=== PATIENT | female | born 1935 | race Caucasian/White ===

== ENCOUNTER 2016-03-24 18:37 | Emergency (ER) | payer MEDICARE, OTHER ==
[2016-03-24] MEDS ORDERED: DIPH,PERTUS(ACELL)TETVAC-LF 0.5 ML VIAL IM ONE (18:59)
--- NOTE | 2016-03-24 19:01 | ED ---
General Adult HPI - General Chief complaint: Wound/Laceration Stated complaint: fall Time Seen by Provider: 03/24/16 18:51 Source: patient, RN notes reviewed Mode of arrival: wheelchair Limitations: no limitations - History of Present Illness Initial comments: This is an 80-year-old female who presents with a laceration to the nose. Patient states she tripped on a rug at [employer] and fell on her face. Patient states her glasses cut her nose. Patient is not up-to-date on tetanus shot. Patient denies any loss of consciousness. Patient denies any headache, nausea/ vomiting/visual changes, dizziness or difficulty ambulating. Patient's roommate is present with her and states she has been acting normally since the fall. Patient does admit that she had some epistaxis after the fall, but the bleeding is now under control. Patient is not on any anticoagulants. Patient denies any recent fever, chills, shortness breath, chest pain, abdominal pain, nausea/vomiting/diarrhea, back pain, numbness, tingling, hematuria, or any other complaints. - Related Data Home Medications Medication Instructions Recorded Confirmed Allopurinol [Zyloprim] 300 mg PO Q3D 08/05/14 03/24/16 Lisinopril [Zestril] 5 mg PO DAILY 08/05/14 03/24/16 Pravastatin Sodium [Pravachol] 20 mg PO DAILY 08/05/14 03/24/16 Alendronate Sodium [Fosamax] 70 mg PO ROBLES 02/17/15 03/24/16 Aspirin 81 mg PO DAILY 02/17/15 03/24/16 Biotin 5 mg PO DAILY 02/17/15 03/24/16 Cholecalciferol [Vitamin D3] 2,000 unit PO BID 02/17/15 03/24/16 Iron 18 mg PO DAILY 02/17/15 03/24/16 Previous Rx's Medication Instructions Recorded Metoprolol Tartrate [Lopressor] 25 mg PO BID #60 tab 02/21/15 Sodium Bicarbonate Tab 650 mg PO TID #60 tab 02/21/15 amLODIPine [Norvasc] 5 mg PO BID #60 tab 02/21/15 glipiZIDE [Glucotrol] 5 mg PO AC-BID #60 tab 02/21/15 hydrALAZINE HCL [Apresoline] 25 mg PO TID #90 tab 02/21/15 Azithromycin [Zithromax Z-pack] 250 mg PO DIRECTED #6 tab 03/24/16 Allergies Allergy/AdvReac Type Severity Reaction Status Date / Time Penicillins Allergy Unknown Verified 03/24/16 18:50 Sulfa (Sulfonamide Allergy Unknown Verified 03/24/16 18:50 Antibiotics) Review of Systems ROS Statement: Those systems with pertinent positive or pertinent negative responses have been documented in the HPI. ROS Other: All systems not noted in ROS Statement are negative. Past Medical History Past Medical History: Cancer, Diabetes Mellitus, Hypertension, Renal Disease Additional Past Medical History / Comment(s): 02/17/15 Pt presented to [facility] ER with chest pain starting about 0330 this AM. Pain radiated to L neck and down L arm. She is admitted with clinical impression of chest pain. 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 History of Any Multi-Drug Resistant Organisms: None Reported Past Surgical History: Adenoidectomy, Bowel Resection, Breast Surgery, Tonsillectomy Additional Past Surgical History / Comment(s): L Breast lumpectomy sugery, partial colectomy for perforation with colostomy for 3 months then reversed, colonoscopy with benign polypectomy, double J catheter insertion L kidney then percutaneous nephrolithotomy attempted and then lithrotropsey ([facility]) and removal of double J catheters. Past Anesthesia/Blood Transfusion Reactions: Motion Sickness Additional Past Anesthesia/Blood Transfusion Reaction / Comment(s): Pt states she has never received blood. Past Psychological History: No Psychological Hx Reported Additional Psychological History / Comment(s): Pt resides with her sister. She has a cane she uses if it is icey outside. She is independent. She drives. Smoking Status: Never smoker Past Alcohol Use History: None Reported Past Drug Use History: None Reported - Past Family History Father Family Medical History: Musculoskeletal Disorder, Neurologic Disorder Additional Family Medical History / Comment(s): Father had parkinsons and at age 60yrs. Mother Family Medical History: Cancer Additional Family Medical History / Comment(s): Mother had stomach cancer and in her 70's. General Exam - General Exam Comments Initial Comments: General: The patient is awake and alert, in no distress, and does not appear acutely ill. Eye: Pupils are equal, round and reactive to light, extra-ocular movements are intact. No pain on palpation of the facial bones. No pain with extraocular movements. No nystagmus. There is normal conjunctiva bilaterally. No signs of icterus. Ears: TMs pink and pearly with intact cone of light bilaterally. Normal external ear canals Nose: There is swelling to the bridge of the nose with an approximately 1.5 cm laceration to the bridge of the nose. There is blood present to bilateral nasal turbinates but no active bleeding. No septal hematoma. Mouth and throat: There are moist mucous membranes and no oral lesions. Neck: No cervical midline tenderness. The neck is supple, there is no tenderness or JVD. Cardiovascular: There is a regular rate and rhythm. No murmur, rub or gallop is appreciated. Respiratory: Lungs are clear to auscultation, respirations are non-labored, breath sounds are equal. No wheezes, stridor, rales, or rhonchi. Musculoskeletal: Normal ROM, no tenderness. Strength 5/5. Sensation intact. Radial pulses equal bilaterally 2+. Neurological: A&O x 3. CN II-XII intact, There are no obvious motor or sensory deficits. Coordination appears grossly intact. Speech is normal. Skin: Skin is warm and dry and no rashes or lesions are noted. Psychiatric: Cooperative, appropriate mood & affect, normal judgment. Limitations: no limitations Course Vital Signs 03/24/16 03/24/16 03/24/16 18:47 20:37 21:29 Temperature 98.2 F Pulse Rate 84 71 73 Respiratory 20 18 18 Rate Blood Pressure 169/80 216/113 237/103 O2 Sat by Pulse 95 96 96 Oximetry Procedures - Procedures Initial comment: The skin was anesthetized with 1% lidocaine. The laceration was then cleansed and irrigated with normal saline. The wound was inspected, and there was no evidence of injury to deep structures. No foreign body was noted in the wound. A total of 4 skin sutures were placed utilizing 5-0 Ethilon. Laceration is approx 1.5 cm. Medical Decision Making - Medical Decision Making This is an 80-year-old female presents laceration of the nose after hitting her head when she fell at [employer]. On physical exam patient is neurologically intact. There is swelling to the bridge of the nose with an approximately 1.5 cm laceration to the bridge of the nose. There is blood present to bilateral nasal turbinates but no active bleeding. No septal hematoma. I discussed with patient that we'll be getting an x-ray of her nasal bones and a CT of brain and C-spine. Patient received a tetanus shot in the [facility] today. X-ray and CT was done showing: #1 no acute intracranial process. #2 chronic white matter ischemic changes. CT of C-spine: #1 no acute osseous abnormality. #2 a large central disc herniation at C3-C4 with moderate anterior thecal sac compression. Consider follow-up MRI to evaluate for cord changes. Reports by Dr. Agee. Xray nasal bone: #1 fractures of the nasal bone and maxillary spine. Correlate with the location of the patient's pain. #2 overlying soft tissue swelling frontal region. Reported by . I re-examined the patient and she has no pain with palpation of the neck or with range of motion of the neck. I discussed follow up with a neurosurgeon for MRI. The skin was anesthetized with 1% lidocaine. The laceration was then cleansed and irrigated with normal saline. The wound was inspected, and there was no evidence of injury to deep structures. No foreign body was noted in the wound. A total of 4 skin sutures were placed utilizing 5-0 Ethilon. Laceration is approx 1.5 cm. I discussed that sutures need to be removed in 5 days. I discussed that rinsing and showering are okay but to avoid submerging the wound in water. Discussed [id number] Tylenol and Motrin as needed for any pain. I discussed use of topical Neosporin. I discussed return parameters and signs of infection. I discussed that patient was given a course of antibiotics due to open fracture of the nose. Discussed that patient needs to follow-up with ENT in 2 days. I discussed ice to the nose. I discussed return parameters. Discussed worsening signs and symptoms of head injury. Discussed that patient should follow up with PCP in one to 2 days or return to the [facility] for any worsening symptoms or for any further concerns. Patient was receptive to this plan and patient will be discharged home. I discussed this case with attending physician Dr. Oh who agrees with plan as stated above. Patient's blood pressure was elevated upon recheck. Patient states she is due for 2 home medications. At this time patient was given her normal home doses of Norvasc and hydralazine. Patient is asymptomatic. Blood pressure was rechecked and is decreasing , 205/95. Patient is not having any symptoms of high blood pressure and patient will be discharged home at this time. I discussed this case with attending physician Dr. Oh who agrees with plan as stated above. Disposition Clinical Impression: Laceration, Open nasal fracture, Cervical disc herniation Disposition: HOME SELF-CARE Condition: Good Instructions: Nasal Fracture (ED), Care For Your Stitches (ED) Additional Instructions: Please finish entire course of antibiotics. Please have sutures removed in 5 days. Please use Neosporin to the wound. Please do not submerge the wound in water but rinsing and showering are okay. Please follow-up with ENT in her primary care physician in one to 2 days. Please return to the [facility] for any worsening symptoms or for any further concerns. Prescriptions: Azithromycin [Zithromax Z-pack] 250 mg PO DIRECTED #6 tab Referrals: Surendra Ford MD [STAFF PHYSICIAN] - 1-2 days Edilma Wood MD [Primary Care Provider] - 1-2 days Scott Gant MD [REFERRING] - 1-2 days Time of Disposition: 22:10
--- NOTE | 2016-03-24 20:03 | CT ---
EXAMINATION TYPE: CT brain cspine wo con DATE OF EXAM: 03/24/2016 7:24 PM COMPARISON: 02/18/2015 HISTORY: Fall today with frontal injury CT DLP: 1378.1 mGycm, Automated exposure control for dose reduction was used. CONTRAST: None CT of the brain is performed utilizing 3 mm thick sections through the posterior fossa and 3 mm thick sections through the remaining calvarium. Study is performed within 24 hours of arrival to the hospital. No abnormal hyperdensity is present to suggest an acute intracranial hemorrhage. No mass lesion is evident. No acute infarcts are evident. There is periventricular white matter hypodensity, likely on the basi s of chronic white matter ischemic changes. Ventricles and sulci are minimally prominent for the patient age. Paranasal sinuses and mastoid air cells within the [id number] are clear. Nasal bone fractures evident. Other soft tissue injury over the nasal bone region. No additional frac tures are evident. Paranasal sinuses and mastoid air cells are clear. IMPRESSIONS: 1. No acute intracranial process. 2. Chronic white matter ischemic changes. 3. Fracture of the nasal bone with overlying soft tissue injury CT cervical spine. COMPARISON: None CT of the cervical spine is performed in the axial plane at 2 mm thick sections. Reconstructed image s in the coronal, and sagittal plane are reviewed on the computer. No acute fractures are evident. Vertebral body alignment is normal. There appears to be central disc herniation at C3-4 with moderate anterior thecal sac compression. So me cord contact may be present. MRI could further evaluate this finding. Vertebral body heights are preserved. Some canal narrowing posterior to the disc herniation is present. Mild foraminal narrowing is present. IMPRESSIONS: 1. No acute osseous abnormality. 2. A large central disc herniation C3-C4 with moderate anterior thecal sac compression. Consider foll ow-up MRI to evaluate for cord changes.
--- NOTE | 2016-03-24 20:06 | XR ---
EXAMINATION TYPE: XR nasal bone DATE OF EXAM: 03/24/2016 7:26 PM COMPARISON: NONE HISTORY: Fall, injury pain TECHNIQUE: 3 views nasal bone FINDINGS: Septal deviation to the left is noted. There is a nasal bone fracture of the distal portion of the nasal bone. Maxillary spine likewise appears fractured. IMPRESSION: 1. Fractures of the nasal bone and maxillary spine. Correlate with location of the patient's pain. 2. Overlying soft tissue swelling frontal region
[2016-03-24] MEDS ORDERED: hydrALAZINE HCL 25 MG TAB PO STA (20:36)
[2016-03-24] MEDS ORDERED: amLODIPine 5 MG TAB PO STA (20:36)
[2016-03-24 20:39] VITALS: RESP 18
[2016-03-24 21:30] VITALS: PULSE 73
[2016-03-24 22:16] VITALS: BP 205/95; TEMP 97.1
== END 2016-03-24 22:11 | disposition home or self-care (01) ==
LOC: EC 18:37
DX: S02.2XXB Fracture of nasal bones, initial encounter for open fracture (principal); S01.21XA Laceration without foreign body of nose, initial encounter; M50.21 Other cervical disc displacement, high cervical region; E11.9 Type 2 diabetes mellitus without complications; I10 Essential (primary) hypertension; M10.9 Gout, unspecified; Z23 Encounter for immunization; Z86.2 Personal history of diseases of the blood and blood-forming organs and certain disorders involving the immune mechanism; Z79.82 Long term (current) use of aspirin; Z79.899 Other long term (current) drug therapy; Z88.0 Allergy status to penicillin; Z88.2 Allergy status to sulfonamides; Z87.442 Personal history of urinary calculi; W01.110A Fall on same level from slipping, tripping and stumbling with subsequent striking against sharp glass, initial encounter; Y92.22 Religious institution as the place of occurrence of the external cause
CPT/HCPCS: 12011; 70160; 70450; 72125; 90471; 90715; 99283

== ENCOUNTER → 2016-06-25 | Outpatient (CLI) | payer MEDICARE ==
--- NOTE | 2016-06-26 14:19 | MM ---
Reason for exam: screening (asymptomatic). Last mammogram was performed 1 year and 1 month ago. History: Patient is postmenopausal, has history of breast cancer at age 69, and is nulliparous. Radiation therapy of the left breast, November 2004. Malignant left mammotome panel of the left breast, September 03, 2004. Lumpectomy. Physical Findings: A clinical breast exam by your physician is recommended on an annual basis and results should be correlated with mammographic findings. MG 3D Screening Mammo W/Cad Bilateral CC and MLO view(s) were taken. Prior study comparison: June 06, 2015, bilateral MG 3d screening mammo w/cad. There are scattered fibroglandular densities. Post biopsy changes in the left breast. ASSESSMENT: Benign, BI-RAD 2 RECOMMENDATION: Follow-up diagnostic mammogram of both breasts in 1 year.
== END ==
LOC: RADMAMWWP 12:49
PROVIDERS: ATTEND Internal Medicine
DX: Z12.31 Encounter for screening mammogram for malignant neoplasm of breast (principal)
CPT/HCPCS: 77063; G0202

== ENCOUNTER → 2016-10-01 | Outpatient (CLI) | payer MEDICARE ==
--- NOTE | 2016-10-01 14:34 | US ---
EXAMINATION TYPE: US kidneys/renal and bladder DATE OF EXAM: 10/01/2016 COMPARISON: NONE CLINICAL HISTORY: R94.4 Abnormal Renal Function. Abnormal renal function/ pt states history of renal stones EXAM MEASUREMENTS: Right Kidney: 7.2 x 3.2 x 3.6 cm Left Kidney: 10.5 x 4.9 x 4.9 cm Right Kidney: Atrophic Left Kidney: Dilated renal pelvis lower pole with possible renal calculi= 0.6 cm/ A possible second r enal calculi at mid pole = 0.4 cm Bladder: wnl Bilateral Jets seen: Only left jet visualized Incidental finding gallstones IMPRESSION: 1. Left-sided hydronephrosis mild in degree with nephrolithiasis. 2. Atrophic changes of the right kidney.
== END | disposition home or self-care (01) ==
LOC: RADUSWWP 13:42
PROVIDERS: ATTEND Internal Medicine
DX: N13.30 Unspecified hydronephrosis (principal); N20.0 Calculus of kidney; N26.1 Atrophy of kidney (terminal)
CPT/HCPCS: 76770

== ENCOUNTER → 2016-10-23 | Outpatient (CLI) | payer MEDICARE ==
[2016-10-23 11:56] LABS: CH 32.8; CHCM 33.6; HDW 2.76; HGB 9.9 gm/dL (11.4-16.0); MCH 33.5 pg (25.0-35.0); MCHC 34.1 g/dL (31.0-37.0); MCV 98.2 fL (80.0-100.0); Macrocytosis Slight; Mean Platelet Volume 7.3; RBC 2.95 m/uL (3.80-5.40); RDW 15.3 % (11.5-15.5); WBC 7.3 k/uL (3.8-10.6)
[2016-10-23 12:12] LABS: Appearance,Urine Clear (Clear); Bilirubin,Urine Negative (Negative); Glucose,Urine (UA) Trace (Negative); Ketones,Urine Negative (Negative); Leukocyte Esterase,Urine Negative (Negative); Mucus,Urine Rare /hpf; Nitrite,Urine Negative (Negative); PH, Urine 6.5 (5.0-8.0); Particle Count 791; Protein,Urine 3+ (Negative); RBC,Urine <1 /hpf (0-5); Squamous Epithelial Cell,Urine 1 /hpf (0-4); UA Billing (MACRO vs. MICRO) MICRO; Urobilinogen,Urine <2.0 mg/dL (<2.0); WBC,Urine 4 /hpf (0-5)
[2016-10-23 12:31] LABS: Calcium 8.8 mg/dL (8.4-10.2); Phosphorous 3.5 mg/dL (2.5-4.5); Potassium 4.1 mmol/L (3.5-5.1); Total Protein 6.2 g/dL (6.3-8.2)
== END | disposition home or self-care (01) ==
LOC: LABWHC1 11:02
PROVIDERS: ATTEND Internal Medicine Nephrology
DX: D64.9 Anemia, unspecified (principal); E83.39 Other disorders of phosphorus metabolism; N39.0 Urinary tract infection, site not specified
CPT/HCPCS: 36415; 80053; 81001; 84100; 85027

== ENCOUNTER → 2016-11-22 | Outpatient (CLI) | payer MEDICARE ==
[2016-11-22 10:24] LABS: Basophils % (A) 1 %; CH 32.2; CHCM 32.6; Eosinophils # (A) 0.2 k/uL (0-0.7); Eosinophils % (A) 3 %; HCT 30.7 % (34.0-46.0); HDW 2.81; HGB 10.6 gm/dL (11.4-16.0); Luc # (Auto) 0.16; Luc % (Auto) 2; Lymphocytes # (A) 1.2 k/uL (1.0-4.8); Lymphocytes % (A) 14 %; MCH 34.4 pg (25.0-35.0); MCHC 34.5 g/dL (31.0-37.0); MCV 99.6 fL (80.0-100.0); Macrocytosis Slight; Mean Platelet Volume 7.3; Monocytes # (A) 0.5 k/uL (0-1.0); Monocytes % (A) 5 %; Neutrophils # (A) 6.7 k/uL (1.3-7.7); Neutrophils % (A) 76 %; RBC 3.09 m/uL (3.80-5.40); RDW 15.3 % (11.5-15.5); WBC 8.8 k/uL (3.8-10.6); WBC (Perox) 9.05
[2016-11-22 10:49] LABS: Calcium 8.8 mg/dL (8.4-10.2); Magnesium 1.8 mg/dL (1.6-2.3); Phosphorus 3.6 mg/dL (2.5-4.5); Potassium 4.7 mmol/L (3.5-5.1); Uric Acid 3.7 mg/dL (3.7-7.4)
[2016-11-22 11:03] LABS: Appearance,Urine Clear (Clear); Bacteria,Urine Rare /hpf; Bilirubin,Urine Negative (Negative); Glucose,Urine (UA) 1+ (Negative); Ketones,Urine Negative (Negative); Leukocyte Esterase,Urine Negative (Negative); Nitrite,Urine Negative (Negative); PH, Urine 6.5 (5.0-8.0); Particle Count 939; Protein,Urine 3+ (Negative); Specific Gravity,Urine 1.012 (1.001-1.035); Squamous Epithelial Cell,Urine 1 /hpf (0-4); UA Billing (MACRO vs. MICRO) MICRO; Urobilinogen,Urine <2.0 mg/dL (<2.0); WBC,Urine 6 /hpf (0-5)
[2016-11-22 16:32] LABS: ANA w/Reflex to Titer NEGATIVE (NEGATIVE)
[2016-11-22 16:38] LABS: Iron(FE) 50 ug/dL (50-170); Total Iron Binding Capacity 303 ug/dL (228-460)
[2016-11-25 05:47] LABS: Complement Total (CH50) 79 U/mL (42 - 95)
[2016-11-25 14:55] LABS: C-ANCA <1:20 Titer (<1:20); P-ANCA <1:20 Titer (<1:20)
== END | disposition home or self-care (01) ==
LOC: LABWHC1 09:09
PROVIDERS: ATTEND Internal Medicine Nephrology
DX: D64.9 Anemia, unspecified (principal); N18.4 Chronic kidney disease, stage 4 (severe); E55.9 Vitamin D deficiency, unspecified; R80.9 Proteinuria, unspecified; R53.83 Other fatigue; E21.3 Hyperparathyroidism, unspecified; M10.9 Gout, unspecified; N39.0 Urinary tract infection, site not specified
CPT/HCPCS: 36415; 80048; 81001; 81050; 82040; 82306; 82728; 83516; 83540; 83550; 83735; 83970; 84100; 84156; 84165; 84550; 85025; 86038; 86160; 86162; 86225; 86255; 86335; 86803; 87340

== ENCOUNTER → 2017-02-17 | Outpatient (CLI) | payer MEDICARE ==
[2017-02-17 09:50] LABS: Calcium 9.4 mg/dL (8.4-10.2); Potassium 4.4 mmol/L (3.5-5.1)
[2017-02-17 09:53] LABS: Basophils % (A) 0 %; Eosinophils # (A) 0.2 k/uL (0-0.7); Eosinophils % (A) 2 %; HCT 29.2 % (34.0-46.0); HGB 9.3 gm/dL (11.4-16.0); Lymphocytes # (A) 1.3 k/uL (1.0-4.8); Lymphocytes % (A) 16 %; MCH 31.6 pg (25.0-35.0); MCHC 31.9 g/dL (31.0-37.0); MCV 99.2 fL (80.0-100.0); Macrocytosis Slight; Mean Platelet Volume 7.4; Monocytes # (A) 0.5 k/uL (0-1.0); Monocytes % (A) 6 %; Neutrophils # (A) 6.1 k/uL (1.3-7.7); Neutrophils % (A) 75 %; Platelet Count 320 k/uL (150-450); RBC 2.94 m/uL (3.80-5.40); RDW 15.5 % (11.5-15.5); WBC 8.2 k/uL (3.8-10.6)
[2017-02-17 12:11] LABS: Appearance,Urine Clear (Clear); Bacteria,Urine Rare /hpf; Bilirubin,Urine Negative (Negative); Blood,Urine Negative (Negative); Color,Urine Yellow; Glucose,Urine (UA) Trace (Negative); Ketones,Urine Negative (Negative); Leukocyte Esterase,Urine Negative (Negative); Mucus,Urine Rare /hpf; Nitrite,Urine Negative (Negative); Protein,Urine 3+ (Negative); Specific Gravity,Urine 1.011 (1.001-1.035); Squamous Epithelial Cell,Urine 1 /hpf (0-4); Urobilinogen,Urine <2.0 mg/dL (<2.0); WBC,Urine 1 /hpf (0-5)
[2017-02-17 15:49] LABS: Iron Saturation 13.99 (12.00-45.00)
[2017-02-17 15:56] LABS: Vitamin D 25 Hydroxy 38.2 ng/mL (30.0-100.0)
[2017-02-17 16:42] LABS: Parathyroid Hormone Intact 131.5 pg/mL (14.0-72.0)
== END | disposition home or self-care (01) ==
LOC: LABWHC1 08:48
PROVIDERS: ATTEND Nurse Practitioner Family
DX: N18.4 Chronic kidney disease, stage 4 (severe) (principal); D64.9 Anemia, unspecified; E55.9 Vitamin D deficiency, unspecified; E21.3 Hyperparathyroidism, unspecified; N39.0 Urinary tract infection, site not specified
CPT/HCPCS: 36415; 80048; 81001; 82306; 82728; 83540; 83550; 83970; 85025

== ENCOUNTER → 2017-05-21 | Outpatient (CLI) | payer MEDICARE ==
[2017-05-21 09:19] LABS: Basophils % (A) 0 %; Eosinophils # (A) 0.2 k/uL (0-0.7); Eosinophils % (A) 2 %; HCT 29.8 % (34.0-46.0); HGB 10.3 gm/dL (11.4-16.0); Lymphocytes # (A) 1.2 k/uL (1.0-4.8); Lymphocytes % (A) 15 %; MCH 33.3 pg (25.0-35.0); MCHC 34.6 g/dL (31.0-37.0); MCV 96.4 fL (80.0-100.0); Mean Platelet Volume 6.8; Monocytes # (A) 0.4 k/uL (0-1.0); Monocytes % (A) 5 %; Neutrophils # (A) 6.4 k/uL (1.3-7.7); Neutrophils % (A) 77 %; Platelet Count 285 k/uL (150-450); RDW 15.3 % (11.5-15.5); WBC 8.4 k/uL (3.8-10.6)
[2017-05-21 09:36] LABS: Appearance,Urine Clear (Clear); Bilirubin,Urine Negative (Negative); Blood,Urine Negative (Negative); Color,Urine Yellow; Glucose,Urine (UA) Negative (Negative); Ketones,Urine Negative (Negative); Leukocyte Esterase,Urine Trace (Negative); Nitrite,Urine Negative (Negative); Protein,Urine 3+ (Negative); Specific Gravity,Urine 1.011 (1.001-1.035); Squamous Epithelial Cell,Urine 2 /hpf (0-4); Urobilinogen,Urine <2.0 mg/dL (<2.0); WBC,Urine 5 /hpf (0-5)
[2017-05-21 09:42] LABS: Calcium 9.8 mg/dL (8.4-10.2); Potassium 4.4 mmol/L (3.5-5.1)
[2017-05-21 16:22] LABS: Iron Saturation 22.37 (12.00-45.00)
[2017-05-21 16:31] LABS: Vitamin D 25 Hydroxy 45.6 ng/mL (30.0-100.0)
[2017-05-21 17:05] LABS: Parathyroid Hormone Intact 69.4 pg/mL (14.0-72.0)
== END | disposition home or self-care (01) ==
LOC: LABWHC1 08:29
PROVIDERS: ATTEND Nurse Practitioner Family
DX: E55.9 Vitamin D deficiency, unspecified (principal); D50.9 Iron deficiency anemia, unspecified; N39.0 Urinary tract infection, site not specified; N18.4 Chronic kidney disease, stage 4 (severe); N25.81 Secondary hyperparathyroidism of renal origin
CPT/HCPCS: 36415; 80048; 81001; 82306; 82728; 83540; 83550; 83970; 85025

== ENCOUNTER → 2017-06-27 | Outpatient (CLI) | payer MEDICARE ==
[2017-06-27 08:25] LABS: Basophils % (A) 0 %; Eosinophils # (A) 0.2 k/uL (0-0.7); Eosinophils % (A) 2 %; HCT 29.9 % (34.0-46.0); HGB 9.7 gm/dL (11.4-16.0); Lymphocytes # (A) 1.6 k/uL (1.0-4.8); Lymphocytes % (A) 16 %; MCH 32.4 pg (25.0-35.0); MCHC 32.4 g/dL (31.0-37.0); MCV 100.1 fL (80.0-100.0); Macrocytosis Slight; Monocytes # (A) 0.4 k/uL (0-1.0); Monocytes % (A) 5 %; Neutrophils # (A) 7.3 k/uL (1.3-7.7); Neutrophils % (A) 76 %; Platelet Count 282 k/uL (150-450); RBC 2.98 m/uL (3.80-5.40); RDW 15.2 % (11.5-15.5); WBC 9.6 k/uL (3.8-10.6)
== END | disposition home or self-care (01) ==
LOC: LABWHC1 08:00
PROVIDERS: ATTEND Internal Medicine Nephrology
DX: N18.4 Chronic kidney disease, stage 4 (severe) (principal); D63.1 Anemia in chronic kidney disease
CPT/HCPCS: 36415; 85025

== ENCOUNTER → 2017-07-24 | Outpatient (CLI) | payer MEDICARE ==
--- NOTE | 2017-07-25 11:20 | BD ---
EXAMINATION TYPE: Axial Bone Density DATE OF EXAM: 07/24/2017 COMPARISON: 01.31.2014 CLINICAL HISTORY: 82 YR OLD FEMALE....ICD-10 CODE: M81.0 KNOWN OSTEOPOROSIS Height: 61.3 Weight: 117 FRAX RISK QUESTIONS: NONE TO NOTE PER PATIENT RISK FACTORS HISTORY OF: Diet low in dairy products/other sources of calcium: NO Postmenopausal woman: YES IN HER 50'S Lost more than 2 inches in height since high school: YES Frequent falls: UNSTEADY, ELDERLY...USES CANE AND W/C Poor Health: FRAIL, ELDERLY MEDICATIONS: Additional Medications: BP MEDS, NO DIABETIC MEDS FOR YR NOW, VIT D, Additional History: HYPERTENSION, DIABETIC (BUT NOT TAKING MEDS FOR LAST YR NOW) EXAM MEASUREMENTS: Bone mineral densitometry was performed using the [employer]node System. Bone mineral density as measured about the Lumbar spine is: ----- L1-L4(G/cm2): 1.178 T Score Values are as follows: ----- L1: -0.2 ----- L2: -0.6 ----- L3: 1.0 ----- L4: -0.4 ----- L1-L4: 0.0 Bone mineral density has: Decreased -3.9% since study of: 01.31.2014 Bone mineral density about the R hip (g/cm2): 0.674 Bone mineral density about the L hip (g/cm2): 0.616 T Score values are as follows: -----R Neck: -2.6 -----L Neck: -2.9 -----R Total: -2.6 -----L Total: -3.1 Bone mineral density has: Decreased -11.0% since study of: 01.31.2014 FRAX%s: THERE IS A 21.1% CHANCE OF A MAJOR OSTEOPOROTIC FX AND A 8.9% FOR HIP FX....PROBABILITY OF FX IN 10 YRS TIME IMPRESSION: Osteoporosis (T Score less than -2.5). There is increased fracture risk and therapy is usually indicated based on age. Re-Screen 1-2 years. NOTE: T-SCORE=SD OF THE YOUNG ADULT MEAN.
--- NOTE | 2017-07-28 08:14 | MM ---
Reason for exam: screening (asymptomatic). Last mammogram was performed 1 year and 1 month ago. History: Patient is postmenopausal, has history of breast cancer at age 69, and is nulliparous. Radiation therapy of the left breast, November 2004. Malignant left mammotome panel of the left breast, September 03, 2004. Lumpectomy. Physical Findings: A clinical breast exam by your physician is recommended on an annual basis and results should be correlated with mammographic findings. MG 3D Screening Mammo W/Cad Bilateral CC and MLO view(s) were taken. Prior study comparison: June 25, 2016, bilateral MG 3d screening mammo w/cad. June 06, 2015, bilateral MG 3d screening mammo w/cad. There are scattered fibroglandular densities. Post surgical changes in the left breast, stable. No significant changes when compared with prior studies. ASSESSMENT: Benign, BI-RAD 2 RECOMMENDATION: Routine screening mammogram of both breasts in 1 year.
== END | disposition home or self-care (01) ==
LOC: RADMAMWWP 15:03
PROVIDERS: ATTEND Internal Medicine
DX: Z12.31 Encounter for screening mammogram for malignant neoplasm of breast (principal); M81.0 Age-related osteoporosis without current pathological fracture
CPT/HCPCS: 77063; 77067; 77080

== ENCOUNTER → 2018-02-24 | Outpatient (CLI) | payer MEDICARE ==
[2018-02-24 11:31] LABS: Basophils % (A) 0 %; Eosinophils # (A) 0.2 k/uL (0-0.7); Eosinophils % (A) 3 %; HCT 28.9 % (34.0-46.0); Lymphocytes # (A) 1.3 k/uL (1.0-4.8); Lymphocytes % (A) 15 %; MCH 32.2 pg (25.0-35.0); Macrocytosis Moderate; Monocytes # (A) 0.4 k/uL (0-1.0); Monocytes % (A) 5 %; Neutrophils # (A) 6.7 k/uL (1.3-7.7); Neutrophils % (A) 76 %; Platelet Count 292 k/uL (150-450); RBC 2.78 m/uL (3.80-5.40); RDW 15.8 % (11.5-15.5); WBC 8.8 k/uL (3.8-10.6)
[2018-02-24 12:06] LABS: Appearance,Urine Clear (Clear); Bilirubin,Urine Negative (Negative); Blood,Urine Negative (Negative); Color,Urine Yellow; Glucose,Urine (UA) Negative (Negative); Hyaline Casts,Urine 1 /lpf (0-2); Ketones,Urine Negative (Negative); Leukocyte Esterase,Urine Trace (Negative); Nitrite,Urine Negative (Negative); PH, Urine 6.5 (5.0-8.0); Protein,Urine 2+ (Negative); Specific Gravity,Urine 1.011 (1.001-1.035); Squamous Epithelial Cell,Urine 1 /hpf (0-4); Urobilinogen,Urine <2.0 mg/dL (<2.0); WBC,Urine 2 /hpf (0-5)
[2018-02-24 16:29] LABS: Iron Saturation 17.61 (12.00-45.00)
[2018-02-24 16:30] LABS: Anion Gap 9.4 mmol/L (4.00-12.00); Calcium 8.9 mg/dL (8.7-10.3); Carbon Dioxide 27.6 mmol/L (21.6-31.8); Magnesium 1.6 mg/dL (1.5-2.4); Parathyroid Hormone Intact 87.4 pg/mL (14.0-72.0); Phosphorus 3.5 mg/dL (2.4-5.1); Uric Acid 3.3 mg/dL (2.9-7.7)
[2018-02-24 16:36] LABS: Vitamin D 25 Hydroxy 95.9 ng/mL (30.0-100.0)
== END ==
LOC: LABWHC1 10:01
PROVIDERS: ATTEND Internal Medicine Nephrology
DX: E55.9 Vitamin D deficiency, unspecified (principal); N25.81 Secondary hyperparathyroidism of renal origin; M10.9 Gout, unspecified; N39.0 Urinary tract infection, site not specified; D63.1 Anemia in chronic kidney disease; N18.3 Chronic kidney disease, stage 3 (moderate)
CPT/HCPCS: 36415; 80048; 81001; 82306; 82728; 83540; 83550; 83735; 83970; 84100; 84550; 85025

== ENCOUNTER → 2018-05-26 | Outpatient (CLI) | payer MEDICARE ==
[2018-05-26 13:26] LABS: Basophils % (A) 0 %; Eosinophils # (A) 0.3 k/uL (0-0.7); Eosinophils % (A) 3 %; HCT 31.5 % (34.0-46.0); HGB 10.3 gm/dL (11.4-16.0); Lymphocytes % (A) 10 %; MCH 33.1 pg (25.0-35.0); MCHC 32.6 g/dL (31.0-37.0); MCV 101.7 fL (80.0-100.0); Macrocytosis Slight; Mean Platelet Volume 6.8; Monocytes # (A) 0.4 k/uL (0-1.0); Monocytes % (A) 4 %; Neutrophils # (A) 7.9 k/uL (1.3-7.7); Neutrophils % (A) 81 %; Platelet Count 276 k/uL (150-450); RDW 15.6 % (11.5-15.5); WBC 9.7 k/uL (3.8-10.6)
[2018-05-26 13:57] LABS: Appearance,Urine Clear (Clear); Bilirubin,Urine Negative (Negative); Blood,Urine Negative (Negative); Color,Urine Yellow; Glucose,Urine (UA) Negative (Negative); Ketones,Urine Negative (Negative); Leukocyte Esterase,Urine Negative (Negative); Nitrite,Urine Negative (Negative); PH, Urine 6.5 (5.0-8.0); Protein,Urine 1+ (Negative); RBC,Urine <1 /hpf (0-5); Specific Gravity,Urine 1.012 (1.001-1.035); Squamous Epithelial Cell,Urine 1 /hpf (0-4); Urobilinogen,Urine <2.0 mg/dL (<2.0); WBC,Urine <1 /hpf (0-5)
[2018-05-26 19:29] LABS: Iron Saturation 32.44 (12.00-45.00)
[2018-05-26 19:38] LABS: Vitamin D 25 Hydroxy 50.8 ng/mL (30.0-100.0)
[2018-05-26 19:43] LABS: Anion Gap 8.4 mmol/L (4.00-12.00); Calcium 9.4 mg/dL (8.7-10.3); Carbon Dioxide 26.6 mmol/L (21.6-31.8); Magnesium 1.7 mg/dL (1.5-2.4); Phosphorus 3.6 mg/dL (2.4-5.1); Potassium 5.3 mmol/L (3.5-5.5); Uric Acid 2.8 mg/dL (2.9-7.7)
[2018-05-26 21:18] LABS: Parathyroid Hormone Intact 83.6 pg/mL (14.0-72.0)
== END | disposition home or self-care (01) ==
LOC: LABWHC1 12:14
PROVIDERS: ATTEND Nurse Practitioner Family
DX: E55.9 Vitamin D deficiency, unspecified (principal); E21.3 Hyperparathyroidism, unspecified; M10.9 Gout, unspecified; N39.0 Urinary tract infection, site not specified; N18.4 Chronic kidney disease, stage 4 (severe); D63.1 Anemia in chronic kidney disease
CPT/HCPCS: 36415; 80048; 81001; 82306; 82728; 83540; 83550; 83735; 83970; 84100; 84550; 85025

== ENCOUNTER 2018-07-19 08:49 | Inpatient (IN) | payer MEDICARE ==
[2018-07-19] MEDS ORDERED: SODIUM CHLORIDE 0.9% 1,000 ML IV ONE ×2 (09:30)
--- NOTE | 2018-07-19 09:35 | ED ---
General Adult HPI - General Chief complaint: Fall Stated complaint: Fall,weakness Time Seen by Provider: 07/19/18 08:53 Source: patient, RN notes reviewed, old records reviewed Mode of arrival: EMS Limitations: no limitations - History of Present Illness Initial comments: Patient is an 83-year-old female, shows with her sister. Apparently Patient became dizzy while walking to the bathroom, she fell in the floor of her bathroom yesterday was unable to get up. She was laying on the floor for approximately 18 hours. Patient's sister both with her during this time, however sister has difficult time ambulating. Patient sister eventually was able to go to the neighbors this morning and called the neighbor for help. Upon arrival Patient was found to have soiled herself. Patient states that she has some lower back pain. She denies loss consciousness. She does complain of some neck discomfort as well. She was placed in a c-collar on EMS arrival. Patient states she's been feeling dizzy and weak for the past 3 days. Patient has had no changes in stools or urination. She denies any associated chest pain or shortness of breath. - Related Data Home Medications Medication Instructions Recorded Confirmed Allopurinol [Zyloprim] 300 mg PO Q3D 08/05/14 04/14/18 Lisinopril [Zestril] 5 mg PO DAILY 08/05/14 04/14/18 Pravastatin Sodium [Pravachol] 20 mg PO DAILY 08/05/14 04/14/18 Alendronate Sodium [Fosamax] 70 mg PO ROBLES 02/17/15 04/14/18 Aspirin 81 mg PO DAILY 02/17/15 04/14/18 Biotin 5 mg PO DAILY 02/17/15 04/14/18 Iron 18 mg PO DAILY 02/17/15 04/14/18 Previous Rx's Medication Instructions Recorded Metoprolol Tartrate [Lopressor] 25 mg PO BID #60 tab 02/21/15 Sodium Bicarbonate Tab 650 mg PO TID #60 tab 02/21/15 amLODIPine [Norvasc] 5 mg PO BID #60 tab 02/21/15 hydrALAZINE HCL [Apresoline] 25 mg PO TID #90 tab 02/21/15 Allergies Allergy/AdvReac Type Severity Reaction Status Date / Time glipizide Allergy Rash/Hives Verified 04/14/18 14:47 Penicillins Allergy Unknown Verified 04/14/18 14:47 Sulfa (Sulfonamide Allergy Unknown Verified 04/14/18 14:47 Antibiotics) Review of Systems ROS Statement: Those systems with pertinent positive or pertinent negative responses have been documented in the HPI. ROS Other: All systems not noted in ROS Statement are negative. Past Medical History Past Medical History: Cancer, Diabetes Mellitus, Hypertension, Renal Disease Additional Past Medical History / Comment(s): 02/17/15 Pt presented to [facility] ER with chest pain starting about 0330 this AM. Pain radiated to L neck and down L arm. She is admitted with clinical impression of chest pain. 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 History of Any Multi-Drug Resistant Organisms: None Reported Past Surgical History: Adenoidectomy, Bowel Resection, Breast Surgery, Tonsillectomy Additional Past Surgical History / Comment(s): L Breast lumpectomy sugery, partial colectomy for perforation with colostomy for 3 months then reversed, colonoscopy with benign polypectomy, double J catheter insertion L kidney then percutaneous nephrolithotomy attempted and then lithrotropsey (ESWL) and removal of double J catheters. Past Anesthesia/Blood Transfusion Reactions: Motion Sickness Additional Past Anesthesia/Blood Transfusion Reaction / Comment(s): Pt states she has never received blood. Past Psychological History: No Psychological Hx Reported Smoking Status: Never smoker Past Alcohol Use History: None Reported Past Drug Use History: None Reported - Past Family History Father Family Medical History: Musculoskeletal Disorder, Neurologic Disorder Additional Family Medical History / Comment(s): Father had parkinsons and at age 60yrs. Mother Family Medical History: Cancer Additional Family Medical History / Comment(s): Mother had stomach cancer and in her 70's. General Exam - General Exam Comments Initial Comments: Pleasant 83-year-old female. Alert and oriented 3. Patient appears in no significant distress. Currently in c-collar. Limitations: no limitations General appearance: alert, in no apparent distress Head exam: Present: atraumatic, normocephalic, normal inspection Eye exam: Present: normal appearance, PERRL, EOMI. Absent: scleral icterus, conjunctival injection, periorbital swelling ENT exam: Present: normal exam, mucous membranes moist Neck exam: Present: normal inspection. Absent: tenderness, meningismus, lymphadenopathy Respiratory exam: Present: normal lung sounds bilaterally. Absent: respiratory distress, wheezes, rales, rhonchi, stridor Cardiovascular Exam: Present: regular rate, normal rhythm, normal heart sounds. Absent: systolic murmur, diastolic murmur, rubs, gallop, clicks GI/Abdominal exam: Present: soft, normal bowel sounds. Absent: distended, tenderness, guarding, rebound, rigid Rectal exam: Present: normal inspection, normal rectal tone External exam: Present: other (Stage I pressure sore over her sacrum.) Extremities exam: Present: normal inspection, full ROM, normal capillary refill, other (Left-sided foot drop.). Absent: tenderness, pedal edema, joint swelling, calf tenderness Back exam: Present: normal inspection Neurological exam: Present: alert, oriented X3, CN II-XII intact Psychiatric exam: Present: normal affect, normal mood Skin exam: Present: warm, dry, intact, normal color. Absent: rash Course Vital Signs 07/19/18 09:02 Temperature 98.4 F Pulse Rate 88 Respiratory 18 Rate Blood Pressure 116/60 O2 Sat by Pulse 98 Oximetry - Reevaluation(s) Reevaluation #1: 07/19/18 11:20 Patient was informed of lab results including elevated BUN been. She states that she only has one functioning kidney. Patient states that she has been having some darker stools. Fecal occult completed at this time. Medical Decision Making - Medical Decision Making 83-year-old female presents weren't promptly for evaluation after fall. She was laying on the ground for 18 hours. She is feeling dizzy and lightheaded prior to her fall. Patient's labwork was reviewed. She does have significant elevation of BUN and creatinine. Concerns for acute kidney injury secondary to dehydration. Her Hemoccult globe and was also noted to be low at 7.1. On furt her questioning that she she's had some dark stools. Fecal occult was negative at this time. Patient CT brain and C-spine is completed. Negative for any acute process. There is evidence of disc disease. She does have a stage I pressor sore over her sacrum from being down on the bathroom floor from this time. Patient will be admitted for weakness, dehydration, acute kidney injury, low hemoglobin anemia. Discussed case with Dr. Davey who discussed case with Dr. Christiansen. Is also noted patient's white blood count is elevated at 15.1. No significant source for infectious time, as Patient is afebrile. Currently pending urinalysis results this Patient needs to be straight cath. - Lab Data Result diagrams: 07/19/18 10:04 07/19/18 10:04 Lab Results 07/19/18 07/19/18 07/19/18 Range/Units 10:04 10:04 10:04 WBC 15.2 H (3.8-10.6) k/uL RBC 2.18 L (3.80-5.40) m/uL Hgb 7.1 L D (11.4-16.0) gm/dL Hct 21.7 L (34.0-46.0) % MCV 99.5 (80.0-100.0) fL MCH 32.5 (25.0-35.0) pg MCHC 32.6 (31.0-37.0) g/dL RDW 15.2 (11.5-15.5) % Plt Count 254 (150-450) k/uL Neutrophils % 90 % Lymphocytes % 4 % Monocytes % 5 % Eosinophils % 0 % Basophils % 0 % Neutrophils # 13.6 H (1.3-7.7) k/uL Lymphocytes # 0.6 L (1.0-4.8) k/uL Monocytes # 0.8 (0-1.0) k/uL Eosinophils # 0.0 (0-0.7) k/uL Basophils # 0.0 (0-0.2) k/uL Macrocytosis Slight PT 10.3 (9.0-12.0) sec INR 1.0 (<1.2) APTT 19.6 L (22.0-30.0) sec Sodium 143 (137-145) mmol/L Potassium 5.2 H (3.5-5.1) mmol/L Chloride 111 H (98-107) mmol/L Carbon Dioxide 21 L (22-30) mmol/L Anion Gap 11 mmol/L BUN 113 H* (7-17) mg/dL Creatinine 2.50 H (0.52-1.04) mg/dL Est GFR (CKD-EPI)AfAm 20 (>60 ml/min/1.73 sqM) Est GFR (CKD-EPI)NonAf 17 (>60 ml/min/1.73 sqM) Glucose 162 H (74-99) mg/dL Calcium 9.7 (8.4-10.2) mg/dL Total Bilirubin 1.2 (0.2-1.3) mg/dL AST 17 (14-36) U/L ALT 16 (9-52) U/L Alkaline Phosphatase 47 (38-126) U/L Creatine Kinase 131 (30-135) U/L Troponin I (0.000-0.034) ng/mL Total Protein 6.6 (6.3-8.2) g/dL Albumin 3.8 (3.5-5.0) g/dL Stool Occult Blood (Negative) Blood Type Blood Type Recheck Antibody Screen Spec Expiration Date 07/19/18 07/19/18 07/19/18 Range/Units 10:04 10:04 10:04 WBC (3.8-10.6) k/uL RBC (3.80-5.40) m/uL Hgb (11.4-16.0) gm/dL Hct (34.0-46.0) % MCV (80.0-100.0) fL MCH (25.0-35.0) pg MCHC (31.0-37.0) g/dL RDW (11.5-15.5) % Plt Count (150-450) k/uL Neutrophils % % Lymphocytes % % Monocytes % % Eosinophils % % Basophils % % Neutrophils # (1.3-7.7) k/uL Lymphocytes # (1.0-4.8) k/uL Monocytes # (0-1.0) k/uL Eosinophils # (0-0.7) k/uL Basophils # (0-0.2) k/uL Macrocytosis PT (9.0-12.0) sec INR (<1.2) APTT (22.0-30.0) sec Sodium (137-145) mmol/L Potassium (3.5-5.1) mmol/L Chloride (98-107) mmol/L Carbon Dioxide (22-30) mmol/L Anion Gap mmol/L BUN (7-17) mg/dL Creatinine (0.52-1.04) mg/dL Est GFR (CKD-EPI)AfAm (>60 ml/min/1.73 sqM) Est GFR (CKD-EPI)NonAf (>60 ml/min/1.73 sqM) Glucose (74-99) mg/dL Calcium (8.4-10.2) mg/dL Total Bilirubin (0.2-1.3) mg/dL AST (14-36) U/L ALT (9-52) U/L Alkaline Phosphatase (38-126) U/L Creatine Kinase (30-135) U/L Troponin I <0.012 (0.000-0.034) ng/mL Total Protein (6.3-8.2) g/dL Albumin (3.5-5.0) g/dL Stool Occult Blood Negative (Negative) Blood Type A Negative Blood Type Recheck CABO Indicated Antibody Screen NEGATIVE Spec Expiration Date 07/22/2018 - 230307/19/18 11:27 X-rays negative for any acute osseous lesions. Moderate degenerative changes. Chest x-ray is negative for any intrathoracic disease. 07/19/18 12:12 Normal sinus rhythm, left anterior fascicular block. Abnormal EKG. Ventricular rate of 80 bpm. This 46 most seconds precursors 86 no seconds. QT QTc is 400/44 ms. - Radiology Data Radiology results: report reviewed CT of the Brain C-spine is negative for any acute intracranial abnormality, did not of changes noted of her brain. C-spine shows no acute osseous lesion. Degenerative changes noted. Central disc protrusion at C3-C4 moderate impression upon the thecal sac. Disposition Clinical Impression: Anemia, Fall, SCOTT (acute kidney injury), Dehydration, Weakness Disposition: ADMITTED IP TO THIS HOSP Condition: Stable Is patient prescribed a controlled substance at d/c from ED?: No Referrals: Edilma Wood MD [Primary Care Provider] - 1-2 days Time of Disposition: 12:14
[2018-07-19 10:26] LABS: Basophils % (A) 0 %; Eosinophils % (A) 0 %; HCT 21.7 % (34.0-46.0); Lymphocytes # (A) 0.6 k/uL (1.0-4.8); Lymphocytes % (A) 4 %; MCH 32.5 pg (25.0-35.0); MCHC 32.6 g/dL (31.0-37.0); MCV 99.5 fL (80.0-100.0); Macrocytosis Slight; Mean Platelet Volume 7.6; Monocytes # (A) 0.8 k/uL (0-1.0); Monocytes % (A) 5 %; Neutrophils # (A) 13.6 k/uL (1.3-7.7); Neutrophils % (A) 90 %; Platelet Count 254 k/uL (150-450); RBC 2.18 m/uL (3.80-5.40); RDW 15.2 % (11.5-15.5); WBC 15.2 k/uL (3.8-10.6)
[2018-07-19 10:28] LABS: HGB 7.1 gm/dL (11.4-16.0)
[2018-07-19 10:31] LABS: Albumin 3.8 g/dL (3.5-5.0); Calcium 9.7 mg/dL (8.4-10.2); Potassium 5.2 mmol/L (3.5-5.1); Total Bilirubin 1.2 mg/dL (0.2-1.3); Total Protein 6.6 g/dL (6.3-8.2)
--- NOTE | 2018-07-19 10:33 | CT ---
EXAMINATION TYPE: CT brain ketan philippe DATE OF EXAM: 07/19/2018 COMPARISON: Previous study dated 03/24/2016. HISTORY: Fall, dizziness CT DLP: 1236.5 mGycm Automated exposure control for dose reduction was used. TECHNIQUE: CT scan of the head and cervical spine are performed without contrast. FINDINGS: BRAIN: There is a large amount of streak artifact through the posterior fossa. There are generalized changes of sulcal prominence and ventriculomegaly, compatible with atrophic johan nge. There is periventricular white matter lucency, compatible with white matter ischemic change. There is no acute focal lesion, mass effect or midline shift identified. I do not see evidence of intracrania l blood. Visualized portions of the paranasal sinuses and mastoids are clear. The bony calvarium is intact. IMPRESSION: 1. NO ACUTE INTRACRANIAL ABNORMALITY. 2. DEGENERATIVE CHANGE. CERVICAL SPINE: Visualized portions of the lungs are clear. Prevertebral soft tissues are normal. Vertebral body height and alignment are maintained. Atlantoaxial relationships are normal. There is d egenerative disc disease and hypertrophic spondylosis at C5-6 and C6-7. There is uncovertebral joint disease also present at these levels. There is mild facet arthropathy throughout the cervical spine. There is a central disc protrusion present at C3-4 with moderate impression upon the thecal sac. This is similar to previous. No fractures are seen. IMPRESSION: 1. NO ACUTE OSSEOUS LESION. 2. DEGENERATIVE CHANGE. 3. CENTRAL DISC PROTRUSION, C3-4 MODERATE IMPRESSION UPON THE THECAL SAC.
[2018-07-19 10:39] LABS: Prothrombin Time 10.3 sec (9.0-12.0)
[2018-07-19 10:40] LABS: Partial Thromboplastin Time 19.6 sec (22.0-30.0)
[2018-07-19] MEDS: MORPHINE SULFATE 4 MG/ML SYRINGE IV STA ×2 (10:42→10:44)
--- NOTE | 2018-07-19 11:15 | XR ---
EXAMINATION TYPE: XR chest 2V DATE OF EXAM: 07/19/2018 HISTORY: fall, dizziness. REFERENCE: Previous study dated 02/17/2015. FINDINGS: The lungs remain clear. Heart size is normal. Pleural space are clear. IMPRESSION: NO ACTIVE INTRATHORACIC DISEASE.
--- NOTE | 2018-07-19 11:17 | XR ---
EXAMINATION TYPE: XR lumbar spine 2 or 3V , 4 VIEWS DATE OF EXAM ORDERED: 07/19/2018 HISTORY: Pain. COMPARISON: None. FINDINGS: There is a mild levoscoliosis present. Vertebral body height and alignment are maintained. No fractures are seen. There is degenerative dise ase and hypertrophic spondylosis throughout the spine. There is no spondylolysis or spondylolisthesis . Paraspinal soft tissues are normal. The pedicles are intact. IMPRESSION: 1. NO ACUTE OSSEOUS LESION. 2. MODERATE DEGENERATIVE CHANGE.
[2018-07-19] MEDS ORDERED: PANTOPRAZOLE 40 MG/10 ML VIAL IVP STA (11:48)
[2018-07-19] MEDS ORDERED: MORPHINE SULFATE 4 MG/ML SYRINGE IV PRN (12:14)
[2018-07-19] MEDS ORDERED: ONDANSETRON 4 MG/2 ML VIAL IVP PRN (12:14)
[2018-07-19] MEDS ORDERED: NALOXONE 0.4 MG/ML 1 ML VIAL IV PRN (12:14)
[2018-07-19] MEDS ORDERED: SODIUM BICARB 8.4% 50 ML SYR (1 MEQ/ML) IV STA (12:49)
[2018-07-19 12:57] LABS: Appearance,Urine Clear (Clear); Bilirubin,Urine Negative (Negative); Blood,Urine Negative (Negative); Color,Urine Light Yellow; Glucose,Urine (UA) Negative (Negative); Ketones,Urine Negative (Negative); Leukocyte Esterase,Urine Negative (Negative); Nitrite,Urine Negative (Negative); Protein,Urine Trace (Negative); Specific Gravity,Urine 1.014 (1.001-1.035); Urobilinogen,Urine <2.0 mg/dL (<2.0)
[2018-07-19] MEDS: DEXTROSE 5% IN WATER 1,000 ML with SODIUM BICARB (1 MEQ/ML) 50 ML IV SCH (15:44)
[2018-07-19] MEDS: SODIUM CHLORIDE 0.9% 1,000 ML IV SCH ×2 (15:44→22:05)
[2018-07-19 17:03] LABS: Anisocytosis Slight; Basophils % (A) 0 %; Eosinophils % (A) 0 %; Lymphocytes # (A) 0.8 k/uL (1.0-4.8); Lymphocytes % (A) 6 %; MCH 33.7 pg (25.0-35.0); MCV 101.9 fL (80.0-100.0); Macrocytosis Slight; Mean Platelet Volume 7.9; Monocytes # (A) 0.6 k/uL (0-1.0); Monocytes % (A) 4 %; Neutrophils # (A) 11.4 k/uL (1.3-7.7); Neutrophils % (A) 88 %; Platelet Count 211 k/uL (150-450); RDW 16.2 % (11.5-15.5); WBC 12.9 k/uL (3.8-10.6)
[2018-07-19 17:06] LABS: HGB 6.1 gm/dL (11.4-16.0)
[2018-07-19 17:07] LABS: HCT 18.4 % (34.0-46.0)
[2018-07-19] MEDS: amLODIPine 2.5 MG TAB PO SCH (22:04)
[2018-07-19] MEDS: hydrALAZINE HCL 25 MG TAB PO SCH ×2 (22:04→22:13)
[2018-07-19] MEDS: LISINOPRIL 5 MG TAB PO SCH (22:04)
[2018-07-19] MEDS: METOPROLOL TARTRATE 25 MG TAB PO SCH (22:04)
[2018-07-19] MEDS: PANTOPRAZOLE 40 MG/10 ML VIAL IVP SCH (22:05)
[2018-07-19 22:56] LABS: Anisocytosis Slight; HCT 22.8 % (34.0-46.0); HGB 7.4 gm/dL (11.4-16.0); MCH 31.8 pg (25.0-35.0); MCHC 32.3 g/dL (31.0-37.0); MCV 98.5 fL (80.0-100.0); Macrocytosis Slight; Mean Platelet Volume 7.6; Platelet Count 212 k/uL (150-450); RBC 2.31 m/uL (3.80-5.40); RDW 16.6 % (11.5-15.5); WBC 11.4 k/uL (3.8-10.6)
[2018-07-20 05:42] LABS: Glucose,Whole Blood 111 mg/dL (75-99)
[2018-07-20 08:44] LABS: Anisocytosis Slight; Basophils % (A) 0 %; Eosinophils # (A) 0.2 k/uL (0-0.7); Eosinophils % (A) 2 %; HCT 22.8 % (34.0-46.0); HGB 7.4 gm/dL (11.4-16.0); Lymphocytes # (A) 1.1 k/uL (1.0-4.8); Lymphocytes % (A) 11 %; MCH 32.4 pg (25.0-35.0); MCHC 32.6 g/dL (31.0-37.0); MCV 99.2 fL (80.0-100.0); Macrocytosis Slight; Mean Platelet Volume 8.1; Monocytes # (A) 0.5 k/uL (0-1.0); Monocytes % (A) 5 %; Neutrophils # (A) 8.3 k/uL (1.3-7.7); Neutrophils % (A) 82 %; Platelet Count 204 k/uL (150-450); RBC 2.29 m/uL (3.80-5.40); RDW 16.8 % (11.5-15.5); WBC 10.2 k/uL (3.8-10.6)
[2018-07-20 08:52] LABS: Albumin 2.8 g/dL (3.5-5.0); Calcium 8.5 mg/dL (8.4-10.2); Potassium 4.4 mmol/L (3.5-5.1); Total Bilirubin 2.4 mg/dL (0.2-1.3); Total Protein 5.3 g/dL (6.3-8.2)
[2018-07-20] MEDS ORDERED: PANTOPRAZOLE 40 MG/10 ML VIAL IV SCH (09:00)
[2018-07-20] MEDS: SODIUM CHLORIDE 0.9% 1,000 ML IV SCH ×2 (09:22→15:31)
[2018-07-20] MEDS: amLODIPine 2.5 MG TAB PO SCH (09:23)
[2018-07-20] MEDS: METOPROLOL TARTRATE 25 MG TAB PO SCH ×2 (09:23→20:30)
[2018-07-20] MEDS: PRAVASTATIN SODIUM 20 MG TAB PO SCH (09:23)
[2018-07-20] MEDS: ALLOPURINOL 300 MG TAB PO SCH (09:23)
[2018-07-20] MEDS: DEXTROSE 5% IN WATER 1,000 ML with SODIUM BICARB (1 MEQ/ML) 50 ML IV SCH (09:23)
[2018-07-20] MEDS: PANTOPRAZOLE 40 MG/10 ML VIAL IVP SCH ×2 (09:23→20:29)
[2018-07-20] MEDS: hydrALAZINE HCL 25 MG TAB PO SCH ×3 (09:23→20:30)
[2018-07-20] MEDS: LISINOPRIL 5 MG TAB PO SCH (09:23)
--- NOTE | 2018-07-20 10:50 | P.HPIM ---
History of Present Illness H&P Date: 07/20/18 This is an 83-year-old female patient who presented to the ER after having a fall at home. Patient reports that she became dizzy while walking into the bathroom and she fell to the bathroom floor. Patient reports that she lives with her sister and her sister has cold feet ambulating herself. Patient reports that performed without and patient had to lay on the floor for 18 hours until sister was able to flag [employer] delivery down for assistance. Patient reports that she did not lose consciousness but has been having episodes with dizziness. Patient denies hitting her head. Patient has known past medical history of breast cancer, diabetes mellitus, hypertension, chronic renal disease in which he follows with nephrology services, anemia, gout, neuropathy bilateral feet and neck pain. Upon arrival patient was found to have hemoglobin of 6.1. Patient denies any signs of active bleeding. Patient denies blood in her stool. Patient denies blood in urine. Creatinine also elevated at 2.50 and bun 113. Nephrology and GI services have been consulted. Chest x-ray showing no active intrathoracic disease. CT of brain and C-spine completed showing no active intracranial abnormality. Degenerative change. Lumbar spine x-ray completed showing no acute osseous lesion. Moderate degenerative change. EKG showing normal sinus rhythm. At this time patient is resting comfortably in chair. Patient denies any chest pain or shortness of breath. Patient denies nausea vomiting or diarrhea. Patient denies any urinary burning or frequency. Review of Systems Please refer to HPI otherwise unremarkable Past Medical History Past Medical History: Cancer, Diabetes Mellitus, Hypertension, Renal Disease Additional Past Medical History / Comment(s): 02/17/15 Pt presented to [facility] ER with chest pain starting about 0330 this AM. Pain radiated to L neck and down L arm. She is admitted with clinical impression of chest pain. 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 History of Any Multi-Drug Resistant Organisms: None Reported Past Surgical History: Adenoidectomy, Bowel Resection, Breast Surgery, Tonsillectomy Additional Past Surgical History / Comment(s): L Breast lumpectomy sugery, partial colectomy for perforation with colostomy for 3 months then reversed, co lonoscopy with benign polypectomy, double J catheter insertion L kidney then percutaneous nephrolithotomy attempted and then lithrotropsey (ESWL) and removal of double J catheters. Past Anesthesia/Blood Transfusion Reactions: Motion Sickness Additional Past Anesthesia/Blood Transfusion Reaction / Comment(s): Pt states she has never received blood. Past Psychological History: No Psychological Hx Reported Additional Psychological History / Comment(s): Pt resides with her sister. She has a cane she uses if it is icey outside. She is independent. She drives. Smoking Status: Never smoker Past Alcohol Use History: None Reported Past Drug Use History: None Reported - Past Family History Father Family Medical History: Musculoskeletal Disorder, Neurologic Disorder Additional Family Medical History / Comment(s): Father had parkinsons and at age 60yrs. Mother Family Medical History: Cancer Additional Family Medical History / Comment(s): Mother had stomach cancer and in her 70's. Medications and Allergies Home Medications Medication Instructions Recorded Confirmed Type Lisinopril [Zestril] 5 mg PO DAILY 08/05/14 07/19/18 History Pravastatin Sodium [Pravachol] 20 mg PO DAILY 08/05/14 07/19/18 History Aspirin 81 mg PO DAILY 02/17/15 07/19/18 History Biotin 5 mg PO DAILY 02/17/15 07/19/18 History Iron 18 mg PO DAILY 02/17/15 07/19/18 History Metoprolol Tartrate [Lopressor] 25 mg PO BID #60 tab 02/21/15 07/19/18 Rx hydrALAZINE HCL [Apresoline] 25 mg PO TID #90 tab 02/21/15 07/19/18 Rx Allopurinol [Zyloprim] 300 mg PO DAILY 07/19/18 07/19/18 History Calcitriol [Rocaltrol] 0.25 mg PO Q7D 07/19/18 07/19/18 History amLODIPine BESYLATE [Norvasc] 2.5 mg PO DAILY 07/19/18 07/19/18 History Allergies Allergy/AdvReac Type Severity Reaction Status Date / Time glipizide Allergy Rash/Hives Verified 07/19/18 13:38 Penicillins Allergy Unknown Verified 07/19/18 13:38 Sulfa (Sulfonamide Allergy Unknown Verified 07/19/18 13:38 Antibiotics) Physical Exam Vitals: Vital Signs Temp Pulse Pulse Resp BP BP Pulse Ox 07/20/18 08:00 97.9 F 67 16 136/65 94 L 07/20/18 04:00 97.9 F 79 16 134/70 95 07/20/18 00:00 98.0 F 75 16 149/66 95 07/19/18 21:20 98.1 F 85 16 133/61 97 07/19/18 20:00 97.8 F 88 16 130/73 96 07/19/18 19:24 92 20 125/60 96 07/19/18 19:21 98.3 F 93 20 128/58 96 07/19/18 18:54 98.9 F 97 20 137/64 96 07/19/18 18:44 98.0 F 99 18 135/63 97 07/19/18 16:00 98.3 F 97 20 130/59 96 07/19/18 14:53 98.6 F 95 20 142/63 100 07/19/18 14:17 98 F 96 18 155/84 98 07/19/18 13:40 73 16 143/76 96 07/19/18 12:58 86 18 135/59 97 07/19/18 12:30 86 135/59 07/19/18 12:00 90 139/56 07/19/18 11:30 86 152/65 99 07/19/18 11:00 152/65 07/19/18 10:30 87 137/61 90 L Intake and Output 07/19/18 07/20/18 07/20/18 22:59 06:59 14:59 Intake Total 830 120 Balance 830 120 Intake: Intake, IV Titration 400 Amount Sodium Chloride 0.9% 1, 400 000 ml @ 100 mls/hr IV . Q10H [facility] Rx#:[id number] Oral 120 120 Blood Product 310 Rc As-1 Unit 310 [id number] Other: Voiding Method Bedpan Bedpan # Voids 3 1 Weight 59 kg Head normocephalic Neck supple Lungs clear to auscultation bilaterally no wheezing or crackles Heart regular rate and rhythm S1-S2, no rub or gallop Abdomen is soft nontender nondistended positive bowel sounds no hepatosplenomegaly Extremities no edema Neuro alert and orientated to 3 Results CBC & Chem 7: 07/20/18 08:27 07/20/18 08:27 Labs: Abnormal Lab Results - Last 24 Hours (Table) 07/19/18 07/19/18 07/19/18 Range/Units 10:04 10:04 10:04 WBC (3.8-10.6) k/uL RBC (3.80-5.40) m/uL Hgb (11.4-16.0) gm/dL Hct (34.0-46.0) % MCV (80.0-100.0) fL RDW (11.5-15.5) % Neutrophils # (1.3-7.7) k/uL Lymphocytes # (1.0-4.8) k/uL APTT 19.6 L (22.0-30.0) sec Potassium 5.2 H (3.5-5.1) mmol/L Chloride 111 H (98-107) mmol/L Carbon Dioxide 21 L (22-30) mmol/L BUN 113 H* (7-17) mg/dL Creatinine 2.50 H (0.52-1.04) mg/dL Glucose 162 H (74-99) mg/dL POC Glucose (mg/dL) (75-99) mg/dL Total Bilirubin (0.2-1.3) mg/dL Total Protein (6.3-8.2) g/dL Albumin (3.5-5.0) g/dL Urine Protein (Negative) Crossmatch See Detail 07/19/18 07/19/18 07/19/18 Range/Units 12:25 16:22 22:22 WBC 12.9 H 11.4 H (3.8-10.6) k/uL RBC 1.80 L 2.31 L (3.80-5.40) m/uL Hgb 6.1 L* 7.4 L (11.4-16.0) gm/dL Hct 18.4 L* 22.8 L (34.0-46.0) % MCV 101.9 H (80.0-100.0) fL RDW 16.2 H 16.6 H (11.5-15.5) % Neutrophils # 11.4 H (1.3-7.7) k/uL Lymphocytes # 0.8 L (1.0-4.8) k/uL APTT (22.0-30.0) sec Potassium (3.5-5.1) mmol/L Chloride (98-107) mmol/L Carbon Dioxide (22-30) mmol/L BUN (7-17) mg/dL Creatinine (0.52-1.04) mg/dL Glucose (74-99) mg/dL POC Glucose (mg/dL) (75-99) mg/dL Total Bilirubin (0.2-1.3) mg/dL Total Protein (6.3-8.2) g/dL Albumin (3.5-5.0) g/dL Urine Protein Trace H (Negative) Crossmatch 07/20/18 07/20/18 07/20/18 Range/Units 05:39 08:27 08:27 WBC (3.8-10.6) k/uL RBC 2.29 L (3.80-5.40) m/uL Hgb 7.4 L (11.4-16.0) gm/dL Hct 22.8 L (34.0-46.0) % MCV (80.0-100.0) fL RDW 16.8 H (11.5-15.5) % Neutrophils # 8.3 H (1.3-7.7) k/uL Lymphocytes # (1.0-4.8) k/uL APTT (22.0-30.0) sec Potassium (3.5-5.1) mmol/L Chloride 117 H (98-107) mmol/L Carbon Dioxide 21 L (22-30) mmol/L BUN 75 H (7-17) mg/dL Creatinine 2.06 H (0.52-1.04) mg/dL Glucose 133 H (74-99) mg/dL POC Glucose (mg/dL) 111 H (75-99) mg/dL Total Bilirubin 2.4 H (0.2-1.3) mg/dL Total Protein 5.3 L (6.3-8.2) g/dL Albumin 2.8 L (3.5-5.0) g/dL Urine Protein (Negative) Crossmatch Thrombosis Risk Factor Assmnt - Choose All That Apply Any of the Below Risk Factors Present?: No Other congenital or acquired thrombophilia - If yes, enter type in comment: No Assessment and Plan Assessment: 1. Dizziness with fall likely due to anemia. Head and cervical spine completed showing no acute intracranial abnormality. Degenerative change. Lumbar x-ray completed showing no acute osseous lesion. Moderate degenerative change. EKG completed showing normal sinus rhythm. 2. Anemia. Patient's hemoglobin upon arrival 6.1. Patient received 1 unit of PRBCs. GI service is consulted. Patient's hemoglobin 7.4 3. Acute on chronic kidney disease stage III. Patient's creatinine 2.50 and bun 113 upon arrival nephrology services have been consulted. Creatinine trending down to 2.06 and bun 75. maintained on normal saline at 100. lisinopril to be held 4. History of hyperlipidemia 5. History of diabetes mellitus type 2. Not currently on any diabetes medication. Will order hemoglobin A1c 6. History of breast cancer 7. History of angina 8. Essential hypertension DVT prophylaxis SCDs due to anemia and possible GI bleed. GI prophylaxis Protonix Physical therapy consulted. Social consult for discharge planning Time with Patient: Greater than 30 (Greater than 60% of the total time spent in counseling and coordination of care. I performed an examination of the patient and discussed their management with the Nurse Practitioner. I have reviewed the Nurse Practitioner's notes and agree with the documented findings and plan of care)
[2018-07-20 11:42] LABS: Glucose,Whole Blood 149 mg/dL (75-99)
--- NOTE | 2018-07-20 15:13 | US ---
EXAMINATION TYPE: US carotid duplex BILAT DATE OF EXAM: 07/20/2018 COMPARISON: NONE CLINICAL HISTORY: Dizziness. dizzy, HTN, no hx of TIA EXAM MEASUREMENTS: RIGHT: Peak Systolic Velocity (PSV) cm/sec ----- Right CCA: 87.8 ----- Right ICA: 80.1 ----- Right ECA: 148.9 ICA/CCA ratio: 0.9 RIGHT: End Diastole cm/sec ----- Right CCA: 13.1 ----- Right ICA: 13.1 ----- Right ECA: 0.0 LEFT: Peak Systolic Velocity (PSV) cm/sec ----- Left CCA: 94.2 ----- Left ICA: 122.0 ----- Left ECA: 137.7 ICA/CCA ratio: 1.3 LEFT: End Diastole cm/sec ----- Left CCA: 12.8 ----- Left ICA: 31.3 ----- Left ECA: 0.0 VERTEBRALS (direction of flow): Right Vertebral: Antegrade Left Vertebral: Antegrade Rhythm: Normal No elevated velocities, significant stenosis or wall thickening. Plaque seen in bilateral bulbs. IMPRESSION: Mild degree of grayscale atheromatous plaquing with no sonographically evident hemodynam ically significant stenosis within either internal carotid artery or common carotid artery. Incident ally 50-69% stenosis is identified of the bilateral external carotid arteries. Criteria for Assigning % of Stenosis / Diameter reduction (Estimation based on the indirect measurements of the internal carotid artery velocities (ICA PSV). 1. Normal (no stenosis)=ICA PSV < 125 cm/s: ratio < 2.0: ICA EDV<40 cm/s. 2. Less than 50% stenosis=ICA PSV < 125 cm/s: ratio < 2.0: ICA EDV<40 cm/s. 3. 50 to 69% stenosis=ICA PSV of 125 to 230 cm/s: ration 2.0 ? 4.0: ICA EDV 40-100 cm/s. 4. Greater than 70% stenosis to near occlusion= ICA PSV > 230 cm/s: ratio > 4.0: ICA EDV > 100 cm/s. 5. Near occlusion= ICA PSV velocities may be low or undetectable: variable ratio and ICA EDV. 6. Total occlusion=unable to detect flow.
--- NOTE | 2018-07-20 16:43 | CONS ---
CONSULTATION REASON FOR CONSULT: Renal failure. HISTORY OF PRESENT ILLNESS: Patient is a 83-year-old female who was admitted to the hospital with complaints of weakness and not feeling well. She also had a fall. The patient stated she was dizzy. She did not have any chest pains. The patient had been on the floor for about 18 hours. She denied any loss of consciousness. Patient denied any prior history of kidney disease. Her serum creatinine on admission was 2.5 mg/dL. It is now down to 2.0. Review of previous labs shows serum creatinine 1.8-2 mg/dL previously. 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 At home, patient was not on any diuretics. She was maintained on a small dose of JOSE MANUEL inhibitors. Currently patient is on IV fluids at 100 mL an hour. I do see the bicarb drip as well. 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 Baseline creatinine about 2.0 mg/dL secondary to nephrosclerosis. PAST MEDICAL HISTORY: Also significant for left breast cancer with lumpectomy, radiation therapy, history of left hydronephrosis with kidney stone and right renal atrophy. History of vertigo. PAST SURGICAL HISTORY: Adenoidectomy, bowel resection, breast lumpectomy, tonsillectomy, partial colectomy, double-J catheter placement in the left kidney, nephrolithotomy. SOCIAL HISTORY: Negative for smoking, drug abuse or alcohol abuse. MEDICATIONS: Medications at home prior to admission included Zestril, Pravachol, aspirin, Biotene, iron, Lopressor hydralazine, Zyloprim, Rocaltrol, Norvasc. ALLERGIES: INCLUDE GLIPIZIDE, PENICILLIN, SULFA. PHYSICAL EXAMINATION: Patient is currently comfortable, awake, not in any acute distress. Blood pressure this morning was 136/65, heart rate 67 per minute. He is afebrile. Examination of the heart S1, S2. Examination of the lungs, bilateral breath sounds are heard. Abdomen is soft, nontender. Examination lower extremities shows no significant edema. [employer] exam is grossly intact. LAB: Show sodium of 144, potassium 4.4, BUN 75, serum creatinine 2.06, hemoglobin 7.4 g/dL. Hemoglobin was 6.1 on initial admission. UA shows trace protein. Stool for occult blood was negative. ASSESSMENT: 1. Acute kidney injury secondary to acute anemia and blood pressure has not been significantly low this admission. Currently, patient is maintained on IV fluids which I will continue. Agree with holding off on JOSE MANUEL inhibitors. Renal function is slightly improved than on admission. 2. History of nephrolithiasis and obstructive uropathy status post double-J catheter placement previously. 3. History of right renal atrophy. We will check our office records. The patient does follow up with Urology. 4. Dizziness, near syncope, secondary to severe anemia status post packed RBCs transfusion. 5. Anemia. Stool for occult blood was negative. The patient has been transfused packed RBCs. Gastroenterology is on consult. PLAN: Continue IV fluids. Repeat labs in a.m. I will check our office records, obtain imaging of the kidneys if not done recently as outpatient. Discontinue the bicarb drip for now. MMNINIL / IJN: [id number] /
--- NOTE | 2018-07-20 17:25 | P.CONS ---
History of Present Illness - Reason for Consult Consult date: 07/20/18 Anemia Requesting physician: Edilma Wood - Chief Complaint Dizziness, fall - History of Present Illness A 3-year-old female with a medical history significant for breast cancer, diabetes mellitus, hypertension, anemia on iron supplementation gout and neuropathy who presented to the hospital after a fall. The patient reports feeling dizzy and subsequently fallen while in the bathroom. On presentation to the hospital the patient was found to be anemic with a hemoglobin of 7.1 that subsequently fell to 6.1 and stool testing which was negative for occult blood. The patient does report noting dark black tarry stools over the past few days prior to her presentation. She reports 2-3 dark bowel movements daily during this time. She denies any prior history of peptic ulcer disease. She denies any NSAID use and reports that she will use Tylenol as needed for pain. She believes her last colonoscopy was within the past 5 years and normal. On presentation to the hospital XR chest was negative or any acute intrathoracic disease. Currently WBC 10.2, hemoglobin 7.4 status post 1 unit packed red blood cells, platelet count 204,000, INR 1, total bilirubin 2.4, alkaline phosphatase 41, AST 21 and ALT 18. Review of Systems REVIEW OF SYSTEMS: CONSTITUTIONAL: Denies any fevers, chills, weight change but does report fatigue and weakness. CARDIOVASCULAR: Denies any chest pain, palpitations high or low blood pressures RESPIRATORY: Denies any shortness of breath, hemoptysis or cough. GENITOURINARY: No dysuria or hematuria. MUSCULOSKELETAL: No weakness reported. SKIN: Denies any new rashes or lesions, jaundice or pallor. PSYCHIATRIC: Denies any depression or anxiety. NEUROLOGY: Denies headache, denies any new focal deficits, but does report dizziness and a fall. EARS/NOSE/THROAT: No recent hearing change, congestion, nasal discharge or sore throat. EYES: No pain in eyes, discharge or change in vision. GASTROINTESTINAL: As per HPI. Past Medical History Past Medical History: Cancer, Diabetes Mellitus, Hypertension, Renal Disease Additional Past Medical History / Comment(s): 02/17/15 Pt presented to [facility] ER with chest pain starting about 0330 this AM. Pain radiated to L neck and down L arm. She is admitted with clinical impression of chest pain. 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 History of Any Multi-Drug Resistant Organisms: None Reported Past Surgical History: Adenoidectomy, Bowel Resection, Breast Surgery, Tonsillectomy Additional Past Surgical History / Comment(s): L Breast lumpectomy sugery, partial colectomy for perforation with colostomy for 3 months then reversed, colonoscopy with benign polypectomy, double J catheter insertion L kidney then percutaneous nephrolithotomy attempted and then lithrotropsey ([facility]) and removal of double J catheters. Past Anesthesia/Blood Transfusion Reactions: Motion Sickness Additional Past Anesthesia/Blood Transfusion Reaction / Comm: Pt states she has never received blood. Past Psychological History: No Psychological Hx Reported Additional Psychological History / Comment(s): Pt resides with her sister. She has a cane she uses if it is icey outside. She is independent. She drives. Smoking Status: Never smoker Past Alcohol Use History: None Reported Past Drug Use History: None Reported - Past Family History Father Family Medical History: Musculoskeletal Disorder, Neurologic Disorder Additional Family Medical History / Comment(s): Father had parkinsons and at age 60yrs. Mother Family Medical History: Cancer Additional Family Medical History / Comment(s): Mother had stomach cancer and in her 70's. Medications and Allergies Home Medications Medication Instructions Recorded Confirmed Type Lisinopril [Zestril] 5 mg PO DAILY 08/05/14 07/19/18 History Pravastatin Sodium [Pravachol] 20 mg PO DAILY 08/05/14 07/19/18 History Aspirin 81 mg PO DAILY 02/17/15 07/19/18 History Biotin 5 mg PO DAILY 02/17/15 07/19/18 History Iron 18 mg PO DAILY 02/17/15 07/19/18 History Metoprolol Tartrate [Lopressor] 25 mg PO BID #60 tab 02/21/15 07/19/18 Rx hydrALAZINE HCL [Apresoline] 25 mg PO TID #90 tab 02/21/15 07/19/18 Rx Allopurinol [Zyloprim] 300 mg PO DAILY 07/19/18 07/19/18 History Calcitriol [Rocaltrol] 0.25 mg PO Q7D 07/19/18 07/19/18 History amLODIPine BESYLATE [Norvasc] 2.5 mg PO DAILY 07/19/18 07/19/18 History Allergies Allergy/AdvReac Type Severity Reaction Status Date / Time glipizide Allergy Rash/Hives Verified 07/19/18 13:38 Penicillins Allergy Unknown Verified 07/19/18 13:38 Sulfa (Sulfonamide Allergy Unknown Verified 07/19/18 13:38 Antibiotics) Physical Exam Vitals: Vital Signs Temp Pulse Pulse Resp BP BP Pulse Ox 07/20/18 12:00 98.2 F 62 16 117/59 94 L 07/20/18 08:00 97.9 F 67 16 136/65 94 L 07/20/18 04:00 97.9 F 79 16 134/70 95 07/20/18 00:00 98.0 F 75 16 149/66 95 07/19/18 21:20 98.1 F 85 16 133/61 97 07/19/18 20:00 97.8 F 88 16 130/73 96 07/19/18 19:24 92 20 125/60 96 07/19/18 19:21 98.3 F 93 20 128/58 96 07/19/18 18:54 98.9 F 97 20 137/64 96 07/19/18 18:44 98.0 F 99 18 135/63 97 07/19/18 16:00 98.3 F 97 20 130/59 96 07/19/18 14:53 98.6 F 95 20 142/63 100 07/19/18 14:17 98 F 96 18 155/84 98 07/19/18 13:40 73 16 143/76 96 07/19/18 12:58 86 18 135/59 97 07/19/18 12:30 86 135/59 Intake and Output 07/19/18 07/20/18 07/20/18 22:59 06:59 14:59 Intake Total 830 120 Balance 830 120 Intake: Intake, IV Titration 400 Amount Sodium Chloride 0.9% 1, 400 000 ml @ 100 mls/hr IV . Q10H [facility] Rx#:[id number] Oral 120 120 Blood Product 310 Rc As-1 Unit 310 [id number] Other: Voiding Method Bedpan Bedpan # Voids 3 1 1 Weight 59 kg On physical examination, patient appears comfortable in no apparent distress. HEAD: Normocephalic, atraumatic. EYES: No scleral icterus. No conjunctival injection. MOUTH: No lesions, tongue midline. NECK: Trachea midline, no gross abnormalities. CHEST: Clear to auscultation with no wheezing or rhonchi appreciated. HEART: Regular rate and rhythm. ABDOMEN: Soft. Bowel sounds are positive. No organomegaly. No guarding or rigidity. EXTREMITIES: No pedal edema. SKIN: No rashes, no jaundice. NEUROLOGIC: Alert and oriented x3. No focal deficits. Results CBC & Chem 7: 07/20/18 08:27 07/20/18 08:27 Labs: Abnormal Lab Results - Last 24 Hours (Table) 07/19/18 07/19/18 07/19/18 Range/Units 10:04 12:25 16:22 WBC 12.9 H (3.8-10.6) k/uL RBC 1.80 L (3.80-5.40) m/uL Hgb 6.1 L* (11.4-16.0) gm/dL Hct 18.4 L* (34.0-46.0) % MCV 101.9 H (80.0-100.0) fL RDW 16.2 H (11.5-15.5) % Neutrophils # 11.4 H (1.3-7.7) k/uL Lymphocytes # 0.8 L (1.0-4.8) k/uL Chloride (98-107) mmol/L Carbon Dioxide (22-30) mmol/L BUN (7-17) mg/dL Creatinine (0.52-1.04) mg/dL Glucose (74-99) mg/dL POC Glucose (mg/dL) (75-99) mg/dL Total Bilirubin (0.2-1.3) mg/dL Total Protein (6.3-8.2) g/dL Albumin (3.5-5.0) g/dL Urine Protein Trace H (Negative) Crossmatch See Detail 07/19/18 07/20/18 07/20/18 Range/Units 22:22 05:39 08:27 WBC 11.4 H (3.8-10.6) k/uL RBC 2.31 L 2.29 L (3.80-5.40) m/uL Hgb 7.4 L 7.4 L (11.4-16.0) gm/dL Hct 22.8 L 22.8 L (34.0-46.0) % MCV (80.0-100.0) fL RDW 16.6 H 16.8 H (11.5-15.5) % Neutrophils # 8.3 H (1.3-7.7) k/uL Lymphocytes # (1.0-4.8) k/uL Chloride (98-107) mmol/L Carbon Dioxide (22-30) mmol/L BUN (7-17) mg/dL Creatinine (0.52-1.04) mg/dL Glucose (74-99) mg/dL POC Glucose (mg/dL) 111 H (75-99) mg/dL Total Bilirubin (0.2-1.3) mg/dL Total Protein (6.3-8.2) g/dL Albumin (3.5-5.0) g/dL Urine Protein (Negative) Crossmatch 07/20/18 07/20/18 Range/Units 08:27 11:39 WBC (3.8-10.6) k/uL RBC (3.80-5.40) m/uL Hgb (11.4-16.0) gm/dL Hct (34.0-46.0) % MCV (80.0-100.0) fL RDW (11.5-15.5) % Neutrophils # (1.3-7.7) k/uL Lymphocytes # (1.0-4.8) k/uL Chloride 117 H (98-107) mmol/L Carbon Dioxide 21 L (22-30) mmol/L BUN 75 H (7-17) mg/dL Creatinine 2.06 H (0.52-1.04) mg/dL Glucose 133 H (74-99) mg/dL POC Glucose (mg/dL) 149 H (75-99) mg/dL Total Bilirubin 2.4 H (0.2-1.3) mg/dL Total Protein 5.3 L (6.3-8.2) g/dL Albumin 2.8 L (3.5-5.0) g/dL Urine Protein (Negative) Crossmatch Chest x-ray: report reviewed (XR chest was negative or any acute intrathoracic disease.) Assessment and Plan (1) Melena Narrative/Plan: 83-year-old female with multiple medical comorbidities including anemia who presented to the hospital with complaints of dizziness and fall. She also reported 2-3 days of black tarry bowel movements. She denies any NSAID use or prior history of peptic ulcer disease. Differential includes esophagitis/alexus ritis, peptic ulcer disease, bleeding AVM or other etiology. Current Visit: Yes Status: Acute Code(s): K92.1 - MELENA SNOMED Code(s): 5352788 (2) Anemia Narrative/Plan: Patient with a known history of anemia on iron supplementation presenting with melena. Stool testing was negative for occult blood, unclear if anemia secondary to blood loss or chronic disease. Current Visit: Yes Status: Acute Code(s): D64.9 - ANEMIA, UNSPECIFIED SNOMED Code(s): 947128582 (3) Weakness Current Visit: Yes Status: Acute Code(s): R53.1 - WEAKNESS SNOMED Code(s): 37403197 Plan: Supportive care Continue to monitor hemoglobin and transfuse as needed Continue to monitor stool output Continue Protonix 40 mg IV twice a day Iron studies, folate, B12 and reticulocyte counts ordered Nothing by mouth after midnight Plan for EGD oral for investigation of melena Thank you for allowing us to participate in the care of the patient we will continue to follow
[2018-07-20] MEDS: ACETAMINOPHEN TAB 325 MG TAB PO PRN (18:24)
--- NOTE | 2018-07-20 19:37 | ECHOF ---
Referral Reason:Dizziness possible syncopal episode MEASUREMENTS -------- HEIGHT: 157.5 cm WEIGHT: 59.0 kg BP: 117/59 IVSd: 1.2 cm (0.6 - 1.1) LVIDd: 4.0 cm (3.9 - 5.3) LVPWd: 1.1 cm (0.6 - 1.1) IVSs: 1.8 cm LVIDs: 2.2 cm LVPWs: 1.8 cm RVIDd: 3.8 cm (< 3.3) LAESV Index (A-L): 32.96 ml/m Ao Diam: 3.4 cm (2.0 - 3.7) LA Diam: 3.4 cm (2.7 - 3.8) AV Cusp: 2.1 cm (1.5 - 2.6) EPSS: 0.8 cm MV E Ari: 1.21 m/s MV DecT: 234 ms MV A Ari: 1.27 m/s MV E/A Ratio: 0.95 RAP: 5.00 mmHg RVSP: 40.72 mmHg MV EF SLOPE: 50.11 mm/s (70 - 150) MV EXCURSION: 1.21 cm (> 18.000) FINDINGS -------- Sinus rhythm. This was a technically difficult study with suboptimal apical views. The left ventricular size is normal. There is mild concentric left ventricular hypertrophy. Overa ll left ventricular systolic function is normal with, an EF between 60 - 65 %. The right ventricle is moderately enlarged. Left atrium is mildly dilated by volume. The right atrial size is normal. Lumason used Interatrial and interventricular septum intact. The aortic valve is trileaflet and appears structurally normal. Mild mitral annular calcification present. There is trace mitral regurgitation. Mild tricuspid regurgitation present. There is mild pulmonary hypertension. The right ventricular systolic pressure, as measured by Doppler, is 40.72mmHg. There is no pulmonic regurgitation present. The aortic root size is normal. NOT WELL VISUALIZED There is no pericardial effusion. CONCLUSIONS -------- 1. Sinus rhythm. 2. This was a technically difficult study with suboptimal apical views. 3. The left ventricular size is normal. 4. There is mild concentric left ventricular hypertrophy. 5. Overall left ventricular systolic function is normal with, an EF between 60 - 65 %. 6. The right ventricle is moderately enlarged. 7. Left atrium is mildly dilated by volume. 8. The right atrial size is normal. 9. Lumason used 10. Interatrial and interventricular septum intact. 11. The aortic valve is trileaflet and appears structurally normal. 12. Mild mitral annular calcification present. 13. There is trace mitral regurgitation. 14. Mild tricuspid regurgitation present. 15. There is mild pulmonary hypertension. 16. The right ventricular systolic pressure, as measured by Doppler, is 40.72mmHg. 17. There is no pulmonic regurgitation present. 18. The aortic root size is normal. 19. NOT WELL VISUALIZED 20. There is no pericardial effusion. [employer] SUPPORT: Octavia Alcantara RDCS
[2018-07-21] MEDS: SODIUM CHLORIDE 0.9% 1,000 ML IV SCH ×2 (05:39→11:58)
[2018-07-21 07:26] LABS: Anisocytosis Slight; Basophils % (A) 0 %; Eosinophils # (A) 0.3 k/uL (0-0.7); Eosinophils % (A) 3 %; HCT 22.5 % (34.0-46.0); HGB 7.3 gm/dL (11.4-16.0); Lymphocytes # (A) 1.5 k/uL (1.0-4.8); Lymphocytes % (A) 15 %; MCH 32.6 pg (25.0-35.0); MCHC 32.2 g/dL (31.0-37.0); MCV 101.3 fL (80.0-100.0); Macrocytosis Slight; Mean Platelet Volume 7.8; Monocytes # (A) 0.5 k/uL (0-1.0); Monocytes % (A) 5 %; Neutrophils # (A) 7.6 k/uL (1.3-7.7); Neutrophils % (A) 76 %; Platelet Count 193 k/uL (150-450); RBC 2.22 m/uL (3.80-5.40); RDW 16.7 % (11.5-15.5); WBC 10.1 k/uL (3.8-10.6)
[2018-07-21] MEDS: amLODIPine 2.5 MG TAB PO SCH (08:03)
[2018-07-21] MEDS: ALLOPURINOL 300 MG TAB PO SCH (08:03)
[2018-07-21] MEDS: METOPROLOL TARTRATE 25 MG TAB PO SCH ×2 (08:04→21:16)
[2018-07-21] MEDS: hydrALAZINE HCL 25 MG TAB PO SCH ×3 (08:04→21:16)
[2018-07-21] MEDS: PRAVASTATIN SODIUM 20 MG TAB PO SCH (08:04)
[2018-07-21] MEDS: PANTOPRAZOLE 40 MG/10 ML VIAL IVP SCH (08:04)
[2018-07-21 08:21] LABS: Albumin 2.6 g/dL (3.5-5.0); Calcium 8.4 mg/dL (8.4-10.2); Potassium 4.6 mmol/L (3.5-5.1); Total Bilirubin 1.3 mg/dL (0.2-1.3); Total Protein 5.1 g/dL (6.3-8.2)
[2018-07-21 08:29] LABS: Reticulocyte % 2.2 % (0.5-2.0)
--- NOTE | 2018-07-21 10:50 | P.PN ---
Subjective Progress Note Date: 07/21/18 This is an 83-year-old female patient who presented to the ER after having a fall at home. Patient reports that she became dizzy while walking into the bathroom and she fell to the bathroom floor. Patient reports that she lives with her sister and her sister has cold feet ambulating herself. Patient re ports that performed without and patient had to lay on the floor for 18 hours until sister was able to flag [employer] delivery down for assistance. Patient reports that she did not lose consciousness but has been having episodes with dizziness. Patient denies hitting her head. Patient has known past medical history of breast cancer, diabetes mellitus, hypertension, chronic renal disease in which he follows with nephrology services, anemia, gout, neuropathy bilateral feet and neck pain. Upon arrival patient was found to have hemoglobin of 6.1. Patient denies any signs of active bleeding. Patient denies blood in her stool. Patient denies blood in urine. Creatinine also elevated at 2.50 and bun 113. Nephrology and GI services have been consulted. Chest x-ray showing no active intrathoracic disease. CT of brain and C-spine completed showing no active intracranial abnormality. Degenerative change. Lumbar spine x-ray completed showing no acute osseous lesion. Moderate degenerative change. EKG showing normal sinus rhythm. At this time patient is resting comfortably in chair. Patient denies any chest pain or shortness of breath. Patient denies nausea vomiting or diarrhea. Patient denies any urinary burning or frequency. On 07/21/2017 patient is alert and oriented 3. Patient is resting comfortably hemoglobin 7.3. Per GI service is planning EGD today. Creatinine is improving. At this time patient denies chest pain or shortness of breath. Patient denies nausea vomiting or diarrhea. Patient denies any urinary burning or frequency. Objective - Vital Signs Vital signs: Vital Signs Temp 98.4 F 07/21/18 07:37 Pulse 61 07/21/18 07:37 Resp 16 07/21/18 07:37 BP 141/62 07/21/18 07:37 Pulse Ox 98 07/21/18 07:37 Intake & Output 07/20/18 07/21/18 07/21/18 18:59 06:59 18:59 Intake Total 120 220 Output Total 200 Balance 120 220 -200 Weight 54.3 kg Intake: Intake, IV Titration 100 Amount Sodium Chloride 0.9% 1, 100 000 ml @ 100 mls/hr IV . Q10H [facility] Rx#:[id number] Oral 120 120 Output: Urine 200 Other: Voiding Method Bedpan # Voids 3 1 1 - Exam Head normocephalic Neck supple Lungs clear to auscultation bilaterally no wheezing or crackles Heart regular rate and rhythm S1-S2, no rub or gallop Abdomen is soft nontender nondistended positive bowel sounds no hepatosplenomegaly Extremities no edema Neuro alert and orientated to 3 - Labs CBC & Chem 7: 07/21/18 06:56 07/21/18 06:56 Labs: Abnormal Lab Results - Last 24 Hours (Table) 07/20/18 07/21/18 07/21/18 Range/Units 11:39 06:56 06:56 RBC 2.22 L (3.80-5.40) m/uL Hgb 7.3 L (11.4-16.0) gm/dL Hct 22.5 L (34.0-46.0) % MCV 101.3 H (80.0-100.0) fL RDW 16.7 H (11.5-15.5) % Retic Count (0.5-2.0) % Chloride 120 H (98-107) mmol/L Carbon Dioxide 20 L (22-30) mmol/L BUN 57 H (7-17) mg/dL Creatinine 1.79 H (0.52-1.04) mg/dL Glucose 111 H (74-99) mg/dL POC Glucose (mg/dL) 149 H (75-99) mg/dL Total Protein 5.1 L (6.3-8.2) g/dL Albumin 2.6 L (3.5-5.0) g/dL 07/21/18 Range/Units 06:56 RBC (3.80-5.40) m/uL Hgb (11.4-16.0) gm/dL Hct (34.0-46.0) % MCV (80.0-100.0) fL RDW (11.5-15.5) % Retic Count 2.2 H (0.5-2.0) % Chloride (98-107) mmol/L Carbon Dioxide (22-30) mmol/L BUN (7-17) mg/dL Creatinine (0.52-1.04) mg/dL Glucose (74-99) mg/dL POC Glucose (mg/dL) (75-99) mg/dL Total Protein (6.3-8.2) g/dL Albumin (3.5-5.0) g/dL Assessment and Plan Assessment: 1. Dizziness with fall likely due to anemia. Head and cervical spine completed showing no acute intracranial abnormality. Degenerative change. Lumbar x-ray completed showing no acute osseous lesion. Moderate degenerative change. EKG completed showing normal sinus rhythm. 2-D echo completed showing an EF of 60- 65%. Carotid Doppler completed showing no sonographic evidence of hemodynamically significant stenosis within either internal carotid artery, carotid artery. Incidentally 50-69% stenosis identified in the bilateral external carotid arteries 2. Anemia. Patient's hemoglobin upon arrival 6.1. Patient received 1 unit of PRBCs. GI service is consulted. Patient's hemoglobin 7.3. Plans for EGD today 3. Acute on chronic kidney disease stage III. Patient's creatinine 2.50 and bun 113 upon arrival nephrology services have been consulted. Creatinine trending down to 2.06 and bun 75. maintained on normal saline at 100. l isinopril to be held. 4. History of hyperlipidemia 5. History of diabetes mellitus type 2. Not currently on any diabetes medication. Will order hemoglobin A1c 6. History of breast cancer 7. History of angina 8. Essential hypertension DVT prophylaxis SCDs due to anemia and possible GI bleed. GI prophylaxis Protonix Physical therapy consulted. Social consult for discharge planning I performed an examination of the patient and discussed their management with the Nurse Practitioner. I have reviewed the Nurse Practitioner's notes and agree with the documented findings and plan of care
[2018-07-21 12:21] LABS: Glucose,Whole Blood 136 mg/dL (75-99)
[2018-07-21] MEDS ORDERED: LIDOCAINE 1% INJ 10MG/ML (20 ML MDV) ONE (13:13)
[2018-07-21] MEDS ORDERED: PROPOFOL 10 MG/ML 20 ML VIAL IV ONE (13:13)
[2018-07-21] MEDS ORDERED: IV FLUID CONTINUATION 1,000 ML IV ONE (13:20)
--- NOTE | 2018-07-21 13:37 | P.PCN ---
Date of Procedure: 07/21/18 Description of Procedure: BRIEF HISTORY: A 3-year-old female with a medical history significant for breast cancer, diabetes mellitus, hypertension, anemia on iron supplementation gout and neuropathy who presented to the hospital after a fall. The patient reports feeling dizzy and subsequently fallen while in the bathroom. On presentation to the hospital the patient was found to be anemic with a hemoglobin of 7.1 that subsequently fell to 6.1 and stool testing which was negative for occult blood. The patient does report noting dark black tarry stools over the past few days prior to her presentation. She reports 2-3 dark bowel movements daily during this time. She denies any prior history of peptic ulcer disease. She denies any NSAID use and reports that she will use Tylenol as needed for pain. She believes her last colonoscopy was within the past 5 years and normal. On presentation to the hospital XR chest was negative or any acute intrathoracic disease. Currently WBC 10.2, hemoglobin 7.4 status post 1 unit packed red blood cells, platelet count 204,000, INR 1, total bilirubin 2.4, alkaline phosphatase 41, AST 21 and ALT 18. PROCEDURE PERFORMED: Esophagogastroduodenoscopy with biopsy. PREOPERATIVE DIAGNOSIS: Anemia of acute blood loss, melena. ESTIMATED BLOOD LOSS: Minimal. IV sedation per anesthesia. PROCEDURE: After informed consent was obtained, the patient was brought into the endoscopy unit. IV sedation was administered by Anesthesia under continuous monitoring. Initially the Olympus GIF-190 video endoscope was inserted into the mouth. Esophagus intubated without any difficulty. It was gradually advanced into the stomach and duodenum and carefully examined. The bulb and the second part of the duodenum appeared normal, with biopsies taken. The scope at this time was withdrawn to the stomach, adequately insufflated with air, and upon careful examination, mucosa of the antrum, body, cardia and the fundus appeared grossly normal except for some mild scattered erythema in the antrum and body suggestive of mild gastritis with biopsies taken. There was also a linear nonbleeding antral ulcer without any high risk stigmata for bleeding which was noted and biopsied. The scope was then withdrawn into the esophagus. The GE junction was located at 38 cm from the incisors. The esophagus appeared normal. There were no erosions or ulcerations seen and the patient tolerated the procedure well. IMPRESSION: 1. Nonbleeding antral ulcer, biopsied. 2. Mild gastritis antrum and body, biopsied. 3. Duodenal biopsies. RECOMMENDATIONS: The findings of this examination were discussed with the patient and her sisters. Okay to resume diet. Continue to monitor hemoglobin and hematocrit and transfuse as needed. Patient can be on oral Protonix 40 mg twice daily and should be discharged on this dose to continue for 6-8 weeks. Would recommend repeat EGD in 6-8 weeks to ensure ulcer healing.
[2018-07-21] MEDS ORDERED: DARBEPOETIN ALFA 40 MCG/0.4 ML SYRINGE SQ SCH (14:00)
--- NOTE | 2018-07-21 14:38 | PN ---
PROGRESS NOTE Patient is seen for followup for acute kidney injury. This is mainly prerenal. Patient has been receiving IV fluids, her creatinine down to 1.79 from 2.5. Patient does have CKD with baseline creatinine about 1.7 mg/dL to 2.0 mg/dL. Overall, patient states she is feeling better. She has been walking. She has been tolerating oral intake fairly well. PHYSICAL EXAMINATION: This morning, blood pressure was 141/62, heart rate 61 per minute. She is afebrile. Examination of the heart S1, S2. Examination of the lungs, bilateral breath sounds are heard. Abdomen is soft, nontender. Exam of lower extremities shows no significant edema. TERRAZZO JOURNEYMAN exam is grossly intact. LABS: Show sodium 144, potassium 4.6, BUN 57, serum creatinine 1.79, albumin 2.6, hemoglobin 7.3 g/dL. ASSESSMENT: 1. Acute kidney injury, prerenal, currently improved with decrease IV fluids. Patient is tolerating oral intake fairly well. 2. Chronic kidney disease, stage IV, with baseline creatinine 1.7-2 mg/dL secondary to nephrosclerosis with atrophic right kidney and may leave solitary functioning kidney. 3. Anemia, stool for occult blood was negative. The patient is being transfused packed RBCs previously having an EGD. The patient is being followed by GI. 4. Dyslipidemia. 5. Hypertension, currently controlled. PLAN: 1. Check iron studies and start patient on Procrit. Iron saturation was 52.4 in May of 2018, therefore we do not need to be repeated. I will maintain patient on Aranesp. 2. Decrease IV fluids. Add Aranesp. Followup on the DVT/colonoscopy. MMODL / IJN: [id number] /
[2018-07-21] MEDS: PANTOPRAZOLE 40 MG TABLET PO SCH (16:51)
[2018-07-21 17:03] LABS: Glucose,Whole Blood 147 mg/dL (75-99)
[2018-07-21 20:44] LABS: Glucose,Whole Blood 174 mg/dL (75-99)
[2018-07-21 20:58] LABS: Hemoglobin A1C 5.9 % (4.0-6.0)
[2018-07-22] MEDS: PANTOPRAZOLE 40 MG TABLET PO SCH ×2 (06:02→18:00)
[2018-07-22 06:22] LABS: Glucose,Whole Blood 126 mg/dL (75-99)
[2018-07-22 07:01] LABS: Anisocytosis Slight; Basophils % (A) 0 %; Eosinophils # (A) 0.3 k/uL (0-0.7); Eosinophils % (A) 3 %; HCT 23.2 % (34.0-46.0); HGB 7.3 gm/dL (11.4-16.0); Hypochromasia Slight; Lymphocytes # (A) 1.2 k/uL (1.0-4.8); Lymphocytes % (A) 10 %; MCHC 31.4 g/dL (31.0-37.0); MCV 101.9 fL (80.0-100.0); Macrocytosis Slight; Mean Platelet Volume 7.6; Monocytes # (A) 0.5 k/uL (0-1.0); Monocytes % (A) 4 %; Neutrophils # (A) 9.6 k/uL (1.3-7.7); Neutrophils % (A) 81 %; Platelet Count 210 k/uL (150-450); RBC 2.28 m/uL (3.80-5.40); RDW 16.4 % (11.5-15.5); WBC 11.9 k/uL (3.8-10.6)
[2018-07-22 07:10] LABS: Albumin 2.6 g/dL (3.5-5.0); Calcium 8.7 mg/dL (8.4-10.2); Potassium 4.4 mmol/L (3.5-5.1); Total Bilirubin 1.4 mg/dL (0.2-1.3); Total Protein 5.2 g/dL (6.3-8.2)
[2018-07-22] MEDS: PRAVASTATIN SODIUM 20 MG TAB PO SCH (08:24)
[2018-07-22] MEDS: METOPROLOL TARTRATE 25 MG TAB PO SCH ×2 (08:24→21:01)
[2018-07-22] MEDS: amLODIPine 2.5 MG TAB PO SCH (08:24)
[2018-07-22] MEDS: hydrALAZINE HCL 25 MG TAB PO SCH ×3 (08:24→21:01)
[2018-07-22] MEDS: ALLOPURINOL 300 MG TAB PO SCH (08:24)
[2018-07-22] MEDS: SODIUM CHLORIDE 0.9% 1,000 ML IV SCH (08:26)
--- NOTE | 2018-07-22 11:05 | XR ---
EXAMINATION TYPE: XR chest 2V DATE OF EXAM: 07/22/2018 COMPARISON: 07/19/2018 TECHNIQUE: PA and lateral views submitted. HISTORY: Cough possible pneumonia FINDINGS: Subsegmental consolidation right lung base. Cardiomegaly and atherosclerotic change aorta. No overt f ailure. No pneumothorax. Hypertrophic and degenerative change of the spine. IMPRESSION: 1. Cardiomegaly with right basilar atelectasis or infiltrate correlate clinically.
[2018-07-22 11:42] LABS: Glucose,Whole Blood 168 mg/dL (75-99)
[2018-07-22] MEDS ORDERED: SODIUM FERRIC GLUCONAT-SUCROSE 125 MG in SODIUM CHLORIDE 0.9% 100 ML IVPB ONE (12:00)
--- NOTE | 2018-07-22 12:39 | P.PN ---
Subjective Progress Note Date: 07/22/18 Principal diagnosis: Anemia melena Status post EGD yesterday nonbleeding antral ulcer. No active bleeding. Hemoglobin stable at 7.3. Objective - Vital Signs Vital signs: Vital Signs Temp 98.2 F 07/22/18 08:05 Pulse 62 07/22/18 08:05 Resp 20 07/22/18 08:05 BP 141/64 07/22/18 08:05 Pulse Ox 96 07/22/18 08:05 Intake & Output 07/21/18 07/22/18 07/22/18 18:59 06:59 18:59 Intake Total 990 480 Output Total 200 250 100 Balance 790 -250 380 Weight 53.4 kg 53.4 kg Intake: IV 200 Intake, IV Titration 550 Amount Sodium Chloride 0.9% 1, 550 000 ml @ 50 mls/hr IV . Q20H POOJA Rx#:[id number] Oral 240 480 Output: Urine 200 250 100 Other: # Voids 2 3 2 - Exam General appearance: The patient is alert, oriented, in no acute distress. HET: Head is normocephalic and atraumatic. Pupils are equal and reactive. Oropharynx is clear without lesions. Neck: Supple without lymphadenopathy. Trachea midline. Heart: S1 S2. Regular rate and rhythm. Lungs: No crackles or wheezes are heard. Abdomen: Soft, nontender, nondistended with bowel sounds. No peritoneal signs. No palpable organomegaly or masses. Extremities: Normal skin color and turgor. No cyanosis, rash, ulceration, clubbing, or edema. Radial and pedal pulses are 2/4 bilaterally. Neurological: No focal deficits. Strength and sensation are grossly intact. - Labs CBC & Chem 7: 07/22/18 06:19 07/22/18 06:19 Labs: Abnormal Lab Results - Last 24 Hours (Table) 07/21/18 07/21/18 07/21/18 Range/Units 12:01 16:59 20:39 WBC (3.8-10.6) k/uL RBC (3.80-5.40) m/uL Hgb (11.4-16.0) gm/dL Hct (34.0-46.0) % MCV (80.0-100.0) fL RDW (11.5-15.5) % Neutrophils # (1.3-7.7) k/uL Chloride (98-107) mmol/L Carbon Dioxide (22-30) mmol/L BUN (7-17) mg/dL Creatinine (0.52-1.04) mg/dL Glucose (74-99) mg/dL POC Glucose (mg/dL) 136 H 147 H 174 H (75-99) mg/dL Total Bilirubin (0.2-1.3) mg/dL Total Protein (6.3-8.2) g/dL Albumin (3.5-5.0) g/dL 07/22/18 07/22/18 07/22/18 Range/Units 06:19 06:19 06:21 WBC 11.9 H (3.8-10.6) k/uL RBC 2.28 L (3.80-5.40) m/uL Hgb 7.3 L (11.4-16.0) gm/dL Hct 23.2 L (34.0-46.0) % MCV 101.9 H (80.0-100.0) fL RDW 16.4 H (11.5-15.5) % Neutrophils # 9.6 H (1.3-7.7) k/uL Chloride 119 H (98-107) mmol/L Carbon Dioxide 19 L (22-30) mmol/L BUN 39 H (7-17) mg/dL Creatinine 1.84 H (0.52-1.04) mg/dL Glucose 116 H (74-99) mg/dL POC Glucose (mg/dL) 126 H (75-99) mg/dL Total Bilirubin 1.4 H (0.2-1.3) mg/dL Total Protein 5.2 L (6.3-8.2) g/dL Albumin 2.6 L (3.5-5.0) g/dL 07/22/18 Range/Units 11:40 WBC (3.8-10.6) k/uL RBC (3.80-5.40) m/uL Hgb (11.4-16.0) gm/dL Hct (34.0-46.0) % MCV (80.0-100.0) fL RDW (11.5-15.5) % Neutrophils # (1.3-7.7) k/uL Chloride (98-107) mmol/L Carbon Dioxide (22-30) mmol/L BUN (7-17) mg/dL Creatinine (0.52-1.04) mg/dL Glucose (74-99) mg/dL POC Glucose (mg/dL) 168 H (75-99) mg/dL Total Bilirubin (0.2-1.3) mg/dL Total Protein (6.3-8.2) g/dL Albumin (3.5-5.0) g/dL Assessment and Plan (1) Antral ulcer Current Visit: Yes Status: Acute Code(s): K25.9 - GASTRIC ULCER, UNSP ACUTE OR CHRONIC, W/O HEMOR OR PERF SNOMED Code(s): 5077795916712 (2) Acute blood loss anemia Current Visit: Yes Status: Acute Code(s): D62 - ACUTE POSTHEMORRHAGIC ANEMIA SNOMED Code(s): 302771038 (3) Melena Current Visit: Yes Status: Acute Code(s): K92.1 - MELENA SNOMED Code(s): 1604029 Plan: 1. Discharge per medicine. Return office in 2-3 weeks. Protonix 40 mg twice daily. We'll follow-up on an as-needed basis. Assessment and plan a care discussed with Dr. Uriostegui
--- NOTE | 2018-07-22 14:01 | P.PN ---
Subjective Progress Note Date: 07/22/18 This is an 83-year-old female patient who presented to the ER after having a fall at home. Patient reports that she became dizzy while walking into the bathroom and she fell to the bathroom floor. Patient reports that she lives with her sister and her sister has cold feet ambulating herself. Patient re ports that performed without and patient had to lay on the floor for 18 hours until sister was able to flag [employer] delivery down for assistance. Patient reports that she did not lose consciousness but has been having episodes with dizziness. Patient denies hitting her head. Patient has known past medical history of breast cancer, diabetes mellitus, hypertension, chronic renal disease in which he follows with nephrology services, anemia, gout, neuropathy bilateral feet and neck pain. Upon arrival patient was found to have hemoglobin of 6.1. Patient denies any signs of active bleeding. Patient denies blood in her stool. Patient denies blood in urine. Creatinine also elevated at 2.50 and bun 113. Nephrology and GI services have been consulted. Chest x-ray showing no active intrathoracic disease. CT of brain and C-spine completed showing no active intracranial abnormality. Degenerative change. Lumbar spine x-ray completed showing no acute osseous lesion. Moderate degenerative change. EKG showing normal sinus rhythm. At this time patient is resting comfortably in chair. Patient denies any chest pain or shortness of breath. Patient denies nausea vomiting or diarrhea. Patient denies any urinary burning or frequency. On 07/21/2017 patient is alert and oriented 3. Patient is resting comfortably hemoglobin 7.3. Per GI service is planning EGD today. Creatinine is improving. At this time patient denies chest pain or shortness of breath. Patient denies nausea vomiting or diarrhea. Patient denies any urinary burning or frequency. On 07/22/2017 patient is alert and oriented 3. Patient underwent EGD yesterday. Creatinine 1.4. Patient's hemoglobin remains low at 7.3. 1 dose of IV iron has been ordered. This time patient denies chest pain or shortness felicita ath. Patient denies nausea vomiting or diarrhea. Patient denies any urinary burning. Chest x-ray has been ordered due to elevated white blood cell count. Objective - Vital Signs Vital signs: Vital Signs Temp 98.2 F 07/22/18 08:05 Pulse 62 07/22/18 08:05 Resp 20 07/22/18 08:05 BP 141/64 07/22/18 08:05 Pulse Ox 96 07/22/18 08:05 Intake & Output 07/21/18 07/22/18 07/22/18 18:59 06:59 18:59 Intake Total 990 1200 Output Total 200 250 100 Balance 790 -250 1100 Weight 53.4 kg 53.4 kg Intake: IV 200 Intake, IV Titration 550 Amount Sodium Chloride 0.9% 1, 550 000 ml @ 50 mls/hr IV . Q20H POOJA Rx#:[id number] Oral 240 1200 Output: Urine 200 250 100 Other: # Voids 2 3 2 - Exam Head normocephalic Neck supple Lungs clear to auscultation bilaterally no wheezing or crackles Heart regular rate and rhythm S1-S2, no rub or gallop Abdomen is soft nontender nondistended positive bowel sounds no hepatosplenomegaly Extremities no edema Neuro alert and orientated to 3 - Labs CBC & Chem 7: 07/22/18 06:19 07/22/18 06:19 Labs: Abnormal Lab Results - Last 24 Hours (Table) 07/21/18 07/21/18 07/22/18 Range/Units 16:59 20:39 06:19 WBC 11.9 H (3.8-10.6) k/uL RBC 2.28 L (3.80-5.40) m/uL Hgb 7.3 L (11.4-16.0) gm/dL Hct 23.2 L (34.0-46.0) % MCV 101.9 H (80.0-100.0) fL RDW 16.4 H (11.5-15.5) % Neutrophils # 9.6 H (1.3-7.7) k/uL Chloride (98-107) mmol/L Carbon Dioxide (22-30) mmol/L BUN (7-17) mg/dL Creatinine (0.52-1.04) mg/dL Glucose (74-99) mg/dL POC Glucose (mg/dL) 147 H 174 H (75-99) mg/dL Total Bilirubin (0.2-1.3) mg/dL Total Protein (6.3-8.2) g/dL Albumin (3.5-5.0) g/dL 07/22/18 07/22/18 07/22/18 Range/Units 06:19 06:21 11:40 WBC (3.8-10.6) k/uL RBC (3.80-5.40) m/uL Hgb (11.4-16.0) gm/dL Hct (34.0-46.0) % MCV (80.0-100.0) fL RDW (11.5-15.5) % Neutrophils # (1.3-7.7) k/uL Chloride 119 H (98-107) mmol/L Carbon Dioxide 19 L (22-30) mmol/L BUN 39 H (7-17) mg/dL Creatinine 1.84 H (0.52-1.04) mg/dL Glucose 116 H (74-99) mg/dL POC Glucose (mg/dL) 126 H 168 H (75-99) mg/dL Total Bilirubin 1.4 H (0.2-1.3) mg/dL Total Protein 5.2 L (6.3-8.2) g/dL Albumin 2.6 L (3.5-5.0) g/dL Assessment and Plan Assessment: 1. Dizziness with fall likely due to anemia. Head and cervical spine completed showing no acute intracranial abnormality. Degenerative change. Lumbar x-ray completed showing no acute osseous lesion. Moderate degenerative change. EKG completed showing normal sinus rhythm. 2-D echo completed showing an EF of 60-65%. Carotid Doppler completed showing no sonographic evidence of hemodynamically significant stenosis within either internal carotid artery, carotid artery. Incidentally 50-69% stenosis identified in the bilateral external carotid arteries 2. Acute blood loss Anemia. Patient's hemoglobin upon arrival 6.1. Patient received 1 unit of PRBCs. GI service is consulted. Patient's hemoglobin 7.3. EGD completed showing nonbleeding antral ulcer. Globin remains 7.3. Will order 1 dose of IV iron 3. Acute on chronic kidney disease stage III. Patient's creatinine 2.50 and bun 113 upon arrival nephrology services have been consulted. Creatinine trending down to 2.06 and bun 75. maintained on normal saline at 100. lisinopril to be held. Patient's creatinine 1.84. We'll continue to monitor 4. History of hyperlipidemia 5. History of diabetes mellitus type 2. Not currently on any diabetes medication. hemoglobin A1c 5.9 6. History of breast cancer 7. History of angina 8. Essential hypertension 9. Leukocytosis. WBC 11.9. Chest x-ray has been ordered 10. External carotid artery stenosis. Carotid Doppler completed showing incidentally 50-60% stenosis identified in bilateral external carotid arteries. Patient to follow-up with Dr. Estrada outpatient for further workup DVT prophylaxis SCDs due to anemia and possible GI bleed. GI prophylaxis Protonix Physical therapy consulted. Social consult for discharge planning I performed an examination of the patient and discussed their management with the Nurse Practitioner. I have reviewed the Nurse Practitioner's notes and agree with the documented findings and plan of care
[2018-07-22 16:52] LABS: Glucose,Whole Blood 156 mg/dL (75-99)
[2018-07-22 21:18] LABS: Glucose,Whole Blood 141 mg/dL (75-99)
--- NOTE | 2018-07-22 22:52 | PN ---
PROGRESS NOTE Patient is seen for followup for acute kidney injury. Renal function has improved since admission. Serum creatinine has come down from about 2.5-1.8 mg/dL now. It is up slightly from 1.79 yesterday. Patient was maintained on IV fluids. Currently, she is off of IV fluids. The patient is also receiving IV iron. There are no nephrotoxic agents on board. The JOSE MANUEL inhibitors are currently on hold. PHYSICAL EXAMINATION: This morning, the patient was resting comfortably. Blood pressure is 141/64, heart rate 62 per minute. She is afebrile. Examination of the heart S1, S2. Examination of the lungs, bilateral breath sounds are heard. Decreased breath sounds in the bases. Abdomen is soft, nontender. Examination of lower extremities shows trace edema. FRONT SIGHT ATTACHER exam is grossly intact. LABS SHOW: Sodium 144, potassium 4.4, BUN 39, serum creatinine 1.84, hemoglobin 7.3 g/dL. ASSESSMENT: 1. Acute kidney injury associated with severe anemia, currently improved. Renal function close to baseline. 2. Chronic kidney disease stage IV secondary to nephrosclerosis with atrophic right kidney. Baseline creatinine 1.7-2 mg/dL. 3. Anemia status post EGD, which showed a nonbleeding antral ulcer which was biopsied. Mild gastritis was noted. 4. Type 2 diabetes, controlled. 5. History of breast cancer. PLAN: Continue with the Aranesp. Currently patient is off of IV fluids, which is appropriate as she has been eating. Repeat labs in a.m. Continue to avoid JOSE MANUEL inhibitors for now. MMODL / IJN: [id number] /
[2018-07-23] MEDS: ACETAMINOPHEN TAB 325 MG TAB PO PRN (01:45)
[2018-07-23] MEDS: SODIUM CHLORIDE 0.9% 1,000 ML IV SCH (05:18)
[2018-07-23 06:05] LABS: Glucose,Whole Blood 133 mg/dL (75-99)
[2018-07-23] MEDS: PANTOPRAZOLE 40 MG TABLET PO SCH ×2 (06:36→09:48)
[2018-07-23 08:18] LABS: Anisocytosis Slight; Basophils % (A) 0 %; Eosinophils # (A) 0.4 k/uL (0-0.7); Eosinophils % (A) 4 %; HCT 21.1 % (34.0-46.0); Lymphocytes # (A) 1.3 k/uL (1.0-4.8); Lymphocytes % (A) 13 %; MCH 32.7 pg (25.0-35.0); MCHC 32.3 g/dL (31.0-37.0); MCV 101.1 fL (80.0-100.0); Macrocytosis Slight; Mean Platelet Volume 8.2; Monocytes # (A) 0.5 k/uL (0-1.0); Monocytes % (A) 5 %; Neutrophils # (A) 7.4 k/uL (1.3-7.7); Neutrophils % (A) 76 %; Platelet Count 179 k/uL (150-450); RBC 2.08 m/uL (3.80-5.40); RDW 17.9 % (11.5-15.5); WBC 9.6 k/uL (3.8-10.6)
[2018-07-23 08:22] LABS: Albumin 2.4 g/dL (3.5-5.0); Calcium 8.7 mg/dL (8.4-10.2); Potassium 4.7 mmol/L (3.5-5.1); Total Bilirubin 0.8 mg/dL (0.2-1.3); Total Protein 4.9 g/dL (6.3-8.2)
[2018-07-23 08:41] LABS: HGB 6.8 gm/dL (11.4-16.0)
[2018-07-23] MEDS: amLODIPine 2.5 MG TAB PO SCH (09:47)
[2018-07-23] MEDS: PRAVASTATIN SODIUM 20 MG TAB PO SCH (09:47)
[2018-07-23] MEDS: METOPROLOL TARTRATE 25 MG TAB PO SCH ×2 (09:48→20:48)
[2018-07-23] MEDS: ALLOPURINOL 300 MG TAB PO SCH (09:48)
[2018-07-23] MEDS: hydrALAZINE HCL 25 MG TAB PO SCH ×3 (09:48→20:47)
[2018-07-23 11:02] LABS: Glucose,Whole Blood 159 mg/dL (75-99)
--- NOTE | 2018-07-23 11:28 | P.PN ---
Subjective Progress Note Date: 07/23/18 This is an 83-year-old female patient who presented to the ER after having a fall at home. Patient reports that she became dizzy while walking into the bathroom and she fell to the bathroom floor. Patient reports that she lives with her sister and her sister has cold feet ambulating herself. Patient re ports that performed without and patient had to lay on the floor for 18 hours until sister was able to flag [employer] delivery down for assistance. Patient reports that she did not lose consciousness but has been having episodes with dizziness. Patient denies hitting her head. Patient has known past medical history of breast cancer, diabetes mellitus, hypertension, chronic renal disease in which he follows with nephrology services, anemia, gout, neuropathy bilateral feet and neck pain. Upon arrival patient was found to have hemoglobin of 6.1. Patient denies any signs of active bleeding. Patient denies blood in her stool. Patient denies blood in urine. Creatinine also elevated at 2.50 and bun 113. Nephrology and GI services have been consulted. Chest x-ray showing no active intrathoracic disease. CT of brain and C-spine completed showing no active intracranial abnormality. Degenerative change. Lumbar spine x-ray completed showing no acute osseous lesion. Moderate degenerative change. EKG showing normal sinus rhythm. At this time patient is resting comfortably in chair. Patient denies any chest pain or shortness of breath. Patient denies nausea vomiting or diarrhea. Patient denies any urinary burning or frequency. On 07/21/2017 patient is alert and oriented 3. Patient is resting comfortably hemoglobin 7.3. Per GI service is planning EGD today. Creatinine is improving. At this time patient denies chest pain or shortness of breath. Patient denies nausea vomiting or diarrhea. Patient denies any urinary burning or frequency. On 07/22/2017 patient is alert and oriented 3. Patient underwent EGD yesterday. Creatinine 1.4. Patient's hemoglobin remains low at 7.3. 1 dose of IV iron has been ordered. This time patient denies chest pain or shortness felicita ath. Patient denies nausea vomiting or diarrhea. Patient denies any urinary burning. Chest x-ray has been ordered due to elevated white blood cell count. On 07/23/2018 patient is alert and oriented 3. Patient's hemoglobin low today at 6.3. We'll give 1 unit of PRBCs. White blood cell improving to 9.6. Creatinine 1.68 and bun 39. Patient states she feels weak. Continue working with physical therapy. Patient denies chest pain or shortness of breath. Patient denies nausea vomiting or diarrhea. Patient denies any urinary burning or frequency. Objective - Vital Signs Vital signs: Vital Signs Temp 98.0 F 07/23/18 08:00 Pulse 64 07/23/18 08:00 Resp 20 07/23/18 08:00 BP 156/65 07/23/18 08:00 Pulse Ox 96 07/23/18 08:00 Intake & Output 07/22/18 07/23/18 07/23/18 18:59 06:59 18:59 Intake Total 1440 240 Output Total 400 250 Balance 1040 -250 240 Weight 53.4 kg 55.3 kg Intake: Oral 1440 240 Output: Urine 400 250 Other: Voiding Method Bedpan # Voids 1 3 # Bowel Movements 0 0 - Exam Head normocephalic Neck supple Lungs clear to auscultation bilaterally no wheezing or crackles Heart regular rate and rhythm S1-S2, no rub or gallop Abdomen is soft nontender nondistended positive bowel sounds no hepa tosplenomegaly Extremities no edema Neuro alert and orientated to 3 - Labs CBC & Chem 7: 07/23/18 07:25 07/23/18 07:25 Labs: Abnormal Lab Results - Last 24 Hours (Table) 07/22/18 07/22/18 07/22/18 Range/Units 11:40 16:50 21:17 RBC (3.80-5.40) m/uL Hgb (11.4-16.0) gm/dL Hct (34.0-46.0) % MCV (80.0-100.0) fL RDW (11.5-15.5) % Chloride (98-107) mmol/L Carbon Dioxide (22-30) mmol/L BUN (7-17) mg/dL Creatinine (0.52-1.04) mg/dL Glucose (74-99) mg/dL POC Glucose (mg/dL) 168 H 156 H 141 H (75-99) mg/dL Total Protein (6.3-8.2) g/dL Albumin (3.5-5.0) g/dL Crossmatch 07/23/18 07/23/1819 Range/Units 06:04 07:25 07:25 RBC 2.08 L (3.80-5.40) m/uL Hgb 6.8 L* (11.4-16.0) gm/dL Hct 21.1 L (34.0-46.0) % MCV 101.1 H (80.0-100.0) fL RDW 17.9 H (11.5-15.5) % Chloride 115 H (98-107) mmol/L Carbon Dioxide 19 L (22-30) mmol/L BUN 39 H (7-17) mg/dL Creatinine 1.68 H (0.52-1.04) mg/dL Glucose 112 H (74-99) mg/dL POC Glucose (mg/dL) 133 H (75-99) mg/dL Total Protein 4.9 L (6.3-8.2) g/dL Albumin 2.4 L (3.5-5.0) g/dL Crossmatch 07/23/18 07/23/18 Range/Units 09:16 11:01 RBC (3.80-5.40) m/uL Hgb (11.4-16.0) gm/dL Hct (34.0-46.0) % MCV (80.0-100.0) fL RDW (11.5-15.5) % Chloride (98-107) mmol/L Carbon Dioxide (22-30) mmol/L BUN (7-17) mg/dL Creatinine (0.52-1.04) mg/dL Glucose (74-99) mg/dL POC Glucose (mg/dL) 159 H (75-99) mg/dL Total Protein (6.3-8.2) g/dL Albumin (3.5-5.0) g/dL Crossmatch See Detail Assessment and Plan Assessment: 1. Dizziness with fall likely due to anemia. Head and cervical spine completed showing no acute intracranial abnormality. Degenerative change. Lumbar x-ray completed showing no acute osseous lesion. Moderate degenerative change. EKG completed showing normal sinus rhythm. 2-D echo completed showing an EF of 60- 65%. Carotid Doppler completed showing no sonographic evidence of hemodynamically significant stenosis within either internal carotid artery, carotid artery. Incidentally 50-69% stenosis identified in the bilateral external carotid arteries 2. Acute blood loss Anemia. Patient's hemoglobin upon arrival 6.1. Patient re ceived 1 unit of PRBCs. GI service is consulted. Patient's hemoglobin 7.3. EGD completed showing nonbleeding antral ulcer. Hemoglobin low at 6.8. Orders for 1 unit of PRBCs today. 3. Acute on chronic kidney disease stage III. Patient's creatinine 2.50 and bun 113 upon arrival nephrology services have been consulted. Creatinine trending down to 2.06 and bun 75. maintained on normal saline at 100. lisinopril to be held. Patient's creatinine 1.84. We'll continue to monitor 4. History of hyperlipidemia 5. History of diabetes mellitus type 2. Not currently on any diabetes medication. hemoglobin A1c 5.9 6. History of breast cancer 7. History of angina 8. Essential hypertension 9. Leukocytosis. WBC 11.9. Chest x-ray completed showing cardiomegaly with right basilar atelectasis or infiltrate correlate clinically. 10. External carotid artery stenosis. Carotid Doppler completed showing incidentally 50-60% stenosis identified in bilateral external carotid arteries. Patient to follow-up with Dr. Estrada outpatient for further workup DVT prophylaxis SCDs due to anemia . GI prophylaxis Protonix Physical therapy consulted. Social consult for discharge planning I performed an examination of the patient and discussed their management with the Nurse Practitioner. I have reviewed the Nurse Practitioner's notes and agree with the documented findings and plan of care
--- NOTE | 2018-07-23 14:04 | PN ---
PROGRESS NOTE Patient is seen for followup for acute kidney injury, which is mainly secondary to severe anemia. Renal function continues to improve. The patient had a GI workup with EGD and colonoscopy, which did not show any active bleeding. Her stool for occult blood was negative. The hemoglobin had dropped again to 6.8. The patient received a dose of IV iron. However, her iron saturation is not low and her ferritin is also on the higher side. Hematology consult has been requested. PHYSICAL EXAMINATION: This morning, patient denies any complaints. Blood pressure was 156/65, heart rate 64 per minute. She is afebrile. Examination of the heart, S1, S2. Examination of the lungs, bilateral breath sounds are heard. Abdomen is soft, nontender. Examination of the lower extremities shows no significant edema. [employer] exam is grossly intact. LABS: Show sodium of 139, potassium 4.7, BUN 39, serum creatinine 1.68, hemoglobin 6.8 g/dL. ASSESSMENT: 1. Acute kidney injury secondary to severe anemia, currently slowly improving. 2. Anemia with no active gastrointestinal bleeding noted, status post EGD. Hemoglobin is back down to 6.3. Recommend hematology consult. 3. Type 2 diabetes, controlled. 4. History of breast cancer. 5. Chronic kidney disease, secondary to nephrosclerosis and atrophic right kidney. Baseline creatinine 1.7-2 mg/dL. 6. Anemia of chronic disease, maintained on Aranesp. PLAN: Continue with the Aranesp. Recommend hematology consult, transfuse packed RBCs. I would avoid iron infusion at this point. MMODL / IJN: [id number] /
[2018-07-23] MEDS: oxyCODONE-APAP 5-325MG 1 EACH TAB PO PRN (18:09)
--- NOTE | 2018-07-23 19:24 | XR ---
EXAMINATION TYPE: XR Hip Complete LT DATE OF EXAM: 07/23/2018 COMPARISON: NONE HISTORY: Left hip pain TECHNIQUE: 2 views FINDINGS: Hip joint space is normal. I see no fracture nor dislocation. There is vascular calcificati on. Sacroiliac joint appears intact. IMPRESSION: No acute abnormality of the left hip.
--- NOTE | 2018-07-23 19:25 | XR ---
EXAMINATION TYPE: XR femur LT DATE OF EXAM: 07/23/2018 COMPARISON: NONE HISTORY: Leg pain TECHNIQUE: 4 views FINDINGS: There is mild spurring of the patella. I see no fracture nor dislocation. Hip joint spaces fairly normal. There is vascular calcification. IMPRESSION: No acute abnormality of the left femur.
[2018-07-23 23:30] LABS: Iron Saturation 33.65 (12.00-45.00)
[2018-07-24] MEDS: SODIUM CHLORIDE 0.9% 1,000 ML IV SCH (02:58)
[2018-07-24] MEDS: PANTOPRAZOLE 40 MG TABLET PO SCH (08:52)
[2018-07-24] MEDS: hydrALAZINE HCL 25 MG TAB PO SCH (08:52)
[2018-07-24] MEDS: ALLOPURINOL 300 MG TAB PO SCH (08:52)
[2018-07-24] MEDS: PRAVASTATIN SODIUM 20 MG TAB PO SCH (08:52)
[2018-07-24] MEDS: METOPROLOL TARTRATE 25 MG TAB PO SCH (08:52)
[2018-07-24] MEDS: amLODIPine 2.5 MG TAB PO SCH (08:52)
--- NOTE | 2018-07-24 09:14 | PN ---
PROGRESS NOTE Patient is seen for followup for acute kidney injury which was mainly prerenal and secondary to severe anemia. Patient's hemoglobin dropped again yesterday. GI workup was negative thus far. Serum creatinine improved to 1.68 yesterday from peak of 2.5 mg/dL on initial admission. The patient does have chronic kidney disease with baseline creatinine about 1.8-1.7 mg/dL. PHYSICAL EXAMINATION: Blood pressure is 145/61, heart rate 69 per minute. Patient is afebrile. Examination of the heart, S1, S2. Examination of the lungs, bilateral breath sounds are heard. Abdomen is soft, nontender. Examination of the lower extremities shows no significant edema. DIRECTOR OF [employer]STRUMENTAL MUSIC exam is grossly intact. LABS: Not available from today. ASSESSMENT: 1. Acute kidney injury is prerenal and associated with severe anemia on initial admission, currently improved. Continue with the saline at 50 mL an hour. Continue to encourage increased oral intake. 2. Anemia with stool negative for occult blood, status post EGD, which did show an ulcer, but there was no evidence of bleeding. 3. Type 2 diabetes, controlled. 4. History of breast cancer. 5. Chronic kidney disease, secondary to nephrosclerosis with atrophic right kidney. Baseline creatinine 1.7-2 mg/dL. PLAN: Continue with Aranesp. Continue gentle IV hydration. Avoid nephrotoxic agents. MMODL / IJN: [id number] /
[2018-07-24 09:18] LABS: Anisocytosis Slight; Basophils % (A) 0 %; Eosinophils # (A) 0.4 k/uL (0-0.7); Eosinophils % (A) 4 %; HCT 28.6 % (34.0-46.0); Lymphocytes % (A) 9 %; MCH 32.5 pg (25.0-35.0); MCHC 32.8 g/dL (31.0-37.0); Macrocytosis Slight; Mean Platelet Volume 8.1; Monocytes # (A) 0.5 k/uL (0-1.0); Monocytes % (A) 4 %; Neutrophils # (A) 9.5 k/uL (1.3-7.7); Neutrophils % (A) 82 %; Platelet Count 197 k/uL (150-450); RBC 2.89 m/uL (3.80-5.40); RDW 18.3 % (11.5-15.5); WBC 11.6 k/uL (3.8-10.6)
[2018-07-24 09:19] LABS: HGB 9.4 gm/dL (11.4-16.0)
[2018-07-24 09:22] LABS: Potassium 4.9 mmol/L (3.5-5.1); Total Bilirubin 1.4 mg/dL (0.2-1.3); Total Protein 5.8 g/dL (6.3-8.2)
[2018-07-24 12:19] VITALS: BP 127/66; PULSE 64; RESP 16; TEMP 97.6
[2018-07-24 13:28] VITALS: BMI 22.3
--- NOTE | 2018-07-24 13:34 | P.CONS ---
History of Present Illness - Reason for Consult Consult date: 07/23/18 Anemia Requesting physician: Massiel Butler - Chief Complaint Fall - History of Present Illness Pleasant 83 year old who presented after a fall at home. She has known history of DM, CKD, Hyperlipidemia, HTN, and remote breast cancer. Her hemoglobin 6.8 and EGD was completed 07/21 no active bleeding. therefore hematology consulted Review of Systems A 14 point review of systems assessed and completed and all negative except HPI Past Medical History Past Medical History: Cancer, Diabetes Mellitus, Hypertension, Renal Disease Additional Past Medical History / Comment(s): 02/17/15 Pt presented to [facility] ER with chest pain starting about 0330 this AM. Pain radiated to L neck and down L arm. She is admitted with clinical impression of chest pain. 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 History of Any Multi-Drug Resistant Organisms: None Reported Past Surgical History: Adenoidectomy, Bowel Resection, Breast Surgery, Tonsillectomy Additional Past Surgical History / Comment(s): L Breast lumpectomy sugery, partial colectomy for perforation with colostomy for 3 months then reversed, colonoscopy with benign polypectomy, double J catheter insertion L kidney then percutaneous nephrolithotomy attempted and then lithrotropsey (ESWL) and removal of double J catheters. Past Anesthesia/Blood Transfusion Reactions: Motion Sickness Additional Past Anesthesia/Blood Transfusion Reaction / Comm: Pt states she has never received blood. Past Psychological History: No Psychological Hx Reported Additional Psychological History / Comment(s): Pt resides with her sister. She has a cane she uses if it is icey outside. She is independent. She drives. Smoking Status: Never smoker Past Alcohol Use History: None Reported Past Drug Use History: None Reported - Past Family History Father Family Medical History: Musculoskeletal Disorder, Neurologic Disorder Additional Family Medical History / Comment(s): Father had parkinsons and at age 60yrs. Mother Family Medical History: Cancer Additional Family Medical History / Comment(s): Mother had stomach cancer and in her 70's. Medications and Allergies Home Medications Medication Instructions Recorded Confirmed Type Pravastatin Sodium [Pravachol] 20 mg PO DAILY 08/05/14 07/19/18 History Aspirin 81 mg PO DAILY 02/17/15 07/19/18 History Biotin 5 mg PO DAILY 02/17/15 07/19/18 History Iron 18 mg PO DAILY 02/17/15 07/19/18 History Metoprolol Tartrate [Lopressor] 25 mg PO BID #60 tab 02/21/15 07/19/18 Rx hydrALAZINE HCL [Apresoline] 25 mg PO TID #90 tab 02/21/15 07/19/18 Rx Allopurinol [Zyloprim] 300 mg PO DAILY 07/19/18 07/19/18 History Calcitriol [Rocaltrol] 0.25 mg PO Q7D 07/19/18 07/19/18 History amLODIPine BESYLATE [Norvasc] 2.5 mg PO DAILY 07/19/18 07/19/18 History Darbepoetin James [Aranesp] 40 mcg SQ Q7D syringe 07/24/18 Rx Ferrous Sulfate [Feosol] 325 mg PO BID 30 Days #60 tab 07/24/18 Rx Allergies Allergy/AdvReac Type Severity Reaction Status Date / Time glipizide Allergy Rash/Hives Verified 07/19/18 13:38 Penicillins Allergy Unknown Verified 07/19/18 13:38 Sulfa (Sulfonamide Allergy Unknown Verified 07/19/18 13:38 Antibiotics) Physical Exam Vitals: Vital Signs Temp Pulse Pulse Resp BP BP Pulse Ox 07/23/18 15:28 64 16 07/23/18 14:55 97.8 F 68 16 168/68 07/23/18 13:36 97.5 F L 60 16 147/70 07/23/18 13:06 97.6 F 64 16 159/61 07/23/18 13:03 97.6 F 64 16 159/61 07/23/18 12:57 97.6 F 61 16 162/74 07/23/18 12:56 97.7 F 60 16 160/73 07/23/18 12:27 98.1 F 64 17 156/55 98 07/23/18 08:00 98.0 F 64 20 156/65 96 07/23/18 03:49 98 F 72 18 142/72 97 07/23/18 00:00 69 18 145/70 98 07/22/18 20:00 70 18 151/64 96 Intake and Output 07/23/18 07/23/18 07/23/18 06:59 14:59 22:59 Intake Total 1110 Output Total 250 Balance -250 1110 Intake: Intake, IV Titration 250 Amount Sodium Chloride 0.9% 1, 250 000 ml @ 50 mls/hr IV . Q20H [facility] Rx#:[id number] Oral 240 Blood Product 620 Rc As-1 Unit 310 [id number] Output: Urine 250 Other: Voiding Method Bedpan Bedpan # Voids 2 # Bowel Movements 0 0 Weight 55.3 kg Gen: Alert, NAD Head: NCNT Neck Supple No lymphadenopathy palpable Heart: Irreg reg Lungs: CTA bilateral anterior Abdom: Soft, ND, NTExtremities, no edema Left leg pain Psych evelia Neuro: Non focal Results CBC & Chem 7: 07/24/18 08:34 07/24/18 08:34 Labs: Abnormal Lab Results - Last 24 Hours (Table) 07/19/18 07/22/18 07/23/18 Range/Units 10:04 21:17 06:04 RBC (3.80-5.40) m/uL Hgb (11.4-16.0) gm/dL Hct (34.0-46.0) % MCV (80.0-100.0) fL RDW (11.5-15.5) % Chloride (98-107) mmol/L Carbon Dioxide (22-30) mmol/L BUN (7-17) mg/dL Creatinine (0.52-1.04) mg/dL Glucose (74-99) mg/dL POC Glucose (mg/dL) 141 H 133 H (75-99) mg/dL Total Protein (6.3-8.2) g/dL Albumin (3.5-5.0) g/dL Crossmatch See Detail 07/23/18 07/23/18 07/23/18 Range/Units 07:25 07:25 09:16 RBC 2.08 L (3.80-5.40) m/uL Hgb 6.8 L* (11.4-16.0) gm/dL Hct 21.1 L (34.0-46.0) % MCV 101.1 H (80.0-100.0) fL RDW 17.9 H (11.5-15.5) % Chloride 115 H (98-107) mmol/L Carbon Dioxide 19 L (22-30) mmol/L BUN 39 H (7-17) mg/dL Creatinine 1.68 H (0.52-1.04) mg/dL Glucose 112 H (74-99) mg/dL POC Glucose (mg/dL) (75-99) mg/dL Total Protein 4.9 L (6.3-8.2) g/dL Albumin 2.4 L (3.5-5.0) g/dL Crossmatch See Detail 07/23/18 Range/Units 11:01 RBC (3.80-5.40) m/uL Hgb (11.4-16.0) gm/dL Hct (34.0-46.0) % MCV (80.0-100.0) fL RDW (11.5-15.5) % Chloride (98-107) mmol/L Carbon Dioxide (22-30) mmol/L BUN (7-17) mg/dL Creatinine (0.52-1.04) mg/dL Glucose (74-99) mg/dL POC Glucose (mg/dL) 159 H (75-99) mg/dL Total Protein (6.3-8.2) g/dL Albumin (3.5-5.0) g/dL Crossmatch Assessment and Plan Plan: Macrocytic Anemia: - Likely Multifactorial secondary to Chronic Renal Disease (Stage unknown although Nephrology is following), Acute Inflammation with acute infection, component of B12 deficiency - Further work-up in progress including Erythropoetin, MMA, SPEP, KLFLC, - Rec aransp if CKD 3 or more as likely large component of renal disease Hx: Breast Cancer Recent Fall - Check Xrays
--- NOTE | 2018-07-24 13:45 | P.PN ---
Subjective Progress Note Date: 07/24/18 Principal diagnosis: Anemia Further work-up for anemia in progress Objective - Vital Signs Vital signs: Vital Signs Temp 97.6 F 07/24/18 12:18 Pulse 64 07/24/18 12:18 Resp 16 07/24/18 12:18 BP 127/66 07/24/18 12:18 Pulse Ox 99 07/24/18 12:18 Intake & Output 07/23/18 07/24/18 07/24/18 18:59 06:59 18:59 Intake Total 1110 900 Balance 1110 900 Weight 55.3 kg Intake: Intake, IV Titration 250 300 Amount Sodium Chloride 0.9% 1, 250 300 000 ml @ 50 mls/hr IV . Q20H [facility] Rx#:[id number] Oral 240 600 Blood Product 620 Rc As-1 Unit 310 [id number] Other: Voiding Method Bedpan Bedpan Bedpan # Voids 2 3 # Bowel Movements 0 - Exam Gen: Alert, NAD Head: NCNT Neck Supple No lymphadenopathy palpable Heart: Irreg reg Lungs: CTA bilateral anterior Abdom: Soft, ND, NTExtremities, no edema Left leg pain Psych evelia Neuro: Non focal - Labs CBC & Chem 7: 07/24/18 08:34 07/24/18 08:34 Labs: Abnormal Lab Results - Last 24 Hours (Table) 07/23/18 07/23/18 07/24/18 Range/Units 07:25 09:16 08:34 WBC 11.6 H (3.8-10.6) k/uL RBC 2.89 L (3.80-5.40) m/uL Hgb 9.4 L D (11.4-16.0) gm/dL Hct 28.6 L (34.0-46.0) % RDW 18.3 H (11.5-15.5) % Neutrophils # 9.5 H (1.3-7.7) k/uL Chloride (98-107) mmol/L Carbon Dioxide (22-30) mmol/L BUN (7-17) mg/dL Creatinine (0.52-1.04) mg/dL Glucose (74-99) mg/dL TIBC 208 L (228-460) ug/dL Ferritin 671.0 H (10.0-291.0) ng/mL Total Bilirubin (0.2-1.3) mg/dL Total Protein (6.3-8.2) g/dL Albumin (3.5-5.0) g/dL Crossmatch See Detail 07/24/18 Range/Units 08:34 WBC (3.8-10.6) k/uL RBC (3.80-5.40) m/uL Hgb (11.4-16.0) gm/dL Hct (34.0-46.0) % RDW (11.5-15.5) % Neutrophils # (1.3-7.7) k/uL Chloride 113 H (98-107) mmol/L Carbon Dioxide 19 L (22-30) mmol/L BUN 35 H (7-17) mg/dL Creatinine 1.74 H (0.52-1.04) mg/dL Glucose 159 H (74-99) mg/dL TIBC (228-460) ug/dL Ferritin (10.0-291.0) ng/mL Total Bilirubin 1.4 H (0.2-1.3) mg/dL Total Protein 5.8 L (6.3-8.2) g/dL Albumin 3.0 L (3.5-5.0) g/dL Crossmatch Assessment and Plan Plan: Macrocytic Anemia: - Likely Multifactorial secondary to Chronic Renal Disease (Stage unknown although Nephrology is following), Acute Inflammation with acute infection, component of B12 deficiency - Further work-up in progress including Erythropoetin, MMA, SPEP, KLFLC, Hx: Breast Cancer Recent Fall PLan: Reviewed xray and free of fracture - Agree with Epogen, follow with Nephrology - May follow up 4 weeks to reassess anemia
--- NOTE | 2018-07-24 14:41 | P.DS ---
Providers Date of admission: 07/19/18 11:49 Expected date of discharge: 07/24/18 Attending physician: Edilma Wood Consults: 07/19/18 12:14 Consult Physician Stat Consulting Provider: Emir Urbina Consult Reason/Comments: lona Do you want consulting provider notified?: Yes 07/23/18 14:25 Consult Physician Routine Consulting Provider: Charly Bermudez Consult Reason/Comments: anemia Do you want consulting provider notified?: Yes Primary care physician: Edilma Nina [facility] Course: Discharge Diagnosis 1. Dizziness with fall likely due to anemia. Head and cervical spine completed showing no acute intracranial abnormality. Degenerative change. Lumbar x-ray completed showing no acute osseous lesion. Moderate degenerative change. EKG completed showing normal sinus rhythm. 2-D echo completed showing an EF of 60- 65%. Carotid Doppler completed showing no sonographic evidence of hemodynamically significant stenosis within either internal carotid artery, carotid artery. Incidentally 50-69% stenosis identified in the bilateral external carotid arteries 2. Acute blood loss Anemia. Patient's hemoglobin upon arrival 6.1. Patient received 1 unit of PRBCs. GI service is consulted. Patient's hemoglobin 7.3. EGD completed showing nonbleeding antral ulcer. Hemoglobin low at 6.8. Orders for 1 unit of PRBCs today. Hemoglobin 9.4. Discussed with oncology service is no further workup and patient is followed outpatient continue [facility] follow up nephrology 3. Acute on chronic kidney disease stage III. Patient's creatinine 2.50 and bun 113 upon arrival nephrology services have been consulted. Creatinine trending down to 2.06 and bun 75. maintained on normal saline at 100. lisinopril to be held. Patient's creatinine 1.84. We'll continue to monitor. Patient to follow-up outpatient with nephrology services 4. History of hyperlipidemia 5. History of diabetes mellitus type 2. Not currently on any diabetes medication. hemoglobin A1c 5.9 6. History of breast cancer 7. History of angina 8. Essential hypertension 9. Leukocytosis. WBC 11.9. Chest x-ray completed showing cardiomegaly with right basilar atelectasis or infiltrate correlate clinically. 10. External carotid artery stenosis. Carotid Doppler completed showing incidentally 50-60% stenosis identified in bilateral external carotid arteries. Patient to follow-up with Dr. Estrada outpatient for further workup 11. Left hip pain. Left hip pain showing no acute abnormality of the left hip. Hospital Course This is an 83-year-old female patient who presented to the ER after having a fall at home. Patient reports that she became dizzy while walking into the bathroom and she fell to the bathroom floor. Patient reports that she lives with her sister and her sister has cold feet ambulating herself. Patient reports that performed without and patient had to lay on the floor for 18 hours until sister was able to flag [employer] delivery down for assistance. Patient reports that she did not lose consciousness but has been having episodes with dizziness. Patient denies hitting her head. Patient has known past medical history of breast cancer, diabetes mellitus, hypertension, chronic renal disease in which he follows with nephrology services, anemia, gout, neuropathy bilateral feet and neck pain. Upon arrival patient was found to have hemoglobin of 6.1. Patient denies any signs of active bleeding. Patient denies blood in her stool. Patient denies blood in urine. Creatinine also elevated at 2.50 and bun 113. Nephrology and GI services have been consulted. Chest x-ray showing no active intrathoracic disease. CT of brain and C-spine completed showing no active intracranial abnormality. Degenerative change. Lumbar spine x-ray completed showing no acute osseous lesion. Moderate degenerative change. EKG showing normal sinus rhythm. At this time patient is resting comfortably in chair. Patient denies any chest pain or shortness of breath. Patient denies nausea vomiting or diarrhea. Patient denies any urinary burning or frequency. On 07/21/2017 patient is alert and oriented 3. Patient is resting comfortably hemoglobin 7.3. Per GI service is planning EGD today. Creatinine is improving. At this time patient denies chest pain or shortness of breath. Patient denies nausea vomiting or diarrhea. Patient denies any urinary burning or frequency. On 07/22/2017 patient is alert and oriented 3. Patient underwent EGD yesterday. Creatinine 1.4. Patient's hemoglobin remains low at 7.3. 1 dose of IV iron has been ordered. This time patient denies chest pain or shortness breath. Patient denies nausea vomiting or diarrhea. Patient denies any urinary burning. Chest x-ray has been ordered due to elevated white blood cell count. On 07/23/2018 patient is alert and oriented 3. Patient's hemoglobin low today at 6.3. We'll give 1 unit of PRBCs. White blood cell improving to 9.6. Creatinine 1.68 and bun 39. Patient states she feels weak. Continue working with physical therapy. Patient denies chest pain or shortness of breath. Patient denies nausea vomiting or diarrhea. Patient denies any urinary burning or frequency. On 07/24/2018 patient is alert and oriented 3. Hemoglobin improved to 9.4. Vitamin B12 330. Patient to follow-up with nephrology services for Aranesp. Creatinine 1.74 and bun 35. Repeat CBC and CMP ordered for 3 days. Physical therapy recommending ECF. Patient declined would like to return home. Patient does live with sister. At this time patient denies any chest pain or shortness of breath. Patient denies nausea vomiting or diarrhea. Patient denies any urinary burning I performed an examination of the patient and discussed their management with the Nurse Practitioner. I have reviewed the Nurse Practitioner's notes and agree with the documented findings and plan of care Patient Condition at Discharge: Stable Plan - Discharge Summary Discharge Rx Participant: Yes New Discharge Prescriptions: New Darbepoetin James [Aranesp] 40 mcg SQ Q7D syringe Continue Pravastatin Sodium [Pravachol] 20 mg PO DAILY Biotin 5 mg PO DAILY Aspirin 81 mg PO DAILY Iron 18 mg PO DAILY Metoprolol Tartrate [Lopressor] 25 mg PO BID #60 tab hydrALAZINE HCL [Apresoline] 25 mg PO TID #90 tab Allopurinol [Zyloprim] 300 mg PO DAILY amLODIPine BESYLATE [Norvasc] 2.5 mg PO DAILY Calcitriol [Rocaltrol] 0.25 mg PO Q7D Discontinued Lisinopril [Zestril] 5 mg PO DAILY Discharge Medication List Pravastatin Sodium [Pravachol] 20 mg PO DAILY 08/05/14 [History] Aspirin 81 mg PO DAILY 02/17/15 [History] Biotin 5 mg PO DAILY 02/17/15 [History] Iron 18 mg PO DAILY 02/17/15 [History] Metoprolol Tartrate [Lopressor] 25 mg PO BID #60 tab 02/21/15 [Rx] hydrALAZINE HCL [Apresoline] 25 mg PO TID #90 tab 02/21/15 [Rx] Allopurinol [Zyloprim] 300 mg PO DAILY 07/19/18 [History] Calcitriol [Rocaltrol] 0.25 mg PO Q7D 07/19/18 [History] amLODIPine BESYLATE [Norvasc] 2.5 mg PO DAILY 07/19/18 [History] Darbepoetin James [Aranesp] 40 mcg SQ Q7D syringe 07/24/18 [Rx] Follow up Appointment(s)/Referral(s): [facility], [NON-STAFF] - 1 Week Edilma Wood MD [Primary Care Provider] - 1-2 days Gavin Uriostegui MD [STAFF PHYSICIAN] - 3 Weeks Makenna Martinez MD [STAFF PHYSICIAN] - 1 Week Charly Bermudez MD [STAFF PHYSICIAN] - 2 Weeks Ambulatory/Diagnostic Orders: Complete Blood Count w/diff [LAB.AMB] Location: None Selected Comprehensive Metabolic Panel [LAB.AMB] Time Frame: 2 Days, Location: None Selected Activity/Diet/Wound Care/Special Instructions: activity as tolerated Diet heart healthy Discharge Disposition: HOME WITH HOME HEALTH SERVICES
[2018-07-24] MEDS: oxyCODONE-APAP 5-325MG 1 EACH TAB PO PRN (15:09)
[2018-07-24 15:41] LABS: INR 0.9 (<1.2); Partial Thromboplastin Time 24.6 sec (22.0-30.0); Prothrombin Time 9.7 sec (9.0-12.0)
[2018-07-24 18:07] LABS: Protein, Total 4.8 g/dL (6.2-8.2)
[2018-07-25 12:50] LABS: Immunoglobulin M 18.4 mg/dL (40.0-280.0)
[2018-07-28 09:14] LABS: Albumin 2.36 g/dL (3.80-4.90)
== END 2018-07-24 16:30 | disposition home health service (06) | DRG 378 ==
LOC: EC 08:49 → 3SCARD 11:49 → 3NMEDONC 07-23 10:31 → 3SCARD 07-23 11:38 → 3NMEDONC 07-23 12:12
PROVIDERS: ADMIT Internal Medicine; ATTEND Internal Medicine
PROC: 30233N1 Transfusion of Nonautologous Red Blood Cells into Peripheral Vein, Percutaneous Approach (ICD-10-PCS; principal; 2018-07-19)
PROC: 0DB78ZX Excision of Stomach, Pylorus, Via Natural or Artificial Opening Endoscopic, Diagnostic (ICD-10-PCS; 2018-07-21)
PROC: 0DB98ZX Excision of Duodenum, Via Natural or Artificial Opening Endoscopic, Diagnostic (ICD-10-PCS; 2018-07-21)
DX: K25.4 Chronic or unspecified gastric ulcer with hemorrhage (principal); D62 Acute posthemorrhagic anemia; J98.11 Atelectasis; N17.9 Acute kidney failure, unspecified; N18.4 Chronic kidney disease, stage 4 (severe); D63.8 Anemia in other chronic diseases classified elsewhere; D72.829 Elevated white blood cell count, unspecified; E11.22 Type 2 diabetes mellitus with diabetic chronic kidney disease; E11.40 Type 2 diabetes mellitus with diabetic neuropathy, unspecified; E78.5 Hyperlipidemia, unspecified; E86.0 Dehydration; I12.9 Hypertensive chronic kidney disease with stage 1 through stage 4 chronic kidney disease, or unspecified chronic kidney disease; I65.29 Occlusion and stenosis of unspecified carotid artery; K29.71 Gastritis, unspecified, with bleeding; W19.XXXA Unspecified fall, initial encounter; Y92.009 Unspecified place in unspecified non-institutional (private) residence as the place of occurrence of the external cause; Z79.82 Long term (current) use of aspirin; Z79.83 Long term (current) use of bisphosphonates; Z79.899 Other long term (current) drug therapy; Z80.0 Family history of malignant neoplasm of digestive organs; Z82.0 Family history of epilepsy and other diseases of the nervous system; Z85.3 Personal history of malignant neoplasm of breast; Z87.11 Personal history of peptic ulcer disease; Z87.442 Personal history of urinary calculi
CPT/HCPCS: 36415; 43239; 70450; 71046; 72100; 72125; 73502; 80053; 81003; 82272; 82550; 82607; 82668; 82728; 82746; 82784; 83036; 83540; 83550; 83615; 83883; 83921; 84165; 84484; 85025; 85027; 85045; 85610; 85652; 85730; 86038; 86334; 86850; 86900; 86901; 86920; 88305; 93005; 93306; 93880; 96361; 96374; 96375; 99285

== ENCOUNTER 2019-08-15 12:18 | Observation (INO) | payer MEDICARE ==
[2019-08-15] MEDS ORDERED: PANTOPRAZOLE 40 MG/10 ML VIAL IVP STA (12:32)
[2019-08-15] MEDS ORDERED: SODIUM CHLORIDE 0.9% 1,000 ML IV STA ×2 (12:32)
[2019-08-15] MEDS ORDERED: ONDANSETRON 4 MG/2 ML VIAL IVP STA (12:32)
[2019-08-15 12:52] LABS: Anisocytosis Slight; Basophils % (A) 0 %; Eosinophils % (A) 0 %; HCT 33.8 % (34.0-46.0); HGB 10.8 gm/dL (11.4-16.0); Lymphocytes # (A) 0.4 k/uL (1.0-4.8); Lymphocytes % (A) 2 %; MCHC 31.8 g/dL (31.0-37.0); MCV 97.5 fL (80.0-100.0); Macrocytosis Slight; Monocytes # (A) 0.6 k/uL (0-1.0); Monocytes % (A) 3 %; Neutrophils # (A) 19.9 k/uL (1.3-7.7); Neutrophils % (A) 95 %; Platelet Count 315 k/uL (150-450); RBC 3.47 m/uL (3.80-5.40); RDW 16.1 % (11.5-15.5)
[2019-08-15 13:00] LABS: INR 0.9 (<1.2); Prothrombin Time 9.8 sec (9.0-12.0)
--- NOTE | 2019-08-15 13:03 | ED ---
Nausea/Vomiting/Diarrhea HPI - General Chief complaint: Nausea/Vomiting/Diarrhea Stated complaint: nausea/vomiting Time Seen by Provider: 08/15/19 12:20 Source: EMS, RN notes reviewed, old records reviewed Mode of arrival: EMS Limitations: no limitations - History of Present Illness Initial comments: This is an 84-year-old female presented Patient Resents for Persistent Nausea Vomiting Starting Today. Patient States She Has a Chronic Cough and Is Con stantly Coughing up Sputum and Mucus but nausea and vomiting did start earlier today she denies abdominal pain. No fevers, no known sick contacts MD complaint: nausea, vomiting -: hour(s) Description of Vomiting: watery Associated Abdominal Pain: Yes Location: diffuse (No pain) Radiation: none Severity: mild Severity scale (1-10): 3 Consistency: intermittent Improves with: none Worsens with: eating Associated Symptoms: denies other symptoms - Related Data Home Medications Medication Instructions Recorded Confirmed Pravastatin Sodium [Pravachol] 20 mg PO DAILY 08/05/14 07/19/18 Aspirin 81 mg PO DAILY 02/17/15 07/19/18 Biotin 5 mg PO DAILY 02/17/15 07/19/18 Iron 18 mg PO DAILY 02/17/15 07/19/18 Allopurinol [Zyloprim] 300 mg PO DAILY 07/19/18 07/19/18 Calcitriol [Rocaltrol] 0.25 mg PO Q7D 07/19/18 07/19/18 amLODIPine BESYLATE [Norvasc] 2.5 mg PO DAILY 07/19/18 07/19/18 Previous Rx's Medication Instructions Recorded Metoprolol Tartrate [Lopressor] 25 mg PO BID #60 tab 02/21/15 hydrALAZINE HCL [Apresoline] 25 mg PO TID #90 tab 02/21/15 Darbepoetin James [Aranesp] 40 mcg SQ Q7D syringe 07/24/18 Ferrous Sulfate [Feosol] 325 mg PO BID 30 Days #60 tab 07/24/18 Allergies Allergy/AdvReac Type Severity Reaction Status Date / Time glipizide Allergy Rash/Hives Verified 08/15/19 12:27 Penicillins Allergy Unknown Verified 08/15/19 12:27 Sulfa (Sulfonamide Allergy Unknown Verified 08/15/19 12:27 Antibiotics) Review of Systems ROS Statement: Those systems with pertinent positive or pertinent negative responses have been documented in the HPI. ROS Other: All systems not noted in ROS Statement are negative. Past Medical History Past Medical History: Cancer, Diabetes Mellitus, Hypertension, Renal Disease Additional Past Medical History / Comment(s): 02/17/15 Pt presented to [facility] ER with chest pain starting about 0330 this AM. Pain radiated to L neck and down L arm. She is admitted with clinical impression of chest pain. 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 History of Any Multi-Drug Resistant Organisms: None Reported Past Surgical History: Adenoidectomy, Bowel Resection, Breast Surgery, Tonsillectomy Additional Past Surgical History / Comment(s): L Breast lumpectomy sugery, partial colectomy for perforation with colostomy for 3 months then reversed, colonoscopy with benign polypectomy, double J catheter insertion L kidney then percutaneous nephrolithotomy attempted and then lithrotropsey (ESWL) and removal of double J catheters. Past Anesthesia/Blood Transfusion Reactions: Motion Sickness Additional Past Anesthesia/Blood Transfusion Reaction / Comment(s): Pt states she has never received blood. Past Psychological History: No Psychological Hx Reported Smoking Status: Never smoker Past Alcohol Use History: None Reported Past Drug Use History: None Reported - Past Family History Father Family Medical History: Musculoskeletal Disorder, Neurologic Disorder Additional Family Medical History / Comment(s): Father had parkinsons and at age 60yrs. Mother Family Medical History: Cancer Additional Family Medical History / Comment(s): Mother had stomach cancer and in her 70's. General Exam Limitations: no limitations General appearance: alert, in no apparent distress Head exam: Present: atraumatic, normocephalic, normal inspection Eye exam: Present: normal appearance, PERRL, EOMI. Absent: scleral icterus, conjunctival injection, periorbital swelling ENT exam: Present: normal exam, mucous membranes moist Neck exam: Present: normal inspection. Absent: tenderness, meningismus, lymphadenopathy Respiratory exam: Present: normal lung sounds bilaterally. Absent: respiratory distress, wheezes, rales, rhonchi, stridor Cardiovascular Exam: Present: regular rate, normal rhythm, normal heart sounds. Absent: systolic murmur, diastolic murmur, rubs, gallop, clicks GI/Abdominal exam: Present: soft, normal bowel sounds. Absent: distended, tenderness, guarding, rebound, rigid Extremities exam: Present: normal inspection, full ROM, normal capillary refill. Absent: tenderness, pedal edema, joint swelling, calf tenderness Back exam: Present: normal inspection Neurological exam: Present: alert, oriented X3, CN II-XII intact Psychiatric exam: Present: normal affect, normal mood Skin exam: Present: warm, dry, intact, normal color. Absent: rash Course Vital Signs 08/15/19 08/15/19 12:21 13:36 Temperature 98.3 F Pulse Rate 75 84 Respiratory 16 16 Rate Blood Pressure 154/87 168/75 O2 Sat by Pulse 94 L 95 Oximetry - Reevaluation(s) Reevaluation #1: 08/15/19 13:03 Medical records reviewed Reevaluation #2: 08/15/19 13:03 Patient without current active vomiting Medical Decision Making - Medical Decision Making 84 female persistent nausea vomiting patient does appear to have infectious UTI, severe dehydration will admit for rehydration and IV antibiotics, continue magnetic evaluation - Lab Data Result diagrams: 08/15/19 12:45 08/15/19 12:45 Lab Results 08/15/19 08/15/19 08/15/19 Range/Units 12:45 12:45 12:45 WBC 21.0 H (3.8-10.6) k/uL RBC 3.47 L (3.80-5.40) m/uL Hgb 10.8 L (11.4-16.0) gm/dL Hct 33.8 L (34.0-46.0) % MCV 97.5 (80.0-100.0) fL MCH 31.0 (25.0-35.0) pg MCHC 31.8 (31.0-37.0) g/dL RDW 16.1 H (11.5-15.5) % Plt Count 315 (150-450) k/uL Neutrophils % 95 % Lymphocytes % 2 % Monocytes % 3 % Eosinophils % 0 % Basophils % 0 % Neutrophils # 19.9 H (1.3-7.7) k/uL Lymphocytes # 0.4 L (1.0-4.8) k/uL Monocytes # 0.6 (0-1.0) k/uL Eosinophils # 0.0 (0-0.7) k/uL Basophils # 0.0 (0-0.2) k/uL Anisocytosis Slight Macrocytosis Slight PT 9.8 (9.0-12.0) sec INR 0.9 (<1.2) APTT 20.5 L (22.0-30.0) sec Sodium 141 (137-145) mmol/L Potassium 4.5 (3.5-5.1) mmol/L Chloride 108 H (98-107) mmol/L Carbon Dioxide 20 L (22-30) mmol/L Anion Gap 13 mmol/L BUN 57 H (7-17) mg/dL Creatinine 1.91 H (0.52-1.04) mg/dL Est GFR (CKD-EPI)AfAm 27 (>60 ml/min/1.73 sqM) Est GFR (CKD-EPI)NonAf 24 (>60 ml/min/1.73 sqM) Glucose 283 H (74-99) mg/dL Plasma Lactic Acid Ranjeet (0.7-2.0) mmol/L Calcium 9.5 (8.4-10.2) mg/dL Phosphorus 4.4 (2.5-4.5) mg/dL Total Bilirubin 1.1 (0.2-1.3) mg/dL AST 19 (14-36) U/L ALT 15 (4-34) U/L Alkaline Phosphatase 76 (38-126) U/L Creatine Kinase 81 (30-135) U/L Troponin I (0.000-0.034) ng/mL NT-Pro-B Natriuret Pep pg/mL Total Protein 7.3 (6.3-8.2) g/dL Albumin 4.1 (3.5-5.0) g/dL Urine Color Urine Appearance (Clear) Urine pH (5.0-8.0) Ur Specific [place] (1.001-1.035) Urine Protein (Negative) Urine Glucose (UA) (Negative) Urine Ketones (Negative) Urine Blood (Negative) Urine Nitrite (Negative) Urine Bilirubin (Negative) Urine Urobilinogen (<2.0) mg/dL Ur Leukocyte Esterase (Negative) Urine RBC (0-5) /hpf Urine WBC (0-5) /hpf Ur Squamous Epith Cells (0-4) /hpf Urine Bacteria (None) /hpf 08/15/19 08/15/19 08/15/19 Range/Units 12:45 12:45 12:45 WBC (3.8-10.6) k/uL RBC (3.80-5.40) m/uL Hgb (11.4-16.0) gm/dL Hct (34.0-46.0) % MCV (80.0-100.0) fL MCH (25.0-35.0) pg MCHC (31.0-37.0) g/dL RDW (11.5-15.5) % Plt Count (150-450) k/uL Neutrophils % % Lymphocytes % % Monocytes % % Eosinophils % % Basophils % % Neutrophils # (1.3-7.7) k/uL Lymphocytes # (1.0-4.8) k/uL Monocytes # (0-1.0) k/uL Eosinophils # (0-0.7) k/uL Basophils # (0-0.2) k/uL Anisocytosis Macrocytosis PT (9.0-12.0) sec INR (<1.2) APTT (22.0-30.0) sec Sodium (137-145) mmol/L Potassium (3.5-5.1) mmol/L Chloride (98-107) mmol/L Carbon Dioxide (22-30) mmol/L Anion Gap mmol/L BUN (7-17) mg/dL Creatinine (0.52-1.04) mg/dL Est GFR (CKD-EPI)AfAm (>60 ml/min/1.73 sqM) Est GFR (CKD-EPI)NonAf (>60 ml/min/1.73 sqM) Glucose (74-99) mg/dL Plasma Lactic Acid Ranjeet 2.8 H* (0.7-2.0) mmol/L Calcium (8.4-10.2) mg/dL Phosphorus (2.5-4.5) mg/dL Total Bilirubin (0.2-1.3) mg/dL AST (14-36) U/L ALT (4-34) U/L Alkaline Phosphatase (38-126) U/L Creatine Kinase (30-135) U/L Troponin I <0.012 (0.000-0.034) ng/mL NT-Pro-B Natriuret Pep 540 pg/mL Total Protein (6.3-8.2) g/dL Albumin (3.5-5.0) g/dL Urine Color Urine Appearance (Clear) Urine pH (5.0-8.0) Ur Specific [place] (1.001-1.035) Urine Protein (Negative) Urine Glucose (UA) (Negative) Urine Ketones (Negative) Urine Blood (Negative) Urine Nitrite (Negative) Urine Bilirubin (Negative) Urine Urobilinogen (<2.0) mg/dL Ur Leukocyte Esterase (Negative) Urine RBC (0-5) /hpf Urine WBC (0-5) /hpf Ur Squamous Epith Cells (0-4) /hpf Urine Bacteria (None) /hpf 08/15/19 Range/Units 12:55 WBC (3.8-10.6) k/uL RBC (3.80-5.40) m/uL Hgb (11.4-16.0) gm/dL Hct (34.0-46.0) % MCV (80.0-100.0) fL MCH (25.0-35.0) pg MCHC (31.0-37.0) g/dL RDW (11.5-15.5) % Plt Count (150-450) k/uL Neutrophils % % Lymphocytes % % Monocytes % % Eosinophils % % Basophils % % Neutrophils # (1.3-7.7) k/uL Lymphocytes # (1.0-4.8) k/uL Monocytes # (0-1.0) k/uL Eosinophils # (0-0.7) k/uL Basophils # (0-0.2) k/uL Anisocytosis Macrocytosis PT (9.0-12.0) sec INR (<1.2) APTT (22.0-30.0) sec Sodium (137-145) mmol/L Potassium (3.5-5.1) mmol/L Chloride (98-107) mmol/L Carbon Dioxide (22-30) mmol/L Anion Gap mmol/L BUN (7-17) mg/dL Creatinine (0.52-1.04) mg/dL Est GFR (CKD-EPI)AfAm (>60 ml/min/1.73 sqM) Est GFR (CKD-EPI)NonAf (>60 ml/min/1.73 sqM) Glucose (74-99) mg/dL Plasma Lactic Acid Ranjeet (0.7-2.0) mmol/L Calcium (8.4-10.2) mg/dL Phosphorus (2.5-4.5) mg/dL Total Bilirubin (0.2-1.3) mg/dL AST (14-36) U/L ALT (4-34) U/L Alkaline Phosphatase (38-126) U/L Creatine Kinase (30-135) U/L Troponin I (0.000-0.034) ng/mL NT-Pro-B Natriuret Pep pg/mL Total Protein (6.3-8.2) g/dL Albumin (3.5-5.0) g/dL Urine Color Light Yellow Urine Appearance Clear (Clear) Urine pH 6.5 (5.0-8.0) Ur Specific [place] 1.011 (1.001-1.035) Urine Protein 2+ H (Negative) Urine Glucose (UA) 1+ H (Negative) Urine Ketones Negative (Negative) Urine Blood Trace H (Negative) Urine Nitrite Negative (Negative) Urine Bilirubin Negative (Negative) Urine Urobilinogen <2.0 (<2.0) mg/dL Ur Leukocyte Esterase Moderate H (Negative) Urine RBC 1 (0-5) /hpf Urine WBC 20 H (0-5) /hpf Ur Squamous Epith Cells <1 (0-4) /hpf Urine Bacteria Occasional H (None) /hpf - EKG Data -: EKG Interpreted by Me (EKG shows sinus rhythm rate of 70 VT 154 QRS 88 QTc 465) - Radiology Data Radiology results: report reviewed (X-ray abdominal series with chest is negative for acute disease), image reviewed Critical Care Time Critical Care Time: Yes Disposition Clinical Impression: Weakness, Dehydration, UTI (urinary tract infection), Nausea & vomiting Disposition: ADMITTED IP TO THIS [facility] Condition: Serious Is patient prescribed a controlled substance at d/c from ED?: No Referrals: Edilma Wood MD [Primary Care Provider] - 1-2 days
[2019-08-15 13:10] LABS: Albumin 4.1 g/dL (3.5-5.0); Calcium 9.5 mg/dL (8.4-10.2); Phosphorus 4.4 mg/dL (2.5-4.5); Potassium 4.5 mmol/L (3.5-5.1); Total Bilirubin 1.1 mg/dL (0.2-1.3); Total Protein 7.3 g/dL (6.3-8.2)
[2019-08-15 13:15] LABS: Partial Thromboplastin Time 20.5 sec (22.0-30.0)
[2019-08-15 13:16] LABS: Appearance,Urine Clear (Clear); Bacteria,Urine Occasional /hpf; Bilirubin,Urine Negative (Negative); Blood,Urine Trace (Negative); Color,Urine Light Yellow; Glucose,Urine (UA) 1+ (Negative); Ketones,Urine Negative (Negative); Leukocyte Esterase,Urine Moderate (Negative); Nitrite,Urine Negative (Negative); PH, Urine 6.5 (5.0-8.0); Protein,Urine 2+ (Negative); RBC,Urine 1 /hpf (0-5); Specific Gravity,Urine 1.011 (1.001-1.035); Squamous Epithelial Cell,Urine <1 /hpf (0-4); Urobilinogen,Urine <2.0 mg/dL (<2.0); WBC,Urine 20 /hpf (0-5)
--- NOTE | 2019-08-15 13:48 | XR ---
EXAMINATION TYPE: XR abdomen acute w cxr DATE OF EXAM: 08/15/2019 COMPARISON: Chest x-ray 07/22/2018 HISTORY: Pain TECHNIQUE: Supine, upright, and left side down lateral decubitus views of the abdomen are obtained. FINDINGS: Atherosclerotic change aorta with no evidence of pneumothorax, pleural effusion or consolid ation. Diffuse osteopenia and multilevel degenerative change of the spine. Vascular calcifications of the sp lenic artery are noted. There are surgical clips in the left upper quadrant. Bowel gas pattern nonspe cific and there is arthropathy of the hips. IMPRESSION: 1. No acute process. 2. Nonspecific abdomen
[2019-08-15] MEDS: SODIUM CHLORIDE 0.9% 500 ML 500 ML IV SCH ×3 (14:48→16:50)
--- NOTE | 2019-08-15 15:10 | CT ---
EXAMINATION TYPE: CT abdomen pelvis wo con DATE OF EXAM: 08/15/2019 COMPARISON: None HISTORY: Nausea and vomiting. CT DLP: 450.2 mGycm Automated exposure control for dose reduction was used. Images obtained from the diaphragm to the floor the pelvis with no contrast. There is some interstitial infiltrate and atelectasis at the posterior lung bases. There is no pleura l effusion. There is no pericardial effusion. There are multiple gallstones. Gallbladder is slightly enlarged and measures 4.5 cm. There is no foca l liver defect. Spleen is intact. There is no evidence of pancreatic mass. The stomach is intact. The re is small hiatal hernia. There is advanced atrophy of the right kidney. Left kidney shows some compensatory hypertrophy. There is no hydronephrosis. There is 2 mm calcification lower pole left kidney. Ureters are not dilated. T here is 1.5 cm cortical cyst upper pole right kidney. There is no retroperitoneal adenopathy. There i s no adrenal mass. Bladder distends smoothly. There is extensive diverticulosis of the sigmoid colon. There are diverticula throughout the large bowel. There is no inguinal hernia. Uterus is anteverted. There is no evidence of pelvic mass. Appendix is not definitely seen. There is no sign of thickened appendix. There is no mesenteric edema. There is no ascites or free air. There is no sign of a bowel obstructio n. Lumbar vertebra have normal alignment. Disc spaces are fairly normal. There is spurring of the endpla rebecca. Bony pelvis is intact. IMPRESSION: Extensive colonic diverticulosis without diverticulitis. Atherosclerotic vascular disease. Cholelithiasis. Fibrotic changes and subsegmental atelectasis at the lung bases. No bowel obstruction.
[2019-08-15] MEDS: SODIUM CHLORIDE 0.9% 1,000 ML IV SCH ×2 (16:08→20:39)
[2019-08-15] MEDS: hydrALAZINE HCL 25 MG TAB PO SCH (20:38)
[2019-08-15] MEDS: PRAVASTATIN SODIUM 20 MG TAB PO SCH (20:38)
[2019-08-15] MEDS: SODIUM BICARBONATE TAB 650 MG TAB PO SCH (20:38)
[2019-08-15] MEDS: METOPROLOL TARTRATE 25 MG TAB PO SCH (20:38)
[2019-08-16] MEDS: ONDANSETRON 4 MG/2 ML VIAL IVP PRN ×2 (03:51→10:32)
[2019-08-16] MEDS: SODIUM CHLORIDE 0.9% 1,000 ML IV SCH ×3 (05:31→20:22)
[2019-08-16] MEDS ORDERED: NON FORMULARY DRUG (Biotin [Biotin] 5 MG) PO SCH (09:00)
[2019-08-16] MEDS ORDERED: ENOXAPARIN 40 MG/0.4 ML SYRINGE SQ SCH (09:00)
[2019-08-16] MEDS: SODIUM BICARBONATE TAB 650 MG TAB PO SCH ×3 (10:14→20:22)
[2019-08-16] MEDS: hydrALAZINE HCL 25 MG TAB PO SCH ×3 (10:14→20:22)
[2019-08-16] MEDS: ASPIRIN 81 MG PO SCH (10:14)
[2019-08-16] MEDS: ALLOPURINOL 300 MG TAB PO SCH (10:14)
[2019-08-16] MEDS: amLODIPine 2.5 MG TAB PO SCH (10:15)
[2019-08-16] MEDS: FERROUS SULFATE 325 MG TAB PO SCH (10:15)
[2019-08-16] MEDS: METOPROLOL TARTRATE 25 MG TAB PO SCH ×2 (10:19→20:22)
[2019-08-16] MEDS: PANTOPRAZOLE 40 MG TABLET PO SCH (12:45)
[2019-08-16 14:53] LABS: Anisocytosis Slight; Basophils % (A) 0 %; Eosinophils % (A) 0 %; HCT 27.1 % (34.0-46.0); Lymphocytes # (A) 0.7 k/uL (1.0-4.8); Lymphocytes % (A) 5 %; MCH 33.1 pg (25.0-35.0); MCHC 32.8 g/dL (31.0-37.0); MCV 100.9 fL (80.0-100.0); Macrocytosis Slight; Monocytes # (A) 0.5 k/uL (0-1.0); Monocytes % (A) 4 %; Neutrophils # (A) 12.8 k/uL (1.3-7.7); Neutrophils % (A) 91 %; Platelet Count 241 k/uL (150-450); RBC 2.69 m/uL (3.80-5.40); RDW 16.1 % (11.5-15.5); WBC 14.1 k/uL (3.8-10.6)
[2019-08-16 14:59] LABS: HGB 8.9 gm/dL (11.4-16.0)
[2019-08-16 15:06] LABS: Albumin 3.1 g/dL (3.5-5.0); Calcium 7.8 mg/dL (8.4-10.2); Potassium 4.6 mmol/L (3.5-5.1); Total Bilirubin 0.5 mg/dL (0.2-1.3); Total Protein 5.8 g/dL (6.3-8.2)
--- NOTE | 2019-08-16 19:50 | P.HPIM ---
History of Present Illness H&P Date: 08/16/19 Hattie Cardenas is an 84-year-old female well known to my practice who presented to [facility] emergency room, with a chief complaint of nausea and vomiting and cough, she was evaluated in the emergency room she had evidence of urinary tract infection and evidence of acute on chronic renal failure, she was started on IV fluid and IV antibiotic ceftriaxone, she was admitted to medical floor for further evaluation and treatment. Patient has a known history of hypertension, hyperlipidemia, gout, and history of chronic kidney disease stage III Patient was seen and examined on the medical floor she is alert and oriented 3 in no apparent distress she states that she is feeling better there is no fever or chills no headache or dizziness no chest pain no shortness of breath no cough no nausea or vomiting no abdominal pain no diarrhea no burning with urination no frequency or urgency and no hematuria Past Medical History Past Medical History: Cancer, Diabetes Mellitus, Hypertension, Renal Disease Additional Past Medical History / Comment(s): 02/17/15 Pt presented to [facility] ER with chest pain starting about 0330 this AM. Pain radiated to L neck and down L arm. She is admitted with clinical impression of chest pain. 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 History of Any Multi-Drug Resistant Organisms: None Reported Past Surgical History: Adenoidectomy, Bowel Resection, Breast Surgery, Tonsillec jay Additional Past Surgical History / Comment(s): L Breast lumpectomy sugery, colonoscopy with benign polypectomy, double J catheter insertion L kidney then percutaneous nephrolithotomy attempted and then lithrotropsey (ESWL) and removal of double J catheters. Past Anesthesia/Blood Transfusion Reactions: Motion Sickness Additional Past Anesthesia/Blood Transfusion Reaction / Comment(s): Pt states she has never received blood. Past Psychological History: No Psychological Hx Reported Additional Psychological History / Comment(s): Pt resides with her sister. She has a cane she uses if it is icey outside. She is independent. She drives. Smoking Status: Never smoker Past Alcohol Use History: None Reported Past Drug Use History: None Reported - Past Family History Father Family Medical History: Musculoskeletal Disorder, Neurologic Disorder Additional Family Medical History / Comment(s): Father had parkinsons and at age 60yrs. Mother Family Medical History: Cancer Additional Family Medical History / Comment(s): Mother had stomach cancer and in her 70's. Medications and Allergies Home Medications Medication Instructions Recorded Confirmed Type Pravastatin Sodium [Pravachol] 20 mg PO HS 08/05/14 08/15/19 History Aspirin 81 mg PO DAILY 02/17/15 08/15/19 History Biotin 5 mg PO DAILY 02/17/15 08/15/19 History Metoprolol Tartrate [Lopressor] 25 mg PO BID #60 tab 02/21/15 08/15/19 Rx hydrALAZINE HCL [Apresoline] 25 mg PO TID #90 tab 02/21/15 08/15/19 Rx Allopurinol [Zyloprim] 300 mg PO DAILY 07/19/18 08/15/19 History amLODIPine BESYLATE [Norvasc] 2.5 mg PO DAILY 07/19/18 08/15/19 History Ferrous Sulfate [Feosol] 325 mg PO DAILY 08/15/19 08/15/19 History Omeprazole Magnesium [PriLOSEC OTC] 20 mg PO AC-LUNCH 08/15/19 08/15/19 History Sodium Bicarbonate Tab 650 mg PO TID 08/15/19 08/15/19 History Allergies Allergy/AdvReac Type Severity Reaction Status Date / Time glipizide Allergy Rash/Hives Verified 08/15/19 15:55 Penicillins Allergy Unknown Verified 08/15/19 15:55 Sulfa (Sulfonamide Allergy Unknown Verified 08/15/19 15:55 Antibiotics) Physical Exam Vitals: Vital Signs Temp Pulse Pulse Resp BP BP Pulse Ox 08/16/19 10:10 60 08/16/19 07:00 98.5 F 59 L 17 150/53 94 L 08/16/19 00:38 97.5 F L 62 16 144/64 94 L 08/15/19 19:22 98.4 F 71 16 158/71 96 08/15/19 16:37 97.8 F 73 18 159/63 93 L 08/15/19 15:23 80 16 158/72 94 L 07/05/20 14:55 76 20 159/71 95 Intake and Output 08/15/19 08/16/19 08/16/19 22:59 06:59 14:59 Other: Voiding Method Diaper # Voids 1 1 Weight 54.431 kg In general patient is alert and oriented 3 in no apparent distress HEENT head normocephalic and atraumatic Neck is supple no JVD no goiter no lymphadenopathy Chest exam reveals a few scattered rhonchi no wheezing Cardiac exam reveals regular heart sounds S1 and S2 no gallops no murmurs Abdomen is soft nontender no organomegaly with normal bowel sounds Extremity exam reveals no edema no cyanosis or clubbing Neurological examination reveals no gross focal deficit Results CBC & Chem 7: 08/16/19 14:19 08/16/19 14:19 Labs: Abnormal Lab Results - Last 24 Hours (Table) 08/15/19 Range/Units 15:37 Plasma Lactic Acid Ranjeet 2.4 H* (0.7-2.0) mmol/L Microbiology - Last 24 Hours (Table) 08/15/19 12:55 Urine Culture - Preliminary Urine,Voided Assessment and Plan Plan: 1. Urinary tract infection, patient was started on IV Rocephin in the emergency room urine culture pending 2. Sepsis as evidenced by leukocytosis and elevated lactic acid 3. Acute on chronic renal failure, acute component related to sepsis, and prerenal azotemia patient is receiving IV fluid boluses 4. Underlying history of anemia maintained on iron sulfate 5. Underlying history of hypertension well-controlled on current medications 6. For DVT prophylaxis patient is maintained on subcu Lovenox, for GI prophylaxis patient is on Protonix 7. Covid 19 testing negative At this time continue with IV antibiotics and IV fluid Check chest x-ray Consult infectious disease and nephrology Recheck labs in a.m.
[2019-08-16] MEDS: PRAVASTATIN SODIUM 20 MG TAB PO SCH (20:22)
--- NOTE | 2019-08-16 20:36 | XR ---
EXAMINATION TYPE: XR chest 2V DATE OF EXAM: 08/16/2019 COMPARISON: 07/22/2018 INDICATION: Cough and congestion TECHNIQUE: Frontal and lateral views of the chest are obtained. FINDINGS: The heart size is rounded prominent. The pulmonary vasculature is prominent. There is diffuse increased lung markings in the perihilar regions. IMPRESSION: 1. Cardiomegaly with prominent pulmonary vascular markings. Correlate for early volume overload or co ngestive heart failure.
[2019-08-17] MEDS: SODIUM CHLORIDE 0.9% 1,000 ML IV SCH ×2 (04:18→15:06)
[2019-08-17] MEDS: SODIUM BICARBONATE TAB 650 MG TAB PO SCH ×3 (07:33→19:41)
[2019-08-17] MEDS: FERROUS SULFATE 325 MG TAB PO SCH (07:33)
[2019-08-17] MEDS: METOPROLOL TARTRATE 25 MG TAB PO SCH ×2 (07:33→19:41)
[2019-08-17] MEDS: ASPIRIN 81 MG PO SCH (07:34)
[2019-08-17] MEDS: amLODIPine 2.5 MG TAB PO SCH (07:34)
[2019-08-17] MEDS: hydrALAZINE HCL 25 MG TAB PO SCH ×3 (07:34→19:41)
[2019-08-17] MEDS: ALLOPURINOL 300 MG TAB PO SCH (07:34)
[2019-08-17] MEDS: ENOXAPARIN 30 MG/0.3 ML SYRINGE SQ SCH (07:35)
[2019-08-17 07:38] LABS: Anisocytosis Slight; Basophils % (A) 0 %; Eosinophils # (A) 0.1 k/uL (0-0.7); Eosinophils % (A) 0 %; HCT 25.2 % (34.0-46.0); HGB 8.4 gm/dL (11.4-16.0); Lymphocytes % (A) 6 %; MCH 33.4 pg (25.0-35.0); MCHC 33.2 g/dL (31.0-37.0); MCV 100.7 fL (80.0-100.0); Macrocytosis Slight; Mean Platelet Volume 7.7; Monocytes # (A) 0.8 k/uL (0-1.0); Monocytes % (A) 5 %; Neutrophils # (A) 14.9 k/uL (1.3-7.7); Neutrophils % (A) 88 %; Platelet Count 221 k/uL (150-450); RDW 16.5 % (11.5-15.5); WBC 16.9 k/uL (3.8-10.6)
[2019-08-17] MEDS ORDERED: FUROSEMIDE 10 MG/ML 2 ML VIAL IV STA (08:00)
[2019-08-17 08:13] LABS: Albumin 2.8 g/dL (3.5-5.0); Calcium 7.6 mg/dL (8.4-10.2); Potassium 4.2 mmol/L (3.5-5.1); Total Bilirubin 0.8 mg/dL (0.2-1.3); Total Protein 5.4 g/dL (6.3-8.2)
--- NOTE | 2019-08-17 08:51 | XR ---
EXAMINATION TYPE: XR chest 1V portable DATE OF EXAM: 08/17/2019 COMPARISON: 08/16/2019 HISTORY: Cough and congestion TECHNIQUE: Single frontal view of the chest is obtained. FINDINGS: There is diffuse interstitial pattern with areas of consolidation involving the right kenney hilar and lower lobe on the left. Small left pleural effusion. Diffuse osteopenia and arthropathy of the shoulders. No pneumothorax. Hypertrophic and degenerative change of the spine. Atherosclerotic ch navi of the aorta. IMPRESSION: 1. Left lower lobe infiltrate with interstitial pattern correlate for interstitial pneumonia or venou s congestion. 2. Prominence of the right hilum could reflect of reduced inspiration underlying adenopathy not exclu ded.
[2019-08-17] MEDS: PANTOPRAZOLE 40 MG TABLET PO SCH (15:13)
[2019-08-17] MEDS: ACETAMINOPHEN TAB 500 MG TAB PO PRN (15:54)
--- NOTE | 2019-08-17 16:54 | CONS ---
CONSULTATION REASON FOR CONSULT: Renal failure. HISTORY OF PRESENT ILLNESS: Patient is an 84-year-old female who has a history of chronic kidney disease, stage 3B to 4, secondary to nephrosclerosis; baseline creatinine around 2 mg/dL. The patient has an atrophic right kidney and she has previously had left hydronephrosis. However, her current CT scan does not show any evidence of left-sided hydronephrosis. She was admitted to the hospital on this admission with complaints of nausea and vomiting. She was complaining of weakness. Patient also had a cough. No ongoing fever or chills. No diarrhea. Serum creatinine is 1.6 mg/dL, which is down from 1.9 on initial admission. Previous creatinine was 1.6 to 2 mg/dL in 2019. PAST MEDICAL HISTORY: CKD, stage 3, hypertension, type 2 diabetes, history of breast cancer on the left side with lumpectomy and radiation therapy with previous history of left hydronephrosis and left ureteral stone. Currently with no hydronephrosis on CT scan. Patient also has right atrophic kidney, neuropathy, vertigo. PAST SURGICAL HISTORY: Adenoidectomy, bowel resection, tonsillectomy, breast surgery, colonoscopy, history of left kidney nephrolithotomy and lithotripsy with removal of stones. SOCIAL HISTORY: Negative for smoking, drug abuse or alcohol abuse. MEDICATIONS: Medications prior to admission included Pravachol, aspirin, biotin, Lopressor, hydralazine, zyloprim, Norvasc, iron, Prilosec, sodium bicarb. ALLERGIES: ALLERGIES include GLIPIZIDE, PENICILLIN, SULFA. PHYSICAL EXAMINATION: Patient is comfortable, awake, alert, oriented x3, not in any acute distress. Blood pressure is 152/63, heart rate 73 per minute. She is afebrile. EXAMINATION OF THE HEART: S1 and S2. EXAMINATION OF LUNGS: Bilateral breath sounds are heard. ABDOMEN: Soft, non-tender. Examination of lower extremities shows no significant edema. B[employer]ING [employer] exam is grossly intact. LABS: Labs show sodium 142, potassium 4.2, chloride 116. CO2 is 21, BUN 29, creatinine 1.6, hemoglobin 8.4 g/dL. Lactic acid was 1.8, down from 2.4 on initial admission. Albumin is 2.8. UA shows 2+ protein, WBCs 20, trace blood. Urine culture is growing Gram- negative bacilli. ASSESSMENT: 1. Chronic kidney disease with renal function currently at baseline, stage 3B secondary to nephrosclerosis. Currently patient is at stage 4. 2. Atrophic right kidney. 3. Previous history of left hydronephrosis with ureteral stone. Currently with no hydronephrosis noted on CT scan and good urine output. 4. Urinary tract infection. Urine culture growing Gram-negative bacilli. Patient is maintained on Rocephin. 5. Hypertension, controlled. 6. Metabolic acidosis, maintained on oral sodium bicarb. 7. Possible pneumonia. PLAN: Continue off of IV fluids. Continue off of diuretics as well. Repeat labs in a.m. The patient received IV Lasix x1 this morning. I will maintain her on oral loop diuretics for now. There are no nephrotoxic agents on board. Blood pressure is not significantly low, and we will repeat labs in a.m. Continue empiric antibiotics. Thank you for this consultation. Will continue to follow the patient with you during her hospitalization. MMODL / IJN: [id number] /
--- NOTE | 2019-08-17 19:35 | P.PN ---
Subjective Progress Note Date: 08/17/19 Hattie Cardenas is an 84-year-old female well known to my practice who presented to [facility] emergency room, with a chief complaint of nausea and vomiting and cough, she was evaluated in the emergency room she had evidence of urinary tract infection and evidence of acute on chronic renal failure, she was started on IV fluid and IV antibiotic ceftriaxone, she was admitted to medical floor for further evaluation and treatment. Patient has a known history of hypertension, hyperlipidemia, gout, and history of chronic kidney disease stage III Patient was seen and examined on the medical floor she is alert and oriented 3 in no apparent distress she states that she is feeling better there is no fever or chills no headache or dizziness no chest pain no shortness of breath no cough no nausea or vomiting no abdominal pain no diarrhea no burning with urination no frequency or urgency and no hematuria On 08/17/2019 patient was seen and examined on the medical floor she states she is feeling better, there is no fever or chills no headache or dizziness no chest pain no shortness of breath no cough no nausea or vomiting no abdominal pain no diarrhea no burning with urination no frequency or urgency and no hematuria, she is feeling better. However white blood count is up to 16.9 Objective - Vital Signs Vital signs: Vital Signs Temp 99.0 F 08/17/19 07:40 Pulse 73 08/17/19 07:40 Resp 18 08/17/19 07:40 BP 152/63 08/17/19 07:40 Pulse Ox 96 08/17/19 07:40 Intake & Output 08/16/19 08/17/19 08/17/19 18:59 06:59 18:59 Other: Voiding Method Diaper # Voids 1 1 # Bowel Movements 1 - Exam In general patient is alert and oriented 3 in no apparent distress HEENT head normocephalic and atraumatic Neck is supple no JVD no goiter no lymphadenopathy Chest exam reveals a few scattered rhonchi no wheezing Cardiac exam reveals regular heart sounds S1 and S2 no gallops no murmurs Abdomen is soft nontender no organomegaly with normal bowel sounds Extremity exam reveals no edema no cyanosis or clubbing Neurological examination reveals no gross focal deficit - Labs CBC & Chem 7: 08/17/19 07:05 08/17/19 07:05 Labs: Abnormal Lab Results - Last 24 Hours (Table) 08/16/19 08/16/19 08/17/19 Range/Units 14:19 14:19 07:05 WBC 14.1 H 16.9 H (3.8-10.6) k/uL RBC 2.69 L 2.50 L (3.80-5.40) m/uL Hgb 8.9 L D 8.4 L (11.4-16.0) gm/dL Hct 27.1 L 25.2 L (34.0-46.0) % MCV 100.9 H 100.7 H (80.0-100.0) fL RDW 16.1 H 16.5 H (11.5-15.5) % Neutrophils # 12.8 H 14.9 H (1.3-7.7) k/uL Lymphocytes # 0.7 L (1.0-4.8) k/uL Chloride 113 H (98-107) mmol/L Carbon Dioxide (22-30) mmol/L BUN 38 H (7-17) mg/dL Creatinine 1.60 H (0.52-1.04) mg/dL Glucose 148 H (74-99) mg/dL Calcium 7.8 L (8.4-10.2) mg/dL Total Protein 5.8 L (6.3-8.2) g/dL Albumin 3.1 L (3.5-5.0) g/dL 08/17/19 Range/Units 07:05 WBC (3.8-10.6) k/uL RBC (3.80-5.40) m/uL Hgb (11.4-16.0) gm/dL Hct (34.0-46.0) % MCV (80.0-100.0) fL RDW (11.5-15.5) % Neutrophils # (1.3-7.7) k/uL Lymphocytes # (1.0-4.8) k/uL Chloride 116 H (98-107) mmol/L Carbon Dioxide 21 L (22-30) mmol/L BUN 29 H (7-17) mg/dL Creatinine 1.66 H (0.52-1.04) mg/dL Glucose 132 H (74-99) mg/dL Calcium 7.6 L (8.4-10.2) mg/dL Total Protein 5.4 L (6.3-8.2) g/dL Albumin 2.8 L (3.5-5.0) g/dL Microbiology - Last 24 Hours (Table) 08/15/19 12:55 Urine Culture - Preliminary Urine,Voided Gram Neg Bacilli Assessment and Plan Plan: 1. Urinary tract infection, patient was started on IV Rocephin in the emergency room urine culture pending 2. Sepsis as evidenced by leukocytosis and elevated lactic acid 3. Acute on chronic renal failure, acute component related to sepsis, and prerenal azotemia patient is receiving IV fluid boluses 4. Underlying history of anemia maintained on iron sulfate 5. Underlying history of hypertension well-controlled on current medications 6. For DVT prophylaxis patient is maintained on subcu Lovenox, for GI prophylaxis patient is on Protonix 7. Covid 19 testing negative At this time continue with IV antibiotics and IV fluid Check chest x-ray Consult infectious disease and nephrology Recheck labs in a.m.
[2019-08-17] MEDS: PRAVASTATIN SODIUM 20 MG TAB PO SCH (19:41)
[2019-08-17 20:25] LABS: Glucose,Whole Blood 198 mg/dL (75-99)
--- NOTE | 2019-08-17 22:49 | P.CONS ---
History of Present Illness - Reason for Consult Consult date: 08/17/19 Urinary tract infection Requesting physician: Edilma Wood - Chief Complaint Nausea and vomiting 1 day - History of Present Illness Patient is 84-year-old female presenting to the ER at [facility] with chief complaints of nausea and vomiting for 1 day duration patient denies significant abdominal pain or any diarrhea patient has recovered some burning of urine but no frequency no hematuria or flank pain patient did have some chills but no fever with these symptoms the patient was evaluated by the physician on arrival to the patient has been afebrile she did have elevated white count of 21,000 patient did have a positive UA acute abdominal series no acute findings CT abdominal pelvis did not show any acute finding as well patient did have a positive UA she has been diagnosed with urinary tract infection use started on Rocephin and admitted to the hospital infectious disease was consulted for further management of antibiotic therapy Review of Systems Positive point has been mentioned in the HPI rest of the systems are negative Past Medical History Past Medical History: Cancer, Diabetes Mellitus, Hypertension, Renal Disease Additional Past Medical History / Comment(s): 02/17/15 Pt presented to [facility] ER with chest pain starting about 0330 this AM. Pain radiated to L neck and down L arm. She is admitted with clinical impression of chest pain. 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 History of Any Multi-Drug Resistant Organisms: None Reported Past Surgical History: Adenoidectomy, Bowel Resection, Breast Surgery, Tonsillectomy Additional Past Surgical History / Comment(s): L Breast lumpectomy sugery, colonoscopy with benign polypectomy, double J catheter insertion L kidney then percutaneous nephrolithotomy attempted and then lithrotropsey (ESWL) and removal of double J catheters. Past Anesthesia/Blood Transfusion Reactions: Motion Sickness Additional Past Anesthesia/Blood Transfusion Reaction / Comm: Pt states she has never received blood. Past Psychological History: No Psychological Hx Reported Additional Psychological History / Comment(s): Pt resides with her sister. She has a cane she uses if it is icey outside. She is independent. She drives. Smoking Status: Never smoker Past Alcohol Use History: None Reported Past Drug Use History: None Reported - Past Family History Father Family Medical History: Musculoskeletal Disorder, Neurologic Disorder Additional Family Medical History / Comment(s): Father had parkinsons and at age 60yrs. Mother Family Medical History: Cancer Additional Family Medical History / Comment(s): Mother had stomach cancer and in her 70's. Medications and Allergies Home Medications Medication Instructions Recorded Confirmed Type Pravastatin Sodium [Pravachol] 20 mg PO HS 08/05/14 08/15/19 History Aspirin 81 mg PO DAILY 02/17/15 08/15/19 History Biotin 5 mg PO DAILY 02/17/15 08/15/19 History Metoprolol Tartrate [Lopressor] 25 mg PO BID #60 tab 02/21/15 08/15/19 Rx hydrALAZINE HCL [Apresoline] 25 mg PO TID #90 tab 02/21/15 08/15/19 Rx Allopurinol [Zyloprim] 300 mg PO DAILY 07/19/18 08/15/19 History amLODIPine BESYLATE [Norvasc] 2.5 mg PO DAILY 07/19/18 08/15/19 History Ferrous Sulfate [Feosol] 325 mg PO DAILY 08/15/19 08/15/19 History Omeprazole Magnesium [PriLOSEC OTC] 20 mg PO AC-LUNCH 08/15/19 08/15/19 History Sodium Bicarbonate Tab 650 mg PO TID 08/15/19 08/15/19 History Allergies Allergy/AdvReac Type Severity Reaction Status Date / Time glipizide Allergy Rash/Hives Verified 08/15/19 15:55 Penicillins Allergy Unknown Verified 08/15/19 15:55 Sulfa (Sulfonamide Allergy Unknown Verified 08/15/19 15:55 Antibiotics) Physical Exam Vitals: Vital Signs Temp Pulse Resp BP Pulse Ox 08/17/19 07:40 99.0 F 73 18 152/63 96 08/17/19 00:50 98.1 F 60 150/64 93 L 08/16/19 18:39 98.4 F 67 162/67 91 L 08/16/19 15:00 98.6 F 61 18 130/57 94 L Intake and Output 08/16/19 08/17/19 08/17/19 22:59 06:59 14:59 Other: Voiding Method Diaper # Voids 1 1 # Bowel Movements 1 GENERAL DESCRIPTION: An elderly female lying in bed, no distress. No tachypnea or accessory muscle of respiration use. HEENT: Shows Pallor , no scleral icterus. Oral mucous membrane is dry. No pharyngeal erythema or thrush NECK: Trachea central, no thyromegaly. LUNGS: Unlabored breathing. Clear to auscultation anteriorly. No wheeze or crackle. HEART: S1, S2, regular rate and rhythm. No loud murmur ABDOMEN: Soft, no tenderness , guarding or rigidity, no organomegaly EXTREMITIES: No edema of feet. SKIN: No rash, no masses palpable. NEUROLOGICAL: The patient is awake, alert, oriented x3, mood and affect normal. Results CBC & Chem 7: 08/17/19 07:05 08/17/19 07:05 Labs: Abnormal Lab Results - Last 24 Hours (Table) 08/16/19 08/16/19 08/17/19 Range/Units 14:19 14:19 07:05 WBC 14.1 H 16.9 H (3.8-10.6) k/uL RBC 2.69 L 2.50 L (3.80-5.40) m/uL Hgb 8.9 L D 8.4 L (11.4-16.0) gm/dL Hct 27.1 L 25.2 L (34.0-46.0) % MCV 100.9 H 100.7 H (80.0-100.0) fL RDW 16.1 H 16.5 H (11.5-15.5) % Neutrophils # 12.8 H 14.9 H (1.3-7.7) k/uL Lymphocytes # 0.7 L (1.0-4.8) k/uL Chloride 113 H (98-107) mmol/L Carbon Dioxide (22-30) mmol/L BUN 38 H (7-17) mg/dL Creatinine 1.60 H (0.52-1.04) mg/dL Glucose 148 H (74-99) mg/dL Calcium 7.8 L (8.4-10.2) mg/dL Total Protein 5.8 L (6.3-8.2) g/dL Albumin 3.1 L (3.5-5.0) g/dL 08/17/19 Range/Units 07:05 WBC (3.8-10.6) k/uL RBC (3.80-5.40) m/uL Hgb (11.4-16.0) gm/dL Hct (34.0-46.0) % MCV (80.0-100.0) fL RDW (11.5-15.5) % Neutrophils # (1.3-7.7) k/uL Lymphocytes # (1.0-4.8) k/uL Chloride 116 H (98-107) mmol/L Carbon Dioxide 21 L (22-30) mmol/L BUN 29 H (7-17) mg/dL Creatinine 1.66 H (0.52-1.04) mg/dL Glucose 132 H (74-99) mg/dL Calcium 7.6 L (8.4-10.2) mg/dL Total Protein 5.4 L (6.3-8.2) g/dL Albumin 2.8 L (3.5-5.0) g/dL Microbiology - Last 24 Hours (Table) 08/15/19 12:55 Urine Culture - Preliminary Urine,Voided Gram Neg Bacilli Assessment and Plan Assessment: 1- patient presented to hospital with nausea and vomiting this patient also have evidence of urinary symptom positive UA elevated white count likely symptomatic urinary tract Infection with urine culture showing Gram-negative ID and sensitivities are currently pending 2-Patient with multiple antibiotic ALLERGIES that would limit the number of an tibiotic safe to use (1) UTI (urinary tract infection) Current Visit: Yes Status: Acute Code(s): N39.0 - URINARY TRACT INFECTION, SITE NOT SPECIFIED SNOMED Code(s): 96478550 Plan: 1- Rocephin 1 g IV piggyback daily 2-gentle IV fluid We will follow on clinical condition and cultures to further adjust medication if needed Thank you for this consultation will follow this patient with you Time with Patient: Greater than 30
[2019-08-18] MEDS: ACETAMINOPHEN TAB 500 MG TAB PO PRN (00:21)
[2019-08-18 08:26] LABS: Anisocytosis Slight; Basophils % (A) 0 %; Eosinophils # (A) 0.1 k/uL (0-0.7); Eosinophils % (A) 1 %; HCT 27.3 % (34.0-46.0); HGB 8.9 gm/dL (11.4-16.0); Lymphocytes # (A) 1.2 k/uL (1.0-4.8); Lymphocytes % (A) 8 %; MCH 32.6 pg (25.0-35.0); MCHC 32.6 g/dL (31.0-37.0); Macrocytosis Slight; Mean Platelet Volume 7.9; Monocytes # (A) 0.6 k/uL (0-1.0); Monocytes % (A) 4 %; Neutrophils # (A) 12.6 k/uL (1.3-7.7); Neutrophils % (A) 86 %; Platelet Count 232 k/uL (150-450); RBC 2.73 m/uL (3.80-5.40); RDW 16.1 % (11.5-15.5); WBC 14.7 k/uL (3.8-10.6)
[2019-08-18 08:40] LABS: Albumin 2.9 g/dL (3.5-5.0); Calcium 8.1 mg/dL (8.4-10.2); Potassium 4.2 mmol/L (3.5-5.1); Total Bilirubin 1.1 mg/dL (0.2-1.3); Total Protein 5.6 g/dL (6.3-8.2)
[2019-08-18] MEDS: FUROSEMIDE 40 MG TAB PO SCH (09:02)
[2019-08-18] MEDS: ENOXAPARIN 30 MG/0.3 ML SYRINGE SQ SCH (09:02)
[2019-08-18] MEDS: amLODIPine 2.5 MG TAB PO SCH (09:02)
[2019-08-18] MEDS: FERROUS SULFATE 325 MG TAB PO SCH (09:02)
[2019-08-18] MEDS: hydrALAZINE HCL 25 MG TAB PO SCH ×3 (09:02→20:58)
[2019-08-18] MEDS: ASPIRIN 81 MG PO SCH (09:02)
[2019-08-18] MEDS: SODIUM BICARBONATE TAB 650 MG TAB PO SCH ×3 (09:02→20:58)
[2019-08-18] MEDS: METOPROLOL TARTRATE 25 MG TAB PO SCH ×2 (09:03→20:58)
[2019-08-18] MEDS: ALLOPURINOL 300 MG TAB PO SCH (09:03)
[2019-08-18] MEDS: SODIUM CHLORIDE 0.9% 1,000 ML IV SCH (13:02)
[2019-08-18] MEDS ORDERED: DARBEPOETIN ALFA 40 MCG/0.4 ML SYRINGE SQ SCH ×2 (13:30→17:00)
--- NOTE | 2019-08-18 16:36 | PN ---
PROGRESS NOTE Patient is seen for followup for chronic kidney disease and acute kidney injury. Patient's creatinine staying about 1.6-1.7 mg/dL. She is currently maintained on oral Lasix. Patient is being treated for urinary tract infection. Urine culture grew Proteus mirabilis, maintained on antibiotics. PHYSICAL EXAMINATION: Today patient is comfortable, sitting on a bedside chair. Blood pressure is 168/53 this morning, heart rate 54 per minute. She is afebrile. Examination of the heart S1, S2. Examination of the lungs, bilateral breath sounds are heard. Abdomen is soft, nontender. Examination of the lower extremities shows no significant edema. [employer] exam grossly intact. LABS: Show sodium 142, potassium 4.2, chloride 110, CO2 is 24, BUN 29, creatinine 1.7 today, hemoglobin 8.9 g/dL. ASSESSMENT: 1. Chronic kidney disease stage IV with baseline renal function with baseline creatinine about 1.6-1.7 mg/dL. 2. Atrophic right kidney. 3. Previous history of left hydronephrosis and ureteral stone. Currently with no evidence of hydronephrosis on CT of the abdomen. 4. Urinary tract infection with urine culture growing Proteus mirabilis, maintained on Rocephin. 5. Metabolic acidosis maintained on sodium bicarb. 6. Possible pneumonia. PLAN: Continue off of IV fluids, may continue with oral Lasix. Continue with the antibiotics. Encourage increased oral intake. Repeat labs in a.m. Continue with the sodium bicarb as well. Check iron profile for workup for anemia and add Aranesp. MMODL / IJN: [id number] /
[2019-08-18] MEDS: PANTOPRAZOLE 40 MG TABLET PO SCH (16:43)
--- NOTE | 2019-08-18 17:30 | P.PN ---
Subjective Progress Note Date: 08/18/19 Hattie Cardenas is an 84-year-old female well known to my practice who presented to [facility] emergency room, with a chief complaint of nausea and vomiting and cough, she was evaluated in the emergency room she had evidence of urinary tract infection and evidence of acute on chronic renal failure, she was started on IV fluid and IV antibiotic ceftriaxone, she was admitted to medical floor for further evaluation and treatment. Patient has a known history of hypertension, hyperlipidemia, gout, and history of chronic kidney disease stage III Patient was seen and examined on the medical floor she is alert and oriented 3 in no apparent distress she states that she is feeling better there is no fever or chills no headache or dizziness no chest pain no shortness of breath no cough no nausea or vomiting no abdominal pain no diarrhea no burning with urination no frequency or urgency and no hematuria On 08/17/2019 patient was seen and examined on the medical floor she states she is feeling better, there is no fever or chills no headache or dizziness no chest pain no shortness of breath no cough no nausea or vomiting no abdominal pain no diarrhea no burning with urination no frequency or urgency and no hematuria, she is feeling better. However white blood count is up to 16.9 on 08/18/2019 patient was seen and examined on the medical floor she is alert and oriented 3 in no apparent distress white blood count slightly better down to 14.7, clinically patient is doing well there is no fever or chills no headache or dizziness no chest pain no shortness of breath no cough no nausea or vomiting no abdominal pain no diarrhea no burning with urination no frequency or urgency and no hematuria Objective - Vital Signs Vital signs: Vital Signs Temp 98.7 F 08/18/19 07:00 Pulse 54 L 08/18/19 07:00 Resp 16 08/18/19 07:00 BP 168/53 08/18/19 07:00 Pulse Ox 96 08/18/19 07:00 Intake & Output 08/17/19 08/18/19 08/18/19 18:59 06:59 18:59 Intake Total 100 480 Output Total 700 1300 Balance -600 -820 Intake: Oral 100 480 Output: Urine 700 1300 Other: Voiding Method Diaper Diaper Diaper - Exam In general patient is alert and oriented 3 in no apparent distress HEENT head normocephalic and atraumatic Neck is supple no JVD no goiter no lymphadenopathy Chest exam reveals a few scattered rhonchi no wheezing Cardiac exam reveals regular heart sounds S1 and S2 no gallops no murmurs Abdomen is soft nontender no organomegaly with normal bowel sounds Extremity exam reveals no edema no cyanosis or clubbing Neurological examination reveals no gross focal deficit - Labs CBC & Chem 7: 08/18/19 07:29 08/18/19 07:29 Labs: Abnormal Lab Results - Last 24 Hours (Table) 08/17/19 08/18/19 08/18/19 Range/Units 20:21 07:29 07:29 WBC 14.7 H (3.8-10.6) k/uL RBC 2.73 L (3.80-5.40) m/uL Hgb 8.9 L (11.4-16.0) gm/dL Hct 27.3 L (34.0-46.0) % RDW 16.1 H (11.5-15.5) % Neutrophils # 12.6 H (1.3-7.7) k/uL Chloride 110 H (98-107) mmol/L BUN 29 H (7-17) mg/dL Creatinine 1.70 H (0.52-1.04) mg/dL Glucose 128 H (74-99) mg/dL POC Glucose (mg/dL) 198 H (75-99) mg/dL Calcium 8.1 L (8.4-10.2) mg/dL Total Protein 5.6 L (6.3-8.2) g/dL Albumin 2.9 L (3.5-5.0) g/dL Microbiology - Last 24 Hours (Table) 08/15/19 12:55 Urine Culture - Final Urine,Voided Proteus mirabilis Assessment and Plan Plan: 1. Urinary tract infection, patient was started on IV Rocephin in the emergency room urine culture pending 2. Sepsis as evidenced by leukocytosis and elevated lactic acid 3. Acute on chronic renal failure, acute component related to sepsis, and prerenal azotemia patient is receiving IV fluid boluses 4. Underlying history of anemia maintained on iron sulfate 5. Underlying history of hypertension well-controlled on current medications 6. For DVT prophylaxis patient is maintained on subcu Lovenox, for GI prophylaxis patient is on Protonix 7. Covid 19 testing negative At this time continue with IV antibiotics and IV fluid Check chest x-ray Consult infectious disease and nephrology Recheck labs in a.m.
[2019-08-18] MEDS: PRAVASTATIN SODIUM 20 MG TAB PO SCH (20:58)
--- NOTE | 2019-08-18 23:14 | PN ---
PROGRESS NOTE DATE OF SERVICE: 08/18/2019 REASON FOR FOLLOWUP: Urinary tract infection. INTERVAL HISTORY: The patient is currently afebrile. The patient is breathing comfortably. Denies having any chest pain or shortness of breath or cough. No nausea, no abdominal pain. No further vomiting. No diarrhea. PHYSICAL EXAMINATION: Blood pressure 154/63 with a pulse of 78, temperature 99.4. She is 93% on room air. General description is an elderly female lying in bed in no distress. RESPIRATORY SYSTEM: Unlabored breathing. Clear to auscultation anteriorly. HEART: S1, S2. Regular rate and rhythm. ABDOMEN: Soft. No tenderness. LABS: Hemoglobin 8.9, white count 14.7, BUN of 29, creatinine 1.70. Urine has been finalized with Proteus mirabilis, a sensitive pathogen. DIAGNOSTIC IMPRESSION AND PLAN: Patient with Proteus mirabilis urinary tract infection. Patient is currently covered with Rocephin; to continue along with IV fluids with a plan to finish therapy with oral antibiotics once stable. Continue with supportive care. MMODL / IJN: [id number] /
[2019-08-19] MEDS: ACETAMINOPHEN TAB 500 MG TAB PO PRN (01:06)
[2019-08-19 03:21] LABS: % Iron Saturation 6.91 (12.00-45.00)
[2019-08-19 07:52] LABS: Basophils % (A) 0 %; Eosinophils # (A) 0.3 k/uL (0-0.7); Eosinophils % (A) 3 %; HCT 27.9 % (34.0-46.0); HGB 8.9 gm/dL (11.4-16.0); Lymphocytes # (A) 1.2 k/uL (1.0-4.8); Lymphocytes % (A) 11 %; MCH 31.6 pg (25.0-35.0); MCHC 31.9 g/dL (31.0-37.0); MCV 98.9 fL (80.0-100.0); Macrocytosis Slight; Mean Platelet Volume 8.2; Monocytes # (A) 0.8 k/uL (0-1.0); Monocytes % (A) 7 %; Neutrophils # (A) 9.2 k/uL (1.3-7.7); Neutrophils % (A) 79 %; Platelet Count 218 k/uL (150-450); RBC 2.82 m/uL (3.80-5.40); RDW 15.9 % (11.5-15.5); WBC 11.7 k/uL (3.8-10.6)
[2019-08-19] MEDS: METOPROLOL TARTRATE 25 MG TAB PO SCH ×2 (09:31→21:05)
[2019-08-19] MEDS: amLODIPine 2.5 MG TAB PO SCH (09:31)
[2019-08-19] MEDS: FUROSEMIDE 40 MG TAB PO SCH (09:31)
[2019-08-19] MEDS: SODIUM BICARBONATE TAB 650 MG TAB PO SCH ×3 (09:31→21:05)
[2019-08-19] MEDS: ENOXAPARIN 30 MG/0.3 ML SYRINGE SQ SCH (09:31)
[2019-08-19] MEDS: hydrALAZINE HCL 25 MG TAB PO SCH ×3 (09:31→21:05)
[2019-08-19] MEDS: ALLOPURINOL 100 MG TAB PO SCH (09:31)
[2019-08-19] MEDS: ASPIRIN 81 MG PO SCH (09:31)
[2019-08-19] MEDS: FERROUS SULFATE 325 MG TAB PO SCH (09:31)
[2019-08-19] MEDS: PANTOPRAZOLE 40 MG TABLET PO SCH (09:34)
[2019-08-19 11:05] LABS: Albumin 2.8 g/dL (3.5-5.0); Calcium 8.3 mg/dL (8.4-10.2); Potassium 4.1 mmol/L (3.5-5.1); Total Bilirubin 0.9 mg/dL (0.2-1.3); Total Protein 5.3 g/dL (6.3-8.2)
[2019-08-19] MEDS: SODIUM CHLORIDE 0.9% 1,000 ML IV SCH (13:49)
[2019-08-19] MEDS ORDERED: LACTULOSE 20 GM/30 ML CUP PO ONE (14:30)
--- NOTE | 2019-08-19 15:30 | PN ---
PROGRESS NOTE Patient is seen for followup for chronic kidney disease. She is currently comfortable, awake, not in any acute distress. PHYSICAL EXAMINATION: On examination, blood pressure is 151/68, heart rate 64 per minute. Patient is afebrile. EXAMINATION OF THE HEART: S1 and S2. EXAMINATION OF LUNGS: Bilateral breath sounds are heard. ABDOMEN: Soft, non-tender. Examination of lower extremities shows no significant edema. [employer] exam is grossly intact. LABS: Labs show sodium 138, potassium 4.1, chloride 104. CO2 is 27, BUN 34, creatinine 1.84, hemoglobin 8.9 g/dL. ASSESSMENT: 1. Chronic kidney disease, NKF stage 4. Renal function is stable. 2. Atrophic right kidney. 3. Urinary tract infection with urine culture growing Proteus mirabilis, maintained on Rocephin. 4. Metabolic acidosis, currently on sodium bicarb. 5. Possible pneumonia, currently on antibiotics. PLAN: Continue to encourage increased oral intake. Avoid nephrotoxic medications. Serum creatinine is slightly higher at 1.8. This will need to be followed as outpatient. We can decrease the loop diuretics if serum creatinine continues to rise as outpatient. MMODL / IJN: [id number] /
--- NOTE | 2019-08-19 15:36 | PN ---
PROGRESS NOTE DATE OF SERVICE: 08/19/2019 REASON FOR FOLLOWUP: Proteus mirabilis urinary tract infection. INTERVAL HISTORY: Patient is currently afebrile. The patient is breathing comfortably. The patient denies having any chest pain or shortness of breath or cough. No nausea, vomiting or diarrhea. PHYSICAL EXAMINATION: Blood pressure 151/68 with a pulse of 74, temperature 98.3. he is 94% room air. General description is an elderly female, lying in bed in no distress. RESPIRATORY SYSTEM: Unlabored breathing, clear to auscultation anteriorly. HEART: S1, S2. Regular rate and rhythm. ABDOMEN: Soft, no tenderness. LABS: Hemoglobin 8.8, white count 11.7, creatinine 1.84. DIAGNOSTIC IMPRESSION AND PLAN: Patient with Proteus mirabilis urinary tract infection. Seemed to have some clinical improvement. White count improved. Creatinine is coming down she is currently covered with Rocephin. Finish therapy with oral Cipro. Continue supportive care. MMODL / IJN: [id number] /
--- NOTE | 2019-08-19 17:40 | P.PN ---
Subjective Progress Note Date: 08/19/19 Hattie Cardenas is an 84-year-old female well known to my practice who presented to [facility] emergency room, with a chief complaint of nausea and vomiting and cough, she was evaluated in the emergency room she had evidence of urinary tract infection and evidence of acute on chronic renal failure, she was started on IV fluid and IV antibiotic ceftriaxone, she was admitted to medical floor for further evaluation and treatment. Patient has a known history of hypertension, hyperlipidemia, gout, and history of chronic kidney disease stage III Patient was seen and examined on the medical floor she is alert and oriented 3 in no apparent distress she states that she is feeling better there is no fever or chills no headache or dizziness no chest pain no shortness of breath no cough no nausea or vomiting no abdominal pain no diarrhea no burning with urination no frequency or urgency and no hematuria On 08/17/2019 patient was seen and examined on the medical floor she states she is feeling better, there is no fever or chills no headache or dizziness no chest pain no shortness of breath no cough no nausea or vomiting no abdominal pain no diarrhea no burning with urination no frequency or urgency and no hematuria, she is feeling better. However white blood count is up to 16.9 on 08/18/2019 patient was seen and examined on the medical floor she is alert and oriented 3 in no apparent distress white blood count slightly better down to 14.7, clinically patient is doing well there is no fever or chills no headache or dizziness no chest pain no shortness of breath no cough no nausea or vomiting no abdominal pain no diarrhea no burning with urination no frequency or urgency and no hematuria On 08/19/2019 patient was seen and examined on the medical floor she is alert and oriented 3 she lost her IV access , case discussed with Dr. Aguilar infectious disease and he advised to switch antibiotic to oral Cipro, we attempted to transfer patient to rehab at [facility] today however she is complaining of constipation and stated that she did not have any bowel movement since admission she was given a dose of lactulose will follow closely possible transfer to [facility] tomorrow Objective - Vital Signs Vital signs: Vital Signs Temp 98.3 F 08/19/19 14:56 Pulse 64 08/19/19 07:00 Resp 16 08/19/19 14:56 BP 162/74 08/19/19 14:56 Pulse Ox 96 07/09/20 14:56 Intake & Output 08/18/19 08/19/19 08/19/19 18:59 06:59 18:59 Intake Total 200 Output Total 1000 950 800 Balance -800 -950 -800 Intake: Oral 200 Output: Urine 1000 950 800 Other: Voiding Method Diaper Diaper - Exam In general patient is alert and oriented 3 in no apparent distress HEENT head normocephalic and atraumatic Neck is supple no JVD no goiter no lymphadenopathy Chest exam reveals a few scattered rhonchi no wheezing Cardiac exam reveals regular heart sounds S1 and S2 no gallops no murmurs Abdomen is soft nontender no organomegaly with normal bowel sounds Extremity exam reveals no edema no cyanosis or clubbing Neurological examination reveals no gross focal deficit - Labs CBC & Chem 7: 08/19/19 06:36 08/19/19 06:36 Labs: Abnormal Lab Results - Last 24 Hours (Table) 08/15/19 08/18/19 08/19/19 Range/Units 15:37 07:29 06:36 WBC 11.7 H (3.8-10.6) k/uL RBC 2.82 L (3.80-5.40) m/uL Hgb 8.9 L (11.4-16.0) gm/dL Hct 27.9 L (34.0-46.0) % RDW 15.9 H (11.5-15.5) % Neutrophils # 9.2 H (1.3-7.7) k/uL BUN (7-17) mg/dL Creatinine (0.52-1.04) mg/dL Glucose (74-99) mg/dL Plasma Lactic Acid Ranjeet 2.4 H* (0.7-2.0) mmol/L Calcium (8.4-10.2) mg/dL Iron 17 L (50-170) ug/dL % Saturation 6.91 L (12.00-45.00) Total Protein (6.3-8.2) g/dL Albumin (3.5-5.0) g/dL 08/19/19 Range/Units 06:36 WBC (3.8-10.6) k/uL RBC (3.80-5.40) m/uL Hgb (11.4-16.0) gm/dL Hct (34.0-46.0) % RDW (11.5-15.5) % Neutrophils # (1.3-7.7) k/uL BUN 34 H (7-17) mg/dL Creatinine 1.84 H (0.52-1.04) mg/dL Glucose 129 H (74-99) mg/dL Plasma Lactic Acid Ranjeet (0.7-2.0) mmol/L Calcium 8.3 L (8.4-10.2) mg/dL Iron (50-170) ug/dL % Saturation (12.00-45.00) Total Protein 5.3 L (6.3-8.2) g/dL Albumin 2.8 L (3.5-5.0) g/dL Microbiology - Last 24 Hours (Table) 08/15/19 12:55 Urine Culture - Final Urine,Voided Proteus mirabilis Assessment and Plan Plan: 1. Urinary tract infection, patient was started on IV Rocephin in the emergency room urine culture pending 2. Sepsis as evidenced by leukocytosis and elevated lactic acid 3. Acute on chronic renal failure, acute component related to sepsis, and prerenal azotemia patient is receiving IV fluid boluses 4. Underlying history of anemia maintained on iron sulfate 5. Underlying history of hypertension well-controlled on current medications 6. For DVT prophylaxis patient is maintained on subcu Lovenox, for GI prophylaxis patient is on Protonix 7. Covid 19 testing negative At this time continue with IV antibiotics and IV fluid Check chest x-ray Consult infectious disease and nephrology Recheck labs in a.m.
[2019-08-19] MEDS: PRAVASTATIN SODIUM 20 MG TAB PO SCH (21:05)
[2019-08-19] MEDS: CIPROFLOXACIN HCL 250 MG TAB PO SCH (21:05)
[2019-08-20 07:30] VITALS: PULSE 66
[2019-08-20 08:13] VITALS: RESP 20; TEMP 98.4
[2019-08-20] MEDS: SODIUM CHLORIDE 0.9% 1,000 ML IV SCH (08:30)
[2019-08-20] MEDS: amLODIPine 2.5 MG TAB PO SCH (08:33)
[2019-08-20] MEDS: ASPIRIN 81 MG PO SCH (08:33)
[2019-08-20] MEDS: ENOXAPARIN 30 MG/0.3 ML SYRINGE SQ SCH (08:33)
[2019-08-20] MEDS: FERROUS SULFATE 325 MG TAB PO SCH (08:34)
[2019-08-20] MEDS: ALLOPURINOL 100 MG TAB PO SCH (08:34)
[2019-08-20] MEDS: METOPROLOL TARTRATE 25 MG TAB PO SCH (08:34)
[2019-08-20] MEDS: SODIUM BICARBONATE TAB 650 MG TAB PO SCH ×2 (08:34→15:44)
[2019-08-20] MEDS: hydrALAZINE HCL 25 MG TAB PO SCH ×2 (08:34→15:44)
[2019-08-20] MEDS: FUROSEMIDE 40 MG TAB PO SCH (08:34)
[2019-08-20 10:16] VITALS: BP 138/66
--- NOTE | 2019-08-20 11:37 | PN ---
PROGRESS NOTE Patient is seen for followup for chronic kidney disease. She is currently comfortable. Patient is sitting up on a bedside chair. She denies any significant complaints. There are plans for discharge today. PHYSICAL EXAMINATION: Blood pressure is 138/66, heart rate 66 per minute, patient is afebrile. Examination of the heart S1, S2. Examination of the lungs, bilateral breath sounds are heard. Abdomen is soft, nontender. Examination of the lower extremities shows no evidence of edema. NON CDL DRIVER exam is grossly intact. LABS: Show sodium 138, potassium 4.1, chloride of 104, BUN 34, creatinine 1.84 from yesterday 08/19/2019. ASSESSMENT: 1. Chronic kidney disease, NKF stage IV, currently stable. 2. Atrophic right kidney. 3. Urinary tract infection with urine culture growing Proteus mirabilis, maintained on Rocephin. 4. Metabolic acidosis currently on oral sodium bicarb. 5. Possible pneumonia, maintained on antibiotics. PLAN: Patient can be discharged from nephrology standpoint. Follow up in the office in about 2 weeks' time. MMODL / IJN: [id number] /
[2019-08-20] MEDS: PANTOPRAZOLE 40 MG TABLET PO SCH (11:47)
--- NOTE | 2019-08-20 14:16 | P.DS ---
Providers Date of admission: 08/15/19 13:56 Expected date of discharge: 08/20/19 Attending physician: Edilma Wood Consults: 08/16/19 19:51 Consult Physician Routine Consulting Provider: Dav Aguilar Consult Reason/Comments: uti, sepsis Do you want consulting provider notified?: Yes 08/16/19 19:52 Consult Physician Routine Consulting Provider: Makenna Martinez Consult Reason/Comments: acute on chronic renale failure Do you want consulting provider notified?: Yes Primary care physician: Edilma Barlow Respiratory Hospital Course: Diagnosis on discharge: 1. Urinary tract infection, patient was started on IV Rocephin in the emergency room urine culture pending 2. Sepsis as evidenced by leukocytosis and elevated lactic acid 3. Acute on chronic renal failure, acute component related to sepsis, and prerenal azotemia patient is receiving IV fluid boluses 4. Underlying history of anemia maintained on iron sulfate 5. Underlying history of hypertension well-controlled on current medications 6. For DVT prophylaxis patient is maintained on subcu Lovenox, for GI prophylaxis patient is on Protonix 7. Covid 19 testing negative Hospital course: Hattie Cardenas is an 84-year-old female well known to my practice who presented to [facility] emergency room, with a chief complaint of nausea and vomiting and cough, she was evaluated in the emergency room she had evidence of urinary tract infection and evidence of acute on chronic renal failure, she was started on IV fluid and IV antibiotic ceftriaxone, she was admitted to medical floor for further evaluation and treatment. Patient has a known history of hypertension, hyperlipidemia, gout, and history of chronic kidney disease stage III Patient was seen and examined on the medical floor she is alert and oriented 3 in no apparent distress she states that she is feeling better there is no fever or chills no headache or dizziness no chest pain no shortness of breath no cough no nausea or vomiting no abdominal pain no diarrhea no burning with urination no frequency or urgency and no hematuria On 08/17/2019 patient was seen and examined on the medical floor she states she is feeling better, there is no fever or chills no headache or dizziness no chest pain no shortness of breath no cough no nausea or vomiting no abdominal pain no diarrhea no burning with urination no frequency or urgency and no hematuria, she is feeling better. However white blood count is up to 16.9 on 08/18/2019 patient was seen and examined on the medical floor she is alert and oriented 3 in no apparent distress white blood count slightly better down to 14.7, clinically patient is doing well there is no fever or chills no headache or dizziness no chest pain no shortness of breath no cough no nausea or vomiting no abdominal pain no diarrhea no burning with urination no frequency or urgency and no hematuria On 08/19/2019 patient was seen and examined on the medical floor she is alert and oriented 3 she lost her IV access , case discussed with Dr. Aguilar infectious disease and he advised to switch antibiotic to oral Cipro, we att empted to transfer patient to rehab at [facility] today however she is complaining of constipation and stated that she did not have any bowel movement since admission she was given a dose of lactulose will follow closely possible transfer to [facility] tomorrow On 08/20/2019 patient was seen and examined on the medical floor, she is alert and oriented 3 in no apparent distress, there is no fever or chills no headache or dizziness no chest pain no shortness of breath no cough, no nausea or vomiting no abdominal pain no diarrhea, she had a bowel movement this morning, no blood in the stools no burning with urination no frequency or urgency and no hematuria. Aranesp was switched to Procrit per group home request, patient will be discharged to [facility] for rehabilitation, will follow at [facility] Patient Condition at Discharge: Serious Plan - Discharge Summary New Discharge Prescriptions: New Darbepoetin James [Aranesp] 40 mcg SQ Q7D syringe Ciprofloxacin HCl [Cipro] 250 mg PO BID 7 Days #14 tab Furosemide [Lasix] 40 mg PO DAILY tab Epoetin James [Procrit] 20,000 unit SQ Q7D 7 Days #1 vial Continue Pravastatin Sodium [Pravachol] 20 mg PO HS Biotin 5 mg PO DAILY Aspirin 81 mg PO DAILY Metoprolol Tartrate [Lopressor] 25 mg PO BID #60 tab hydrALAZINE HCL [Apresoline] 25 mg PO TID #90 tab Allopurinol [Zyloprim] 300 mg PO DAILY amLODIPine BESYLATE [Norvasc] 2.5 mg PO DAILY Ferrous Sulfate [Feosol] 325 mg PO DAILY Omeprazole Magnesium [PriLOSEC OTC] 20 mg PO AC-LUNCH Sodium Bicarbonate Tab 650 mg PO TID Discharge Medication List Pravastatin Sodium [Pravachol] 20 mg PO HS 08/05/14 [History] Aspirin 81 mg PO DAILY 02/17/15 [History] Biotin 5 mg PO DAILY 02/17/15 [History] Metoprolol Tartrate [Lopressor] 25 mg PO BID #60 tab 02/21/15 [Rx] hydrALAZINE HCL [Apresoline] 25 mg PO TID #90 tab 02/21/15 [Rx] Allopurinol [Zyloprim] 300 mg PO DAILY 07/19/18 [History] amLODIPine BESYLATE [Norvasc] 2.5 mg PO DAILY 07/19/18 [History] Ferrous Sulfate [Feosol] 325 mg PO DAILY 08/15/19 [History] Omeprazole Magnesium [PriLOSEC OTC] 20 mg PO AC-LUNCH 08/15/19 [History] Sodium Bicarbonate Tab 650 mg PO TID 08/15/19 [History] Ciprofloxacin HCl [Cipro] 250 mg PO BID 7 Days #14 tab 08/19/19 [Rx] Darbepoetin James [Aranesp] 40 mcg SQ Q7D syringe 08/19/19 [Rx] Furosemide [Lasix] 40 mg PO DAILY tab 08/19/19 [Rx] Epoetin James [Procrit] 20,000 unit SQ Q7D 7 Days #1 vial 08/20/19 [Rx] Follow up Appointment(s)/Referral(s): Edilma Wood MD [Primary Care Provider] - 1-2 days
--- NOTE | 2019-08-20 15:19 | PN ---
PROGRESS NOTE DATE OF SERVICE: 08/20/2019 REASON FOR FOLLOWUP: Proteus mirabilis urinary tract infection. INTERVAL HISTORY: Patient is currently afebrile, the patient is breathing comfortably, has been complaining of being feeling weak and tired. No chest pain. No shortness of breath or cough. No nausea, no vomiting, no diarrhea. PHYSICAL EXAMINATION: Blood pressure 138/66, pulse rate of 66, temperature is 98.4. General description is an elderly female up in the chair in no distress. RESPIRATORY SYSTEM: Unlabored breathing, clear to auscultation anteriorly. HEART S1, S2. Regular rate and rhythm. ABDOMEN: Soft, no tenderness. LABS: No new labs have been obtained today. DIAGNOSTIC IMPRESSION AND PLAN: Patient with Proteus mirabilis urinary tract infection. This patient has shown overall clinical improvement on Rocephin. Plan is to finish therapy with oral Cipro and continue supportive care. MMODL / IJN: [id number] /
[2019-08-20] MEDS: CIPROFLOXACIN HCL 250 MG TAB PO SCH (15:44)
== END 2019-08-20 16:14 ==
LOC: EC 12:18 → 4SSUR 13:56
PROVIDERS: ADMIT Internal Medicine; ATTEND Internal Medicine
DX: A41.9 Sepsis, unspecified organism (principal); N39.0 Urinary tract infection, site not specified; I12.9 Hypertensive chronic kidney disease with stage 1 through stage 4 chronic kidney disease, or unspecified chronic kidney disease; N17.9 Acute kidney failure, unspecified; N18.4 Chronic kidney disease, stage 4 (severe); E11.22 Type 2 diabetes mellitus with diabetic chronic kidney disease; D64.9 Anemia, unspecified; E87.2 Acidosis; R11.2 Nausea with vomiting, unspecified; R19.7 Diarrhea, unspecified; R05 Cough; R07.9 Chest pain, unspecified; E78.5 Hyperlipidemia, unspecified; M10.9 Gout, unspecified; K59.00 Constipation, unspecified; E86.0 Dehydration; E11.40 Type 2 diabetes mellitus with diabetic neuropathy, unspecified; Z20.828 Contact with and (suspected) exposure to other viral communicable diseases; R26.9 Unspecified abnormalities of gait and mobility; R42 Dizziness and giddiness; B96.4 Proteus (mirabilis) (morganii) as the cause of diseases classified elsewhere; Z79.82 Long term (current) use of aspirin; Z88.0 Allergy status to penicillin; Z88.2 Allergy status to sulfonamides; Z88.8 Allergy status to other drugs, medicaments and biological substances; Z88.1 Allergy status to other antibiotic agents; Z85.3 Personal history of malignant neoplasm of breast; Z92.3 Personal history of irradiation; Z87.442 Personal history of urinary calculi; Z79.899 Other long term (current) drug therapy; Z86.010 Personal history of colon polyps; Z98.0 Intestinal bypass and anastomosis status; Z82.69 Family history of other diseases of the musculoskeletal system and connective tissue; Z82.0 Family history of epilepsy and other diseases of the nervous system; Z80.0 Family history of malignant neoplasm of digestive organs
CPT/HCPCS: 96376; 96366; 96372 ×5; 96375 ×2; 96365; 99285; 36415; 93005; 97116; 97530; 97162; 97535 ×2; 97166; 83880; 80053 ×5; 82550; 83540; 83550; 83605 ×2; 84100; 84484; 85025 ×5; 85610; 85730; 81001; 87086; 87077; 87186; 87635; 74022; 71045; 71046; 74176; G0378 ×6; U0003; J1940; J2405 ×2; J1650 ×5; J0696 ×4; C9113

== ENCOUNTER → 2019-10-29 | Outpatient (CLI) | payer MEDICARE ==
[2019-10-29 11:31] LABS: Appearance,Urine Clear (Clear); Bilirubin,Urine Negative (Negative); Blood,Urine Negative (Negative); Color,Urine Light Yellow; Glucose,Urine (UA) Negative (Negative); Ketones,Urine Negative (Negative); Leukocyte Esterase,Urine Trace (Negative); Nitrite,Urine Negative (Negative); PH, Urine 5.5 (5.0-8.0); Protein,Urine 1+ (Negative); RBC,Urine <1 /hpf (0-5); Specific Gravity,Urine 1.011 (1.001-1.035); Squamous Epithelial Cell,Urine 2 /hpf (0-4); Urobilinogen,Urine <2.0 mg/dL (<2.0); WBC,Urine 2 /hpf (0-5)
[2019-10-29 11:32] LABS: Anisocytosis Slight; Basophils % (A) 0 %; Eosinophils # (A) 0.2 k/uL (0-0.7); Eosinophils % (A) 2 %; HCT 34.8 % (34.0-46.0); HGB 10.8 gm/dL (11.4-16.0); Hypochromasia Slight; Lymphocytes # (A) 0.9 k/uL (1.0-4.8); Lymphocytes % (A) 8 %; MCH 30.3 pg (25.0-35.0); MCHC 31.1 g/dL (31.0-37.0); MCV 97.5 fL (80.0-100.0); Macrocytosis Slight; Mean Platelet Volume 7.5; Monocytes # (A) 0.5 k/uL (0-1.0); Monocytes % (A) 4 %; Neutrophils # (A) 10.1 k/uL (1.3-7.7); Neutrophils % (A) 86 %; Platelet Count 293 k/uL (150-450); RBC 3.57 m/uL (3.80-5.40); RDW 16.2 % (11.5-15.5); WBC 11.8 k/uL (3.8-10.6)
[2019-10-29 18:36] LABS: Ferritin 176.4 ng/mL (10.0-291.0)
[2019-10-29 18:48] LABS: % Iron Saturation 12.46 (12.00-45.00); African American GFR (CKD) 27.4 (60.0-200.0); Anion Gap 11.1 mmol/L (4.00-12.00); BUN/Creat Ratio 28.95 Ratio (12.00-20.00); Calcium 9.3 mg/dL (8.7-10.3); Carbon Dioxide 19.9 mmol/L (21.6-31.8); Magnesium 1.8 mg/dL (1.5-2.4); Non-African American GFR(CKD) 23.6 (60.0-200.0); Phosphorus 3.8 mg/dL (2.4-5.1); Potassium 4.8 mmol/L (3.5-5.5); Uric Acid 3.6 mg/dL (2.9-7.7)
== END | disposition home or self-care (01) ==
LOC: LABWHC1 09:35
PROVIDERS: ATTEND Nurse Practitioner Family
DX: N18.4 Chronic kidney disease, stage 4 (severe) (principal); D63.1 Anemia in chronic kidney disease; E55.9 Vitamin D deficiency, unspecified; N25.81 Secondary hyperparathyroidism of renal origin; M10.9 Gout, unspecified; N39.0 Urinary tract infection, site not specified
CPT/HCPCS: 36415; 80048; 81001; 82728; 83540; 83550; 83735; 83970; 84100; 84550; 85025

== ENCOUNTER → 2020-04-18 | Outpatient (CLI) | payer MEDICARE ==
[2020-04-18 12:06] LABS: Basophils # (A) 0.1 k/uL (0-0.2); Basophils % (A) 1 %; Eosinophils # (A) 0.4 k/uL (0-0.7); Eosinophils % (A) 4 %; HCT 36.4 % (34.0-46.0); HGB 11.3 gm/dL (11.4-16.0); Hypochromasia Marked; Lymphocytes # (A) 1.3 k/uL (1.0-4.8); Lymphocytes % (A) 10 %; MCH 32.4 pg (25.0-35.0); MCHC 31.1 g/dL (31.0-37.0); MCV 104.3 fL (80.0-100.0); Macrocytosis Moderate; Mean Platelet Volume 7.6; Monocytes # (A) 0.4 k/uL (0-1.0); Monocytes % (A) 4 %; Neutrophils # (A) 9.8 k/uL (1.3-7.7); Neutrophils % (A) 81 %; Platelet Count 309 k/uL (150-450); RBC 3.49 m/uL (3.80-5.40); RDW 14.5 % (11.5-15.5); WBC 12.2 k/uL (3.8-10.6)
[2020-04-18 12:08] LABS: Calcium 9.1 mg/dL (8.4-10.2); Potassium 5.5 mmol/L (3.5-5.1)
[2020-04-18 12:26] LABS: INR 0.9 (<1.2); Prothrombin Time 9.9 sec (9.0-12.0)
[2020-04-18 12:44] LABS: Poikilocytosis (M) Present
[2020-04-18 12:56] LABS: Partial Thromboplastin Time 19.1 sec (22.0-30.0)
== END | disposition home or self-care (01) ==
LOC: LABPAT 11:20
PROVIDERS: ATTEND Surgery
DX: Z53.9 Procedure and treatment not carried out, unspecified reason (principal)
CPT/HCPCS: 80048; 85025; 85610; 85730; 86850; 86900; 86901; 86920

== ENCOUNTER → 2020-04-21 | Outpatient (CLI) | payer MEDICARE | END | disposition home or self-care (01) | LOC: LABPAT 12:45 | PROVIDERS: ATTEND Surgery | DX: Z20.822 Contact with and (suspected) exposure to COVID-19 (principal) | CPT/HCPCS: U0003; C9803; U0005 ==

== ENCOUNTER 2020-04-22 22:55 | Emergency (ER) | payer MEDICARE ==
[2020-04-22] MEDS ORDERED: HYDROcodone/APAP 5-325MG 1 EACH TAB PO STA (23:30)
--- NOTE | 2020-04-23 00:08 | XR ---
EXAMINATION TYPE: XR ankle complete LT DATE OF EXAM: 04/22/2020 COMPARISON: NONE HISTORY: Fall. Ankle pain. TECHNIQUE: 3 views FINDINGS: There is plantar and Achilles calcaneal spur formation. There is vascular calcification. Th ere is soft tissue swelling around the ankle joint. I see no fracture nor dislocation. IMPRESSION: Soft tissue swelling. No fracture seen.
--- NOTE | 2020-04-23 00:09 | XR ---
EXAMINATION TYPE: XR knee limited LT DATE OF EXAM: 04/22/2020 COMPARISON: NONE HISTORY: Fall. Pain. TECHNIQUE: 2 views FINDINGS: There is vascular calcification. There is no sign of joint effusion. I see no fracture nor dislocation. Joint spaces are fairly normal. IMPRESSION: Negative left knee exam.
--- NOTE | 2020-04-23 00:10 | XR ---
EXAMINATION TYPE: XR Hip LT and AP Pelvis DATE OF EXAM: 04/22/2020 COMPARISON: 07/23/2018 HISTORY: Left hip pain. Fall. TECHNIQUE: 3 views the pelvic ring appears intact. Sacroiliac joints are intact. Proximal left femur and hip joint appea r intact. There is no hip dysplasia. I see no hip fracture. IMPRESSION: Negative exam. No fracture seen. No adverse change.
--- NOTE | 2020-04-23 00:20 | ED ---
Fall HPI - General Chief Complaint: Fall Stated Complaint: Leg Pain Time Seen by Provider: 04/22/20 23:08 Source: patient, EMS Mode of arrival: EMS - History of Present Illness Initial Comments: Patient is an 84-year-old female presenting to the emergency department via EMS for complaints of left leg pain. 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 She states she thinks she landed mostly on her left side. She did not hit her head, there was no loss of consciousness, she denies any neck or back pain. Patient states she was able to get up on her own and was feeling okay for the first few hours after the fall however in the last hour prior to arrival, pain in her left leg was increasing so she decided to be seen. She denies any previous surgeries of her left lower extremity. She denies any chest pain or shortness of breath, no abdominal pain. She has no further complaints this evening. Upon arrival to the ER her vitals are stable. - Related Data Home Medications Medication Instructions Recorded Confirmed Pravastatin Sodium [Pravachol] 20 mg PO DAILY 08/05/14 04/20/20 Aspirin 81 mg PO DAILY 02/17/15 04/20/20 allopurinoL [Zyloprim] 300 mg PO DAILY 07/19/18 04/20/20 amLODIPine BESYLATE [Norvasc] 5 mg PO DAILY 07/19/18 04/20/20 Ferrous Sulfate [Feosol] 325 mg PO DAILY 08/15/19 04/20/20 Sodium Bicarbonate Tab 650 mg PO DAILY 08/15/19 04/20/20 Acetaminophen Tab [Tylenol Tab] 1,000 mg PO Q6H PRN 04/20/20 04/20/20 Metoprolol Tartrate [Lopressor] 25 mg PO DAILY 04/20/20 04/20/20 Previous Rx's Medication Instructions Recorded hydrALAZINE HCL [Apresoline] 25 mg PO TID #90 tab 02/21/15 Allergies Allergy/AdvReac Type Severity Reaction Status Date / Time glipizide Allergy Rash/Hives Verified 04/22/20 23:03 Penicillins Allergy Unknown Verified 04/22/20 23:03 Sulfa (Sulfonamide Allergy Unknown Verified 04/22/20 23:03 Antibiotics) Review of Systems ROS Statement: Those systems with pertinent positive or pertinent negative responses have been documented in the HPI. ROS Other: All systems not noted in ROS Statement are negative. Past Medical History Past Medical History: Cancer, Diabetes Mellitus, Hypertension, Renal Disease Additional Past Medical History / Comment(s): 02/17/15 Pt presented to [facility] ER with chest pain starting about 0330 this AM. Pain radiated to L neck and down L arm. She is admitted with clinical impression of chest pain. 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 History of Any Multi-Drug Resistant Organisms: None Reported Past Surgical History: Adenoidectomy, Bowel Resection, Breast Surgery, T onsillectomy Additional Past Surgical History / Comment(s): L Breast lumpectomy sugery, colonoscopy with benign polypectomy, double J catheter insertion L kidney then percutaneous nephrolithotomy attempted and then lithrotropsey (ESWL) and removal of double J catheters. Past Anesthesia/Blood Transfusion Reactions: Motion Sickness Additional Past Anesthesia/Blood Transfusion Reaction / Comment(s): Pt states she has never received blood. Past Psychological History: No Psychological Hx Reported Smoking Status: Never smoker Past Alcohol Use History: None Reported Past Drug Use History: None Reported - Past Family History Sister(s) Family Medical History: Cancer, Deep Vein Thrombosis (DVT) Additional Family Medical History / Comment(s): poss DVT Father Family Medical History: Musculoskeletal Disorder, Neurologic Disorder Additional Family Medical History / Comment(s): Father had parkinsons and at age 60yrs. Mother Family Medical History: Cancer Additional Family Medical History / Comment(s): Mother had stomach cancer and in her 70's. General Exam - General Exam Comments Initial Comments: GENERAL: Patient is well-developed and well-nourished. Patient is nontoxic and in no acute distress. HEAD: Atraumatic, normocephalic. EYES: Pupils equal round and reactive to light, extraocular movements intact, sclera anicteric, conjunctiva are normal. Eyelids were unremarkable. ENT: TMs normal, nares patent, oropharynx clear without exudates. Moist mucous membranes. NECK: Normal range of motion, supple without lymphadenopathy or JVD. LUNGS: Unlabored respirations. Breath sounds clear to auscultation bilaterally and equal. No wheezes rales or rhonchi. HEART: Regular rate and rhythm without murmurs, rubs or gallops. ABDOMEN: Soft, nontender, normoactive bowel sounds. No guarding, no rebound. No masses appreciated. : Deferred MUSCULOSKELETAL: Left lower extremity seems to be painful around the ankle, there is some moderate swelling present. She is neurovascular intact. She does have full ankle range of motion, she has some mild increase in pain with left knee range of motion. No swelling around the knee. Rest of her extremities with adequate strength and normal range of motion, no pitting or edema. No clubbing or cyanosis. NEUROLOGICAL: Patient is alert and oriented x 3. Motor and sensory are also intact. Cranial nerves II through XII grossly intact. Symmetrical smile. Normal speech.. PSYCH: Normal mood, normal affect. SKIN: Warm, Dry, normal turgor, no rashes or lesions noted. Limitations: no limitations Course Vital Signs 04/22/20 22:59 Temperature 99.2 F Pulse Rate 65 Respiratory 18 Rate Blood Pressure 155/84 O2 Sat by Pulse 97 Oximetry Medical Decision Making - Medical Decision Making Patient is an 84-year-old female presenting after she fell at approximately 6 PM this evening. She is complaining of pain in her left lower leg. She was able to ambulate on it for the first few hours after her fall and the pain has progressively increased. She denies any previous surgeries of her left lower extremity. X-rays of her left ankle, knee, hip and pelvis reveal no acute fractures dislocations. She does have some swelling around her left ankle, discussed the patient is most likely an ankle sprain. Patient was given a splint, Sony wrap for support and swelling. Recommended continuing with Tylenol for pain control. Gave her few ice packs to use, elevation above her heart for the swelling. She does use a walker at home. She can follow up with her regular doctor. Patient's niece is here with her now and will come check on her in the morning. They are comfortable with her going home. Return parameters were discussed with them and they verbalized understanding. Case discussed with Dr. Oh. Disposition Clinical Impression: Left ankle sprain, Fall Disposition: HOME SELF-CARE Condition: Stable Instructions (If sedation given, give patient instructions): Ankle Sprain (ED) Additional Instructions: Please return to the Emergency Department if symptoms worsen or any other concerns. Please use walker to assist in ambulation. Use ankle splint for support, Sony wrap for swelling. Elevation above the heart level for the swelling as well. Ice for 20 minutes at a time throughout the day. Follow-up with your doctor if symptoms persist. Is patient prescribed a controlled substance at d/c from ED?: No Referrals: Edilma Wood MD [Primary Care Provider] - 1-2 days Eun Pearson DO [Doctor of Osteopathic Medicine] - 1-2 days
[2020-04-23 01:11] VITALS: BP 165/72; PULSE 63; RESP 16; TEMP 98.8
== END 2020-04-23 01:46 | disposition home or self-care (01) ==
LOC: EC 22:55
DX: S93.402A Sprain of unspecified ligament of left ankle, initial encounter (principal); I10 Essential (primary) hypertension; Z79.899 Other long term (current) drug therapy; Z88.0 Allergy status to penicillin; Z88.2 Allergy status to sulfonamides; Z88.8 Allergy status to other drugs, medicaments and biological substances; Z85.3 Personal history of malignant neoplasm of breast; Z80.0 Family history of malignant neoplasm of digestive organs; Z90.89 Acquired absence of other organs; Z90.49 Acquired absence of other specified parts of digestive tract; Z92.3 Personal history of irradiation; W18.30XA Fall on same level, unspecified, initial encounter; Y93.89 Activity, other specified; Y92.002 Bathroom of unspecified non-institutional (private) residence as the place of occurrence of the external cause
CPT/HCPCS: 73502; 73560; 73610; 29515; 99283; L4350

== ENCOUNTER → 2020-04-26 | Outpatient (CLI) | payer MEDICARE | END | disposition home or self-care (01) | LOC: LABWHC1 11:41 | PROVIDERS: ATTEND Surgery | DX: Z20.822 Contact with and (suspected) exposure to COVID-19 (principal) | CPT/HCPCS: U0003; U0005 ==

== ENCOUNTER → 2020-05-01 | Outpatient (CLI) | payer MEDICARE | END | disposition home or self-care (01) | LOC: LABPAT 14:59 | PROVIDERS: ATTEND Surgery | DX: Z01.818 Encounter for other preprocedural examination (principal) | CPT/HCPCS: 84132 ==

== ENCOUNTER 2020-05-02 09:58 | Inpatient (IN) | payer MEDICARE ==
[2020-04-28 10:54] VITALS: BMI 21.6
[~2020-05-02 09:58] MED LIST: HYDROmorphone 0.5 MG/0.5 ML SYRINGE IVP PRN; ONDANSETRON 4 MG/2 ML VIAL IVP PRN; fentaNYL (PF) 50 MCG/ML 2 ML AMP IV PRN; metroNIDAZOLE-NS PMX 500 MG in SALINE 1 100ML.BAG IVPB PRN
[2020-05-02 11:01] LABS: Glucose,Whole Blood 183 mg/dL (75-99)
[2020-05-02] MEDS: LACTATED RINGERS 1,000 ML IV SCH ×3 (11:05→19:29)
[2020-05-02] MEDS ORDERED: LIDOCAINE 1% (10MG/ML) FOR IV START INTRADERMA ONE (11:06)
[2020-05-02] MEDS ORDERED: LACTATED RINGERS 900 ML IV ONE (15:10)
[2020-05-02] MEDS ORDERED: BUPIVACAINE (PF) 0.25% 30 ML VIAL SQ ONE ×2 (15:45)
[2020-05-02] MEDS ORDERED: NALOXONE 0.4 MG/ML 1 ML VIAL IV PRN (17:50)
[2020-05-02] MEDS ORDERED: HYDROcodone/APAP 5-325MG 1 EACH TAB PO PRN (17:50)
--- NOTE | 2020-05-02 17:50 | P.OP ---
Date of Procedure: 05/02/20 Preoperative Diagnosis: Colon tumor ascending colon, hepatic flexure, cholelithiasis Postoperative Diagnosis: Same Procedure(s) Performed: Laparoscopic cholecystectomy, laparoscopic assisted right hemicolectomy Anesthesia: DAGO Surgeon: Lina Bustos Estimated Blood Loss (ml): 100 Pathology: other (right colon, gall bladder) Condition: stable Disposition: PACU Indications for Procedure: The patient had symptomatic anemia. Colonoscopy showed 2 tumors with some intervening polyps. She had had a computed tomography scan done showing cholelithiasis Description of Procedure: The patient is taken to the operative suite where she is prepped and draped in the usual sterile manner under a general endotracheal anesthetic. A small infraumbilical incision was made. The fascia was grasped and incised. A finger sweep was carried out. There is some filmy adhesions of the omentum which were taken down. A balloon trocar is then inserted and pneumoperitoneum was established with CO2 gas. Sites are chosen for accessory trochars needs are. Some additional filmy adhesions of the omentum are taken down with scissors or harmonic scissors. The gallbladder is then grasped and retracted towards the anterior abdominal wall. Filmy adhesions of the omentum to the gallbladder taken down. De La Cruz's pouch is then identified, it is grasped and retracted laterally. The cystic artery and cystic duct are dissected free. They're triply clipped and cut. The gallbladder is dissected free from the liver bed. Small bleeding points were controlled with electrocautery. The gallbladder is placed into a specimen retrieval bag. The patient is then rotated towards her left side with slight Trendelenburg. The terminal ileum is freed up of some filmy adhesions. The cecum and ascending colon are then mobilized along the white line of Toldt and reflected medially. The patient is then placed in slight reverse Trendelenburg. The hepatic flexure is taken down with harmonic scissors. The area of tattooing was identified. Some of the omentum is then divided with harmonic scissors off the transverse colon. Transverse colon is mobilized. Once adequate mobilization was carried out the pneumoperitoneum was released. A small incision was made in the right hypogastrium. The terminal ileum was then brought up through that opening. Opening was made in the mesentery of the terminal ileum was transected with the JACOB stapler. The mesentery was then sequentially divided with harmonic scissors. The iliocolic vessel was clamped, cut and tied with 0 Vicryl suture. The mesentery was then taken down to the middle colic vessels. These were then clamped, cut and tied with 0 Vicryl suture. There was some oozing noted from a tangential tear in the vessel. This was sutured with 0 Vicryl. A Site was chosen for division of the transverse colon. An opening was made in the mesentery and a JACOB stapler was placed and fired. The specimen was passed off. The antimesenteric borders of the terminal ileum and transverse colon were brought together. They were tacked with 3-0 Vicryl. A small opening was made in each limb of the bowel and a JACOB stapler was placed and fired. The enteric defect was closed with running 3-0 Vicryl. Then 3-0 Vicryl Lembert sutures. There was a good lumen to finger palpation. The area was then examined and there was no bleeding noted. The bowel was dropped back into the abdominal cavity. Gloves were changed. The posterior fascia and peritoneum were closed with 0 Vicryl. The anterior fascia was closed with 0 Vicryl. The fascia at the umbilical port site was closed with 0 Vicryl. Skin incisions were closed with viridiana. Sterile dressings were applied. She tolerated the procedure without difficulty and was taken to recovery room in satisfactory condition. Ray-Aditi and lap pad count was correct. An additional instrument tray was opened but not counted. Therefore a x-ray of the abdomen was completed showing no evidence of retained surgical instruments.
[2020-05-02 18:30] LABS: Glucose,Whole Blood 216 mg/dL (75-99)
[2020-05-02] MEDS: METOCLOPRAMIDE 5 MG/ML 2 ML VIAL IVP SCH (19:28)
[2020-05-02] MEDS: HEPARIN SODIUM,PORCINE 5,000 UNIT/ML 1 ML VIAL SQ SCH (19:28)
[2020-05-02] MEDS: HYDROmorphone 0.5 MG/0.5 ML SYRINGE IVP PRN (22:20)
--- NOTE | 2020-05-02 22:26 | XR ---
EXAMINATION TYPE: XR KUB portable DATE OF EXAM: 05/02/2020 COMPARISON: 08/15/2019 HISTORY: Abdominal pain TECHNIQUE: Single view FINDINGS: There is skin viridiana over the abdomen. There is no sign of intestinal obstruction or pneum operitoneum. There is vascular calcification. I see no evidence of radiopaque foreign body. IMPRESSION: Nonacute abdomen. No retained foreign body seen.
[2020-05-02] MEDS: metroNIDAZOLE-NS PMX 500 MG in SALINE 1 100ML.BAG IVPB SCH (23:21)
[2020-05-03] MEDS: METOCLOPRAMIDE 5 MG/ML 2 ML VIAL IVP SCH ×4 (02:29→21:04)
[2020-05-03] MEDS: HYDROmorphone 0.5 MG/0.5 ML SYRINGE IVP PRN (05:52)
[2020-05-03] MEDS: PANTOPRAZOLE 40 MG/10 ML VIAL IV SCH (09:37)
[2020-05-03] MEDS: HEPARIN SODIUM,PORCINE 5,000 UNIT/ML 1 ML VIAL SQ SCH ×2 (09:37→21:05)
[2020-05-03 10:53] LABS: Basophils # (A) 0.02 X 10*3/uL (0.00-0.10); Basophils % (A) 0.1 %; Eosinophils # (A) 0 X 10*3/uL (0.04-0.35); Eosinophils % (A) 0 %; HCT 26.6 % (37.2-46.3); HGB 8.3 g/dL (12.0-15.0); Lymphocytes # (A) 0.86 X 10*3/uL (0.90-5.00); Lymphocytes % (A) 6.2 %; MCH 31.7 pg (27.0-32.0); MCHC 31.2 g/dL (32.0-37.0); MCV 101.5 fL (80.0-97.0); Mean Platelet Volume 11.6 fL (9.5-12.2); Monocytes # (A) 0.85 X 10*3/uL (0.20-1.00); Monocytes % (A) 6.1 %; Neutrophils # (A) 12.17 X 10*3/uL (1.80-7.70); Platelet Count 256 X 10*3/uL (140-440); RBC 2.62 X 10*6/uL (4.10-5.20); RDW 13.8 % (11.5-14.5); WBC 13.98 X 10*3/uL (4.50-10.00)
[2020-05-03] MEDS: metroNIDAZOLE-NS PMX 500 MG in SALINE 1 100ML.BAG IVPB SCH (11:42)
[2020-05-03] MEDS: DEXTROSE 5%-0.45% NACL 1,000 ML IV SCH (11:45)
[2020-05-03 12:05] LABS: African American GFR (CKD) 20.6 (60.0-200.0); Anion Gap 14.1 mmol/L (4.00-12.00); BUN/Creat Ratio 26.67 Ratio (12.00-20.00); Calcium 8.4 mg/dL (8.7-10.3); Carbon Dioxide 19.9 mmol/L (21.6-31.8); Non-African American GFR(CKD) 17.8 (60.0-200.0); Potassium 4.5 mmol/L (3.5-5.5)
[2020-05-03] MEDS: HYDROcodone/APAP 5-325MG 1 EACH TAB PO PRN ×2 (13:17→18:31)
[2020-05-03] MEDS: LACTATED RINGERS 1,000 ML IV SCH (13:17)
--- NOTE | 2020-05-03 13:24 | P.PN ---
Subjective Progress Note Date: 05/03/20 Principal diagnosis: S/P right laparoscopic hemicolectomy and cholecystectomy The patient is POD#1. She has expected incisional pain. Denies nausea or heartburn. Tolerating a clear liquid diet. Requests the Mcclellan to stay in today as she sprained her ankle a week ago. Has not been out of bed yet today Objective - Vital Signs Vital signs: Vital Signs Temp 98 F 05/03/20 12:15 Pulse 79 05/03/20 12:15 Resp 16 05/03/20 12:15 BP 137/65 05/03/20 12:15 Pulse Ox 95 05/03/20 12:15 Intake & Output 05/02/20 05/03/20 05/03/20 18:59 06:59 18:59 Intake Total 2350 810 Output Total 300 225 Balance 0 585 Weight 53 kg Intake: IV 2350 Intake, IV Titration 750 Amount Lactated Ringers 1,000 ml 600 @ 20 mls/hr IV .Q24H [facility] Rx#:[id number] ceFAZolin 1,000 mg In 50 Sodium Chloride 0.9% 50 ml @ 100 mls/hr IVPB Q8HR [facility] Rx#:[id number] metroNIDAZOLE-NS PMX 500 100 mg In Saline 1 100ml.bag @ 100 mls/hr IVPB Q8HR [facility] Rx#:[id number] Oral 60 Output: Urine 200 225 Uretheral (Mcclellan) 225 Estimated Blood Loss 100 Other: Voiding Method Indwelling Catheter Indwelling Catheter # Bowel Movements 0 - Constitutional General appearance: Present: cooperative, no acute distress - Respiratory Respiratory: bilateral: CTA - Cardiovascular Rhythm: regular - Gastrointestinal General gastrointestinal: Present: normal bowel sounds, soft Localized gastrointestinal: surgical scar: diffuse (Dressings are intact clean and dry) - Labs CBC & Chem 7: 05/03/20 06:37 05/03/20 06:37 Labs: Abnormal Lab Results - Last 24 Hours (Table) 05/02/20 05/03/20 05/03/20 Range/Units 18:28 06:37 06:37 WBC 13.98 H (4.50-10.00) X 10*3/uL RBC 2.62 L (4.10-5.20) X 10*6/uL Hgb 8.3 L (12.0-15.0) g/dL Hct 26.6 L (37.2-46.3) % MCV 101.5 H (80.0-97.0) fL MCHC 31.2 L (32.0-37.0) g/dL Immature Gran # 0.08 H (0.00-0.04) X 10*3/uL Neutrophils # 12.17 H (1.80-7.70) X 10*3/uL Lymphocytes # 0.86 L (0.90-5.00) X 10*3/uL Eosinophils # 0 L (0.04-0.35) X 10*3/uL Chloride 111 H (96-109) mmol/L Carbon Dioxide 19.9 L (21.6-31.8) mmol/L Anion Gap 14.10 H (4.00-12.00) mmol/L BUN 64.0 H (9.0-27.0) mg/dL Creatinine 2.4 H (0.6-1.5) mg/dL Est GFR (CKD-EPI)AfAm 20.6 L (60.0-200.0) Est GFR (CKD-EPI)NonAf 17.8 L (60.0-200.0) BUN/Creatinine Ratio 26.67 H (12.00-20.00) Ratio Glucose 200 H (70-110) mg/dL POC Glucose (mg/dL) 216 H (75-99) mg/dL Calcium 8.4 L (8.7-10.3) mg/dL Assessment and Plan (1) Colon tumor Current Visit: Yes Status: Acute Code(s): D49.0 - NEOPLASM OF UNSPECIFIED BEHAVIOR OF DIGESTIVE SYSTEM SNOMED Code(s): 220836657 (2) Chronic renal failure Current Visit: Yes Status: Acute Code(s): N18.9 - CHRONIC KIDNEY DISEASE, UNSPECIFIED SNOMED Code(s): 58966086 (3) Left ankle sprain Current Visit: No Status: Acute Code(s): S93.402A - SPRAIN OF UNSPECIFIED LIGAMENT OF LEFT ANKLE, INIT ENCNTR SNOMED Code(s): 78008448 Plan: Patient is doing well surgically. Pain is controlled with pain pills. Tolerating a diet. Diet will be advanced as tolerated. She'll be evaluated by physical therapy. Encouraged her to get out of bed at least to sit in the chair as it decreases postoperative complications such as DVT and pneumonia. Monitor her chronic renal failure. Await pathology.
--- NOTE | 2020-05-03 18:04 | P.CONS ---
History of Present Illness - Reason for Consult Consult date: 05/03/20 - History of Present Illness Hattie Cardenas is an 84-year-old female well known to my practice who recently had a colonoscopy that showed a colon mass patient was admitted yesterday by Dr. Bustos and underwent laparoscopic right hemicolectomy and cholecystectomy patient was admitted to medical floor and consultation was requested for medical management while hospitalized. Her past medical history is significant for history of hypertension, history of hyperlipidemia, history of anemia, history of gout, history of peptic ulcer disease, history of coronary artery disease, history of chronic kidney disease, history of osteoporosis, history of vitamin D deficiency and history of diabetes mellitus type 2 on diet control. Social history patient lives at home she is able to ambulate and take care of her daily needs she never smoked does not drink alcohol On review of systems patient is alert and oriented 3 in no apparent distress there is no fever or chills no headache or dizziness no chest pain no shortness of breath no cough no nausea or vomiting no abdominal pain no diarrhea no blood in the stools no burning with urination no frequency or urgency and no hematuria. Past Medical History Past Medical History: Cancer, Diabetes Mellitus, Hypertension, Renal Disease Additional Past Medical History / Comment(s): 02/17/15 Pt presented to [facility] ER wi th chest pain starting about 0330 this AM. Pain radiated to L neck and down L arm. She is admitted with clinical impression of chest pain. 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 History of Any Multi-Drug Resistant Organisms: None Reported Past Surgical History: Adenoidectomy, Bowel Resection, Breast Surgery, Tonsillectomy Additional Past Surgical History / Comment(s): L Breast lumpectomy sugery, colonoscopy with benign polypectomy, double J catheter insertion L kidney then percutaneous nephrolithotomy attempted and then lithrotropsey (ESWL) and removal of double J catheters. Past Anesthesia/Blood Transfusion Reactions: Motion Sickness Additional Past Anesthesia/Blood Transfusion Reaction / Comm: Pt states she has never received blood. Additional Psychological History / Comment(s): Pt resides with her sister. She has a cane she uses if it is icey outside. She is independent. She drives. - Past Family History Sister(s) Family Medical History: Cancer, Deep Vein Thrombosis (DVT) Additional Family Medical History / Comment(s): poss DVT. colon cancer Brother(s) Family Medical History: Dementia Father Family Medical History: Musculoskeletal Disorder, Neurologic Disorder Additional Family Medical History / Comment(s): Father had parkinsons and at age 60yrs. Mother Family Medical History: Cancer Additional Family Medical History / Comment(s): Mother had stomach cancer and in her 70's. Medications and Allergies Home Medications Medication Instructions Recorded Confirmed Type Pravastatin Sodium [Pravachol] 20 mg PO DAILY 08/05/14 05/02/20 History Aspirin 81 mg PO DAILY 02/17/15 05/02/20 History hydrALAZINE HCL [Apresoline] 25 mg PO TID #90 tab 02/21/15 04/28/20 Rx allopurinoL [Zyloprim] 300 mg PO DAILY 07/19/18 05/02/20 History amLODIPine BESYLATE [Norvasc] 5 mg PO DAILY 07/19/18 04/28/20 History Ferrous Sulfate [Feosol] 325 mg PO DAILY 08/15/19 05/02/20 History Sodium Bicarbonate Tab 650 mg PO DAILY 08/15/19 04/28/20 History Acetaminophen Tab [Tylenol Tab] 1,000 mg PO Q6H PRN 04/20/20 05/02/20 History Metoprolol Tartrate [Lopressor] 25 mg PO DAILY 04/20/20 04/28/20 History Allergies Allergy/AdvReac Type Severity Reaction Status Date / Time glipizide Allergy Rash/Hives Verified 04/28/20 10:40 Penicillins Allergy Unknown Verified 04/28/20 10:40 Sulfa (Sulfonamide Allergy Unknown Verified 04/28/20 10:40 Antibiotics) Physical Exam Vitals: Vital Signs Temp Pulse Pulse Pulse Resp BP BP 05/03/20 05:05 97.7 F 84 14 134/74 05/02/20 22:20 72 117/62 05/02/20 21:20 74 118/61 05/02/20 20:50 70 112/66 05/02/20 20:20 68 117/68 05/02/20 20:05 66 113/63 05/02/20 19:50 65 114/65 05/02/20 19:35 65 114/65 05/02/20 19:20 97.3 F L 67 14 118/65 05/02/20 19:15 16 05/02/20 18:46 68 16 132/62 05/02/20 18:30 69 18 130/64 05/02/20 18:15 68 16 127/65 05/02/20 18:00 67 16 129/67 05/02/20 17:53 98.4 F 69 16 127/59 05/02/20 10:27 97.4 F L 66 18 138/63 Pulse Ox 05/03/20 05:05 95 05/02/20 22:20 95 05/02/20 21:20 95 05/02/20 20:50 95 05/02/20 20:20 96 05/02/20 20:05 96 05/02/20 19:50 95 05/02/20 19:35 95 05/02/20 19:20 94 L 05/02/20 19:15 05/02/20 18:46 100 05/02/20 18:30 100 05/02/20 18:15 100 05/02/20 18:00 100 05/02/20 17:53 100 05/02/20 10:27 98 Intake and Output 05/02/20 05/03/20 05/03/20 22:59 06:59 14:59 Intake Total 2150 810 Output Total 300 225 Balance 1850 585 Intake: IV 2150 Intake, IV Titration 750 Amount Lactated Ringers 1,000 ml 600 @ 20 mls/hr IV .Q24H [facility] Rx#:[id number] ceFAZolin 1,000 mg In 50 Sodium Chloride 0.9% 50 ml @ 100 mls/hr IVPB Q8HR [facility] Rx#:[id number] metroNIDAZOLE-NS PMX 500 100 mg In Saline 1 100ml.bag @ 100 mls/hr IVPB Q8HR [facility] Rx#:[id number] Oral 60 Output: Urine 200 225 Uretheral (Mcclellan) 225 Estimated Blood Loss 100 Other: Voiding Method Indwelling Catheter Indwelling Catheter # Bowel Movements 0 In general patient is alert and oriented 3 in no apparent distress HEENT head normocephalic and atraumatic Neck is supple no JVD no goiter no lymphadenopathy Chest exam reveals a few scattered crackles no wheezing Cardiac exam reveals regular heart sounds S1 and S2 no gallops no murmurs Abdomen is soft nontender no organomegaly with normal bowel sounds Extremity exam reveals no edema no cyanosis or clubbing Neurological examination reveals no gross focal deficits Results CBC & Chem 7: 05/03/20 06:37 05/03/20 06:37 Labs: Abnormal Lab Results - Last 24 Hours (Table) 05/02/20 05/02/20 Range/Units 10:48 18:28 POC Glucose (mg/dL) 183 H 216 H (75-99) mg/dL Assessment and Plan Plan: Colon cancer status post right hemicolectomy on 05/02/[address] Bustos Underlying history of hypertension Underlying history of hyperlipidemia Underlying history of diabetes mellitus type 2 Underlying history of gout Underlying history of peptic ulcer disease Underlying history of osteoporosis Underlying history of vitamin D deficiency At this time patient was seen and examined home medications were reviewed and reordered For DVT prophylaxis patient is on SCD stockings and subcu heparin For GI prophylaxis patient is on IV Protonix Will follow closely during this admission
[2020-05-03 20:02] LABS: Glucose,Whole Blood 301 mg/dL (75-99)
[2020-05-03] MEDS: INSULIN ASPART (NovoLOG) 100 UNIT/ML VIAL SQ SCH (21:04)
[2020-05-04] MEDS: METOCLOPRAMIDE 5 MG/ML 2 ML VIAL IVP SCH (03:27)
[2020-05-04] MEDS: HYDROcodone/APAP 5-325MG 1 EACH TAB PO PRN ×2 (03:28→10:42)
[2020-05-04] MEDS: DEXTROSE 5%-0.45% NACL 1,000 ML IV SCH ×3 (03:34→07:51)
[2020-05-04] MEDS: LACTATED RINGERS 1,000 ML IV SCH (05:52)
[2020-05-04 07:28] LABS: Glucose,Whole Blood 191 mg/dL (75-99)
[2020-05-04] MEDS: SODIUM BICARBONATE TAB 650 MG TAB PO SCH (08:01)
[2020-05-04] MEDS: PRAVASTATIN SODIUM 20 MG TAB PO SCH (08:01)
[2020-05-04] MEDS: amLODIPine 5 MG TAB PO SCH (08:01)
[2020-05-04] MEDS: PANTOPRAZOLE 40 MG/10 ML VIAL IV SCH (08:12)
[2020-05-04] MEDS: HEPARIN SODIUM,PORCINE 5,000 UNIT/ML 1 ML VIAL SQ SCH ×2 (08:12→21:39)
[2020-05-04] MEDS: INSULIN ASPART (NovoLOG) 100 UNIT/ML VIAL SQ SCH ×4 (08:23→21:39)
--- NOTE | 2020-05-04 09:10 | P.PN ---
Subjective Progress Note Date: 05/04/20 Principal diagnosis: S/P right laparoscopic hemicolectomy and cholecystectomy The patient is postop day 2 laparoscopic right hemicolectomy and cholecystectomy. She is tolerating a diet. Having mild incisional pain. No nausea or vomiting. Physical therapy did not see her yesterday. Passing some flatus. Objective - Vital Signs Vital signs: Vital Signs Temp 98.1 F 05/04/20 05:00 Pulse 105 H 05/04/20 05:00 Resp 16 05/04/20 05:00 BP 116/63 05/04/20 05:00 Pulse Ox 93 L 05/04/20 05:00 Intake & Output 05/03/20 05/04/20 05/04/20 18:59 06:59 18:59 Intake Total 1200 450 Output Total 650 Balance 1200 -200 Intake: Intake, IV Titration 800 450 Amount Dextrose 5%-0.45% NaCl 1, 800 450 000 ml @ 50 mls/hr IV . Q20H [facility] Rx#:[id number] Oral 400 Output: Urine 650 Uretheral (Mcclellan) 650 Other: Voiding Method Indwelling Catheter Indwelling Catheter - Constitutional General appearance: Present: cooperative, no acute distress - Respiratory Respiratory: bilateral: CTA - Cardiovascular Rhythm: regular - Gastrointestinal General gastrointestinal: Present: normal bowel sounds, soft Localized gastrointestinal: surgical scar: diffuse (Incisions are intact clean and dry) - Labs CBC & Chem 7: 05/03/20 06:37 05/03/20 06:37 Labs: Abnormal Lab Results - Last 24 Hours (Table) 05/03/20 05/03/20 05/03/20 Range/Units 06:37 06:37 20:01 WBC 13.98 H (4.50-10.00) X 10*3/uL RBC 2.62 L (4.10-5.20) X 10*6/uL Hgb 8.3 L (12.0-15.0) g/dL Hct 26.6 L (37.2-46.3) % MCV 101.5 H (80.0-97.0) fL MCHC 31.2 L (32.0-37.0) g/dL Immature Gran # 0.08 H (0.00-0.04) X 10*3/uL Neutrophils # 12.17 H (1.80-7.70) X 10*3/uL Lymphocytes # 0.86 L (0.90-5.00) X 10*3/uL Eosinophils # 0 L (0.04-0.35) X 10*3/uL Chloride 111 H (96-109) mmol/L Carbon Dioxide 19.9 L (21.6-31.8) mmol/L Anion Gap 14.10 H (4.00-12.00) mmol/L BUN 64.0 H (9.0-27.0) mg/dL Creatinine 2.4 H (0.6-1.5) mg/dL Est GFR (CKD-EPI)AfAm 20.6 L (60.0-200.0) Est GFR (CKD-EPI)NonAf 17.8 L (60.0-200.0) BUN/Creatinine Ratio 26.67 H (12.00-20.00) Ratio Glucose 200 H (70-110) mg/dL POC Glucose (mg/dL) 301 H (75-99) mg/dL Calcium 8.4 L (8.7-10.3) mg/dL 05/04/20 Range/Units 07:17 WBC (4.50-10.00) X 10*3/uL RBC (4.10-5.20) X 10*6/uL Hgb (12.0-15.0) g/dL Hct (37.2-46.3) % MCV (80.0-97.0) fL MCHC (32.0-37.0) g/dL Immature Gran # (0.00-0.04) X 10*3/uL Neutrophils # (1.80-7.70) X 10*3/uL Lymphocytes # (0.90-5.00) X 10*3/uL Eosinophils # (0.04-0.35) X 10*3/uL Chloride (96-109) mmol/L Carbon Dioxide (21.6-31.8) mmol/L Anion Gap (4.00-12.00) mmol/L BUN (9.0-27.0) mg/dL Creatinine (0.6-1.5) mg/dL Est GFR (CKD-EPI)AfAm (60.0-200.0) Est GFR (CKD-EPI)NonAf (60.0-200.0) BUN/Creatinine Ratio (12.00-20.00) Ratio Glucose (70-110) mg/dL POC Glucose (mg/dL) 191 H (75-99) mg/dL Calcium (8.7-10.3) mg/dL Assessment and Plan (1) Colon tumor Current Visit: Yes Status: Acute Code(s): D49.0 - NEOPLASM OF UNSPECIFIED BE HAVIOR OF DIGESTIVE SYSTEM SNOMED Code(s): 871369711 (2) Chronic renal failure Current Visit: Yes Status: Acute Code(s): N18.9 - CHRONIC KIDNEY DISEASE, UNSPECIFIED SNOMED Code(s): 98892263 (3) Left ankle sprain Current Visit: No Status: Acute Code(s): S93.402A - SPRAIN OF UNSPECIFIED LIGAMENT OF LEFT ANKLE, INIT ENCNTR SNOMED Code(s): 46167416 Plan: Hep-Lock the IV. Physical therapy evaluate and treat. Mcclellan catheter will be removed. She is on DVT and ulcer prophylaxis. Progressing well.
[2020-05-04] MEDS: allopurinoL 300 MG TAB PO SCH (09:58)
[2020-05-04 11:16] LABS: Basophils # (A) 0.05 X 10*3/uL (0.00-0.10); Basophils % (A) 0.3 %; Eosinophils % (A) 0.6 %; HCT 23.5 % (37.2-46.3); HGB 7.2 g/dL (12.0-15.0); Lymphocytes % (A) 7.6 %; MCH 31.6 pg (27.0-32.0); MCHC 30.6 g/dL (32.0-37.0); MCV 103.1 fL (80.0-97.0); Mean Platelet Volume 12.2 fL (9.5-12.2); Monocytes # (A) 1.06 X 10*3/uL (0.20-1.00); Monocytes % (A) 6.7 %; Neutrophils % (A) 84.2 %; Platelet Count 229 X 10*3/uL (140-440); RBC 2.28 X 10*6/uL (4.10-5.20); RDW 13.8 % (11.5-14.5); WBC 15.81 X 10*3/uL (4.50-10.00)
[2020-05-04 11:56] LABS: ALT <8 U/L (8-44); AST 16 U/L (13-35); African American GFR (CKD) 22.9 (60.0-200.0); Alkaline Phosphatase 65 U/L (41-126); BUN/Creat Ratio 22.27 Ratio (12.00-20.00); Calcium 8.3 mg/dL (8.7-10.3); Carbon Dioxide 21.8 mmol/L (21.6-31.8); Chloride 110 mmol/L (96-109); Glucose 175 mg/dL (70-110); Non-African American GFR(CKD) 19.8 (60.0-200.0); Potassium 4.4 mmol/L (3.5-5.5); Sodium 142 mmol/L (135-145); Total Bilirubin 0.5 mg/dL (0.2-1.2)
[2020-05-04 11:57] LABS: Glucose,Whole Blood 244 mg/dL (75-99)
[2020-05-04 17:41] LABS: Glucose,Whole Blood 149 mg/dL (75-99)
[2020-05-04 20:11] LABS: Glucose,Whole Blood 250 mg/dL (75-99)
[2020-05-05] MEDS: DEXTROSE 5%-0.45% NACL 1,000 ML IV SCH (06:28)
[2020-05-05 07:22] LABS: Glucose,Whole Blood 160 mg/dL (75-99)
[2020-05-05 07:48] LABS: Basophils % (A) 0 %; Eosinophils # (A) 0.2 k/uL (0-0.7); Eosinophils % (A) 1 %; HCT 21.1 % (34.0-46.0); Lymphocytes % (A) 6 %; MCH 31.7 pg (25.0-35.0); MCHC 32.5 g/dL (31.0-37.0); Mean Platelet Volume 8.1; Monocytes # (A) 0.9 k/uL (0-1.0); Monocytes % (A) 5 %; Neutrophils # (A) 15.8 k/uL (1.3-7.7); Neutrophils % (A) 88 %; Platelet Count 234 k/uL (150-450); RBC 2.16 m/uL (3.80-5.40); RDW 14.3 % (11.5-15.5)
[2020-05-05 07:50] LABS: ALT <6 U/L (4-34); AST 18 U/L (14-36); African American GFR (CKD) 25 (>60 ml/min/1.73 sqM); Albumin 2.4 g/dL (3.5-5.0); Alkaline Phosphatase 73 U/L (38-126); Anion Gap 7 mmol/L; Blood Urea Nitrogen 38 mg/dL (7-17); Calcium 8.3 mg/dL (8.4-10.2); Carbon Dioxide 22 mmol/L (22-30); Chloride 108 mmol/L (98-107); Globulin 2.5 g/dL; Glucose 146 mg/dL (74-99); Non-African American GFR(CKD) 22 (>60 ml/min/1.73 sqM); Potassium 4.1 mmol/L (3.5-5.1); Sodium 137 mmol/L (137-145); Total Bilirubin 0.8 mg/dL (0.2-1.3); Total Protein 4.9 g/dL (6.3-8.2)
[2020-05-05 08:01] LABS: HGB 6.8 gm/dL (11.4-16.0); MCV 97.7 fL (80.0-100.0)
[2020-05-05] MEDS: INSULIN ASPART (NovoLOG) 100 UNIT/ML VIAL SQ SCH ×4 (08:37→20:40)
--- NOTE | 2020-05-05 08:58 | P.PN ---
Subjective Progress Note Date: 05/05/20 Principal diagnosis: S/P right laparoscopic hemicolectomy and cholecystectomy The patient feels much better today. Tolerating a diet. She was up to the chair quite a while yesterday. Still didn't ambulate well according to physical therapy due to ankle discomfort. Denies chest pain or shortness of breath Objective - Vital Signs Vital signs: Vital Signs Temp 98.3 F 05/05/20 08:40 Pulse 108 H 05/05/20 08:43 Resp 16 05/05/20 08:40 BP 129/65 05/05/20 08:40 Pulse Ox 87 L 05/05/20 08:40 Intake & Output 05/04/20 05/05/20 05/05/20 18:59 06:59 18:59 Intake Total 480 Output Total 50 Balance 480 -50 Intake: Oral 480 Output: Urine 50 Other: Voiding Method Toilet Bedside Commode # Voids 2 4 1 - Constitutional General appearance: Present: average body habitus, no acute distress - Respiratory Respiratory: bilateral: CTA, diminished (Mildly at the bases) - Cardiovascular Rhythm: regular (Slightly tachycardic) - Gastrointestinal General gastrointestinal: Present: normal bowel sounds, soft Localized gastrointestinal: surgical scar: diffuse (Incisions intact, clean and dry) - Labs CBC & Chem 7: 05/05/20 07:23 05/05/20 07:23 Labs: Abnormal Lab Results - Last 24 Hours (Table) 05/04/20 05/04/20 05/04/20 Range/Units 06:20 06:20 11:55 WBC 15.81 H (4.50-10.00) X 10*3/uL RBC 2.28 L (4.10-5.20) X 10*6/uL Hgb 7.2 L (12.0-15.0) g/dL Hct 23.5 L (37.2-46.3) % MCV 103.1 H (80.0-97.0) fL MCHC 30.6 L (32.0-37.0) g/dL Absolute Nucleated RBC 0.02 H (0.00-0.00) X 10*3/uL Immature Gran # 0.10 H (0.00-0.04) X 10*3/uL Neutrophils # 13.30 H (1.80-7.70) X 10*3/uL Monocytes # 1.06 H (0.20-1.00) X 10*3/uL NRBC/100 WBC Diff 0.1 H (0.0-0.0) /100 WBCS Chloride 110 H (96-109) mmol/L BUN 49.0 H (9.0-27.0) mg/dL Creatinine 2.2 H (0.6-1.5) mg/dL Est GFR (CKD-EPI)AfAm 22.9 L (60.0-200.0) Est GFR (CKD-EPI)NonAf 19.8 L (60.0-200.0) BUN/Creatinine Ratio 22.27 H (12.00-20.00) Ratio Glucose 175 H (70-110) mg/dL POC Glucose (mg/dL) 244 H (75-99) mg/dL Calcium 8.3 L (8.7-10.3) mg/dL ALT <8 L (8-44) U/L Total Protein 5.0 L (6.2-8.2) g/dL Albumin 3.00 L (3.80-4.90) g/dL Albumin/Globulin Ratio 1.50 L (1.60-3.17) g/dL 05/04/20 05/04/20 05/05/20 Range/Units 17:30 20:10 07:20 WBC (4.50-10.00) X 10*3/uL RBC (4.10-5.20) X 10*6/uL Hgb (12.0-15.0) g/dL Hct (37.2-46.3) % MCV (80.0-97.0) fL MCHC (32.0-37.0) g/dL Absolute Nucleated RBC (0.00-0.00) X 10*3/uL Immature Gran # (0.00-0.04) X 10*3/uL Neutrophils # (1.80-7.70) X 10*3/uL Monocytes # (0.20-1.00) X 10*3/uL NRBC/100 WBC Diff (0.0-0.0) /100 WBCS Chloride (96-109) mmol/L BUN (9.0-27.0) mg/dL Creatinine (0.6-1.5) mg/dL Est GFR (CKD-EPI)AfAm (60.0-200.0) Est GFR (CKD-EPI)NonAf (60.0-200.0) BUN/Creatinine Ratio (12.00-20.00) Ratio Glucose (70-110) mg/dL POC Glucose (mg/dL) 149 H 250 H 160 H (75-99) mg/dL Calcium (8.7-10.3) mg/dL ALT (8-44) U/L Total Protein (6.2-8.2) g/dL Albumin (3.80-4.90) g/dL Albumin/Globulin Ratio (1.60-3.17) g/dL 05/05/20 05/05/20 Range/Units 07:23 07:23 WBC 18.0 H (4.50-10.00) X 10*3/uL RBC 2.16 L (4.10-5.20) X 10*6/uL Hgb 6.8 L* D (12.0-15.0) g/dL Hct 21.1 L (37.2-46.3) % MCV (80.0-97.0) fL MCHC (32.0-37.0) g/dL Absolute Nucleated RBC (0.00-0.00) X 10*3/uL Immature Gran # (0.00-0.04) X 10*3/uL Neutrophils # 15.8 H (1.80-7.70) X 10*3/uL Monocytes # (0.20-1.00) X 10*3/uL NRBC/100 WBC Diff (0.0-0.0) /100 WBCS Chloride 108 H (96-109) mmol/L BUN 38 H (9.0-27.0) mg/dL Creatinine 2.03 H (0.6-1.5) mg/dL Est GFR (CKD-EPI)AfAm (60.0-200.0) Est GFR (CKD-EPI)NonAf (60.0-200.0) BUN/Creatinine Ratio (12.00-20.00) Ratio Glucose 146 H (70-110) mg/dL POC Glucose (mg/dL) (75-99) mg/dL Calcium 8.3 L (8.7-10.3) mg/dL ALT (8-44) U/L Total Protein 4.9 L (6.2-8.2) g/dL Albumin 2.4 L (3.80-4.90) g/dL Albumin/Globulin Ratio (1.60-3.17) g/dL Assessment and Plan (1) Colon tumor Current Visit: Yes Status: Acute Code(s): D49.0 - NEOPLASM OF UNSPECIFIED BEHAVIOR OF DIGESTIVE SYSTEM SNOMED Code(s): 275146358 (2) Chronic renal failure Current Visit: Yes Status: Acute Code(s): N18.9 - CHRONIC KIDNEY DISEASE, UNSPECIFIED SNOMED Code(s): 68861715 (3) Left ankle sprain Current Visit: No Status: Acute Code(s): S93.402A - SPRAIN OF UNSPECIFIED LI GAMENT OF LEFT ANKLE, INIT ENCNTR SNOMED Code(s): 58446240 (4) Acute on chronic anemia Current Visit: Yes Status: Acute Code(s): D64.9 - ANEMIA, UNSPECIFIED SNOM ED Code(s): 644869116 Plan: From a surgical standpoint the patient is doing well. Her hemoglobin has dropped about a gram in the last few days. She has mild tachycardia but otherwise feeling well. Physical therapy has recommended subacute rehab. From a surgical standpoint she can be discharged to rehab once okay with Dr. Wood.
[2020-05-05] MEDS: allopurinoL 300 MG TAB PO SCH (09:07)
[2020-05-05] MEDS: PRAVASTATIN SODIUM 20 MG TAB PO SCH (09:08)
[2020-05-05] MEDS: HEPARIN SODIUM,PORCINE 5,000 UNIT/ML 1 ML VIAL SQ SCH ×2 (09:08→20:40)
[2020-05-05] MEDS: amLODIPine 5 MG TAB PO SCH (09:08)
[2020-05-05] MEDS: SODIUM BICARBONATE TAB 650 MG TAB PO SCH (09:09)
[2020-05-05] MEDS: PANTOPRAZOLE 40 MG/10 ML VIAL IV SCH (09:42)
--- NOTE | 2020-05-05 09:51 | P.PN ---
Subjective Progress Note Date: 05/04/20 Hattie Cardenas is an 84-year-old female well known to my practice who recently had a colonoscopy that showed a colon mass patient was admitted yesterday by Dr. Bustos and underwent laparoscopic right hemicolectomy and cholecystectomy patient was admitted to medical floor and consultation was requested for medical management while hospitalized. Her past medical history is significant for history of hypertension, history of hyperlipidemia, history of anemia, history of gout, history of peptic ulcer di sease, history of coronary artery disease, history of chronic kidney disease, history of osteoporosis, history of vitamin D deficiency and history of diabetes mellitus type 2 on diet control. Social history patient lives at home she is able to ambulate and take care of her daily needs she never smoked does not drink alcohol. On 05/04/2020 patient was seen and examined on the medical floor she is alert and oriented 3 in no apparent distress there is no fever or chills no headache or dizziness no chest pain no shortness of breath no cough no nausea or vomiting no abdominal pain no diarrhea no blood in the stools no burning with urination no frequency or urgency and no hematuria. Objective - Vital Signs Vital signs: Vital Signs Temp 98.1 F 05/04/20 05:00 Pulse 105 H 05/04/20 05:00 Resp 16 05/04/20 05:00 BP 116/63 05/04/20 05:00 Pulse Ox 93 L 05/04/20 05:00 Intake & Output 05/03/20 05/04/20 05/04/20 18:59 06:59 18:59 Intake Total 1200 450 Output Total 650 Balance 1200 -200 Intake: Intake, IV Titration 800 450 Amount Dextrose 5%-0.45% NaCl 1, 800 450 000 ml @ 50 mls/hr IV . Q20H [facility] Rx#:[id number] Oral 400 Output: Urine 650 Uretheral (Mcclellan) 650 Other: Voiding Method Indwelling Catheter Indwelling Catheter - Exam In general patient is alert and oriented 3 in no apparent distress HEENT head normocephalic and atraumatic Neck is supple no JVD no goiter no lymphadenopathy Chest exam reveals a few scattered crackles no wheezing Cardiac exam reveals regular heart sounds S1 and S2 no gallops no murmurs Abdomen is soft nontender no organomegaly with normal bowel sounds Extremity exam reveals no edema no cyanosis or clubbing Neurological examination reveals no gross focal deficits - Labs CBC & Chem 7: 05/05/20 07:23 05/05/20 07:23 Labs: Abnormal Lab Results - Last 24 Hours (Table) 05/03/20 05/03/20 05/04/20 Range/Units 06:37 20:01 07:17 Chloride 111 H (96-109) mmol/L Carbon Dioxide 19.9 L (21.6-31.8) mmol/L Anion Gap 14.10 H (4.00-12.00) mmol/L BUN 64.0 H (9.0-27.0) mg/dL Creatinine 2.4 H (0.6-1.5) mg/dL Est GFR (CKD-EPI)AfAm 20.6 L (60.0-200.0) Est GFR (CKD-EPI)NonAf 17.8 L (60.0-200.0) BUN/Creatinine Ratio 26.67 H (12.00-20.00) Ratio Glucose 200 H (70-110) mg/dL POC Glucose (mg/dL) 301 H 191 H (75-99) mg/dL Calcium 8.4 L (8.7-10.3) mg/dL Assessment and Plan Plan: Colon cancer status post right hemicolectomy on 05/02/[address] Bustos Underlying history of hypertension Underlying history of hyperlipidemia Underlying history of diabetes mellitus type 2 Underlying history of gout Underlying history of peptic ulcer disease Underlying history of osteoporosis Underlying history of vitamin D deficiency At this time patient was seen and examined home medications were reviewed and reordered For DVT prophylaxis patient is on SCD stockings and subcu heparin For GI prophylaxis patient is on IV Protonix Will follow closely during this admission
--- NOTE | 2020-05-05 10:39 | P.PN ---
Subjective Progress Note Date: 05/05/20 Hattie Cardenas is an 84-year-old female well known to my practice who recently had a colonoscopy that showed a colon mass patient was admitted yesterday by Dr. Bustos and underwent laparoscopic right hemicolectomy and cholecystectomy patient was admitted to medical floor and consultation was requested for medical management while hospitalized. Her past medical history is significant for history of hypertension, history of hyperlipidemia, history of anemia, history of gout, history of peptic ulcer di sease, history of coronary artery disease, history of chronic kidney disease, history of osteoporosis, history of vitamin D deficiency and history of diabetes mellitus type 2 on diet control. Social history patient lives at home she is able to ambulate and take care of her daily needs she never smoked does not drink alcohol. On 05/04/2020 patient was seen and examined on the medical floor she is alert and oriented 3 in no apparent distress there is no fever or chills no headache or dizziness no chest pain no shortness of breath no cough no nausea or vomiting no abdominal pain no diarrhea no blood in the stools no burning with urination no frequency or urgency and no hematuria. On 05/05/2020 patient is alert and oriented 3. Hemoglobin this a.m. 6.8. 1 unit PRBCs have been ordered. Blood cell also elevated 18.0 will order blood culture, urine culture and chest x-ray. Patient denies any chest you complaints. Patient denies chest pain or shortness breath. Patient denies nausea vomiting or diarrhea. Patient denies any urinary burning or frequency. Objective - Vital Signs Vital signs: Vital Signs Temp 98.3 F 05/05/20 08:40 Pulse 108 H 05/05/20 08:43 Resp 16 05/05/20 08:40 BP 129/65 05/05/20 08:40 Pulse Ox 87 L 05/05/20 08:40 Intake & Output 05/04/20 05/05/20 05/05/20 18:59 06:59 18:59 Intake Total 480 Output Total 50 Balance 480 -50 Intake: Oral 480 Output: Urine 50 Other: Voiding Method Toilet Bedside Commode # Voids 2 4 1 - Exam In general patient is alert and oriented 3 in no apparent distress HEENT head normocephalic and atraumatic Neck is supple no JVD no goiter no lymphadenopathy Chest exam reveals a few scattered crackles no wheezing Cardiac exam reveals regular heart sounds S1 and S2 no gallops no murmurs Abdomen is soft nontender no organomegaly with normal bowel sounds Extremity exam reveals no edema no cyanosis or clubbing Neurological examination reveals no gross focal deficits - Labs CBC & Chem 7: 05/05/20 07:23 05/05/20 07:23 Labs: Abnormal Lab Results - Last 24 Hours (Table) 05/04/20 05/04/20 05/04/20 Range/Units 06:20 06:20 11:55 WBC 15.81 H (4.50-10.00) X 10*3/uL RBC 2.28 L (4.10-5.20) X 10*6/uL Hgb 7.2 L (12.0-15.0) g/dL Hct 23.5 L (37.2-46.3) % MCV 103.1 H (80.0-97.0) fL MCHC 30.6 L (32.0-37.0) g/dL Absolute Nucleated RBC 0.02 H (0.00-0.00) X 10*3/uL Immature Gran # 0.10 H (0.00-0.04) X 10*3/uL Neutrophils # 13.30 H (1.80-7.70) X 10*3/uL Monocytes # 1.06 H (0.20-1.00) X 10*3/uL NRBC/100 WBC Diff 0.1 H (0.0-0.0) /100 WBCS Chloride 110 H (96-109) mmol/L BUN 49.0 H (9.0-27.0) mg/dL Creatinine 2.2 H (0.6-1.5) mg/dL Est GFR (CKD-EPI)AfAm 22.9 L (60.0-200.0) Est GFR (CKD-EPI)NonAf 19.8 L (60.0-200.0) BUN/Creatinine Ratio 22.27 H (12.00-20.00) Ratio Glucose 175 H (70-110) mg/dL POC Glucose (mg/dL) 244 H (75-99) mg/dL Calcium 8.3 L (8.7-10.3) mg/dL ALT <8 L (8-44) U/L Total Protein 5.0 L (6.2-8.2) g/dL Albumin 3.00 L (3.80-4.90) g/dL Albumin/Globulin Ratio 1.50 L (1.60-3.17) g/dL 05/04/20 05/04/20 05/05/20 Range/Units 17:30 20:10 07:20 WBC (4.50-10.00) X 10*3/uL RBC (4.10-5.20) X 10*6/uL Hgb (12.0-15.0) g/dL Hct (37.2-46.3) % MCV (80.0-97.0) fL MCHC (32.0-37.0) g/dL Absolute Nucleated RBC (0.00-0.00) X 10*3/uL Immature Gran # (0.00-0.04) X 10*3/uL Neutrophils # (1.80-7.70) X 10*3/uL Monocytes # (0.20-1.00) X 10*3/uL NRBC/100 WBC Diff (0.0-0.0) /100 WBCS Chloride (96-109) mmol/L BUN (9.0-27.0) mg/dL Creatinine (0.6-1.5) mg/dL Est GFR (CKD-EPI)AfAm (60.0-200.0) Est GFR (CKD-EPI)NonAf (60.0-200.0) BUN/Creatinine Ratio (12.00-20.00) Ratio Glucose (70-110) mg/dL POC Glucose (mg/dL) 149 H 250 H 160 H (75-99) mg/dL Calcium (8.7-10.3) mg/dL ALT (8-44) U/L Total Protein (6.2-8.2) g/dL Albumin (3.80-4.90) g/dL Albumin/Globulin Ratio (1.60-3.17) g/dL 05/05/20 05/05/20 Range/Units 07:23 07:23 WBC 18.0 H (4.50-10.00) X 10*3/uL RBC 2.16 L (4.10-5.20) X 10*6/uL Hgb 6.8 L* D (12.0-15.0) g/dL Hct 21.1 L (37.2-46.3) % MCV (80.0-97.0) fL MCHC (32.0-37.0) g/dL Absolute Nucleated RBC (0.00-0.00) X 10*3/uL Immature Gran # (0.00-0.04) X 10*3/uL Neutrophils # 15.8 H (1.80-7.70) X 10*3/uL Monocytes # (0.20-1.00) X 10*3/uL NRBC/100 WBC Diff (0.0-0.0) /100 WBCS Chloride 108 H (96-109) mmol/L BUN 38 H (9.0-27.0) mg/dL Creatinine 2.03 H (0.6-1.5) mg/dL Est GFR (CKD-EPI)AfAm (60.0-200.0) Est GFR (CKD-EPI)NonAf (60.0-200.0) BUN/Creatinine Ratio (12.00-20.00) Ratio Glucose 146 H (70-110) mg/dL POC Glucose (mg/dL) (75-99) mg/dL Calcium 8.3 L (8.7-10.3) mg/dL ALT (8-44) U/L Total Protein 4.9 L (6.2-8.2) g/dL Albumin 2.4 L (3.80-4.90) g/dL Albumin/Globulin Ratio (1.60-3.17) g/dL Assessment and Plan Plan: Colon cancer status post right hemicolectomy on 05/02/[address] Bustos Underlying history of hypertension Underlying history of hyperlipidemia Underlying history of diabetes mellitus type 2 Underlying history of gout Underlying history of peptic ulcer disease Underlying history of osteoporosis Underlying history of vitamin D deficiency Acute expected blood loss anemia secondary to surgery. 1 unit of PRBCs ordered Leukocytosis. White blood cell count 18.0. Blood culture, urine culture and chest x-ray ordered At this time patient was seen and examined home medications were reviewed and reordered For DVT prophylaxis patient is on SCD stockings and subcu heparin For GI prophylaxis patient is on IV Protonix Will follow closely during this admission
[2020-05-05] MEDS: HYDROcodone/APAP 5-325MG 1 EACH TAB PO PRN (11:40)
[2020-05-05 11:42] LABS: Glucose,Whole Blood 280 mg/dL (75-99)
--- NOTE | 2020-05-05 14:19 | XR ---
EXAMINATION TYPE: XR chest 1V portable DATE OF EXAM: 05/05/2020 COMPARISON: Prior chest x-ray 08/17/2019 HISTORY: Elevated white blood cell count TECHNIQUE: Single frontal view of the chest is obtained. FINDINGS: There is lucency beneath the right hemidiaphragm. Patient is markedly rotated. Aorta is de nse. No evident pneumothorax. Difficult to exclude retrocardiac density. Bone mineralization is reduc ed. IMPRESSION: Pneumoperitoneum likely related to patient's previous surgery. Difficult to exclude basi lar atelectasis versus pneumonia, consider follow-up
[2020-05-05 15:12] LABS: Appearance,Urine Cloudy (Clear); Bacteria,Urine Rare /hpf; Bilirubin,Urine Negative (Negative); Blood,Urine Trace (Negative); Color,Urine Yellow; Glucose,Urine (UA) Negative (Negative); Ketones,Urine Negative (Negative); Leukocyte Esterase,Urine Small (Negative); Mucus,Urine Rare /hpf; Nitrite,Urine Negative (Negative); PH, Urine 5.5 (5.0-8.0); Protein,Urine 1+ (Negative); RBC,Urine 3 /hpf (0-5); Specific Gravity,Urine 1.014 (1.001-1.035); Squamous Epithelial Cell,Urine 5 /hpf (0-4); Urobilinogen,Urine <2.0 mg/dL (<2.0); WBC,Urine 1 /hpf (0-5)
[2020-05-05 16:53] LABS: Glucose,Whole Blood 208 mg/dL (75-99)
[2020-05-05 20:30] LABS: Glucose,Whole Blood 171 mg/dL (75-99)
[2020-05-06 07:29] LABS: ALT <6 U/L (4-34); AST 19 U/L (14-36); African American GFR (CKD) 28 (>60 ml/min/1.73 sqM); Albumin 2.5 g/dL (3.5-5.0); Alkaline Phosphatase 91 U/L (38-126); Anion Gap 9 mmol/L; Blood Urea Nitrogen 36 mg/dL (7-17); Calcium 8.5 mg/dL (8.4-10.2); Carbon Dioxide 20 mmol/L (22-30); Chloride 109 mmol/L (98-107); Globulin 2.6 g/dL; Glucose 145 mg/dL (74-99); Non-African American GFR(CKD) 24 (>60 ml/min/1.73 sqM); Potassium 4.4 mmol/L (3.5-5.1); Sodium 138 mmol/L (137-145); Total Bilirubin 1.2 mg/dL (0.2-1.3); Total Protein 5.1 g/dL (6.3-8.2)
[2020-05-06 07:41] LABS: Basophils % (A) 0 %; Eosinophils # (A) 0.4 k/uL (0-0.7); Eosinophils % (A) 2 %; HCT 27.2 % (34.0-46.0); Lymphocytes % (A) 5 %; MCH 30.6 pg (25.0-35.0); MCHC 32.3 g/dL (31.0-37.0); MCV 94.9 fL (80.0-100.0); Mean Platelet Volume 8.9; Monocytes # (A) 1.1 k/uL (0-1.0); Monocytes % (A) 6 %; Neutrophils # (A) 14.9 k/uL (1.3-7.7); Neutrophils % (A) 85 %; Platelet Count 247 k/uL (150-450); RBC 2.86 m/uL (3.80-5.40); RDW 15.4 % (11.5-15.5); WBC 17.5 k/uL (3.8-10.6)
[2020-05-06 07:43] LABS: Glucose,Whole Blood 167 mg/dL (75-99)
[2020-05-06 07:49] LABS: HGB 8.8 gm/dL (11.4-16.0)
[2020-05-06] MEDS: allopurinoL 100 MG TAB PO SCH (10:06)
[2020-05-06] MEDS: INSULIN ASPART (NovoLOG) 100 UNIT/ML VIAL SQ SCH ×4 (10:07→21:53)
[2020-05-06] MEDS: HEPARIN SODIUM,PORCINE 5,000 UNIT/ML 1 ML VIAL SQ SCH ×2 (10:07→21:53)
[2020-05-06] MEDS: SODIUM BICARBONATE TAB 650 MG TAB PO SCH (10:07)
[2020-05-06] MEDS: amLODIPine 5 MG TAB PO SCH (10:07)
[2020-05-06] MEDS: PRAVASTATIN SODIUM 20 MG TAB PO SCH (10:07)
[2020-05-06] MEDS: PANTOPRAZOLE 40 MG/10 ML VIAL IV SCH (10:08)
[2020-05-06 12:45] LABS: Glucose,Whole Blood 220 mg/dL (75-99)
[2020-05-06] MEDS: DEXTROSE 5%-0.45% NACL 1,000 ML IV SCH (13:26)
--- NOTE | 2020-05-06 15:08 | P.PN ---
Subjective Progress Note Date: 05/06/20 Patient is doing well she denies any abdominal pain she is passing gas and had a bowel movement today. Objective - Vital Signs Vital signs: Vital Signs Temp 98.6 F 05/06/20 12:41 Pulse 100 05/06/20 12:41 Resp 14 05/06/20 12:41 BP 144/75 05/06/20 12:41 Pulse Ox 94 L 05/06/20 12:41 Intake & Output 05/05/20 05/06/20 05/06/20 18:59 06:59 18:59 Intake Total 460 500 Output Total 50 Balance 410 500 Intake: Intake, IV Titration 150 0 Amount Dextrose 5%-0.45% NaCl 1, 150 0 000 ml @ 50 mls/hr IV . Q20H [facility] Rx#:[id number] Oral 500 Blood Product 310 Rc As-1 Unit 310 [id number] Output: Urine 50 Other: Voiding Method Bedside Commode Bedside Commode # Voids 1 1 1 # Bowel Movements 1 - Constitutional General appearance: Present: cooperative - Respiratory Details: Nonlabored - Cardiovascular Rhythm: regular - Gastrointestinal Gastrointestinal Comment(s): Soft nontender nondistended incisions are clean dry and intact - Psychiatric Psychiatric: Present: A&O x's 3 - Labs CBC & Chem 7: 05/06/20 06:46 05/06/20 06:46 Labs: Abnormal Lab Results - Last 24 Hours (Table) 05/05/20 05/05/20 05/05/20 Range/Units 10:02 14:15 16:51 WBC (3.8-10.6) k/uL RBC (3.80-5.40) m/uL Hgb (11.4-16.0) gm/dL Hct (34.0-46.0) % Neutrophils # (1.3-7.7) k/uL Monocytes # (0-1.0) k/uL Chloride (98-107) mmol/L Carbon Dioxide (22-30) mmol/L BUN (7-17) mg/dL Creatinine (0.52-1.04) mg/dL Glucose (74-99) mg/dL POC Glucose (mg/dL) 208 H (75-99) mg/dL Total Protein (6.3-8.2) g/dL Albumin (3.5-5.0) g/dL Urine Appearance Cloudy H (Clear) Urine Protein 1+ H (Negative) Urine Blood Trace H (Negative) Ur Leukocyte Esterase Small H (Negative) Ur Squamous Epith Cells 5 H (0-4) /hpf Urine Bacteria Rare H (None) /hpf Urine Mucus Rare H (None) /hpf Crossmatch See Detail 05/05/20 05/06/20 05/06/20 Range/Units 20:28 06:46 06:46 WBC 17.5 H (3.8-10.6) k/uL RBC 2.86 L (3.80-5.40) m/uL Hgb 8.8 L D (11.4-16.0) gm/dL Hct 27.2 L (34.0-46.0) % Neutrophils # 14.9 H (1.3-7.7) k/uL Monocytes # 1.1 H (0-1.0) k/uL Chloride 109 H (98-107) mmol/L Carbon Dioxide 20 L (22-30) mmol/L BUN 36 H (7-17) mg/dL Creatinine 1.87 H (0.52-1.04) mg/dL Glucose 145 H (74-99) mg/dL POC Glucose (mg/dL) 171 H (75-99) mg/dL Total Protein 5.1 L (6.3-8.2) g/dL Albumin 2.5 L (3.5-5.0) g/dL Urine Appearance (Clear) Urine Protein (Negative) Urine Blood (Negative) Ur Leukocyte Esterase (Negative) Ur Squamous Epith Cells (0-4) /hpf Urine Bacteria (None) /hpf Urine Mucus (None) /hpf Crossmatch 05/06/20 05/06/20 Range/Units 07:41 12:43 WBC (3.8-10.6) k/uL RBC (3.80-5.40) m/uL Hgb (11.4-16.0) gm/dL Hct (34.0-46.0) % Neutrophils # (1.3-7.7) k/uL Monocytes # (0-1.0) k/uL Chloride (98-107) mmol/L Carbon Dioxide (22-30) mmol/L BUN (7-17) mg/dL Creatinine (0.52-1.04) mg/dL Glucose (74-99) mg/dL POC Glucose (mg/dL) 167 H 220 H (75-99) mg/dL Total Protein (6.3-8.2) g/dL Albumin (3.5-5.0) g/dL Urine Appearance (Clear) Urine Protein (Negative) Urine Blood (Negative) Ur Leukocyte Esterase (Negative) Ur Squamous Epith Cells (0-4) /hpf Urine Bacteria (None) /hpf Urine Mucus (None) /hpf Crossmatch Microbiology - Last 24 Hours (Table) 05/05/20 14:15 Urine Culture - Preliminary Urine,Clean Catch Assessment and Plan Assessment: Status post laparoscopic assisted right hemicolectomy and cholecystectomy. Plan: Patient is doing well from a surgical standpoint tolerating her diet.
--- NOTE | 2020-05-06 15:20 | P.PN ---
Subjective Progress Note Date: 05/06/20 Hattie Cardenas is an 84-year-old female well known to my practice who recently had a colonoscopy that showed a colon mass patient was admitted yesterday by Dr. Bustos and underwent laparoscopic right hemicolectomy and cholecystectomy patient was admitted to medical floor and consultation was requested for medical management while hospitalized. Her past medical history is significant for history of hypertension, history of hyperlipidemia, history of anemia, history of gout, history of peptic ulcer di sease, history of coronary artery disease, history of chronic kidney disease, history of osteoporosis, history of vitamin D deficiency and history of diabetes mellitus type 2 on diet control. Social history patient lives at home she is able to ambulate and take care of her daily needs she never smoked does not drink alcohol. On 05/04/2020 patient was seen and examined on the medical floor she is alert and oriented 3 in no apparent distress there is no fever or chills no headache or dizziness no chest pain no shortness of breath no cough no nausea or vomiting no abdominal pain no diarrhea no blood in the stools no burning with urination no frequency or urgency and no hematuria. On 05/05/2020 patient is alert and oriented 3. Hemoglobin this a.m. 6.8. 1 unit PRBCs have been ordered. Blood cell also elevated 18.0 will order blood culture, urine culture and chest x-ray. Patient denies any chest you complaints. Patient denies chest pain or shortness breath. Patient denies nausea vomiting or diarrhea. Patient denies any urinary burning or frequency. On 05/06/2020 patient is alert and oriented 3 in no apparent distress there is no fever or chills no headache or dizziness no chest pain no shortness of breath no cough no nausea or vomiting no abdominal pain no diarrhea no blood in the stools no burning with urination no frequency or urgency and no hematuria. Patient is complaining of generalized weakness with physical debility at this time we are awaiting prior authorization for possible transfer to a residential for rehab, hemoglobin is up to 8.8 after receiving 1 unit of red blood cells yesterday. White blood count is down to 17.5 . Patient is not receiving any antibiotic at this time without monitoring closely Objective - Vital Signs Vital signs: Vital Signs Temp 98.6 F 05/06/20 12:41 Pulse 100 05/06/20 12:41 Resp 14 05/06/20 12:41 BP 144/75 05/06/20 12:41 Pulse Ox 94 L 05/06/20 12:41 Intake & Output 05/05/20 05/06/20 05/06/20 18:59 06:59 18:59 Intake Total 460 500 Output Total 50 Balance 410 500 Intake: Intake, IV Titration 150 0 Amount Dextrose 5%-0.45% NaCl 1, 150 0 000 ml @ 50 mls/hr IV . Q20H [facility] Rx#:[id number] Oral 500 Blood Product 310 Rc As-1 Unit 310 [id number] Output: Urine 50 Other: Voiding Method Bedside Commode Bedside Commode # Voids 1 1 1 # Bowel Movements 1 - Exam In general patient is alert and oriented 3 in no apparent distress HEENT head normocephalic and atraumatic Neck is supple no JVD no goiter no lymphadenopathy Chest exam reveals a few scattered crackles no wheezing Cardiac exam reveals regular heart sounds S1 and S2 no gallops no murmurs Abdomen is soft nontender no organomegaly with normal bowel sounds Extremity exam reveals no edema no cyanosis or clubbing Neurological examination reveals no gross focal deficits - Labs CBC & Chem 7: 05/06/20 06:46 05/06/20 06:46 Labs: Abnormal Lab Results - Last 24 Hours (Table) 05/05/20 05/05/20 05/05/20 Range/Units 10:02 16:51 20:28 WBC (3.8-10.6) k/uL RBC (3.80-5.40) m/uL Hgb (11.4-16.0) gm/dL Hct (34.0-46.0) % Neutrophils # (1.3-7.7) k/uL Monocytes # (0-1.0) k/uL Chloride (98-107) mmol/L Carbon Dioxide (22-30) mmol/L BUN (7-17) mg/dL Creatinine (0.52-1.04) mg/dL Glucose (74-99) mg/dL POC Glucose (mg/dL) 208 H 171 H (75-99) mg/dL Total Protein (6.3-8.2) g/dL Albumin (3.5-5.0) g/dL Crossmatch See Detail 05/06/20 05/06/20 05/06/20 Range/Units 06:46 06:46 07:41 WBC 17.5 H (3.8-10.6) k/uL RBC 2.86 L (3.80-5.40) m/uL Hgb 8.8 L D (11.4-16.0) gm/dL Hct 27.2 L (34.0-46.0) % Neutrophils # 14.9 H (1.3-7.7) k/uL Monocytes # 1.1 H (0-1.0) k/uL Chloride 109 H (98-107) mmol/L Carbon Dioxide 20 L (22-30) mmol/L BUN 36 H (7-17) mg/dL Creatinine 1.87 H (0.52-1.04) mg/dL Glucose 145 H (74-99) mg/dL POC Glucose (mg/dL) 167 H (75-99) mg/dL Total Protein 5.1 L (6.3-8.2) g/dL Albumin 2.5 L (3.5-5.0) g/dL Crossmatch 05/06/20 Range/Units 12:43 WBC (3.8-10.6) k/uL RBC (3.80-5.40) m/uL Hgb (11.4-16.0) gm/dL Hct (34.0-46.0) % Neutrophils # (1.3-7.7) k/uL Monocytes # (0-1.0) k/uL Chloride (98-107) mmol/L Carbon Dioxide (22-30) mmol/L BUN (7-17) mg/dL Creatinine (0.52-1.04) mg/dL Glucose (74-99) mg/dL POC Glucose (mg/dL) 220 H (75-99) mg/dL Total Protein (6.3-8.2) g/dL Albumin (3.5-5.0) g/dL Crossmatch Microbiology - Last 24 Hours (Table) 05/05/20 14:15 Urine Culture - Preliminary Urine,Clean Catch Assessment and Plan Plan: Colon cancer status post right hemicolectomy on 05/02/[address] Bustos Underlying history of hypertension Underlying history of hyperlipidemia Underlying history of diabetes mellitus type 2 Underlying history of gout Underlying history of peptic ulcer disease Underlying history of osteoporosis Underlying history of vitamin D deficiency Acute expected blood loss anemia secondary to surgery. 1 unit of PRBCs ordered Leukocytosis. White blood cell count 18.0. Blood culture, urine culture and chest x-ray ordered At this time patient was seen and examined home medications were reviewed and reordered For DVT prophylaxis patient is on SCD stockings and subcu heparin For GI prophylaxis patient is on IV Protonix Will follow closely during this admission
[2020-05-06 17:40] LABS: Glucose,Whole Blood 179 mg/dL (75-99)
[2020-05-06 20:57] LABS: Glucose,Whole Blood 166 mg/dL (75-99)
[2020-05-07 07:10] LABS: Glucose,Whole Blood 188 mg/dL (75-99)
[2020-05-07] MEDS: PANTOPRAZOLE 40 MG/10 ML VIAL IV SCH (09:50)
[2020-05-07] MEDS: allopurinoL 100 MG TAB PO SCH (09:50)
[2020-05-07] MEDS: HEPARIN SODIUM,PORCINE 5,000 UNIT/ML 1 ML VIAL SQ SCH ×2 (09:50→20:39)
[2020-05-07] MEDS: amLODIPine 5 MG TAB PO SCH (09:51)
[2020-05-07] MEDS: PRAVASTATIN SODIUM 20 MG TAB PO SCH (09:51)
[2020-05-07] MEDS: SODIUM BICARBONATE TAB 650 MG TAB PO SCH (09:51)
[2020-05-07] MEDS: INSULIN ASPART (NovoLOG) 100 UNIT/ML VIAL SQ SCH ×4 (09:51→20:39)
[2020-05-07] MEDS: DEXTROSE 5%-0.45% NACL 1,000 ML IV SCH (09:52)
--- NOTE | 2020-05-07 09:52 | P.PN ---
Subjective Progress Note Date: 05/07/20 Hattie Cardenas is an 84-year-old female well known to my practice who recently had a colonoscopy that showed a colon mass patient was admitted yesterday by Dr. Bustos and underwent laparoscopic right hemicolectomy and cholecystectomy patient was admitted to medical floor and consultation was requested for medical management while hospitalized. Her past medical history is significant for history of hypertension, history of hyperlipidemia, history of anemia, history of gout, history of peptic ulcer di sease, history of coronary artery disease, history of chronic kidney disease, history of osteoporosis, history of vitamin D deficiency and history of diabetes mellitus type 2 on diet control. Social history patient lives at home she is able to ambulate and take care of her daily needs she never smoked does not drink alcohol. On 05/04/2020 patient was seen and examined on the medical floor she is alert and oriented 3 in no apparent distress there is no fever or chills no headache or dizziness no chest pain no shortness of breath no cough no nausea or vomiting no abdominal pain no diarrhea no blood in the stools no burning with urination no frequency or urgency and no hematuria. On 05/05/2020 patient is alert and oriented 3. Hemoglobin this a.m. 6.8. 1 unit PRBCs have been ordered. Blood cell also elevated 18.0 will order blood culture, urine culture and chest x-ray. Patient denies any chest you complaints. Patient denies chest pain or shortness breath. Patient denies nausea vomiting or diarrhea. Patient denies any urinary burning or frequency. On 05/06/2020 patient is alert and oriented 3 in no apparent distress there is no fever or chills no headache or dizziness no chest pain no shortness of breath no cough no nausea or vomiting no abdominal pain no diarrhea no blood in the stools no burning with urination no frequency or urgency and no hematuria. Patient is complaining of generalized weakness with physical debility at this time we are awaiting prior authorization for possible transfer to a long-term for rehab, hemoglobin is up to 8.8 after receiving 1 unit of red blood cells yesterday. White blood count is down to 17.5 . Patient is not receiving any antibiotic at this time without monitoring closely On 05/07/2020 patient was seen and examined on the medical floor she is alert and oriented 3 in no apparent distress she is complaining of generalized weakness and complaining of abdominal discomfort when moving otherwise she denies any complaints there is no fever or chills no headache or dizziness no chest pain no shortness of breath no cough no nausea or vomiting no abdominal pain no diarrhea no blood in the stools no burning with urination no frequency or urgency and no hematuria Objective - Vital Signs Vital signs: Vital Signs Temp 98.5 F 05/07/20 04:35 Pulse 106 H 05/07/20 04:35 Resp 16 05/07/20 04:35 BP 133/75 05/07/20 04:35 Pulse Ox 94 L 05/07/20 04:35 Intake & Output 05/06/20 05/07/20 05/07/20 18:59 06:59 18:59 Intake Total 0 Balance 0 Intake: Intake, IV Titration 0 Amount Dextrose 5%-0.45% NaCl 1, 0 000 ml @ 50 mls/hr IV . Q20H [facility] Rx#:[id number] Other: Voiding Method Bedside Commode Bedside Commode # Voids 6 1 # Bowel Movements 1 1 - Exam In general patient is alert and oriented 3 in no apparent distress HEENT head normocephalic and atraumatic Neck is supple no JVD no goiter no lymphadenopathy Chest exam reveals a few scattered crackles no wheezing Cardiac exam reveals regular heart sounds S1 and S2 no gallops no murmurs Abdomen is soft nontender no organomegaly with normal bowel sounds Extremity exam reveals no edema no cyanosis or clubbing Neurological examination reveals no gross focal deficits - Labs CBC & Chem 7: 05/06/20 06:46 05/06/20 06:46 Labs: Abnormal Lab Results - Last 24 Hours (Table) 05/06/20 05/06/20 05/06/20 Range/Units 12:43 17:39 20:36 POC Glucose (mg/dL) 220 H 179 H 166 H (75-99) mg/dL 05/07/20 Range/Units 07:09 POC Glucose (mg/dL) 188 H (75-99) mg/dL Microbiology - Last 24 Hours (Table) 05/05/20 14:15 Urine Culture - Preliminary Urine,Clean Catch Gram Neg Bacilli 05/05/20 17:29 Blood Culture - Preliminary Blood No Growth after 24 hours Assessment and Plan Plan: Colon cancer status post right hemicolectomy on 05/02/[address] Bustos Underlying history of hypertension Underlying history of hyperlipidemia Underlying history of diabetes mellitus type 2 Underlying history of gout Underlying history of peptic ulcer disease Underlying history of osteoporosis Underlying history of vitamin D deficiency Acute expected blood loss anemia secondary to surgery. 1 unit of PRBCs ordered Leukocytosis. White blood cell count 18.0. Blood culture, urine culture and chest x-ray ordered At this time patient was seen and examined home medications were reviewed and reordered For DVT prophylaxis patient is on SCD stockings and subcu heparin For GI prophylaxis patient is on IV Protonix Will follow closely during this admission
[2020-05-07 12:01] LABS: Glucose,Whole Blood 239 mg/dL (75-99)
[2020-05-07 17:02] LABS: Glucose,Whole Blood 140 mg/dL (75-99)
[2020-05-07 20:05] LABS: Glucose,Whole Blood 181 mg/dL (75-99)
--- NOTE | 2020-05-07 20:42 | P.PN ---
Subjective Progress Note Date: 05/07/20 Patient is doing well she denies any abdominal pain she is passing gas and had a bowel movement today. Objective - Vital Signs Vital signs: Vital Signs Temp 98.4 F 05/07/20 12:34 Pulse 108 H 05/07/20 12:34 Resp 16 05/07/20 12:34 BP 162/79 05/07/20 12:34 Pulse Ox 96 05/07/20 12:34 Intake & Output 05/07/20 05/07/20 05/08/20 06:59 18:59 06:59 Other: Voiding Method Bedside Commode Bedside Commode # Voids 1 2 # Bowel Movements 1 - Constitutional General appearance: Present: cooperative - Respiratory Details: nonlabored - Gastrointestinal Gastrointestinal Comment(s): S/NT/ND - Psychiatric Psychiatric: Present: A&O x's 3 - Labs CBC & Chem 7: 05/06/20 06:46 05/06/20 06:46 Labs: Abnormal Lab Results - Last 24 Hours (Table) 05/06/20 05/07/20 05/07/20 Range/Units 20:36 07:09 11:59 POC Glucose (mg/dL) 166 H 188 H 239 H (75-99) mg/dL 05/07/20 05/07/20 Range/Units 17:00 20:03 POC Glucose (mg/dL) 140 H 181 H (75-99) mg/dL Microbiology - Last 24 Hours (Table) 05/05/20 17:29 Blood Culture - Preliminary Blood No Growth after 48 hours 05/05/20 14:15 Urine Culture - Final Urine,Clean Catch Pseudomonas aeruginosa Assessment and Plan Assessment: Status post lap assisted right hemicolectomy and cholecystectomy. Urine culture did grow out pseudomonas. Plan: Patient is doing well from a surgical standpoint tolerating her diet. Started on levaquin due to urine culture sensitivity
[2020-05-07] MEDS ORDERED: LEVOFLOXACIN 750 MG TAB PO ONE (20:45)
[2020-05-08 07:09] LABS: Glucose,Whole Blood 179 mg/dL (75-99)
[2020-05-08] MEDS: allopurinoL 100 MG TAB PO SCH (07:45)
[2020-05-08] MEDS: PRAVASTATIN SODIUM 20 MG TAB PO SCH (07:46)
[2020-05-08] MEDS: INSULIN ASPART (NovoLOG) 100 UNIT/ML VIAL SQ SCH ×2 (07:46→12:46)
[2020-05-08] MEDS: SODIUM BICARBONATE TAB 650 MG TAB PO SCH (07:46)
[2020-05-08] MEDS: PANTOPRAZOLE 40 MG/10 ML VIAL IV SCH (07:46)
[2020-05-08] MEDS: HEPARIN SODIUM,PORCINE 5,000 UNIT/ML 1 ML VIAL SQ SCH (07:46)
[2020-05-08] MEDS: amLODIPine 5 MG TAB PO SCH (07:46)
[2020-05-08 09:05] LABS: Basophils # (A) 0.02 X 10*3/uL (0.00-0.10); Basophils % (A) 0.2 %; Eosinophils # (A) 0.25 X 10*3/uL (0.04-0.35); HCT 25.6 % (37.2-46.3); HGB 8.1 g/dL (12.0-15.0); Lymphocytes # (A) 0.61 X 10*3/uL (0.90-5.00); Lymphocytes % (A) 4.9 %; MCH 30.8 pg (27.0-32.0); MCHC 31.6 g/dL (32.0-37.0); MCV 97.3 fL (80.0-97.0); Mean Platelet Volume 11.2 fL (9.5-12.2); Monocytes # (A) 0.73 X 10*3/uL (0.20-1.00); Monocytes % (A) 5.9 %; Neutrophils # (A) 10.69 X 10*3/uL (1.80-7.70); Neutrophils % (A) 86.4 %; Platelet Count 248 X 10*3/uL (140-440); RBC 2.63 X 10*6/uL (4.10-5.20); RDW 14.7 % (11.5-14.5); WBC 12.38 X 10*3/uL (4.50-10.00)
[2020-05-08 10:03] LABS: ALT <8 U/L (8-44); AST 12 U/L (13-35); Albumin/Globulin Ratio 1.35 (1.60-3.17); Alkaline Phosphatase 105 U/L (41-126); BUN/Creat Ratio 17.22 Ratio (12.00-20.00); Calcium 7.8 mg/dL (8.7-10.3); Carbon Dioxide 21.5 mmol/L (21.6-31.8); Chloride 109 mmol/L (96-109); Glucose 160 mg/dL (70-110); Potassium 4.1 mmol/L (3.5-5.5); Sodium 139 mmol/L (135-145); Total Bilirubin 0.5 mg/dL (0.3-1.2); Total Protein 4.7 g/dL (6.2-8.2)
[2020-05-08 11:51] LABS: Glucose,Whole Blood 278 mg/dL (75-99)
[2020-05-08 12:07] VITALS: BP 145/72; PULSE 101; RESP 17; TEMP 97.8
--- NOTE | 2020-05-08 13:37 | P.PN ---
Subjective Progress Note Date: 05/08/20 Principal diagnosis: S/P right laparoscopic hemicolectomy and cholecystectomy The patient is seen on rounds. Doing well. Tolerating a regular diet. Having bowel movements. Denies pain or using pain medication. He is ambulating better. Denies any ankle pain with ambulation Objective - Vital Signs Vital signs: Vital Signs Temp 97.8 F 05/08/20 12:06 Pulse 101 H 05/08/20 12:06 Resp 17 05/08/20 12:06 BP 145/72 05/08/20 12:06 Pulse Ox 97 05/08/20 12:06 Intake & Output 05/07/20 05/08/20 05/08/20 18:59 06:59 18:59 Intake Total 480 Output Total 50 Balance 480 -50 Intake: Oral 480 Output: Urine 50 Other: Voiding Method Bedside Commode Bedside Commode Bedside Commode # Voids 2 2 2 # Bowel Movements 1 1 - Constitutional General appearance: Present: cooperative, no acute distress - Gastrointestinal General gastrointestinal: Present: normal bowel sounds, soft. Absent: tenderness - Labs CBC & Chem 7: 05/08/20 06:21 05/08/20 06:21 Labs: Abnormal Lab Results - Last 24 Hours (Table) 05/07/20 05/07/20 05/08/20 Range/Units 17:00 20:03 06:21 WBC 12.38 H (4.50-10.00) X 10*3/uL RBC 2.63 L (4.10-5.20) X 10*6/uL Hgb 8.1 L (12.0-15.0) g/dL Hct 25.6 L (37.2-46.3) % MCV 97.3 H (80.0-97.0) fL MCHC 31.6 L (32.0-37.0) g/dL RDW 14.7 H (11.5-14.5) % Absolute Nucleated RBC 0.05 H (0.00-0.00) X 10*3/uL Immature Gran # 0.08 H (0.00-0.04) X 10*3/uL Neutrophils # 10.69 H (1.80-7.70) X 10*3/uL Lymphocytes # 0.61 L (0.90-5.00) X 10*3/uL NRBC/100 WBC Diff 0.4 H (0.0-0.0) /100 WBCS Carbon Dioxide (21.6-31.8) mmol/L BUN (9.0-27.0) mg/dL Creatinine (0.6-1.5) mg/dL Est GFR (CKD-EPI)AfAm (60.0-200.0) Est GFR (CKD-EPI)NonAf (60.0-200.0) Glucose (70-110) mg/dL POC Glucose (mg/dL) 140 H 181 H (75-99) mg/dL Calcium (8.7-10.3) mg/dL AST (13-35) U/L ALT (8-44) U/L Total Protein (6.2-8.2) g/dL Albumin (3.80-4.90) g/dL Albumin/Globulin Ratio (1.60-3.17) g/dL 05/08/20 05/08/20 05/08/20 Range/Units 06:21 07:08 11:49 WBC (4.50-10.00) X 10*3/uL RBC (4.10-5.20) X 10*6/uL Hgb (12.0-15.0) g/dL Hct (37.2-46.3) % MCV (80.0-97.0) fL MCHC (32.0-37.0) g/dL RDW (11.5-14.5) % Absolute Nucleated RBC (0.00-0.00) X 10*3/uL Immature Gran # (0.00-0.04) X 10*3/uL Neutrophils # (1.80-7.70) X 10*3/uL Lymphocytes # (0.90-5.00) X 10*3/uL NRBC/100 WBC Diff (0.0-0.0) /100 WBCS Carbon Dioxide 21.5 L (21.6-31.8) mmol/L BUN 31.0 H (9.0-27.0) mg/dL Creatinine 1.8 H (0.6-1.5) mg/dL Est GFR (CKD-EPI)AfAm 29.0 L (60.0-200.0) Est GFR (CKD-EPI)NonAf 25.0 L (60.0-200.0) Glucose 160 H (70-110) mg/dL POC Glucose (mg/dL) 179 H 278 H (75-99) mg/dL Calcium 7.8 L (8.7-10.3) mg/dL AST 12 L (13-35) U/L ALT <8 L (8-44) U/L Total Protein 4.7 L (6.2-8.2) g/dL Albumin 2.70 L (3.80-4.90) g/dL Albumin/Globulin Ratio 1.35 L (1.60-3.17) g/dL Microbiology - Last 24 Hours (Table) 05/05/20 17:29 Blood Culture - Preliminary Blood No Growth after 48 hours 05/05/20 14:15 Urine Culture - Final Urine,Clean Catch Pseudomonas aeruginosa Assessment and Plan (1) Colon tumor Current Visit: Yes Status: Acute Code(s): D49.0 - NEOPLASM OF UNSPECIFIED BEHAVIOR OF DIGESTIVE SYSTEM SNOMED Code(s): 275967148 (2) Chronic renal failure Current Visit: Yes Status: Acute Code(s): N18.9 - CHRONIC KIDNEY DISEASE, UNSPECIFIED SNOMED Code(s): 21236466 (3) Left ankle sprain Current Visit: No Status: Acute Code(s): S93.402A - SPRAIN OF UNSPECIFIED LIGAMENT OF LEFT ANKLE, INIT ENCNTR SNOMED Code(s): 13076759 (4) Acute on chronic anemia Current Visit: Yes Status: Acute Code(s): D64.9 - ANEMIA, UNSPECIFIED SNOMED Code(s): 401382871 Plan: Surgically the patient is doing well. Physical therapy and occupational therapy both recommended subacute rehab due to general debility. As soon as she is medically stable for discharge, she is surgically ready for discharge. She will need any pain medication after discharge. See her in the office in a week for staple removal. She has a urinary tract infection which would be sensitive to Cipro.
--- NOTE | 2020-05-08 18:34 | P.PN ---
Subjective Progress Note Date: 05/08/20 Hattie Cardenas is an 84-year-old female well known to my practice who recently had a colonoscopy that showed a colon mass patient was admitted yesterday by Dr. Bustos and underwent laparoscopic right hemicolectomy and cholecystectomy patient was admitted to medical floor and consultation was requested for medical management while hospitalized. Her past medical history is significant for history of hypertension, history of hyperlipidemia, history of anemia, history of gout, history of peptic ulcer di sease, history of coronary artery disease, history of chronic kidney disease, history of osteoporosis, history of vitamin D deficiency and history of diabetes mellitus type 2 on diet control. Social history patient lives at home she is able to ambulate and take care of her daily needs she never smoked does not drink alcohol. On 05/04/2020 patient was seen and examined on the medical floor she is alert and oriented 3 in no apparent distress there is no fever or chills no headache or dizziness no chest pain no shortness of breath no cough no nausea or vomiting no abdominal pain no diarrhea no blood in the stools no burning with urination no frequency or urgency and no hematuria. On 05/05/2020 patient is alert and oriented 3. Hemoglobin this a.m. 6.8. 1 unit PRBCs have been ordered. Blood cell also elevated 18.0 will order blood culture, urine culture and chest x-ray. Patient denies any chest you complaints. Patient denies chest pain or shortness breath. Patient denies nausea vomiting or diarrhea. Patient denies any urinary burning or frequency. On 05/06/2020 patient is alert and oriented 3 in no apparent distress there is no fever or chills no headache or dizziness no chest pain no shortness of breath no cough no nausea or vomiting no abdominal pain no diarrhea no blood in the stools no burning with urination no frequency or urgency and no hematuria. Patient is complaining of generalized weakness with physical debility at this time we are awaiting prior authorization for possible transfer to a [facility] for rehab, hemoglobin is up to 8.8 after receiving 1 unit of red blood cells yesterday. White blood count is down to 17.5 . Patient is not receiving any antibiotic at this time without monitoring closely On 05/07/2020 patient was seen and examined on the medical floor she is alert and oriented 3 in no apparent distress she is complaining of generalized weakness and complaining of abdominal discomfort when moving otherwise she denies any complaints there is no fever or chills no headache or dizziness no chest pain no shortness of breath no cough no nausea or vomiting no abdominal pain no diarrhea no blood in the stools no burning with urination no frequency or urgency and no hematuria On 05/08/2020 patient was seen and examined on the medical floor she is alert and oriented 3 in no apparent distress she is complaining of generalized weakn ess and complaining of abdominal discomfort when moving otherwise she denies any complaints there is no fever or chills no headache or dizziness no chest pain no shortness of breath no cough no nausea or vomiting no abdominal pain no diarrhea no blood in the stools no burning with urination no frequency or urgency and no hematuria Objective - Vital Signs Vital signs: Vital Signs Temp 97.8 F 05/08/20 12:06 Pulse 101 H 05/08/20 12:06 Resp 17 05/08/20 12:06 BP 145/72 05/08/20 12:06 Pulse Ox 97 05/08/20 12:06 Intake & Output 05/07/20 05/08/20 05/08/20 18:59 06:59 18:59 Intake Total 480 Output Total 50 Balance 480 -50 Intake: Oral 480 Output: Urine 50 Other: Voiding Method Bedside Commode Bedside Commode Bedside Commode # Voids 2 2 2 # Bowel Movements 1 1 - Exam In general patient is alert and oriented 3 in no apparent distress HEENT head normocephalic and atraumatic Neck is supple no JVD no goiter no lymphadenopathy Chest exam reveals a few scattered crackles no wheezing Cardiac exam reveals regular heart sounds S1 and S2 no gallops no murmurs Abdomen is soft nontender no organomegaly with normal bowel sounds Extremity exam reveals no edema no cyanosis or clubbing Neurological examination reveals no gross focal deficits - Labs CBC & Chem 7: 05/08/20 06:21 05/08/20 06:21 Labs: Abnormal Lab Results - Last 24 Hours (Table) 05/07/20 05/07/20 05/08/20 Range/Units 17:00 20:03 06:21 WBC 12.38 H (4.50-10.00) X 10*3/uL RBC 2.63 L (4.10-5.20) X 10*6/uL Hgb 8.1 L (12.0-15.0) g/dL Hct 25.6 L (37.2-46.3) % MCV 97.3 H (80.0-97.0) fL MCHC 31.6 L (32.0-37.0) g/dL RDW 14.7 H (11.5-14.5) % Absolute Nucleated RBC 0.05 H (0.00-0.00) X 10*3/uL Immature Gran # 0.08 H (0.00-0.04) X 10*3/uL Neutrophils # 10.69 H (1.80-7.70) X 10*3/uL Lymphocytes # 0.61 L (0.90-5.00) X 10*3/uL NRBC/100 WBC Diff 0.4 H (0.0-0.0) /100 WBCS Carbon Dioxide (21.6-31.8) mmol/L BUN (9.0-27.0) mg/dL Creatinine (0.6-1.5) mg/dL Est GFR (CKD-EPI)AfAm (60.0-200.0) Est GFR (CKD-EPI)NonAf (60.0-200.0) Glucose (70-110) mg/dL POC Glucose (mg/dL) 140 H 181 H (75-99) mg/dL Calcium (8.7-10.3) mg/dL AST (13-35) U/L ALT (8-44) U/L Total Protein (6.2-8.2) g/dL Albumin (3.80-4.90) g/dL Albumin/Globulin Ratio (1.60-3.17) g/dL 05/08/20 05/08/20 05/08/20 Range/Units 06:21 07:08 11:49 WBC (4.50-10.00) X 10*3/uL RBC (4.10-5.20) X 10*6/uL Hgb (12.0-15.0) g/dL Hct (37.2-46.3) % MCV (80.0-97.0) fL MCHC (32.0-37.0) g/dL RDW (11.5-14.5) % Absolute Nucleated RBC (0.00-0.00) X 10*3/uL Immature Gran # (0.00-0.04) X 10*3/uL Neutrophils # (1.80-7.70) X 10*3/uL Lymphocytes # (0.90-5.00) X 10*3/uL NRBC/100 WBC Diff (0.0-0.0) /100 WBCS Carbon Dioxide 21.5 L (21.6-31.8) mmol/L BUN 31.0 H (9.0-27.0) mg/dL Creatinine 1.8 H (0.6-1.5) mg/dL Est GFR (CKD-EPI)AfAm 29.0 L (60.0-200.0) Est GFR (CKD-EPI)NonAf 25.0 L (60.0-200.0) Glucose 160 H (70-110) mg/dL POC Glucose (mg/dL) 179 H 278 H (75-99) mg/dL Calcium 7.8 L (8.7-10.3) mg/dL AST 12 L (13-35) U/L ALT <8 L (8-44) U/L Total Protein 4.7 L (6.2-8.2) g/dL Albumin 2.70 L (3.80-4.90) g/dL Albumin/Globulin Ratio 1.35 L (1.60-3.17) g/dL Microbiology - Last 24 Hours (Table) 05/05/20 17:29 Blood Culture - Preliminary Blood No Growth after 48 hours 05/05/20 14:15 Urine Culture - Final Urine,Clean Catch Pseudomonas aeruginosa Assessment and Plan Plan: Colon cancer status post right hemicolectomy on 05/02/[address] Bustos Underlying history of hypertension Underlying history of hyperlipidemia Underlying history of diabetes mellitus type 2 Underlying history of gout Underlying history of peptic ulcer disease Underlying history of osteoporosis Underlying history of vitamin D deficiency Acute expected blood loss anemia secondary to surgery. 1 unit of PRBCs ordered Leukocytosis. White blood cell count 18.0. Blood culture, urine culture and chest x-ray ordered At this time patient was seen and examined home medications were reviewed and reordered For DVT prophylaxis patient is on SCD stockings and subcu heparin For GI prophylaxis patient is on IV Protonix Will follow closely during this admission Patient can be transferred today to [facility] for rehab
[2020-05-09] MEDS ORDERED: LEVOFLOXACIN 500 MG TAB PO SCH (09:00)
--- NOTE | 2020-05-11 10:00 | P.DS ---
Providers Date of admission: 05/02/20 09:58 Expected date of discharge: 05/08/20 Attending physician: Lina Bustos Consults: 05/02/20 17:50 Consult Physician Routine Consulting Provider: Edilma Wood Consult Reason/Comments: medical management Do you want consulting provider notified?: Already Contacted Primary care physician: Edilma Wood - Discharge Diagnosis(es) (1) Colon tumor Status: Acute (2) Chronic renal failure Status: Acute (3) Left ankle sprain Status: Acute (4) Acute on chronic anemia Status: Acute (5) UTI (urinary tract infection) Status: Acute Hospital Course: The patient is a 85-year-old female who was found to have 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 She presented for resection. She underwent a laparoscopic-assisted right hemicolectomy. Surgically she did fairly well. She was quickly advanced on her diet and had minimal incisional pain. She did have decreased mobility due to a recent ankle injury. She was seen by physical therapy and Occupational Therapy. They recommended short-term rehab. The patient was found to have a urinary tract infection and was started on antibiotics. Patient Condition at Discharge: Good Plan - Discharge Summary Discharge Rx Participant: No New Discharge Prescriptions: New Ciprofloxacin HCl [Cipro] 500 mg PO Q12HR 10 Days #2 tab Continue Pravastatin Sodium [Pravachol] 20 mg PO DAILY Aspirin 81 mg PO DAILY hydrALAZINE HCL [Apresoline] 25 mg PO TID #90 tab allopurinoL [Zyloprim] 300 mg PO DAILY amLODIPine BESYLATE [Norvasc] 5 mg PO DAILY Ferrous Sulfate [Feosol] 325 mg PO DAILY Sodium Bicarbonate Tab 650 mg PO DAILY Acetaminophen Tab [Tylenol] 1,000 mg PO Q6H PRN PRN Reason: Pain Metoprolol Tartrate [Lopressor] 25 mg PO DAILY Discharge Medication List Pravastatin Sodium [Pravachol] 20 mg PO DAILY 08/05/14 [History] Aspirin 81 mg PO DAILY 02/17/15 [History] hydrALAZINE HCL [Apresoline] 25 mg PO TID #90 tab 02/21/15 [Rx] allopurinoL [Zyloprim] 300 mg PO DAILY 07/19/18 [History] amLODIPine BESYLATE [Norvasc] 5 mg PO DAILY 06/09/19 [History] Ferrous Sulfate [Feosol] 325 mg PO DAILY 08/15/19 [History] Sodium Bicarbonate Tab 650 mg PO DAILY 08/15/19 [History] Acetaminophen Tab [Tylenol] 1,000 mg PO Q6H PRN 04/20/20 [History] Metoprolol Tartrate [Lopressor] 25 mg PO DAILY 04/20/20 [History] Ciprofloxacin HCl [Cipro] 500 mg PO Q12HR 10 Days #2 tab 05/08/20 [Rx] Follow up Appointment(s)/Referral(s): [facility], [NON-STAFF] - 1 Week Activity/Diet/Wound Care/Special Instructions: May shower. Light dressing over the viridiana daily. Low fiber diet for 2 weeks, then regular diet. Discharge Disposition: TRANSFER TO SNF/ECF
== END 2020-05-08 18:17 | DRG 331 ==
LOC: 2ORMAIN 09:58 → 5NMEDONC 18:43
PROVIDERS: ADMIT Surgery; ATTEND Surgery
PROC: 0DTF0ZZ Resection of Right Large Intestine, Open Approach (ICD-10-PCS; principal; 2020-05-02 12:30)
PROC: 0FT44ZZ Resection of Gallbladder, Percutaneous Endoscopic Approach (ICD-10-PCS; 2020-05-02 12:30)
DX: D49.0 Neoplasm of unspecified behavior of digestive system (principal); K80.20 Calculus of gallbladder without cholecystitis without obstruction; D64.9 Anemia, unspecified; M10.9 Gout, unspecified; Z87.11 Personal history of peptic ulcer disease; I25.10 Atherosclerotic heart disease of native coronary artery without angina pectoris; N18.9 Chronic kidney disease, unspecified; I12.9 Hypertensive chronic kidney disease with stage 1 through stage 4 chronic kidney disease, or unspecified chronic kidney disease; M81.0 Age-related osteoporosis without current pathological fracture; Z20.822 Contact with and (suspected) exposure to COVID-19; E11.22 Type 2 diabetes mellitus with diabetic chronic kidney disease; Z85.3 Personal history of malignant neoplasm of breast; Z92.3 Personal history of irradiation; Z87.442 Personal history of urinary calculi; E11.42 Type 2 diabetes mellitus with diabetic polyneuropathy; R26.81 Unsteadiness on feet; E55.9 Vitamin D deficiency, unspecified
CPT/HCPCS: 36415; 71045; 74018; 80048; 80053; 81001; 84132; 85025; 86850; 86900; 86901; 86920; 87040; 87077; 87086; 87186; 87635; 88304; 88309

== ENCOUNTER 2020-05-18 08:24 | Observation (INO) | payer MEDICARE ==
[2020-05-18] MEDS ORDERED: LORazepam 2 MG/ML INJ IV STA (08:57)
[2020-05-18] MEDS ORDERED: hydrALAZINE HCL 20 MG/ML 1 ML VIAL IVP STA (08:57)
[2020-05-18] MEDS ORDERED: SODIUM CHLORIDE 0.9% 500 ML 500 ML IV STA (09:03)
--- NOTE | 2020-05-18 09:06 | ED ---
General Adult HPI - General Chief complaint: Recheck/Abnormal Lab/Rx Stated complaint: abd labs Time Seen by Provider: 05/18/20 08:25 Source: patient, EMS, RN notes reviewed, old records reviewed Mode of arrival: EMS Limitations: no limitations - History of Present Illness Initial comments: This is an 85-year-old female presents to the emergency department because of low hemoglobin. Patient recently had a colectomy in the end of April. Patient states she has no abdominal pain. Patient denies any difficulty breathing shortness of breath. Patient denies any headache patient denies numbness weakness. Patient denies lightheadedness or dizziness. Patient states she's had anemia in the past. - Related Data Home Medications Medication Instructions Recorded Confirmed Pravastatin Sodium [Pravachol] 20 mg PO DAILY 08/05/14 05/02/20 Aspirin 81 mg PO DAILY 02/17/15 05/02/20 allopurinoL [Zyloprim] 300 mg PO DAILY 07/19/18 05/02/20 amLODIPine BESYLATE [Norvasc] 5 mg PO DAILY 07/19/18 04/28/20 Ferrous Sulfate [Feosol] 325 mg PO DAILY 08/15/19 05/02/20 Sodium Bicarbonate Tab 650 mg PO DAILY 08/15/19 04/28/20 Acetaminophen Tab [Tylenol] 1,000 mg PO Q6H PRN 04/20/20 05/02/20 Metoprolol Tartrate [Lopressor] 25 mg PO DAILY 04/20/20 04/28/20 Previous Rx's Medication Instructions Recorded hydrALAZINE HCL [Apresoline] 25 mg PO TID #90 tab 02/21/15 Ciprofloxacin HCl [Cipro] 500 mg PO Q12HR 10 Days #2 tab 05/08/20 Allergies Allergy/AdvReac Type Severity Reaction Status Date / Time glipizide Allergy Rash/Hives Verified 04/28/20 10:40 Penicillins Allergy Unknown Verified 04/28/20 10:40 Sulfa (Sulfonamide Allergy Unknown Verified 04/28/20 10:40 Antibiotics) Review of Systems ROS Statement: Those systems with pertinent positive or pertinent negative responses have been documented in the HPI. ROS Other: All systems not noted in ROS Statement are negative. Past Medical History Past Medical History: Cancer, Diabetes Mellitus, Hypertension, Renal Disease Additional Past Medical History / Comment(s): 02/17/15 Pt presented to [facility] ER with chest pain starting about 0330 this AM. Pain radiated to L neck and down L arm. She is admitted with clinical impression of chest pain. 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 History of Any Multi-Drug Resistant Organisms: None Reported Past Surgical History: Adenoidectomy, Bowel Resection, Breast Surgery, Tonsillectomy Additional Past Surgical History / Comment(s): L Breast lumpectomy sugery, colon oscopy with benign polypectomy, double J catheter insertion L kidney then percutaneous nephrolithotomy attempted and then lithrotropsey (ESWL) and removal of double J catheters. Past Anesthesia/Blood Transfusion Reactions: Motion Sickness Additional Past Anesthesia/Blood Transfusion Reaction / Comment(s): Pt states she has never received blood. Past Psychological History: No Psychological Hx Reported Smoking Status: Never smoker Past Alcohol Use History: None Reported Past Drug Use History: None Reported - Past Family History Sister(s) Family Medical History: Cancer, Deep Vein Thrombosis (DVT) Additional Family Medical History / Comment(s): poss DVT. colon cancer Brother(s) Family Medical History: Dementia Father Family Medical History: Musculoskeletal Disorder, Neurologic Disorder Additional Family Medical History / Comment(s): Father had parkinsons and at age 60yrs. Mother Family Medical History: Cancer Additional Family Medical History / Comment(s): Mother had stomach cancer and in her 70's. General Exam - General Exam Comments Initial Comments: GENERAL: Patient is well-developed and well-nourished. Patient is nontoxic and well- hydrated and is in mild distress ENT: Neck is soft and supple. No significant lymphadenopathy is noted. Oropharynx is clear. Moist mucous membranes. Neck has full range of motion without elici ting any pain. EYES: The sclera were anicteric and conjunctiva were pink and moist. Extraocular movements were intact and pupils were equal round and reactive to light. Eyelids were unremarkable. PULMONARY: Unlabored respirations. Good breath sounds bilaterally. No audible rales rhonchi or wheezing was noted. CARDIOVASCULAR: There is a regular rate and rhythm without any murmurs gallops or rubs. ABDOMEN: Soft and nontender with normal bowel sounds. SKIN: Skin is clear with no lesions or rashes and otherwise unremarkable. NEUROLOGIC: Patient is alert and oriented x3. Cranial nerves II through XII are grossly intact. Motor and sensory are also intact. Normal speech, volume and content. Symmetrical smile. MUSCULOSKELETAL: Normal extremities with adequate strength and full range of motion. LYMPHATICS: No significant lymphadenopathy is noted PSYCHIATRIC: Normal psychiatric evaluation. Limitations: no limitations Course Vital Signs 05/18/20 05/18/20 08:26 09:34 Temperature 98.7 F Pulse Rate 97 89 Respiratory 16 16 Rate Blood Pressure 137/57 138/59 O2 Sat by Pulse 96 98 Oximetry Medical Decision Making - Medical Decision Making EKG shows normal sinus rhythm at 94 bpm OK interval 146 QRS is 90 QT interval 360 QTC is 460. Patient's EKG shows no ST segment elevation or depression. Patient's hemoglobin 7.4. I spoke with Dr. Garza and he agreed to admit the patient admitted the patient wrote admitting orders. - Lab Data Result diagrams: 05/18/20 09:06 05/18/20 09:06 Lab Results 05/18/20 05/18/20 05/18/20 Range/Units 08:39 09:06 09:06 WBC 12.0 H (3.8-10.6) k/uL RBC 2.42 L (3.80-5.40) m/uL Hgb 7.4 L (11.4-16.0) gm/dL Hct 22.4 L (34.0-46.0) % MCV 92.7 (80.0-100.0) fL MCH 30.6 (25.0-35.0) pg MCHC 33.1 (31.0-37.0) g/dL RDW 14.5 (11.5-15.5) % Plt Count 670 H D (150-450) k/uL MPV 7.5 Neutrophils % 84 % Lymphocytes % 8 % Monocytes % 5 % Eosinophils % 2 % Basophils % 0 % Neutrophils # 10.0 H (1.3-7.7) k/uL Lymphocytes # 1.0 (1.0-4.8) k/uL Monocytes # 0.6 (0-1.0) k/uL Eosinophils # 0.3 (0-0.7) k/uL Basophils # 0.0 (0-0.2) k/uL Hypochromasia Slight PT 10.4 (9.0-12.0) sec INR 1.0 (<1.2) APTT 22.4 (22.0-30.0) sec Sodium (137-145) mmol/L Potassium (3.5-5.1) mmol/L Chloride (98-107) mmol/L Carbon Dioxide (22-30) mmol/L Anion Gap mmol/L BUN (7-17) mg/dL Creatinine (0.52-1.04) mg/dL Est GFR (CKD-EPI)AfAm (>60 ml/min/1.73 sqM) Est GFR (CKD-EPI)NonAf (>60 ml/min/1.73 sqM) Glucose (74-99) mg/dL Calcium (8.4-10.2) mg/dL Magnesium (1.6-2.3) mg/dL Total Bilirubin (0.2-1.3) mg/dL AST (14-36) U/L ALT (4-34) U/L Alkaline Phosphatase (38-126) U/L Troponin I (0.000-0.034) ng/mL Total Protein (6.3-8.2) g/dL Albumin (3.5-5.0) g/dL Stool Occult Blood (Negative) Blood Type A Negative Blood Type Recheck A Neg Bld Type Recheck Status No Antibody Screen NEGATIVE Spec Expiration Date 05/21/2020 9900 05/18/20 05/18/20 05/18/20 Range/Units 09:06 09:06 09:06 WBC (3.8-10.6) k/uL RBC (3.80-5.40) m/uL Hgb (11.4-16.0) gm/dL Hct (34.0-46.0) % MCV (80.0-100.0) fL MCH (25.0-35.0) pg MCHC (31.0-37.0) g/dL RDW (11.5-15.5) % Plt Count (150-450) k/uL MPV Neutrophils % % Lymphocytes % % Monocytes % % Eosinophils % % Basophils % % Neutrophils # (1.3-7.7) k/uL Lymphocytes # (1.0-4.8) k/uL Monocytes # (0-1.0) k/uL Eosinophils # (0-0.7) k/uL Basophils # (0-0.2) k/uL Hypochromasia PT (9.0-12.0) sec INR (<1.2) APTT (22.0-30.0) sec Sodium 135 L (137-145) mmol/L Potassium 5.1 (3.5-5.1) mmol/L Chloride 107 (98-107) mmol/L Carbon Dioxide 19 L (22-30) mmol/L Anion Gap 9 mmol/L BUN 42 H (7-17) mg/dL Creatinine 2.25 H (0.52-1.04) mg/dL Est GFR (CKD-EPI)AfAm 22 (>60 ml/min/1.73 sqM) Est GFR (CKD-EPI)NonAf 19 (>60 ml/min/1.73 sqM) Glucose 109 H (74-99) mg/dL Calcium 8.1 L (8.4-10.2) mg/dL Magnesium 1.8 (1.6-2.3) mg/dL Total Bilirubin 0.4 (0.2-1.3) mg/dL AST 60 H (14-36) U/L ALT 39 H (4-34) U/L Alkaline Phosphatase 150 H (38-126) U/L Troponin I <0.012 (0.000-0.034) ng/mL Total Protein 5.7 L (6.3-8.2) g/dL Albumin 2.5 L (3.5-5.0) g/dL Stool Occult Blood Positive H (Negative) Blood Type Blood Type Recheck Bld Type Recheck Status Antibody Screen Spec Expiration Date Disposition Clinical Impression: GI bleed Disposition: ADMITTED IP TO THIS [facility] Referrals: Edilma Wood MD [Primary Care Provider] - 1-2 days Time of Disposition: 10:21
[2020-05-18 09:36] LABS: Basophils % (A) 0 %; Eosinophils # (A) 0.3 k/uL (0-0.7); Eosinophils % (A) 2 %; HCT 22.4 % (34.0-46.0); HGB 7.4 gm/dL (11.4-16.0); Hypochromasia Slight; Lymphocytes % (A) 8 %; MCH 30.6 pg (25.0-35.0); MCHC 33.1 g/dL (31.0-37.0); MCV 92.7 fL (80.0-100.0); Mean Platelet Volume 7.5; Monocytes # (A) 0.6 k/uL (0-1.0); Monocytes % (A) 5 %; Neutrophils % (A) 84 %; RBC 2.42 m/uL (3.80-5.40); RDW 14.5 % (11.5-15.5)
[2020-05-18 09:41] LABS: Platelet Count 670 k/uL (150-450)
[2020-05-18 09:47] LABS: Albumin 2.5 g/dL (3.5-5.0); Calcium 8.1 mg/dL (8.4-10.2); Magnesium 1.8 mg/dL (1.6-2.3); Potassium 5.1 mmol/L (3.5-5.1); Total Bilirubin 0.4 mg/dL (0.2-1.3); Total Protein 5.7 g/dL (6.3-8.2)
[2020-05-18 09:56] LABS: Partial Thromboplastin Time 22.4 sec (22.0-30.0); Prothrombin Time 10.4 sec (9.0-12.0)
[2020-05-18] MEDS ORDERED: SODIUM CHLORIDE 0.9% 1,000 ML IV ONE (10:24)
[2020-05-18] MEDS ORDERED: ACETAMINOPHEN TAB 500 MG TAB PO PRN (12:15)
[2020-05-18] MEDS ORDERED: NA PHOS,M-B/NA PHOS,DI-BA 133 ML ENEMA RECTAL PRN (12:15)
[2020-05-18] MEDS ORDERED: HYDROcodone/APAP 5-325MG 1 EACH TAB PO PRN (12:15)
[2020-05-18] MEDS ORDERED: MAGNESIUM HYDROXIDE 2,400 MG/10 ML CUP PO PRN (12:15)
--- NOTE | 2020-05-18 12:27 | P.HPIM ---
History of Present Illness Patient is a 85-year-old female snf resident came in as a her hemoglobin was low at around 6.6 although hemoglobin is 7.4 patient had normal stools patient denied any hematemesis similar cheesy a patient denied any fever chills. ER physician asked me to admit to monitor her overnight monitor for any GI bleed considering that the his fecal occult is positive. Gastroenterology was consulted. Patient has mildly elevated serum creatinine as well as which is 2.25 baseline around 1. and patient was started on IV fluids. As patient will be in the hospital today will also obtain ferritin and TIBC serum iron level was to assess for need of IV iron. Patient has only 1 kidney and does have chronic kidney disease stage IV secondary to that. Patient used to use walker in the past since her last hospitalization patient was quite weak and was discharged to an acute rehabitation. Review of Systems REVIEW OF SYSTEMS: CONSTITUTIONAL: She is coming of generalized tiredness weakness. HEENT: No recent visual problems or hearing problems. Denied any sore throat. CARDIOVASCULAR: No chest pain, orthopnea, PND, no palpitations, no syncope. PULMONARY: No shortness of breath, no cough, no hemoptysis. GASTROINTESTINAL: No diarrhea, no nausea, no vomiting, no abdominal pain. NEUROLOGICAL: No headaches, no weakness, no numbness. HEMATOLOGICAL: Denies any bleeding or petechiae. GENITOURINARY: Denies any burning micturition, frequency, or urgency. MUSCULOSKELETAL/RHEUMATOLOGICAL: Denies any joint pain, swelling, or any muscle pain. ENDOCRINE: Denies any polyuria or polydipsia. The rest of the 14-point review of systems is negative. Past Medical History Past Medical History: Coronary Artery Disease (CAD), Cancer, Diabetes Mellitus, Hypertension, Renal Disease Additional Past Medical History / Comment(s): Pt recently admitted to [facility] on 05/02/20 with colon tumors, acute on chronic anemia, L ankle sprain and UTI. Pt had R hemicolectomy and cholecystectomy. 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 History of Any Multi-Drug Resistant Organisms: None Reported Past Surgical History: Adenoidectomy, Bowel Resection, Breast Surgery, Cholecystectomy, Tonsillectomy Additional Past Surgical History / Comment(s): L Breast lumpectomy sugery, colonoscopy with benign polypectomies and recent colonoscopy with mass discovered, 04/2020 R colectomy and cholecystectomy, past colon tear with bowel resection/temporary colostomy, double J catheter insertion L kidney then percutaneous nephrolithotomy attempted and then lithrotropsey (ESWL) and removal of double J catheters. Past Anesthesia/Blood Transfusion Reactions: Motion Sickness Additional Past Anesthesia/Blood Transfusion Reaction / Comment(s): Pt has received blood without reaction Past Psychological History: No Psychological Hx Reported Additional Psychological History / Comment(s): Pt currently at [facility] for rehab. She states she gets up with a walker. Smoking Status: Never smoker Past Alcohol Use History: None Reported Past Drug Use History: None Reported - Past Family History Sister(s) Family Medical History: Cancer, Deep Vein Thrombosis (DVT) Additional Family Medical History / Comment(s): poss DVT. colon cancer Brother(s) Family Medical History: Dementia Father Family Medical History: Musculoskeletal Disorder, Neurologic Disorder Additional Family Medical History / Comment(s): Father had parkinsons and at age 60yrs. Mother Family Medical History: Cancer Additional Family Medical History / Comment(s): Mother had stomach cancer and in her 70's. Medications and Allergies Home Medications Medication Instructions Recorded Confirmed Type Pravastatin Sodium [Pravachol] 20 mg PO HS@2100 08/05/14 05/18/20 History Aspirin 81 mg PO DAILY@169902/17/15 05/18/20 History allopurinoL [Zyloprim] 300 mg PO HS@2130 07/19/18 05/18/20 History amLODIPine BESYLATE [Norvasc] 5 mg PO DAILY@0807/19/18 05/18/20 History Ferrous Sulfate [Feosol] 325 mg PO DAILY@169908/15/19 05/18/20 History Sodium Bicarbonate Tab 650 mg PO DAILY@169908/15/19 05/18/20 History Acetaminophen Tab [Tylenol] 1,000 mg PO Q6H PRN 04/20/20 05/18/20 History Metoprolol Tartrate [Lopressor] 25 mg PO DAILY@0800 04/20/20 05/18/20 History Glucerna Shake 237 ml PO TID@0800,1200,1700 05/18/20 05/18/20 History HYDROcodone/APAP 5-325MG [[place] 1 tab PO Q6H PRN 05/18/20 05/18/20 History 5-325] Magnesium Hydroxide [Milk of 7,200 ml PO Q48H PRN 05/18/20 05/18/20 History Magnesia Concentrate] Na Phos,M-B/Na Phos,Di-Ba [Fleet 133 ml RECTAL DAILY PRN 05/18/20 05/18/20 History Adult] bisacodyL [Bisacodyl] 10 mg RECTAL DAILY PRN 05/18/20 05/18/20 History hydrALAZINE HCL [Apresoline] 25 mg PO TID@0600,1400,2100 05/18/20 05/18/20 History Allergies Allergy/AdvReac Type Severity Reaction Status Date / Time glipizide Allergy Rash/Hives Verified 05/18/20 11:06 Penicillins Allergy Unknown Verified 05/18/20 11:06 Sulfa (Sulfonamide Allergy Unknown Verified 05/18/20 11:06 Antibiotics) Physical Exam Vitals: Vital Signs Temp Pulse Resp BP Pulse Ox 05/18/20 12:12 97.3 F L 90 16 136/56 96 05/18/20 10:56 86 16 132/87 99 05/18/20 09:34 89 16 138/59 98 05/18/20 08:26 98.7 F 97 16 137/57 96 Intake and Output 05/17/20 05/18/20 05/18/20 22:59 06:59 14:59 Other: Weight 54.431 kg PHYSICAL EXAMINATION: GENERAL: The patient is alert and oriented x3, not in any acute distress. Well developed, well nourished. Appears tired HEENT: Pupils are round and equally reacting to light. EOMI. No scleral icterus. No conjunctival pallor. Normocephalic, atraumatic. No pharyngeal erythema. No thyromegaly. CARDIOVASCULAR: S1 and S2 present. No murmurs, rubs, or gallops. PULMONARY: Chest is clear to auscultation, no wheezing or crackles. ABDOMEN: Soft, nontender, nondistended, normoactive bowel sounds. No palpable organomegaly. Surgical status site areas appear to be clean MUSCULOSKELETAL: No joint swelling or deformity. EXTREMITIES: No cyanosis, clubbing, or pedal edema. NEUROLOGICAL: Gross neurological examination did not reveal any focal deficits. Given generalized weakness and some muscle atrophy in both legs SKIN: No rashes. Results CBC & Chem 7: 05/18/20 09:06 05/18/20 09:06 Labs: Abnormal Lab Results - Last 24 Hours (Table) 05/18/20 05/18/20 05/18/20 Range/Units 08:39 09:06 09:06 WBC 12.0 H (3.8-10.6) k/uL RBC 2.42 L (3.80-5.40) m/uL Hgb 7.4 L (11.4-16.0) gm/dL Hct 22.4 L (34.0-46.0) % Plt Count 670 H D (150-450) k/uL Neutrophils # 10.0 H (1.3-7.7) k/uL Sodium 135 L (137-145) mmol/L Carbon Dioxide 19 L (22-30) mmol/L BUN 42 H (7-17) mg/dL Creatinine 2.25 H (0.52-1.04) mg/dL Glucose 109 H (74-99) mg/dL Calcium 8.1 L (8.4-10.2) mg/dL AST 60 H (14-36) U/L ALT 39 H (4-34) U/L Alkaline Phosphatase 150 H (38-126) U/L Total Protein 5.7 L (6.3-8.2) g/dL Albumin 2.5 L (3.5-5.0) g/dL Stool Occult Blood (Negative) Crossmatch See Detail 05/18/20 Range/Units 09:06 WBC (3.8-10.6) k/uL RBC (3.80-5.40) m/uL Hgb (11.4-16.0) gm/dL Hct (34.0-46.0) % Plt Count (150-450) k/uL Neutrophils # (1.3-7.7) k/uL Sodium (137-145) mmol/L Carbon Dioxide (22-30) mmol/L BUN (7-17) mg/dL Creatinine (0.52-1.04) mg/dL Glucose (74-99) mg/dL Calcium (8.4-10.2) mg/dL AST (14-36) U/L ALT (4-34) U/L Alkaline Phosphatase (38-126) U/L Total Protein (6.3-8.2) g/dL Albumin (3.5-5.0) g/dL Stool Occult Blood Positive H (Negative) Crossmatch Assessment and Plan Plan: -Severe anemia probably iron deficiency anemia as of now there is no evidence of acute GI bleed patient will be monitored for that gastroenterology was consulted possibility of discharge tomorrow -Acute renal failure mostly prerenal azotemia patient will be continued on IV fluids -Chronic kidney disease stage IV patient has only 1 kidney patient had a nephrectomy in the past -Recent the ascending colectomy the biopsies did not show any malignancy patient appears to have some benign polyps -Hypertension -Hyperlipidemia -Type 2 diabetes mellitus -Leukocytosis appears to be reactive denied any UTI-like symptoms because of which I'm not obtaining any urine analysis or any other further workup -Gastroesophageal reflux disease For above-mentioned chronic medical problems patient will be resumed on appro priate home medications
[2020-05-18] MEDS: hydrALAZINE HCL 25 MG TAB PO SCH ×2 (13:58→21:24)
[2020-05-18] MEDS: SODIUM BICARBONATE TAB 650 MG TAB PO SCH (14:03)
[2020-05-18] MEDS: ASPIRIN 81 MG PO SCH (14:03)
[2020-05-18] MEDS: FERROUS SULFATE 325 MG TAB PO SCH (14:03)
--- NOTE | 2020-05-18 14:21 | P.CONS ---
History of Present Illness - Reason for Consult Consult date: 05/18/20 Anemia Requesting physician: Renee Garza - Chief Complaint Anemia - History of Present Illness 85-year-old female with multiple medical comorbidities including hypertension, chronic kidney disease, diabetes mellitus, coronary artery disease, recent bowel resection on 05/02/20 during which the patient underwent laboratory the cholecystectomy and right hemicolectomy for tumors of the colon (report from colonoscopy not in system) who presented to the hospital due to concerns of anemia. Patient had a hemoglobin of 6.7 on 05/17/20. Her hemoglobin was 7.4 today. Stool testing was positive for occult blood. The patient has a chronic history of anemia and is on iron supplementation. She denies any signs or symptoms of GI bleeding. No nausea or vomiting reported. She is denying any abdominal pain but does have some soreness around the surgical sites and recen tly had her stitches removed. Other laboratory evaluation significant for WBC 12, platelet count 670,000, INR 1, total bilirubin 0.4, alkaline phosphatase 150, AST 60 and ALT 39. Previously the patient had EGD in for anemia and melena with findings of nonbleeding antral ulcers with mild gastritis of the antrum and body. Review of Systems REVIEW OF SYSTEMS: CONSTITUTIONAL: Denies any fevers, chills, weight change or fatigue. CARDIOVASCULAR: Denies any chest pain, palpitations high or low blood pressures RESPIRATORY: Denies any shortness of breath, hemoptysis or cough. GENITOURINARY: No dysuria or hematuria. MUSCULOSKELETAL: No weakness reported. SKIN: Denies any new rashes or lesions, jaundice or pallor. PSYCHIATRIC: Denies any depression or anxiety. NEUROLOGY: Denies headache, denies any new focal deficits. EARS/NOSE/THROAT: No recent hearing change, congestion, nasal discharge or sore throat. EYES: No pain in eyes, discharge or change in vision. GASTROINTESTINAL: As per HPI. Past Medical History Past Medical History: Coronary Artery Disease (CAD), Cancer, Diabetes Mellitus, Hypertension, Renal Disease Additional Past Medical History / Comment(s): Pt recently admitted to [facility] on 05/02/20 with colon tumors, acute on chronic anemia, L ankle sprain and UTI. Pt had R hemicolectomy and cholecystectomy. Other hx: L breast CA with lumpect jennifer and radiation,L hydronephrosis with kidney stone and R kidney with chronic atrophy and nonfunctioning per pt, gout, anemia, leg edema at times but none lately, sinusitis, neuropathy bilateral feet, unsteady gait at times, veritgo- bilateral inner ear problem, osteoporosis, past colon tear with surgery. History of Any Multi-Drug Resistant Organisms: None Reported Past Surgical History: Adenoidectomy, Bowel Resection, Breast Surgery, Cholecystectomy, Tonsillectomy Additional Past Surgical History / Comment(s): L Breast lumpectomy sugery, colonoscopy with benign polypectomies and recent colonoscopy with mass discovere d, 04/2020 R colectomy and cholecystectomy, past colon tear with bowel resection/temporary colostomy, double J catheter insertion L kidney then percutaneous nephrolithotomy attempted and then lithrotropsey ([facility]) and removal of double J catheters. Past Anesthesia/Blood Transfusion Reactions: Motion Sickness Additional Past Anesthesia/Blood Transfusion Reaction / Comm: Pt has received blood without reaction Past Psychological History: No Psychological Hx Reported Additional Psychological History / Comment(s): Pt currently at [facility] for rehab. She states she gets up with a walker. Smoking Status: Never smoker Past Alcohol Use History: None Reported Past Drug Use History: None Reported - Past Family History Sister(s) Family Medical History: Cancer, Deep Vein Thrombosis (DVT) Additional Family Medical History / Comment(s): poss DVT. colon cancer Brother(s) Family Medical History: Dementia Father Family Medical History: Musculoskeletal Disorder, Neurologic Disorder Additional Family Medical History / Comment(s): Father had parkinsons and at age 60yrs. Mother Family Medical History: Cancer Additional Family Medical History / Comment(s): Mother had stomach cancer and in her 70's. Medications and Allergies Home Medications Medication Instructions Recorded Confirmed Type Pravastatin Sodium [Pravachol] 20 mg PO HS@2100 08/05/14 05/18/20 History Aspirin 81 mg PO DAILY@169902/17/15 05/18/20 History allopurinoL [Zyloprim] 300 mg PO HS@21307/19/18 05/18/20 History amLODIPine BESYLATE [Norvasc] 5 mg PO DAILY@0800 07/19/18 05/18/20 History Ferrous Sulfate [Feosol] 325 mg PO DAILY@0 08/15/19 05/18/20 History Sodium Bicarbonate Tab 650 mg PO DAILY@1700 08/15/19 05/18/20 History Acetaminophen Tab [Tylenol] 1,000 mg PO Q6H PRN 04/20/20 05/18/20 History Metoprolol Tartrate [Lopressor] 25 mg PO DAILY@0800 04/20/20 05/18/20 History Glucerna Shake 237 ml PO TID@0800,1200,1700 05/18/20 05/18/20 History HYDROcodone/APAP 5-325MG [[place] 1 tab PO Q6H PRN 05/18/20 05/18/20 History 5-325] Magnesium Hydroxide [Milk of 7,200 ml PO Q48H PRN 05/18/20 05/18/20 History Magnesia Concentrate] Na Phos,M-B/Na Phos,Di-Ba [Fleet 133 ml RECTAL DAILY PRN 05/18/20 05/18/20 History Adult] bisacodyL [Bisacodyl] 10 mg RECTAL DAILY PRN 05/18/20 05/18/20 History hydrALAZINE HCL [Apresoline] 25 mg PO TID@0600,1400,2100 05/18/20 05/18/20 History Allergies Allergy/AdvReac Type Severity Reaction Status Date / Time glipizide Allergy Rash/Hives Verified 05/18/20 11:06 Penicillins Allergy Unknown Verified 05/18/20 11:06 Sulfa (Sulfonamide Allergy Unknown Verified 05/18/20 11:06 Antibiotics) Physical Exam Vitals: Vital Signs Temp Pulse Resp BP Pulse Ox 05/18/20 12:12 97.3 F L 90 16 136/56 96 05/18/20 10:56 86 16 132/87 99 05/18/20 09:34 89 16 138/59 98 05/18/20 08:26 98.7 F 97 16 137/57 96 Intake and Output 05/17/20 05/18/20 05/18/20 22:59 06:59 14:59 Other: Weight 54.431 kg On physical examination, patient appears comfortable in no apparent distress. HEAD: Normocephalic, atraumatic. EYES: No scleral icterus. No conjunctival injection. MOUTH: No lesions, tongue midline. NECK: Trachea midline, no gross abnormalities. CHEST: Clear to auscultation with no wheezing or rhonchi appreciated. HEART: S1-S2 appreciated. ABDOMEN: Soft, surgical site well healing appropriately tender to palpation. Bowel sounds are positive. No organomegaly. No guarding or rigidity. EXTREMITIES: No pedal edema. SKIN: No rashes, no jaundice. NEUROLOGIC: Alert and oriented x3. No focal deficits. Results CBC & Chem 7: 05/18/20 09:06 05/18/20 09:06 Labs: Abnormal Lab Results - Last 24 Hours (Table) 05/18/20 05/18/20 05/18/20 Range/Units 08:39 09:06 09:06 WBC 12.0 H (3.8-10.6) k/uL RBC 2.42 L (3.80-5.40) m/uL Hgb 7.4 L (11.4-16.0) gm/dL Hct 22.4 L (34.0-46.0) % Plt Count 670 H D (150-450) k/uL Neutrophils # 10.0 H (1.3-7.7) k/uL Sodium 135 L (137-145) mmol/L Carbon Dioxide 19 L (22-30) mmol/L BUN 42 H (7-17) mg/dL Creatinine 2.25 H (0.52-1.04) mg/dL Glucose 109 H (74-99) mg/dL Calcium 8.1 L (8.4-10.2) mg/dL AST 60 H (14-36) U/L ALT 39 H (4-34) U/L Alkaline Phosphatase 150 H (38-126) U/L Total Protein 5.7 L (6.3-8.2) g/dL Albumin 2.5 L (3.5-5.0) g/dL Stool Occult Blood (Negative) Crossmatch See Detail 05/18/20 Range/Units 09:06 WBC (3.8-10.6) k/uL RBC (3.80-5.40) m/uL Hgb (11.4-16.0) gm/dL Hct (34.0-46.0) % Plt Count (150-450) k/uL Neutrophils # (1.3-7.7) k/uL Sodium (137-145) mmol/L Carbon Dioxide (22-30) mmol/L BUN (7-17) mg/dL Creatinine (0.52-1.04) mg/dL Glucose (74-99) mg/dL Calcium (8.4-10.2) mg/dL AST (14-36) U/L ALT (4-34) U/L Alkaline Phosphatase (38-126) U/L Total Protein (6.3-8.2) g/dL Albumin (3.5-5.0) g/dL Stool Occult Blood Positive H (Negative) Crossmatch Assessment and Plan (1) Normocytic anemia Narrative/Plan: 85-year-old female with multiple medical comorbidities presenting to the hospital for evaluation of anemia. Hemoglobin 6.7 yesterday and some 0.4 today. Stool testing was positive for occult blood. She recently underwent partial colectomy with a right hemicolectomy for tumors of the colon as per report with no colonoscopy report available at this time. Previously she was found to have an antral ulcer and gastritis on EGD in 07/4018. She has a history of chronic anemia and is on iron supplementation. Currently iron studies and other laboratory evaluation is pending. It is unclear if there is any component of acute GI bleeding as the patient is denying any signs or symptoms of GI bleedin g, may be related to chronic disease. Current Visit: Yes Status: Acute Code(s): D64.9 - ANEMIA, UNSPECIFIED SNOMED Code(s): 809666869 (2) Antral ulcer Current Visit: No Status: Acute Code(s): K25.9 - GASTRIC ULCER, UNSP ACUTE OR CHRONIC, W/O HEMOR OR PERF SNOMED Code(s): 2664110161282 (3) Positive occult stool blood test Current Visit: Yes Status: Acute Code(s): R19.5 - OTHER FECAL ABNORMALITIES SNOMED Code(s): 30347502 Plan: Supportive care Okay for diet Continue to monitor hemoglobin and hematocrit and transfuse as needed Iron studies pending Other anemia laboratory evaluation ordered Nothing by mouth after midnight and plan for EGD tomorrow to rule out persistent gastric ulcer which was found on EGD in 07/2018, all of the risks, benefits and possible complications of the procedure explained to the patient at length Continue iron supplementation for now Thank you for allowing us to participate in the care of the patient
[2020-05-18 20:09] LABS: % Iron Saturation 4.45 (12.00-45.00)
[2020-05-18] MEDS: PRAVASTATIN SODIUM 20 MG TAB PO SCH (21:24)
[2020-05-18] MEDS: allopurinoL 300 MG TAB PO SCH (21:24)
[2020-05-19] MEDS: hydrALAZINE HCL 25 MG TAB PO SCH ×3 (05:16→21:18)
[2020-05-19 05:43] LABS: HCT 24.6 % (34.0-46.0); HGB 7.9 gm/dL (11.4-16.0); Hypochromasia Slight; MCHC 32.3 g/dL (31.0-37.0); Mean Platelet Volume 7.2; Platelet Count 659 k/uL (150-450); Poikilocytosis Slight; RBC 2.64 m/uL (3.80-5.40); RDW 15.4 % (11.5-15.5); WBC 9.8 k/uL (3.8-10.6)
[2020-05-19 05:47] LABS: Reticulocyte % 3.4 % (0.5-2.0)
[2020-05-19] MEDS: amLODIPine 5 MG TAB PO SCH (08:40)
[2020-05-19] MEDS: METOPROLOL TARTRATE 25 MG TAB PO SCH (08:40)
[2020-05-19 10:51] LABS: Folate, Serum 3.8 ng/mL
[2020-05-19 11:04] VITALS: BMI 21.9
[2020-05-19 12:11] LABS: Anion Gap 10.3 mmol/L (4.00-12.00); Calcium 7.9 mg/dL (8.7-10.3); Carbon Dioxide 16.7 mmol/L (21.6-31.8); Potassium 5.1 mmol/L (3.5-5.5)
[2020-05-19] MEDS ORDERED: IV FLUID CONTINUATION 1,000 ML IV ONE (13:55)
[2020-05-19] MEDS ORDERED: PROPOFOL 10 MG/ML 20 ML VIAL IV ONE (13:57)
--- NOTE | 2020-05-19 14:12 | P.PCN ---
Date of Procedure: 05/19/20 Description of Procedure: BRIEF HISTORY: 85-year-old female with multiple medical comorbidities including hypertension, chronic kidney disease, diabetes mellitus, coronary artery disease, recent bowel resection on 05/02/20 during which the patient underwent laboratory the cholecystectomy and right hemicolectomy for tumors of the colon (report from colonoscopy not in system) who presented to the hospital due to concerns of anemia. Patient had a hemoglobin of 6.7 on 05/17/20. Her hemoglobin was 7.4 today. Stool testing was positive for occult blood. The patient has a chronic history of anemia and is on iron supplementation. She denies any signs or symptoms of GI bleeding. No nausea or vomiting reported. She is denying any abdominal pain but does have some soreness around the surgical sites and recently had her stitches removed. Other laboratory evaluation significant for WBC 12, platelet count 670,000, INR 1, total bilirubin 0.4, alkaline phosphatase 150, AST 60 and ALT 39. Previously the patient had EGD in for anemia and melena with findings of nonbleeding antral ulcers with mild gastritis of the antrum and body. PROCEDURE PERFORMED: Esophagogastroduodenoscopy with biopsy. PREOPERATIVE DIAGNOSIS: Anemia, stool positive for occult blood, history of gastric ulcer. ESTIMATED BLOOD LOSS: Minimal. IV sedation per anesthesia. PROCEDURE: After informed consent was obtained, the patient was brought into the endoscopy unit. IV sedation was administered by Anesthesia under continuous monitoring. Initially the Olympus GIF-190 video endoscope was inserted into the mouth. Esophagus intubated without any difficulty. It was gradually advanced into the stomach and duodenum and carefully examined. The bulb and the second part of the duodenum appeared normal, with biopsies taken. The scope at this time was withdrawn to the stomach, adequately insufflated with air, and upon careful examination, mucosa of the antrum, body, cardia and the fundus appeared normal, except for some mild scattered erythema in the antrum and body suggestive of mild gastritis with biopsies taken previously seen antral ulcer was healed. The scope was then withdrawn into the esophagus. The GE junction was located at 35 cm from the incisors and normal with a 2 mm superficial nonbleeding esophageal ulcer biopsies of the GE junction taken . The esophagus appeared normal. There were no erosions or ulcerations seen and the patient tolerated the procedure well. IMPRESSION: 1. Small linear esophageal ulcer with biopsies of GE junction taken . 2. Mild gastritis, antrum body biopsied. 3. Previously noted antral ulcer well-healed. 4. Biopsies of the duodenum. RECOMMENDATIONS: The findings of this examination were discussed with the patient in the nursing team. Okay to resume diet. Continue Protonix therapy. Continue iron supplementation. Okay for discharge on otherwise medically stable.
--- NOTE | 2020-05-19 14:31 | P.DS ---
Providers Date of admission: 05/18/20 10:24 Expected date of discharge: 05/19/20 Attending physician: Renee Garza Consults: 05/18/20 10:24 Consult Physician Urgent Consulting Provider: Gavin Uriostegui Consult Reason/Comments: GI bleed Do you want consulting provider notified?: Yes Primary care physician: Edilma Nina [facility] Course: Final diagnosis -Severe anemia probably iron deficiency anemia as of now there is no evidence of acute GI bleed -Status post EGD showing small linear esophageal ulcer with biopsies of the GE junction with mild gastritis and previously noted antral ulcer that's well- healed with multiple biopsies of the duodenum and antrum body -Acute renal failure mostly prerenal azotemia, improving -Chronic kidney disease stage IV patient has only 1 kidney patient had a nephrectomy in the past -Recent the ascending colectomy the biopsies did not show any malignancy patient appears to have some benign polyps -Hypertension -Hyperlipidemia -Type 2 diabetes mellitus -Leukocytosis appears to be reactive denied any UTI-like symptoms -Gastroesophageal reflux disease Discharge disposition Patient is being discharged in a stable condition [facility] Patient will follow-up with Dr. Wood in the outpatient setting upon discharge. Patient will need to follow-up with GI in the outpatient setting for biopsy results. Patient is to continue with Protonix daily. Total time taken is greater than 35 minutes. Hospital course Patient is a 85-year-old female prison resident came in as a her hemoglobin was low at around 6.6 although hemoglobin is 7.4 patient had normal stools patient denied any hematemesis similar cheesy a patient denied any fever chills. ER physician asked me to admit to monitor her overnight monitor for any GI bleed considering that the his fecal occult is positive. Gastroenterology was consulted. Patient has mildly elevated serum creatinine as well as which is 2.25 baseline around 1. and patient was started on IV fluids. As patient will be in the hospital today will also obtain ferritin and TIBC serum iron level was to assess for need of IV iron. Patient has only 1 kidney and does have chronic kidney disease stage IV secondary to that. Patient used to use walker in the past since her last hospitalization patient was quite weak and was discharged to an acute rehabitation. 05/19/2020 Patient is seen and evaluated in follow-up this morning with no acute overnight issues. Patient did receive 1 unit of PRBCs and current hemoglobin is 7.9 today. Patient underwent EGD with GI today showing small linear esophageal ulcer with biopsies of GE junction, mild gastritis with a biopsy of the antrum body, previously noted antral ulcer that's well-healed, and biopsies of the duodenum and will need GI follow-up in the outpatient setting for biopsy results. Patient to continue with Protonix daily and okay to resume diet. Prescription provided for repeat labs to monitor CBC along with kidney functions. Kidney functions improved and are currently 1.8. Continue to hold aspirin for the next 2-3 days and monitor for any signs of bleeding. Currently no reports of chest pain, shortness of breath, or palpitations. Patient is afebrile. No reports of nausea or vomiting and patient is tolerating diet. Patient will be going to [facility] today. On exam vital signs are stable. Cardio S1, S2 are muffled. Respiratory system shows diminished breath sounds at the bases with no wheezing or rhonchi noted. Abdomen is soft and nontender. Nervous system shows diffuse weakness. Please refer to medication reconciliation sheet for a list of medications. Patient Condition at Discharge: Fair Plan - Discharge Summary Discharge Rx Participant: No New Discharge Prescriptions: New Pantoprazole Sodium [Protonix] 40 mg PO DAILY #30 tablet. Continue Pravastatin Sodium [Pravachol] 20 mg PO HS@2100 allopurinoL [Zyloprim] 300 mg PO HS@2130 amLODIPine BESYLATE [Norvasc] 5 mg PO DAILY@0800 Ferrous Sulfate [Feosol] 325 mg PO DAILY@1700 Sodium Bicarbonate Tab 650 mg PO DAILY@1700 Acetaminophen Tab [Tylenol] 1,000 mg PO Q6H PRN PRN Reason: Pain Metoprolol Tartrate [Lopressor] 25 mg PO DAILY@0800 Na Phos,M-B/Na Phos,Di-Ba [Fleet Adult] 133 ml RECTAL DAILY PRN PRN Reason: Constipation Glucerna Shake 237 ml PO TID@0800,1200,1700 hydrALAZINE HCL [Apresoline] 25 mg PO TID@0600,1400,2100 Magnesium Hydroxide [Milk of Magnesia Concentrate] 7,200 ml PO Q48H PRN PRN Reason: Constipation bisacodyL [Bisacodyl] 10 mg RECTAL DAILY PRN PRN Reason: Constipation HYDROcodone/APAP 5-325MG [[place] 5-325] 1 tab PO Q6H PRN #6 tab PRN Reason: Pain Discontinued Aspirin 81 mg PO DAILY@1700 Discharge Medication List Pravastatin Sodium [Pravachol] 20 mg PO HS@2100 08/05/14 [History] allopurinoL [Zyloprim] 300 mg PO HS@2130 07/19/18 [History] amLODIPine BESYLATE [Norvasc] 5 mg PO DAILY@0800 07/19/18 [History] Ferrous Sulfate [Feosol] 325 mg PO DAILY@169908/15/19 [History] Sodium Bicarbonate Tab 650 mg PO DAILY@169908/15/19 [History] Acetaminophen Tab [Tylenol] 1,000 mg PO Q6H PRN 04/20/20 [History] Metoprolol Tartrate [Lopressor] 25 mg PO DAILY@0804/20/20 [History] Glucerna Shake 237 ml PO TID@0800,1200,1700 05/18/20 [History] Magnesium Hydroxide [Milk of Magnesia Concentrate] 7,200 ml PO Q48H PRN 05/18/20 [History] Na Phos,M-B/Na Phos,Di-Ba [Fleet Adult] 133 ml RECTAL DAILY PRN 05/18/20 [History] bisacodyL [Bisacodyl] 10 mg RECTAL DAILY PRN 05/18/20 [History] hydrALAZINE HCL [Apresoline] 25 mg PO TID@0600,1400,2100 05/18/20 [History] HYDROcodone/APAP 5-325MG [[place] 5-325] 1 tab PO Q6H PRN #6 tab 05/19/20 [Rx] Pantoprazole Sodium [Protonix] 40 mg PO DAILY #30 tablet. 05/19/20 [Rx] Follow up Appointment(s)/Referral(s): Edilma Wood MD [Primary Care Provider] - 1-2 days Ambulatory/Diagnostic Orders: Complete Blood Count w/diff [LAB.AMB] Time Frame: 5 Days, Location: None Selected Activity/Diet/Wound Care/Special Instructions: Patient is returning to [facility] Activity as tolerated Continue current diet Repeat labs in 4-5 days to monitor CBC and kidney functions Continue with Protonix daily Continue to hold aspirin for the next 3-5 days Follow up with GI outpatient for biopsy results Discharge Disposition: TRANSFER TO SNF/ECF
[2020-05-19] MEDS: FERROUS SULFATE 325 MG TAB PO SCH (15:16)
[2020-05-19] MEDS: ASPIRIN 81 MG PO SCH (15:16)
[2020-05-19] MEDS: SODIUM BICARBONATE TAB 650 MG TAB PO SCH (15:17)
[2020-05-19] MEDS: PRAVASTATIN SODIUM 20 MG TAB PO SCH (21:18)
[2020-05-19] MEDS: allopurinoL 300 MG TAB PO SCH (21:18)
[2020-05-20] MEDS: hydrALAZINE HCL 25 MG TAB PO SCH ×2 (05:45→13:52)
[2020-05-20] MEDS: METOPROLOL TARTRATE 25 MG TAB PO SCH (08:59)
[2020-05-20] MEDS: amLODIPine 5 MG TAB PO SCH (08:59)
[2020-05-20 12:43] VITALS: BP 126/57; PULSE 74; RESP 16; TEMP 98.1
--- NOTE | 2020-05-20 15:15 | P.DS ---
Providers Date of admission: 05/18/20 10:24 Attending physician: Renee Garza Consults: 05/18/20 10:24 Consult Physician Urgent Consulting Provider: Gavin Uriostegui Reason/Comments: GI bleed Do you want consulting provider notified?: Yes Primary care physician: Edilma Nina [facility] Course: Please refer to the discharge summary that was done by my nurse practitioner from as today is as there is no significant change compared to yesterday although patient stayed in the hospital because of which I did see and examine the patient. There is no clinical evidence of GI bleed at this time. PHYSICAL EXAMINATION: GENERAL: The patient is alert and oriented x3, not in any acute distress. Well developed, well nourished. Appears tired HEENT: Pupils are round and equally reacting to light. EOMI. No scleral icterus. No conjunctival pallor. Normocephalic, atraumatic. No pharyngeal erythema. No thyromegaly. CARDIOVASCULAR: S1 and S2 present. No murmurs, rubs, or gallops. PULMONARY: Chest is clear to auscultation, no wheezing or crackles. ABDOMEN: Soft, nontender, nondistended, normoactive bowel sounds. No palpable organomegaly. Surgical status site areas appear to be clean MUSCULOSKELETAL: No joint swelling or deformity. EXTREMITIES: No cyanosis, clubbing, or pedal edema. NEUROLOGICAL: Gross neurological examination did not reveal any focal deficits. Given generalized weakness and some muscle atrophy in both legs SKIN: No rashes. Patient Condition at Discharge: Fair Plan - Discharge Summary Discharge Rx Participant: No New Discharge Prescriptions: New Pantoprazole Sodium [Protonix] 40 mg PO DAILY #30 tablet. Continue Pravastatin Sodium [Pravachol] 20 mg PO HS@2100 allopurinoL [Zyloprim] 300 mg PO HS@2130 amLODIPine BESYLATE [Norvasc] 5 mg PO DAILY@0800 Ferrous Sulfate [Feosol] 325 mg PO DAILY@1700 Sodium Bicarbonate Tab 650 mg PO DAILY@1700 Acetaminophen Tab [Tylenol] 1,000 mg PO Q6H PRN PRN Reason: Pain Metoprolol Tartrate [Lopressor] 25 mg PO DAILY@0800 Na Phos,M-B/Na Phos,Di-Ba [Fleet Adult] 133 ml RECTAL DAILY PRN PRN Reason: Constipation Glucerna Shake 237 ml PO TID@0800,1200,1700 hydrALAZINE HCL [Apresoline] 25 mg PO TID@0600,1400,2100 Magnesium Hydroxide [Milk of Magnesia Concentrate] 7,200 ml PO Q48H PRN PRN Reason: Constipation bisacodyL [Bisacodyl] 10 mg RECTAL DAILY PRN PRN Reason: Constipation HYDROcodone/APAP 5-325MG [[place] 5-325] 1 tab PO Q6H PRN #6 tab PRN Reason: Pain Discontinued Aspirin 81 mg PO DAILY@1700 Discharge Medication List Pravastatin Sodium [Pravachol] 20 mg PO HS@209908/05/14 [History] allopurinoL [Zyloprim] 300 mg PO HS@212907/19/18 [History] amLODIPine BESYLATE [Norvasc] 5 mg PO DAILY@79907/19/18 [History] Ferrous Sulfate [Feosol] 325 mg PO DAILY@169908/15/19 [History] Sodium Bicarbonate Tab 650 mg PO DAILY@169908/15/19 [History] Acetaminophen Tab [Tylenol] 1,000 mg PO Q6H PRN 04/20/20 [History] Metoprolol Tartrate [Lopressor] 25 mg PO DAILY@0804/20/20 [History] Glucerna Shake 237 ml PO TID@0800,1200,1700 05/18/20 [History] Magnesium Hydroxide [Milk of Magnesia Concentrate] 7,200 ml PO Q48H PRN 05/18/20 [History] Na Phos,M-B/Na Phos,Di-Ba [Fleet Adult] 133 ml RECTAL DAILY PRN 05/18/20 [History] bisacodyL [Bisacodyl] 10 mg RECTAL DAILY PRN 05/18/20 [History] hydrALAZINE HCL [Apresoline] 25 mg PO TID@0600,1400,2100 05/18/20 [History] HYDROcodone/APAP 5-325MG [[place] 5-325] 1 tab PO Q6H PRN #6 tab 05/19/20 [Rx] Pantoprazole Sodium [Protonix] 40 mg PO DAILY #30 tablet. 05/19/20 [Rx] Follow up Appointment(s)/Referral(s): Edilma Wood MD [Primary Care Provider] - 1-2 days Ambulatory/Diagnostic Orders: Complete Blood Count w/diff [LAB.AMB] Time Frame: 5 Days, Location: None Selected Activity/Diet/Wound Care/Special Instructions: Patient is returning to [facility] Activity as tolerated Continue current diet Repeat labs in 4-5 days to monitor CBC and kidney functions Continue with Protonix daily Continue to hold aspirin for the next 3-5 days Follow up with GI outpatient for biopsy results Discharge Disposition: TRANSFER TO SNF/ECF
--- NOTE | 2020-05-21 10:35 | P.PN ---
Subjective Progress Note Date: 05/20/20 Principal diagnosis: Anemia, history of antral ulcer Patient is lying in bed tolerating diet today. No acute events reported. Objective - Vital Signs Vital signs: Vital Signs Temp 97.9 F 05/20/20 05:00 Pulse 85 05/20/20 08:00 Resp 20 05/20/20 08:00 BP 147/68 05/20/20 05:00 Pulse Ox 94 L 05/20/20 05:00 Intake & Output 05/19/20 05/20/20 05/20/20 18:59 06:59 18:59 Intake Total 200 500 Balance 200 500 Weight 54.431 kg Intake: IV 200 Oral 500 Other: Voiding Method Diaper Diaper Diaper Incontinent Incontinent Incontinent # Voids 2 3 - Exam On physical examination, patient appears comfortable in no apparent distress. HEAD: Normocephalic, atraumatic. EYES: No scleral icterus. No conjunctival injection. MOUTH: No lesions, tongue midline. NECK: Trachea midline, no gross abnormalities. ABDOMEN: Soft, and then. Bowel sounds are positive. No organomegaly. No guarding or rigidity. EXTREMITIES: No pedal edema. SKIN: No rashes, no jaundice. NEUROLOGIC: Alert and oriented to person and place. - Labs CBC & Chem 7: 05/19/20 05:00 05/19/20 05:00 Labs: Abnormal Lab Results - Last 24 Hours (Table) 05/19/20 Range/Units 05:00 Chloride 113 H (96-109) mmol/L Carbon Dioxide 16.7 L (21.6-31.8) mmol/L BUN 36.0 H (9.0-27.0) mg/dL Creatinine 1.8 H (0.6-1.5) mg/dL Est GFR (CKD-EPI)AfAm 29.0 L (60.0-200.0) Est GFR (CKD-EPI)NonAf 25.0 L (60.0-200.0) Calcium 7.9 L (8.7-10.3) mg/dL Assessment and Plan (1) Normocytic anemia Narrative/Plan: 85-year-old female with multiple medical comorbidities presenting to the hospital for evaluation of anemia. Hemoglobin 6.7 yesterday and some 0.4 today. Stool testing was positive for occult blood. She recently underwent partial colectomy with a right hemicolectomy for tumors of the colon as per report with no colonoscopy report available at this time. Previously she was found to have an antral ulcer and gastritis on EGD in 07/4018. She has a history of chronic anemia and is on iron supplementation. Currently iron studies and other laboratory evaluation is pending. It is unclear if there is any component of acute GI bleeding as the patient is denying any signs or symptoms of GI bleeding, may be related to chronic disease. EGD performed with evidence of small distal esophageal ulcer and some gastritis. No active bleeding or old blood noted. Status: Acute Code(s): D64.9 - ANEMIA, UNSPECIFIED SNOMED Code(s): 911282755 (2) Antral ulcer Status: Acute Code(s): K25.9 - GASTRIC ULCER, UNSP ACUTE OR CHRONIC, W/O HEMOR OR PERF SNOMED Code(s): 9037652707368 (3) Positive occult stool blood test Status: Acute Code(s): R19.5 - OTHER FECAL ABNORMALITIES SNOMED Code(s): 52348259 Plan: Supportive care Okay for diet Continue to monitor hemoglobin and hematocrit and transfuse as needed Other anemia laboratory evaluation ordered Continue twice daily Protonix therapy Continue iron supplementation for now Okay for discharge from otherwise medically stable Thank you for allowing us to participate in the care of the patient
== END 2020-05-20 16:30 ==
LOC: EC 08:24 → 6NMEDSUR 10:24 → 5NMEDONC 12:03
PROVIDERS: ADMIT Internal Medicine; ATTEND Internal Medicine
DX: D64.9 Anemia, unspecified (principal); K29.50 Unspecified chronic gastritis without bleeding; K25.9 Gastric ulcer, unspecified as acute or chronic, without hemorrhage or perforation; K22.10 Ulcer of esophagus without bleeding; R19.5 Other fecal abnormalities; I12.9 Hypertensive chronic kidney disease with stage 1 through stage 4 chronic kidney disease, or unspecified chronic kidney disease; E11.22 Type 2 diabetes mellitus with diabetic chronic kidney disease; N18.4 Chronic kidney disease, stage 4 (severe); N17.9 Acute kidney failure, unspecified; Z90.5 Acquired absence of kidney; E78.5 Hyperlipidemia, unspecified; K21.9 Gastro-esophageal reflux disease without esophagitis; D72.829 Elevated white blood cell count, unspecified; K59.00 Constipation, unspecified; I25.10 Atherosclerotic heart disease of native coronary artery without angina pectoris; M10.9 Gout, unspecified; E11.40 Type 2 diabetes mellitus with diabetic neuropathy, unspecified; R42 Dizziness and giddiness; R26.81 Unsteadiness on feet; R79.89 Other specified abnormal findings of blood chemistry; M81.0 Age-related osteoporosis without current pathological fracture; R32 Unspecified urinary incontinence; Z90.49 Acquired absence of other specified parts of digestive tract; Z20.822 Contact with and (suspected) exposure to COVID-19; Z79.891 Long term (current) use of opiate analgesic; Z79.899 Other long term (current) drug therapy; Z79.82 Long term (current) use of aspirin; Z88.0 Allergy status to penicillin; Z88.2 Allergy status to sulfonamides; Z88.8 Allergy status to other drugs, medicaments and biological substances; Z85.3 Personal history of malignant neoplasm of breast; Z92.3 Personal history of irradiation; Z87.442 Personal history of urinary calculi; Z87.440 Personal history of urinary (tract) infections; Z87.19 Personal history of other diseases of the digestive system; Z82.49 Family history of ischemic heart disease and other diseases of the circulatory system; Z80.0 Family history of malignant neoplasm of digestive organs; Z81.8 Family history of other mental and behavioral disorders; Z82.0 Family history of epilepsy and other diseases of the nervous system
CPT/HCPCS: 36430; 96361 ×2; 96360; 99285; 36415; 93005; 97162; 97166; 86900; 86901; 88305; 80053; 80048; 82607; 82728; 82746; 83540; 83550; 83735; 84484; 85025; 85027; 85610; 85045; 85730; 86850; 86920; 82272; 87635; 43239; G0378 ×4; P9016

== ENCOUNTER 2020-07-20 12:08 | Emergency (ER) | payer MEDICARE ==
[2020-07-20 12:19] VITALS: TEMP 98
[2020-07-20 13:14] LABS: Appearance,Urine Cloudy (Clear); Bacteria,Urine Rare /hpf; Bilirubin,Urine Negative (Negative); Blood,Urine Negative (Negative); Color,Urine Yellow; Glucose,Urine (UA) Negative (Negative); Ketones,Urine Negative (Negative); Leukocyte Esterase,Urine Large (Negative); Nitrite,Urine Negative (Negative); Protein,Urine 1+ (Negative); Specific Gravity,Urine 1.013 (1.001-1.035); Squamous Epithelial Cell,Urine 1 /hpf (0-4); Urobilinogen,Urine <2.0 mg/dL (<2.0); WBC,Urine >182 /hpf (0-5)
[2020-07-20 13:17] LABS: Anisocytosis Slight; Basophils % (A) 0 %; Eosinophils # (A) 0.3 k/uL (0-0.7); Eosinophils % (A) 3 %; HCT 23.3 % (34.0-46.0); HGB 7.7 gm/dL (11.4-16.0); Lymphocytes # (A) 1.3 k/uL (1.0-4.8); Lymphocytes % (A) 14 %; MCH 31.1 pg (25.0-35.0); MCHC 33.1 g/dL (31.0-37.0); MCV 94.1 fL (80.0-100.0); Mean Platelet Volume 7.8; Monocytes # (A) 0.4 k/uL (0-1.0); Monocytes % (A) 5 %; Neutrophils # (A) 7.3 k/uL (1.3-7.7); Neutrophils % (A) 77 %; Platelet Count 386 k/uL (150-450); RBC 2.48 m/uL (3.80-5.40); RDW 18.6 % (11.5-15.5); WBC 9.4 k/uL (3.8-10.6)
[2020-07-20 13:34] LABS: Albumin 3.5 g/dL (3.5-5.0); Calcium 9.6 mg/dL (8.4-10.2); Total Bilirubin 0.5 mg/dL (0.2-1.3)
[2020-07-20 13:52] LABS: INR 0.9 (<1.2); Prothrombin Time 10.1 sec (9.0-12.0)
[2020-07-20 13:57] LABS: Partial Thromboplastin Time 19.8 sec (22.0-30.0)
--- NOTE | 2020-07-20 13:58 | ED ---
General Adult HPI - General Chief complaint: Recheck/Abnormal Lab/Rx Stated complaint: weakness Time Seen by Provider: 07/20/20 12:36 Source: patient, EMS Mode of arrival: EMS - History of Present Illness Initial comments: 85-year-old female with history of chronic anemia presents to emergency Department with a chief complaint of weakness. Patient reports feeling weaker over the last few days and began to feel lightheaded but not dizzy. States this seems to occur whenever she is going from a sitting to standing or laying to sitting position. Patient's states that she lives in assisted nursing facility where she complained of the symptoms and some of staff contacted her primary care doctor's office, Dr. Wood. They spoke with the office staff was advised him to come to the emergency department for further evaluation. Patient denies any other complaints. - Related Data Home Medications Medication Instructions Recorded Confirmed Pravastatin Sodium [Pravachol] 20 mg PO HS@2100 08/05/14 07/18/20 allopurinoL [Zyloprim] 300 mg PO HS@2130 07/19/18 07/18/20 amLODIPine BESYLATE [Norvasc] 5 mg PO DAILY@0807/19/18 07/18/20 Ferrous Sulfate [Feosol] 325 mg PO DAILY@169908/15/19 07/18/20 Sodium Bicarbonate Tab 650 mg PO DAILY@169908/15/19 07/18/20 Acetaminophen Tab [Tylenol] 1,000 mg PO Q6H PRN 04/20/20 07/18/20 Metoprolol Tartrate [Lopressor] 25 mg PO DAILY@0800 04/20/20 07/18/20 Glucerna Shake 237 ml PO TID@0800,1200,1700 05/18/20 07/18/20 Magnesium Hydroxide [Milk of 7,200 ml PO Q48H PRN 05/18/20 07/18/20 Magnesia Concentrate] Na Phos,M-B/Na Phos,Di-Ba [Fleet 133 ml RECTAL DAILY PRN 05/18/20 07/18/20 Adult] bisacodyL [Bisacodyl] 10 mg RECTAL DAILY PRN 05/18/20 07/18/20 hydrALAZINE HCL [Apresoline] 25 mg PO TID@0600,1400,2100 05/18/20 07/18/20 Previous Rx's Medication Instructions Recorded HYDROcodone/APAP 5-325MG [[place] 1 tab PO Q6H PRN #6 tab 05/19/20 5-325] Pantoprazole Sodium [Protonix] 40 mg PO DAILY #30 tablet. 05/19/20 Nitrofurantoin Monohyd/M-Cryst 100 mg PO Q12HR #14 cap 07/20/20 [Macrobid] Allergies Allergy/AdvReac Type Severity Reaction Status Date / Time glipizide Allergy Rash/Hives Verified 07/20/20 12:19 Penicillins Allergy Unknown Verified 07/20/20 12:19 Sulfa (Sulfonamide Allergy Unknown Verified 07/20/20 12:19 Antibiotics) Review of Systems ROS Statement: Those systems with pertinent positive or pertinent negative responses have been documented in the HPI. ROS Other: All systems not noted in ROS Statement are negative. Past Medical History Past Medical History: Coronary Artery Disease (CAD), Cancer, Diabetes Mellitus, Hypertension, Renal Disease Additional Past Medical History / Comment(s): Pt recently admitted to [facility] on 05/02/20 with colon tumors, acute on chronic anemia, L ankle sprain and UTI. Pt had R hemicolectomy and cholecystectomy. 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 History of Any Multi-Drug Resistant Organisms: None Reported Past Surgical History: Adenoidectomy, Bowel Resection, Breast Surgery, Cholecystectomy, Tonsillectomy Additional Past Surgical History / Comment(s): L Breast lumpectomy sugery, colonoscopy with benign polypectomies and recent colonoscopy with mass discovered, 04/2020 R colectomy and cholecystectomy, past colon tear with bowel resection/temporary colostomy, double J catheter insertion L kidney then percutaneous nephrolithotomy attempted and then lithrotropsey ([facility]) and removal of double J catheters. Past Anesthesia/Blood Transfusion Reactions: Motion Sickness Additional Past Anesthesia/Blood Transfusion Reaction / Comment(s): Pt has received blood without reaction Past Psychological History: No Psychological Hx Reported Smoking Status: Never smoker - Past Family History Sister(s) Family Medical History: Cancer, Deep Vein Thrombosis (DVT) Additional Family Medical History / Comment(s): poss DVT. colon cancer Brother(s) Family Medical History: Dementia Father Family Medical History: Musculoskeletal Disorder, Neurologic Disorder Additional Family Medical History / Comment(s): Father had parkinsons and at age 60yrs. Mother Family Medical History: Cancer Additional Family Medical History / Comment(s): Mother had stomach cancer and in her 70's. General Exam Limitations: no limitations General appearance: alert, in no apparent distress Head exam: Present: atraumatic, normocephalic, normal inspection Eye exam: Present: normal appearance, PERRL, EOMI, other (Pale Conjunctiva) Pupils: Present: normal accommodation ENT exam: Present: normal exam, normal oropharynx, mucous membranes moist Neck exam: Present: normal inspection, full ROM. Absent: tenderness Respiratory exam: Present: normal lung sounds bilaterally. Absent: respiratory distress Cardiovascular Exam: Present: regular rate, normal rhythm, normal heart sounds. Absent: systolic murmur GI/Abdominal exam: Present: soft. Absent: distended, tenderness, guarding, rebound, rigid Extremities exam: Present: normal inspection, full ROM, normal capillary refill. Absent: tenderness, pedal edema, joint swelling Back exam: Present: normal inspection, full ROM. Absent: tenderness, CVA tenderness (R), CVA tenderness (L) Neurological exam: Present: alert, oriented X3, CN II-XII intact, normal gait Psychiatric exam: Present: normal affect, normal mood Skin exam: Present: warm, dry, intact, normal color Course Vital Signs 07/20/20 07/20/20 07/20/20 12:09 12:50 14:28 Temperature 98.0 F Pulse Rate 60 59 L 61 Respiratory 18 18 16 Rate Blood Pressure 116/59 123/69 127/60 O2 Sat by Pulse 97 99 96 Oximetry 07/20/20 07/20/20 14:35 16:01 Temperature Pulse Rate 60 68 Respiratory 16 16 Rate Blood Pressure 123/59 128/64 O2 Sat by Pulse 97 98 Oximetry Medical Decision Making - Medical Decision Making 85-year-old female with history of chronic anemia presents to the emergency department with a chief complaint of weakness. On physical examination, patient does have pale mucous membranes. No focal neural deficits. She has no further complaints. CBC reveals a hemoglobin of 7.7, however this appears to be her baseline. She receives iron infusions on weekly basis. CMP reveals elevated BUN and creatinine, however this appears to be her baseline. UA shows urinary tract infection. Most recent urine culture positive for enterococci and s ensitive to Macrobid. I will give the patient 1 g Rocephin and discharge her with a 7 day course of Macrobid. I spoke to Dr. Wood who states the patient can be discharged if she is clinically at her baseline. I spoke with her granddaughter, Gloria who states the patient can be discharged if there is no significant findings. Patient states she would like to go home. Strict return parameters were thoroughly discussed the patient was upsetting agreeable. Case discussed with Dr. Irving Goyal. - Lab Data Result diagrams: 07/20/20 12:53 07/20/20 12:53 Lab Results 07/20/20 07/20/20 07/20/20 Range/Units 12:53 12:53 12:53 WBC 9.4 (3.8-10.6) k/uL RBC 2.48 L (3.80-5.40) m/uL Hgb 7.7 L (11.4-16.0) gm/dL Hct 23.3 L (34.0-46.0) % MCV 94.1 (80.0-100.0) fL MCH 31.1 (25.0-35.0) pg MCHC 33.1 (31.0-37.0) g/dL RDW 18.6 H (11.5-15.5) % Plt Count 386 (150-450) k/uL MPV 7.8 Neutrophils % 77 % Lymphocytes % 14 % Monocytes % 5 % Eosinophils % 3 % Basophils % 0 % Neutrophils # 7.3 (1.3-7.7) k/uL Lymphocytes # 1.3 (1.0-4.8) k/uL Monocytes # 0.4 (0-1.0) k/uL Eosinophils # 0.3 (0-0.7) k/uL Basophils # 0.0 (0-0.2) k/uL Anisocytosis Slight PT 10.1 (9.0-12.0) sec INR 0.9 (<1.2) APTT 19.8 L (22.0-30.0) sec Sodium (137-145) mmol/L Potassium (3.5-5.1) mmol/L Chloride (98-107) mmol/L Carbon Dioxide (22-30) mmol/L Anion Gap mmol/L BUN (7-17) mg/dL Creatinine (0.52-1.04) mg/dL Est GFR (CKD-EPI)AfAm (>60 ml/min/1.73 sqM) Est GFR (CKD-EPI)NonAf (>60 ml/min/1.73 sqM) Glucose (74-99) mg/dL Plasma Lactic Acid Ranjeet (0.7-2.0) mmol/L Calcium (8.4-10.2) mg/dL Total Bilirubin (0.2-1.3) mg/dL AST (14-36) U/L ALT (4-34) U/L Alkaline Phosphatase (38-126) U/L Troponin I (0.000-0.034) ng/mL Total Protein (6.3-8.2) g/dL Albumin (3.5-5.0) g/dL Urine Color Yellow Urine Appearance Cloudy H (Clear) Urine pH 6.0 (5.0-8.0) Ur Specific [place] 1.013 (1.001-1.035) Urine Protein 1+ H (Negative) Urine Glucose (UA) Negative (Negative) Urine Ketones Negative (Negative) Urine Blood Negative (Negative) Urine Nitrite Negative (Negative) Urine Bilirubin Negative (Negative) Urine Urobilinogen <2.0 (<2.0) mg/dL Ur Leukocyte Esterase Large H (Negative) Urine WBC >182 H (0-5) /hpf Urine WBC Clumps Many H (None) /hpf Ur Squamous Epith Cells 1 (0-4) /hpf Urine Bacteria Rare H (None) /hpf 07/20/20 07/20/20 07/20/20 Range/Units 12:53 12:53 12:53 WBC (3.8-10.6) k/uL RBC (3.80-5.40) m/uL Hgb (11.4-16.0) gm/dL Hct (34.0-46.0) % MCV (80.0-100.0) fL MCH (25.0-35.0) pg MCHC (31.0-37.0) g/dL RDW (11.5-15.5) % Plt Count (150-450) k/uL MPV Neutrophils % % Lymphocytes % % Monocytes % % Eosinophils % % Basophils % % Neutrophils # (1.3-7.7) k/uL Lymphocytes # (1.0-4.8) k/uL Monocytes # (0-1.0) k/uL Eosinophils # (0-0.7) k/uL Basophils # (0-0.2) k/uL Anisocytosis PT (9.0-12.0) sec INR (<1.2) APTT (22.0-30.0) sec Sodium 138 (137-145) mmol/L Potassium 5.0 (3.5-5.1) mmol/L Chloride 103 (98-107) mmol/L Carbon Dioxide 24 (22-30) mmol/L Anion Gap 11 mmol/L BUN 54 H (7-17) mg/dL Creatinine 2.39 H (0.52-1.04) mg/dL Est GFR (CKD-EPI)AfAm 21 (>60 ml/min/1.73 sqM) Est GFR (CKD-EPI)NonAf 18 (>60 ml/min/1.73 sqM) Glucose 167 H (74-99) mg/dL Plasma Lactic Acid Ranjeet 1.6 (0.7-2.0) mmol/L Calcium 9.6 (8.4-10.2) mg/dL Total Bilirubin 0.5 (0.2-1.3) mg/dL AST 19 (14-36) U/L ALT 9 (4-34) U/L Alkaline Phosphatase 89 (38-126) U/L Troponin I <0.012 (0.000-0.034) ng/mL Total Protein 7.0 (6.3-8.2) g/dL Albumin 3.5 (3.5-5.0) g/dL Urine Color Urine Appearance (Clear) Urine pH (5.0-8.0) Ur Specific [place] (1.001-1.035) Urine Protein (Negative) Urine Glucose (UA) (Negative) Urine Ketones (Negative) Urine Blood (Negative) Urine Nitrite (Negative) Urine Bilirubin (Negative) Urine Urobilinogen (<2.0) mg/dL Ur Leukocyte Esterase (Negative) Urine WBC (0-5) /hpf Urine WBC Clumps (None) /hpf Ur Squamous Epith Cells (0-4) /hpf Urine Bacteria (None) /hpf - EKG Data EKG Comments: Sinus bradycardia Ventricular rate 59, MN 162, QRS 84, QTC 437. Disposition Clinical Impression: Weakness, Anemia, Urinary tract infection Disposition: HOME SELF-CARE Condition: Stable Instructions (If sedation given, give patient instructions): Anemia (ED) Additional Instructions: Please return to the Emergency Department if symptoms worsen or any other concerns. Prescriptions: Nitrofurantoin Monohyd/M-Cryst [Macrobid] 100 mg PO Q12HR #14 cap Is patient prescribed a controlled substance at d/c from ED?: No Referrals: Edilma Wood MD [Primary Care Provider] - 1-2 days Time of Disposition: 14:57
[2020-07-20 14:29] VITALS: RESP 16
[2020-07-20] MEDS ORDERED: cefTRIAXone IN SWFI 1,000 MG/10 ML SYRINGE IVP STA (15:18)
[2020-07-20 16:03] VITALS: BP 128/64; PULSE 68
== END 2020-07-20 16:59 | disposition home or self-care (01) ==
LOC: EC 12:08
DX: D64.9 Anemia, unspecified (principal); N39.0 Urinary tract infection, site not specified; R94.4 Abnormal results of kidney function studies; E11.9 Type 2 diabetes mellitus without complications; I10 Essential (primary) hypertension; I25.10 Atherosclerotic heart disease of native coronary artery without angina pectoris; M10.9 Gout, unspecified; Z88.0 Allergy status to penicillin; Z88.2 Allergy status to sulfonamides; Z79.899 Other long term (current) drug therapy; Z88.8 Allergy status to other drugs, medicaments and biological substances
CPT/HCPCS: 99285; 96374; 36415; 93005; 80053; 83605; 84484; 85025; 85610; 85730; 81001; 87086; 87077; 87186; J0696

== ENCOUNTER 2021-10-29 12:03 | Inpatient (IN) | payer MEDICARE ==
[2021-10-29] MEDS ORDERED: SODIUM CHLORIDE 0.9% 500 ML 500 ML IV ONE (12:35)
[2021-10-29] MEDS ORDERED: SODIUM CHLORIDE 0.9% 1,000 ML IV ONE (12:35)
[2021-10-29 12:46] LABS: Basophils % (A) 0 %; Eosinophils # (A) 0.4 k/uL (0-0.7); Eosinophils % (A) 4 %; HCT 31.6 % (34.0-46.0); HGB 10.3 gm/dL (11.4-16.0); Lymphocytes # (A) 0.9 k/uL (1.0-4.8); Lymphocytes % (A) 9 %; MCH 33.1 pg (25.0-35.0); MCHC 32.6 g/dL (31.0-37.0); MCV 101.5 fL (80.0-100.0); Macrocytosis Slight; Mean Platelet Volume 8.5; Monocytes # (A) 0.4 k/uL (0-1.0); Monocytes % (A) 4 %; Neutrophils # (A) 7.9 k/uL (1.3-7.7); Neutrophils % (A) 80 %; Platelet Count 236 k/uL (150-450); RBC 3.12 m/uL (3.80-5.40); RDW 15.4 % (11.5-15.5); WBC 9.8 k/uL (3.8-10.6)
[2021-10-29 12:58] LABS: Albumin 3.7 g/dL (3.5-5.0); Calcium 10.2 mg/dL (8.4-10.2); Potassium 4.7 mmol/L (3.5-5.1); Total Bilirubin 0.9 mg/dL (0.2-1.3)
[2021-10-29 13:04] LABS: Appearance,Urine Clear (Clear); Bilirubin,Urine Negative (Negative); Blood,Urine Negative (Negative); Color,Urine Yellow; Glucose,Urine (UA) Negative (Negative); Ketones,Urine Negative (Negative); Leukocyte Esterase,Urine Negative (Negative); Nitrite,Urine Negative (Negative); Protein,Urine 1+ (Negative); RBC,Urine <1 /hpf (0-5); Specific Gravity,Urine 1.012 (1.001-1.035); Squamous Epithelial Cell,Urine <1 /hpf (0-4); Urobilinogen,Urine <2.0 mg/dL (<2.0); WBC,Urine 2 /hpf (0-5)
[2021-10-29 13:09] LABS: Partial Thromboplastin Time 20.8 sec (22.0-30.0); Prothrombin Time 10.5 sec (9.0-12.0)
--- NOTE | 2021-10-29 13:30 | XR ---
EXAMINATION TYPE: XR chest 2V DATE OF EXAM: 10/29/2021 COMPARISON: 05/05/2020 HISTORY: 86-year-old female confusion, altered mental status TECHNIQUE: AP and lateral views FINDINGS: Heart normal size. Hyperinflation. Mild interstitial prominence. Mild peribronchial cuffing. No elvira consolidation or pleural effusion. [facility] in the mid and lower thoracic spine. IMPRESSION: COPD. Interstitial densities are slightly more pronounced and could reflect superimposed bronchitis. Clinically correlate.
--- NOTE | 2021-10-29 13:40 | CT ---
EXAMINATION TYPE: CT brain wo con DATE OF EXAM: 10/29/2021 COMPARISON: 07/19/2018 INDICATION: altered mental status DLP: 1114.4 mGycm, Automated exposure control for dose reduction was used. CONTRAST: None CT of the brain is performed utilizing 3 mm thick sections through the posterior fossa and 3 mm thick sections through the remaining calvarium. Study is performed within 24 hours of arrival to the hosp [place]. No abnormal hyperdensity is present to suggest an acute intracranial hemorrhage. Physiologic basal ganglion calcification is present. Patchy hypodensities are present to the periventricular white matter likely on the basis of chronic w elijah matter ischemic changes. 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 Old lacunar infarct ri ght basal ganglia Ventricles and sulci are prominent for the patient age. Paranasal sinuses and mastoid air cells within the [id number] are clear. IMPRESSIONS: 1. No acute intracranial process. 2. Chronic appearing periventricular white matter ischemic changes and old right cerebellar lacunar i nfarct. 3. Follow-up MRI can be performed as clinically indicated.
--- NOTE | 2021-10-29 14:31 | ED ---
General Adult HPI - General Chief complaint: Altered Mental Status Stated complaint: weakness, fatigue Time Seen by Provider: 10/29/21 12:27 Source: patient, family Mode of arrival: wheelchair Limitations: no limitations - History of Present Illness Initial comments: This 86-year-old female presents with these with complaints of weakness. She also has had increased confusion recently. She apparently has not been eating or drinking normally or as much as usual. She has had symptoms progress over the past 4 days. There's been no cough or difficulty in breathing. They deny any chest pain or abdominal pain. Patient is a poor historian. Most of history is obtained per the niece. The patient apparently lives in an independent living facility with her sister. She normally makes all of her own medical decisions. The sister apparently would also help out with this if need be and is not currently present. She is unable to ambulate due to her weakness. There was no falls or injuries. No other complaints or modifying factors. - Related Data Home Medications Medication Instructions Recorded Confirmed Pravastatin Sodium [Pravachol] 20 mg PO HS@2100 08/05/14 10/03/21 allopurinoL [Zyloprim] 300 mg PO HS@2130 07/19/18 10/03/21 amLODIPine BESYLATE [Norvasc] 5 mg PO DAILY@0807/19/18 10/03/21 Ferrous Sulfate [Feosol] 325 mg PO DAILY@17008/15/19 10/03/21 Sodium Bicarbonate Tab 650 mg PO DAILY@169908/15/19 10/03/21 Acetaminophen Tab [Tylenol] 1,000 mg PO Q6H PRN 04/20/20 10/03/21 Metoprolol Tartrate [Lopressor] 25 mg PO DAILY@0800 04/20/20 10/03/21 Glucerna Shake 237 ml PO TID@0800,1200,1700 05/18/20 10/03/21 Magnesium Hydroxide [Milk of 7,200 ml PO Q48H PRN 05/18/20 10/03/21 Magnesia Concentrate] Na Phos,M-B/Na Phos,Di-Ba [Fleet 133 ml RECTAL DAILY PRN 05/18/20 10/03/21 Adult] bisacodyL 10 mg RECTAL DAILY PRN 05/18/20 10/03/21 hydrALAZINE HCL [Apresoline] 25 mg PO TID@0600,1400,2100 05/18/20 10/03/21 Previous Rx's Medication Instructions Recorded HYDROcodone/APAP 5-325MG [Elmore 1 tab PO Q6H PRN #6 tab 05/19/20 5-325] Pantoprazole Sodium [Protonix] 40 mg PO DAILY #30 tablet. 05/19/20 Nitrofurantoin Monohyd/M-Cryst 100 mg PO Q12HR #14 cap 07/20/20 [Macrobid] Allergies Allergy/AdvReac Type Severity Reaction Status Date / Time glipizide Allergy Rash/Hives Verified 10/29/21 12:16 Penicillins Allergy Unknown Verified 10/29/21 12:16 Sulfa (Sulfonamide Allergy Unknown Verified 10/29/21 12:16 Antibiotics) Review of Systems ROS Statement: Those systems with pertinent positive or pertinent negative responses have been documented in the HPI. ROS Other: All systems not noted in ROS Statement are negative. Past Medical History Past Medical History: Coronary Artery Disease (CAD), Cancer, Diabetes Mellitus, Hypertension, Renal Disease Additional Past Medical History / Comment(s): Pt recently admitted to [facility] on 05/02/20 with colon tumors, acute on chronic anemia, L ankle sprain and UTI. Pt had R hemicolectomy and cholecystectomy. 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 History of Any Multi-Drug Resistant Organisms: None Reported Past Surgical History: Adenoidectomy, Bowel Resection, Breast Surgery, Cholecystectomy, Tonsillectomy Additional Past Surgical History / Comment(s): L Breast lumpectomy sugery, colonoscopy with benign polypectomies and recent colonoscopy with mass discovered, 04/2020 R colectomy and cholecystectomy, past colon tear with bowel resection/temporary colostomy, double J catheter insertion L kidney then percutaneous nephrolithotomy attempted and then lithrotropsey (ESWL) and removal of double J catheters. Past Anesthesia/Blood Transfusion Reactions: Motion Sickness Additional Past Anesthesia/Blood Transfusion Reaction / Comment(s): Pt has received blood without reaction Past Psychological History: No Psychological Hx Reported Smoking Status: Never smoker - Past Family History Sister(s) Family Medical History: Cancer, Deep Vein Thrombosis (DVT) Additional Family Medical History / Comment(s): poss DVT. colon cancer Brother(s) Family Medical History: Dementia Father Family Medical History: Musculoskeletal Disorder, Neurologic Disorder Additional Family Medical History / Comment(s): Father had parkinsons and at age 60yrs. Mother Family Medical History: Cancer Additional Family Medical History / Comment(s): Mother had stomach cancer and in her 70's. General Exam - General Exam Comments Initial Comments: GENERAL: The patient is well nourished and well hydrated. VITAL SIGNS: Heart rate, blood pressure, respiratory rate reviewed as recorded in nurse's notes. EYES: Pupils are round and reactive. Extraocular movements are intact. No conjunctival / lid redness or swelling. ENT: No external evidence of injury, swelling, or ecchymosis. Airway is patent. Throat is clear. NECK: Nontender. No swelling or evidence of injury. No subcutaneous emphysema. Trachea is midline. No thyroid mass. HEART: Regular rate and rhythm. Good peripheral pulses. LUNGS/CHEST: Breath sounds clear and equal bilaterally. No rales, rhonchi, or wheezes. No ecchymosis, subcutaneous emphysema, or tenderness. ABDOMEN: Abdomen soft without tenderness. No palpable masses or organomegaly. No peritoneal signs. No abdominal wall swelling or ecchymosis. EXTREMITIES: No extremity tenderness. Normal muscle tone and function. No thoracolumbar tenderness. NEUROLOGIC: Sensation is grossly intact. Cranial nerve exam reveals face is symmetrical, tongue is midline, speech is clear. Confused at times. SKIN: No abrasions or ecchymosis is noted. No induration or masses noted. PSYCHIATRIC: Alert and but confused. Limitations: no limitations Course Vital Signs 10/29/21 10/29/21 10/29/21 12:12 13:00 14:00 Temperature 98.4 F Pulse Rate 76 61 56 L Respiratory 16 16 20 Rate Blood Pressure 140/78 131/69 142/69 O2 Sat by Pulse 94 L 95 96 Oximetry Medical Decision Making - Medical Decision Making The patient was seen and examined. All diagnostics are reviewed. She is placed on a registered nurse cardiac no ectopy is identified. IV is established and she is mildly hydrated. EKG shows a normal sinus rhythm at a rate of 71. There is no acute ST-T wave changes identified. There is minimal artifact. The AR intervals 180, QS duration is 89, and the QTc interval is 370. The computed tomography scan of the brain does show evidence of an old lacunar infarct but nothing acute. The chest x-ray shows the possibility of bronchitis but no infiltrates or pneumonia. The laboratory shows a stable creatinine at 2.0. The hemoglobin is improved at 10.2. The patient apparently does have a history of only one working kidney and is being followed for this. She has had some chr onic anemia and has had some iron intravenous transfusions recently with improvement of the hemoglobin. She essentially is unable to ambulate at home. She lives with her elderly sister as well. She is currently presenting with niece. It sounds as though she would be at extreme fall risk if she goes home. It also appears as though she's had altered mental status in the last 4 days. The exact cause of her symptomatology is not definitively determined. It is felt as though she would require admission for further workup in regard to the cause of her symptomatology. She potentially may need evaluation by case management as she potentially may require a higher level of care. Case is discu ssed with Dr. Wood who is agreeable with admission. - Lab Data Result diagrams: 10/29/21 12:32 10/29/21 12:32 Lab Results 10/29/21 10/29/21 10/29/21 Range/Units 12:32 12:32 12:32 WBC 9.8 (3.8-10.6) k/uL RBC 3.12 L (3.80-5.40) m/uL Hgb 10.3 L (11.4-16.0) gm/dL Hct 31.6 L (34.0-46.0) % MCV 101.5 H (80.0-100.0) fL MCH 33.1 (25.0-35.0) pg MCHC 32.6 (31.0-37.0) g/dL RDW 15.4 (11.5-15.5) % Plt Count 236 (150-450) k/uL MPV 8.5 Neutrophils % 80 % Lymphocytes % 9 % Monocytes % 4 % Eosinophils % 4 % Basophils % 0 % Neutrophils # 7.9 H (1.3-7.7) k/uL Lymphocytes # 0.9 L (1.0-4.8) k/uL Monocytes # 0.4 (0-1.0) k/uL Eosinophils # 0.4 (0-0.7) k/uL Basophils # 0.0 (0-0.2) k/uL Macrocytosis Slight PT 10.5 (9.0-12.0) sec INR 1.0 (<1.2) APTT 20.8 L (22.0-30.0) sec Sodium 137 (137-145) mmol/L Potassium 4.7 (3.5-5.1) mmol/L Chloride 99 (98-107) mmol/L Carbon Dioxide 25 (22-30) mmol/L Anion Gap 13 mmol/L BUN 47 H (7-17) mg/dL Creatinine 2.00 H (0.52-1.04) mg/dL Est GFR (CKD-EPI)AfAm 25 (>60 ml/min/1.73 sqM) Est GFR (CKD-EPI)NonAf 22 (>60 ml/min/1.73 sqM) Glucose 205 H (74-99) mg/dL Calcium 10.2 (8.4-10.2) mg/dL Total Bilirubin 0.9 (0.2-1.3) mg/dL AST 22 (14-36) U/L ALT 11 (4-34) U/L Alkaline Phosphatase 74 (38-126) U/L Ammonia (<30) umol/L Troponin I (0.000-0.034) ng/mL Total Protein 7.0 (6.3-8.2) g/dL Albumin 3.7 (3.5-5.0) g/dL Urine Color Urine Appearance (Clear) Urine pH (5.0-8.0) Ur Specific Corinne (1.001-1.035) Urine Protein (Negative) Urine Glucose (UA) (Negative) Urine Ketones (Negative) Urine Blood (Negative) Urine Nitrite (Negative) Urine Bilirubin (Negative) Urine Urobilinogen (<2.0) mg/dL Ur Leukocyte Esterase (Negative) Urine RBC (0-5) /hpf Urine WBC (0-5) /hpf Ur Squamous Epith Cells (0-4) /hpf Coronavirus (PCR) (Not Detectd) 10/29/21 10/29/21 10/29/21 Range/Units 12:32 12:32 12:40 WBC (3.8-10.6) k/uL RBC (3.80-5.40) m/uL Hgb (11.4-16.0) gm/dL Hct (34.0-46.0) % MCV (80.0-100.0) fL MCH (25.0-35.0) pg MCHC (31.0-37.0) g/dL RDW (11.5-15.5) % Plt Count (150-450) k/uL MPV Neutrophils % % Lymphocytes % % Monocytes % % Eosinophils % % Basophils % % Neutrophils # (1.3-7.7) k/uL Lymphocytes # (1.0-4.8) k/uL Monocytes # (0-1.0) k/uL Eosinophils # (0-0.7) k/uL Basophils # (0-0.2) k/uL Macrocytosis PT (9.0-12.0) sec INR (<1.2) APTT (22.0-30.0) sec Sodium (137-145) mmol/L Potassium (3.5-5.1) mmol/L Chloride (98-107) mmol/L Carbon Dioxide (22-30) mmol/L Anion Gap mmol/L BUN (7-17) mg/dL Creatinine (0.52-1.04) mg/dL Est GFR (CKD-EPI)AfAm (>60 ml/min/1.73 sqM) Est GFR (CKD-EPI)NonAf (>60 ml/min/1.73 sqM) Glucose (74-99) mg/dL Calcium (8.4-10.2) mg/dL Total Bilirubin (0.2-1.3) mg/dL AST (14-36) U/L ALT (4-34) U/L Alkaline Phosphatase (38-126) U/L Ammonia 10 (<30) umol/L Troponin I <0.012 (0.000-0.034) ng/mL Total Protein (6.3-8.2) g/dL Albumin (3.5-5.0) g/dL Urine Color Yellow Urine Appearance Clear (Clear) Urine pH 6.0 (5.0-8.0) Ur Specific Corinne 1.012 (1.001-1.035) Urine Protein 1+ H (Negative) Urine Glucose (UA) Negative (Negative) Urine Ketones Negative (Negative) Urine Blood Negative (Negative) Urine Nitrite Negative (Negative) Urine Bilirubin Negative (Negative) Urine Urobilinogen <2.0 (<2.0) mg/dL Ur Leukocyte Esterase Negative (Negative) Urine RBC <1 (0-5) /hpf Urine WBC 2 (0-5) /hpf Ur Squamous Epith Cells <1 (0-4) /hpf Coronavirus (PCR) (Not Detectd) 10/29/21 Range/Units 12:40 WBC (3.8-10.6) k/uL RBC (3.80-5.40) m/uL Hgb (11.4-16.0) gm/dL Hct (34.0-46.0) % MCV (80.0-100.0) fL MCH (25.0-35.0) pg MCHC (31.0-37.0) g/dL RDW (11.5-15.5) % Plt Count (150-450) k/uL MPV Neutrophils % % Lymphocytes % % Monocytes % % Eosinophils % % Basophils % % Neutrophils # (1.3-7.7) k/uL Lymphocytes # (1.0-4.8) k/uL Monocytes # (0-1.0) k/uL Eosinophils # (0-0.7) k/uL Basophils # (0-0.2) k/uL Macrocytosis PT (9.0-12.0) sec INR (<1.2) APTT (22.0-30.0) sec Sodium (137-145) mmol/L Potassium (3.5-5.1) mmol/L Chloride (98-107) mmol/L Carbon Dioxide (22-30) mmol/L Anion Gap mmol/L BUN (7-17) mg/dL Creatinine (0.52-1.04) mg/dL Est GFR (CKD-EPI)AfAm (>60 ml/min/1.73 sqM) Est GFR (CKD-EPI)NonAf (>60 ml/min/1.73 sqM) Glucose (74-99) mg/dL Calcium (8.4-10.2) mg/dL Total Bilirubin (0.2-1.3) mg/dL AST (14-36) U/L ALT (4-34) U/L Alkaline Phosphatase (38-126) U/L Ammonia (<30) umol/L Troponin I (0.000-0.034) ng/mL Total Protein (6.3-8.2) g/dL Albumin (3.5-5.0) g/dL Urine Color Urine Appearance (Clear) Urine pH (5.0-8.0) Ur Specific Corinne (1.001-1.035) Urine Protein (Negative) Urine Glucose (UA) (Negative) Urine Ketones (Negative) Urine Blood (Negative) Urine Nitrite (Negative) Urine Bilirubin (Negative) Urine Urobilinogen (<2.0) mg/dL Ur Leukocyte Esterase (Negative) Urine RBC (0-5) /hpf Urine WBC (0-5) /hpf Ur Squamous Epith Cells (0-4) /hpf Coronavirus (PCR) Not Detected (Not Detectd) Disposition Clinical Impression: Change in mental status, Intracranial hemorrhage, Weakness, Inability to walk, Anemia, Chronic renal failure Disposition: ADMITTED IP TO THIS [facility] Condition: Fair Is patient prescribed a controlled substance at d/c from ED?: No Time of Disposition: 14:36 Decision Date: 10/29/21 Decision Time: 14:36
[2021-10-29] MEDS ORDERED: ACETAMINOPHEN TAB 325 MG TAB PO PRN (14:37)
[2021-10-29] MEDS ORDERED: ONDANSETRON 4 MG/2 ML VIAL IVP PRN (14:37)
[2021-10-29] MEDS ORDERED: SODIUM CHLORIDE 0.9% 1,000 ML IV STA (18:40)
--- NOTE | 2021-10-29 18:42 | P.HPIM ---
History of Present Illness H&P Date: 10/29/21 Hattie Cardenas, is an 86 year old female who presented to [facility] emergency room with a chief complaint of generalized weakness and mental status changes He was evaluated in the emergency room vital examination on presentation revealed a temperature of 98.4 pulse 76 respirations 16 blood pressure 140/78 pulse ox 94% on room air Laboratory data revealed a white blood count of 9.8 hemoglobin 10.3 platelet count 236 BUN 47 creatinine 2.0 glucose 205 urine analysis did not reveal any evidence of urinary tract infection COVID-19 PCR was negative Testing in the emergency room revealed chest x-ray revealed evidence of COPD and interstitial densities that may reflect superimposed bronchitis, computed tomography scan of the brain revealed no acute intracranial process, chronic Appearing periventricular white matter ischemic changes and old right cerebellar lacunar infarct Patient was admitted to medical floor for further evaluation and treatment Past Medical History Past Medical History: Coronary Artery Disease (CAD), Cancer, Diabetes Mellitus, Hypertension, Renal Disease Additional Past Medical History / Comment(s): Pt recently admitted to [facility] on 05/02/20 with colon tumors, acute on chronic anemia, L ankle sprain and UTI. Pt had R hemicolectomy and cholecystectomy. Other hx: L breast CA with griffin mpectomy and radiation,L hydronephrosis with kidney stone and R kidney with chronic atrophy and nonfunctioning per pt, gout, anemia, leg edema at times but none lately, sinusitis, neuropathy bilateral feet, unsteady gait at times, veritgo-bilateral inner ear problem, osteoporosis, past colon tear with surgery. History of Any Multi-Drug Resistant Organisms: None Reported Past Surgical History: Adenoidectomy, Bowel Resection, Breast Surgery, Cholec ystectomy, Tonsillectomy Additional Past Surgical History / Comment(s): L Breast lumpectomy sugery, colonoscopy with benign polypectomies and recent colonoscopy with mass disc overed, 04/2020 R colectomy and cholecystectomy, past colon tear with bowel resection/temporary colostomy, double J catheter insertion L kidney then percutaneous nephrolithotomy attempted and then lithrotropsey (ESWL) and removal of double J catheters. Past Anesthesia/Blood Transfusion Reactions: Motion Sickness Additional Past Anesthesia/Blood Transfusion Reaction / Comment(s): Pt has received blood without reaction Past Psychological History: No Psychological Hx Reported Smoking Status: Never smoker - Past Family History Sister(s) Family Medical History: Cancer, Deep Vein Thrombosis (DVT) Additional Family Medical History / Comment(s): poss DVT. colon cancer Brother(s) Family Medical History: Dementia Father Family Medical History: Musculoskeletal Disorder, Neurologic Disorder Additional Family Medical History / Comment(s): Father had parkinsons and at age 60yrs. Mother Family Medical History: Cancer Additional Family Medical History / Comment(s): Mother had stomach cancer and in her 70's. Medications and Allergies Home Medications Medication Instructions Recorded Confirmed Type Pravastatin Sodium [Pravachol] 20 mg PO DAILY 08/05/14 10/29/21 History Ferrous Sulfate [Feosol] 325 mg PO DAILY 08/15/19 10/29/21 History Sodium Bicarbonate Tab 650 mg PO BID 08/15/19 10/29/21 History Metoprolol Tartrate [Lopressor] 25 mg PO BID 04/20/20 10/29/21 History Pantoprazole Sodium [Protonix] 40 mg PO DAILY #30 tablet. 05/19/20 10/29/21 Rx Multivitamins, Thera [Multivitamin 1 tab PO DAILY 10/29/21 10/29/21 History (formulary)] allopurinoL [Zyloprim] 100 mg PO DAILY 10/29/21 10/29/21 History Allergies Allergy/AdvReac Type Severity Reaction Status Date / Time glipizide Allergy Rash/Hives Verified 10/29/21 15:10 Penicillins Allergy Unknown Verified 10/29/21 15:10 Sulfa (Sulfonamide Allergy Unknown Verified 10/29/21 15:10 Antibiotics) Physical Exam Vitals: Vital Signs Temp Pulse Resp BP Pulse Ox 10/29/21 18:00 63 18 154/72 94 L 10/29/21 17:00 64 20 147/66 95 10/29/21 14:00 56 L 20 142/69 96 10/29/21 13:00 61 16 131/69 95 10/29/21 12:12 98.4 F 76 16 140/78 94 L Intake and Output 10/29/21 10/29/21 10/29/21 06:59 14:59 22:59 Other: Weight 54.431 kg In general patient is alert and oriented x 3 in no distress HEENT head normocephalic and atraumatic Neck is supple no JVD no goiter no lymphadenopathy no carotid bruit Chest examination is clear to auscultation no crackles no wheezing Cardiac exam reveals regular heart sounds S1 and S2 no gallops no murmurs Abdomen is soft nontender no organomegaly with normal bowel sounds Extremity exam reveals no edema no cyanosis or clubbing Neurological examination very limited due to patient noncooperation but essentially reveals no gross focal deficits Results CBC & Chem 7: 10/29/21 12:32 10/29/21 12:32 Labs: Abnormal Lab Results - Last 24 Hours (Table) 10/29/21 10/29/21 10/29/21 Range/Units 12:32 12:32 12:32 RBC 3.12 L (3.80-5.40) m/uL Hgb 10.3 L (11.4-16.0) gm/dL Hct 31.6 L (34.0-46.0) % MCV 101.5 H (80.0-100.0) fL Neutrophils # 7.9 H (1.3-7.7) k/uL Lymphocytes # 0.9 L (1.0-4.8) k/uL APTT 20.8 L (22.0-30.0) sec BUN 47 H (7-17) mg/dL Creatinine 2.00 H (0.52-1.04) mg/dL Glucose 205 H (74-99) mg/dL Urine Protein (Negative) 10/29/21 Range/Units 12:40 RBC (3.80-5.40) m/uL Hgb (11.4-16.0) gm/dL Hct (34.0-46.0) % MCV (80.0-100.0) fL Neutrophils # (1.3-7.7) k/uL Lymphocytes # (1.0-4.8) k/uL APTT (22.0-30.0) sec BUN (7-17) mg/dL Creatinine (0.52-1.04) mg/dL Glucose (74-99) mg/dL Urine Protein 1+ H (Negative) Assessment and Plan Plan: Generalized weakness Evidence of acute bronchitis on chest x-ray Acute kidney injury was elevated BUN and creatinine Acute mental status changes cause is unclear Macrocytic anemia MCV is 101.5, will check vitamin B12 and folate level Significant weight loss will obtain nutrition consult Underlying history of hyperlipidemia Underlying history of hypertension Underlying history of gout Underlying history of chronic kidney disease At this time patient was seen and examined Patient was started on IV fluid normal saline at 50 mL an hour Echocardiogram and carotid Doppler were ordered Neurology consult requested
--- NOTE | 2021-10-29 19:35 | US ---
EXAMINATION TYPE: US carotid duplex BILAT DATE OF EXAM: 10/29/2021 COMPARISON: 07/20/18 CLINICAL HISTORY: Mental status changes. Mental status changes TECHNIQUE: Carotid duplex ultrasound examination. Indirect Doppler criteria was utilized. Limited due to patient not being able to hold still - patient also would not stop humming. FINDINGS: EXAM MEASUREMENTS: RIGHT: Peak Systolic Velocity (PSV) cm/sec ----- Right CCA: 57.3 ----- Right ICA: 83.3 ----- Right ECA: 99.5 ICA/CCA ratio: 1.5 RIGHT: End Diastole cm/sec ----- Right CCA: 12.9 ----- Right ICA: 15.5 ----- Right ECA: 7.6 LEFT: Peak Systolic Velocity (PSV) cm/sec ----- Left CCA: 76.2 ----- Left ICA: 126.0 ----- Left ECA: 100.0 ICA/CCA ratio: 1.7 LEFT: End Diastole cm/sec ----- Left CCA: 15.4 ----- Left ICA: 29.4 ----- Left ECA: 6.3 VERTEBRALS (direction of flow): Right Vertebral: Antegrade Left Vertebral: Antegrade Rhythm: Normal FLOWER GROWER NOTES: Plaque seen in bilateral bulbs IMPRESSION: 1. Left bifurcation is borderline 50-69 % stenosis by peak systolic velocity. 2. Right less than 50% stenosis of the carotid bifurcation. Criteria for Assigning % of Stenosis / Diameter reduction (Estimation based on the indirect measurements of the internal carotid artery velocities (ICA PSV). 1. Normal (no stenosis)=ICA PSV < 125 cm/s: ratio < 2.0: ICA EDV<40 cm/s. 2. Less than 50% stenosis=ICA PSV < 125 cm/s: ratio < 2.0: ICA EDV<40 cm/s. 3. 50 to 69% stenosis=ICA PSV of 125 to 230 cm/s: ration 2.0 ? 4.0: ICA EDV 40-100 cm/s. 4. Greater than 70% stenosis to near occlusion= ICA PSV > 230 cm/s: ratio > 4.0: ICA EDV > 100 cm/s. 5. Near occlusion= ICA PSV velocities may be low or undetectable: variable ratio and ICA EDV. 6. Total occlusion=unable to detect flow.
[2021-10-29] MEDS: SODIUM BICARBONATE TAB 650 MG TAB PO SCH (23:08)
[2021-10-29] MEDS: METOPROLOL TARTRATE 25 MG TAB PO SCH (23:08)
[2021-10-30 07:09] LABS: Glucose,Whole Blood 147 mg/dL (70-110)
[2021-10-30] MEDS: PRAVASTATIN SODIUM 20 MG TAB PO SCH (09:40)
[2021-10-30] MEDS: FERROUS SULFATE 325 MG TAB PO SCH (09:40)
[2021-10-30] MEDS: ENOXAPARIN 30 MG/0.3 ML SYRINGE SQ SCH (09:40)
[2021-10-30] MEDS: allopurinoL 100 MG TAB PO SCH (09:40)
[2021-10-30] MEDS: PANTOPRAZOLE 40 MG TABLET PO SCH (09:41)
[2021-10-30] MEDS: SODIUM BICARBONATE TAB 650 MG TAB PO SCH ×2 (09:41→21:26)
[2021-10-30] MEDS: METOPROLOL TARTRATE 25 MG TAB PO SCH ×2 (09:41→21:26)
[2021-10-30] MEDS: MULTIVITAMINS, THERA 1 EACH TAB PO SCH (09:41)
[2021-10-30 10:23] LABS: Basophils # (A) 0.04 X 10*3/uL (0.00-0.10); Basophils % (A) 0.5 %; Eosinophils # (A) 0.41 X 10*3/uL (0.04-0.35); Eosinophils % (A) 5.3 %; HCT 29.2 % (37.2-46.3); HGB 9.7 g/dL (12.0-15.0); Immature Grans, Automated 0.4 %; Lymphocytes # (A) 0.92 X 10*3/uL (0.90-5.00); Lymphocytes % (A) 11.8 %; MCH 33.6 pg (27.0-32.0); MCHC 33.2 g/dL (32.0-37.0); Mean Platelet Volume 11.2 fL (9.5-12.2); Monocytes # (A) 0.55 X 10*3/uL (0.20-1.00); Monocytes % (A) 7.1 %; NRBC Per 100 WBC 0 /100 WBCS (0.0-0.0); Neutrophils # (A) 5.83 X 10*3/uL (1.80-7.70); Neutrophils % (A) 74.9 %; Platelet Count 226 X 10*3/uL (140-440); RBC 2.89 X 10*6/uL (4.10-5.20); RDW 14.9 % (11.5-14.5); WBC 7.78 X 10*3/uL (4.50-10.00)
--- NOTE | 2021-10-30 10:23 | CA ---
Transthoracic Echo Report Name: Hattie Cardenas Age: 86 Gender: F : [id number] Exam Date: 10/30/2021 08:19 Exam Location: [facility] Ht (in): 64 Wt (lb): 120 Ordering Physician: Edilma Wood MD Attending/Referring Phys: [place] Technician Shell Robin, MAGDIEL Procedure CPT: Indications: mental status changes Cardiac Hx: Technical Quality: Contrast 1: Total Dose (mL): Contrast 2: Total Dose (mL): MEASUREMENTS (Male / Female) Normal Values 2D ECHO LV Diastolic Diameter PLAX 4.4 cm 4.2 - 5.9 / 3.9 - 5.3 cm LV Systolic Diameter PLAX 2.9 cm IVS Diastolic Thickness 1.2 cm 0.6 - 1.0 / 0.6 - 0.9 cm LVPW Diastolic Thickness 1.2 cm 0.6 - 1.0 / 0.6 - 0.9 cm LV Relative Wall Thickness 0.5 M-MODE Aortic Root Diameter MM 3.5 cm LA Systolic Diameter MM 3.7 cm LA Ao Ratio MM 1.1 MV E Point Septal Separation 0.3 cm AV Cusp Separation MM 1.6 cm DOPPLER MV Area PHT 3.2 cm??? Mitral E Point Velocity 45.4 cm/s Mitral A Point Velocity 84.8 cm/s Mitral E to A Ratio 0.5 MV Deceleration Time 238.7 ms MV E' Velocity 4.0 cm/s Mitral E to MV E' Ratio 11.5 TR Peak Velocity 189.1 cm/s TR Peak Gradient 14.3 mmHg Right Ventricular Systolic Press 19.3 mmHg FINDINGS Left Ventricle Left ventricular ejection fraction is estimated at 50-55%. Mildly increased left ventricular wall thickness. Right Ventricle Normal right ventricular size and function. Right Atrium Normal right atrial size. Left Atrium Normal left atrial size. Mitral Valve Structurally normal mitral valve. Mild mitral regurgitation. Aortic Valve Trileaflet aortic valve. Aortic valve sclerosis. Tricuspid Valve Structurally normal tricuspid valve. Pulmonic Valve Pulmonic valve not well visualized. Pericardium Normal pericardium. Aorta CONCLUSIONS Normal LV systolic function Severe myogenic calcification with mild mitral regurgitation Aortic sclerosis without any stenosis Previewed by: Dr. Lex Jose MD (Electronically Signed) Final Date: 30 October 2021 10:22
[2021-10-30 10:44] LABS: Albumin 3.4 g/dL (3.8-4.9); Albumin/Globulin Ratio 1.13 (1.60-3.17); Anion Gap 13.2 mmol/L (10.00-18.00); BUN/Creat Ratio 17.53 Ratio (12.00-20.00); Blood Urea Nitrogen 33.3 mg/dL (9.0-27.0); Calcium 9.9 mg/dL (8.7-10.3); Carbon Dioxide 23.8 mmol/L (20.0-27.5); Non-African American GFR(CKD) 23.3 (60.0-200.0); Potassium 4.3 mmol/L (3.5-5.5); Total Bilirubin 0.7 mg/dL (0.30-1.20); Total Protein 6.4 g/dL (6.2-8.2)
[2021-10-30 11:48] LABS: Glucose,Whole Blood 172 mg/dL (70-110)
[2021-10-30 16:57] LABS: Glucose,Whole Blood 172 mg/dL (70-110)
--- NOTE | 2021-10-30 19:13 | P.PN ---
Subjective Progress Note Date: 10/30/21 Hattie Cardenas, is an 86 year old female who presented to [facility] emergency room with a chief complaint of generalized weakness and mental status changes He was evaluated in the emergency room vital examination on presentation revealed a temperature of 98.4 pulse 76 respirations 16 blood pressure 140/78 pulse ox 94% on room air Laboratory data revealed a white blood count of 9.8 hemoglobin 10.3 platelet count 236 BUN 47 creatinine 2.0 glucose 205 urine analysis did not reveal any evidence of urinary tract infection COVID-19 PCR was negative Testing in the emergency room revealed chest x-ray revealed evidence of COPD and interstitial densities that may reflect superimposed bronchitis, computed tomography scan of the brain revealed no acute intracranial process, chronic Tod earing periventricular white matter ischemic changes and old right cerebellar lacunar infarct Patient was admitted to medical floor for further evaluation and treatment Objective - Vital Signs Vital signs: Vital Signs Temp 98.3 F 10/30/21 08:00 Pulse 59 L 10/30/21 08:00 Resp 16 10/30/21 08:08 BP 181/73 10/30/21 08:00 Pulse Ox 95 10/30/21 09:02 FiO2 Intake & Output 10/29/21 10/30/21 10/30/21 18:59 06:59 18:59 Weight 54.431 kg 54.431 kg Other: Voiding Method Toilet Diaper Incontinent # Voids 2 2 # Bowel Movements 1 - Exam In general patient is alert and oriented x 3 in no distress HEENT head normocephalic and atraumatic Neck is supple no JVD no goiter no lymphadenopathy no carotid bruit Chest examination is clear to auscultation no crackles no wheezing Cardiac exam reveals regular heart sounds S1 and S2 no gallops no murmurs Abdomen is soft nontender no organomegaly with normal bowel sounds Extremity exam reveals no edema no cyanosis or clubbing Neurological examination very limited due to patient noncooperation but essentially reveals no gross focal deficits - Labs CBC & Chem 7: 10/30/21 07:09 10/30/21 07:09 Labs: Abnormal Lab Results - Last 24 Hours (Table) 10/29/21 10/30/21 10/30/21 Range/Units 12:32 07:07 07:09 RBC 2.89 L (4.10-5.20) X 10*6/uL Hgb 9.7 L (12.0-15.0) g/dL Hct 29.2 L (37.2-46.3) % MCV 101.0 H (80.0-97.0) fL MCH 33.6 H (27.0-32.0) pg RDW 14.9 H (11.5-14.5) % Eosinophils # 0.41 H (0.04-0.35) X 10*3/uL BUN (9.0-27.0) mg/dL Creatinine (0.6-1.5) mg/dL Est GFR (CKD-EPI)AfAm (60.0-200.0) Est GFR (CKD-EPI)NonAf (60.0-200.0) Glucose (70-110) mg/dL POC Glucose (mg/dL) 147 H (70-110) mg/dL Iron 38 L (50-170) ug/dL Transferrin 203.0 L (204.0-354.0) mg/dL Albumin (3.8-4.9) g/dL Albumin/Globulin Ratio (1.60-3.17) g/dL Vitamin B12 1162.0 H (200.0-944.0) pg/mL 10/30/21 10/30/21 Range/Units 07:09 11:46 RBC (4.10-5.20) X 10*6/uL Hgb (12.0-15.0) g/dL Hct (37.2-46.3) % MCV (80.0-97.0) fL MCH (27.0-32.0) pg RDW (11.5-14.5) % Eosinophils # (0.04-0.35) X 10*3/uL BUN 33.3 H (9.0-27.0) mg/dL Creatinine 1.9 H (0.6-1.5) mg/dL Est GFR (CKD-EPI)AfAm 27.0 L (60.0-200.0) Est GFR (CKD-EPI)NonAf 23.3 L (60.0-200.0) Glucose 147 H (70-110) mg/dL POC Glucose (mg/dL) 172 H (70-110) mg/dL Iron (50-170) ug/dL Transferrin (204.0-354.0) mg/dL Albumin 3.4 L (3.8-4.9) g/dL Albumin/Globulin Ratio 1.13 L (1.60-3.17) g/dL Vitamin B12 (200.0-944.0) pg/mL Assessment and Plan Plan: Generalized weakness Evidence of acute bronchitis on chest x-ray Acute kidney injury was elevated BUN and creatinine Acute mental status changes cause is unclear Macrocytic anemia MCV is 101.5, will check vitamin B12 and folate level Significant weight loss will obtain nutrition consult Underlying history of hyperlipidemia Underlying history of hypertension Underlying history of gout Underlying history of chronic kidney disease At this time patient was seen and examined Patient was started on IV fluid normal saline at 50 mL an hour Echocardiogram and carotid Doppler were ordered Neurology consult requested
[2021-10-30 21:29] LABS: Glucose,Whole Blood 149 mg/dL (70-110)
--- NOTE | 2021-10-31 00:04 | P.CNNES ---
History of Present Illness Consult date: 10/30/21 Requesting physician: Edilma Wood Reason for Consult: Mental status change History of Present Illness: Patient is a 86-year-old female came to the hospital yesterday at 12:03 PM. Patient not able to provide much history. I spoke to patient's niece, who provided with a history. Patient at present lives at [facility] which is an independent senior citizen living facility. She used to walk with a cane until 2019, when she started using 4 wheeled Rollator which helped with her balance. She was ambulating well with a Rollator. Patient's niece mentions that patient underwent partial colon resection in April 2020, which turns out to be precancerous lesion. She was sent to rehab. She has not been walking well since then. She has been using a regular walker since then. Lately she has been walking only to the bathroom with her walker. Someone at the facility is always with her when she needs to walk to the bathroom. In the last 4-5 weeks, her confidence for walking has been getting less and more tendency to falls. This has gotten worse the last few days. Patient was seen by her primary physician Dr. Wood, who wanted her to be seen by a neurologist. However yesterday she was noted to be very confused and therefore she was referred to ER for further evaluation. There is no focal symptoms like facial droop, focal numbness tingling or weakness reported. Vital signs arrival blood pressure 140/78 pulse rate 76 and temperature 98.4 Blood test shows WBC 9.8 hemoglobin 10.3, platelets 236. MCV is elevated 101.5. PT/PTT is normal. Electrolytes are normal, BUN 47, creatinine 2.0. Hepatic panel is normal. B12 1162 and folate > 20.0 UA negative. Carrasco virus PCR negative. CT head revealed no acute process. Chronic appearing periventricular white matter ischemic changes and old right cerebellar lacunar infarct. I personally reviewed the CT head and agree with the findings There is also an old right thalamic lacune, besides the one in the right cerebellum. Patient's younger brother suffers from dementia. Per patient's knees, patient herself has no dementia, but she sometimes has forget full movements. No history of seizures. No previous history of strokes or TIA. She has been having frequent falls in the past. Patient has only one kidney. Review of Systems Constitutional: Denies chills, Denies fever Eyes: denies blurred vision, denies pain Ears, nose, mouth and throat: Denies headache, Denies sore throat Cardiovascular: Denies chest pain, Denies shortness of breath Respiratory: Denies cough Gastrointestinal: Denies abdominal pain, Denies diarrhea, Denies nausea, Denies vomiting Genitourinary: Denies dysuria, Denies hematuria Musculoskeletal: Reports frequent falls, Reports gait dysfunction, Denies myalgias Integumentary: Denies pruritus, Denies rash Neurological: Reports as per HPI Psychiatric: Denies anxiety, Denies depression Endocrine: Denies fatigue, Denies weight change Allergic/Immunologic: Denies persistent infections Past Medical History Past Medical History: Coronary Artery Disease (CAD), Cancer, Diabetes Mellitus, Hypertension, Renal Disease Additional Past Medical History / Comment(s): Pt recently admitted to [facility] on 05/02/20 with colon tumors, acute on chronic anemia, L ankle sprain and UTI. Pt had R hemicolectomy and cholecystectomy. 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 History of Any Multi-Drug Resistant Organisms: None Reported Past Surgical History: Adenoidectomy, Bowel Resection, Breast Surgery, Cholecystectomy, Tonsillectomy Additional Past Surgical History / Comment(s): L Breast lumpectomy sugery, colonoscopy with benign polypectomies and recent colonoscopy with mass discovered, 04/2020 R colectomy and cholecystectomy, past colon tear with bowel resection/temporary colostomy, double J catheter insertion L kidney then percutaneous nephrolithotomy attempted and then lithrotropsey (ESWL) and removal of double J catheters. Past Anesthesia/Blood Transfusion Reactions: Motion Sickness Additional Past Anesthesia/Blood Transfusion Reaction / Comment(s): Pt has received blood without reaction Past Psychological History: No Psychological Hx Reported Additional Psychological History / Comment(s): Pt currently at [facility] for rehab . She states she gets up with a walker. Smoking Status: Never smoker Past Alcohol Use History: None Reported Past Drug Use History: None Reported - Past Family History Sister(s) Family Medical History: Cancer, Deep Vein Thrombosis (DVT) Additional Family Medical History / Comment(s): poss DVT. colon cancer Brother(s) Family Medical History: Dementia Father Family Medical History: Musculoskeletal Disorder, Neurologic Disorder Additional Family Medical History / Comment(s): Father had parkinsons and at age 60yrs. Mother Family Medical History: Cancer Additional Family Medical History / Comment(s): Mother had stomach cancer and in her 70's. Medications and Allergies Home Medications Medication Instructions Recorded Confirmed Type Pravastatin Sodium [Pravachol] 20 mg PO DAILY 08/05/14 10/29/21 History Ferrous Sulfate [Feosol] 325 mg PO DAILY 08/15/19 10/29/21 History Sodium Bicarbonate Tab 650 mg PO BID 08/15/19 10/29/21 History Metoprolol Tartrate [Lopressor] 25 mg PO BID 04/20/20 10/29/21 History Pantoprazole Sodium [Protonix] 40 mg PO DAILY #30 tablet. 05/19/20 10/29/21 Rx Multivitamins, Thera [Multivitamin 1 tab PO DAILY 10/29/21 10/29/21 History (formulary)] allopurinoL [Zyloprim] 100 mg PO DAILY 10/29/21 10/29/21 History Allergies Allergy/AdvReac Type Severity Reaction Status Date / Time glipizide Allergy Rash/Hives Verified 10/29/21 15:10 Penicillins Allergy Unknown Verified 10/29/21 15:10 Sulfa (Sulfonamide Allergy Unknown Verified 10/29/21 15:10 Antibiotics) Physical Examination - Vital Signs Vital Signs: Vital Signs Temp Pulse Pulse Resp BP BP Pulse Ox 10/30/21 09:02 95 10/30/21 08:08 16 10/30/21 08:00 98.3 F 59 L 16 181/73 95 10/30/21 02:00 98.4 F 62 18 166/69 94 L 10/29/21 20:00 97.6 F 81 16 146/55 10/29/21 19:49 98.0 F 61 16 148/60 95 10/29/21 19:30 97.6 F 81 18 146/55 98 10/29/21 18:00 63 18 154/72 94 L 10/29/21 17:00 64 20 147/66 95 Intake and Output 10/29/21 10/30/21 10/30/21 22:59 06:59 14:59 Other: Voiding Method Toilet Diaper Incontinent # Voids 2 2 # Bowel Movements 1 Weight 54.431 kg Patient is an elderly female, in no acute distress. Patient is alert awake, has slightly slow mentation. Patient states it's a month of November and the year is 2018. Patient could not tell name of the current building she is in. She knows that she is in [facility]. Patient could not tell name of the current president. She does know that [place] recently. Speech is moderately stuttering dysarthric and language functions are normal. Patient can name and repeat very well. Attention, concentration and fund of knowledge is limited. On cranial nerve examination, pupils are equal, round and reacting to light, visual ramires are full on confrontation, with no neglect on double simultaneous stimulation. Extraocular muscles are intact with no nystagmus. Face is symmetric, tongue protrudes to the midline. Palatal elevation and sensation normal, hearing is moderately decreased and shoulder shrug normal, facial sensation normal. On muscle strength testing, there is no pronator drift and the strength is normal in arms distally and proximally. Patient has overall decreased effort. Ankle dorsiflexion 5/5, hip flexion 4/4+. Deep tendon reflexes (right/left) biceps 1/1, brachioradialis 1/1, knee 2/2, Lantus upon the right, flat on the left. Sensory to touch is equal with no neglect on double simultaneous stimulation. Cerebellar function showed no obvious ataxia for iqqwth-[id number] testing. No dysdiadochokinesia. No ataxia for [id number] testing on either side. Tone and bulk of muscles normal. Gait deferred.. On general examination, there is no carotid bruit or murmur, S1-S2 audible. Chest is clear on consultation. Abdomen is soft nontender. No organomegaly, bowel sounds present. Peripheral pulses are present. No edema. Results - Laboratory Findings CBC and BMP: 10/30/21 07:09 10/30/21 07:09 Abnormal Lab Findings: Abnormal Labs 10/29/21 10/29/21 10/29/21 12:32 12:32 12:32 RBC 3.12 L Hgb 10.3 L Hct 31.6 L MCV 101.5 H MCH RDW Neutrophils # 7.9 H Lymphocytes # 0.9 L Eosinophils # APTT 20.8 L BUN 47 H Creatinine 2.00 H Est GFR (CKD-EPI)AfAm Est GFR (CKD-EPI)NonAf Glucose 205 H POC Glucose (mg/dL) Iron Transferrin Albumin Albumin/Globulin Ratio Vitamin B12 Urine Protein 10/29/21 10/29/21 10/30/21 12:32 12:40 07:07 RBC Hgb Hct MCV MCH RDW Neutrophils # Lymphocytes # Eosinophils # APTT BUN Creatinine Est GFR (CKD-EPI)AfAm Est GFR (CKD-EPI)NonAf Glucose POC Glucose (mg/dL) 147 H Iron 38 L Transferrin 203.0 L Albumin Albumin/Globulin Ratio Vitamin B12 1162.0 H Urine Protein 1+ H 10/30/21 10/30/21 10/30/21 07:09 07:09 11:46 RBC 2.89 L Hgb 9.7 L Hct 29.2 L MCV 101.0 H MCH 33.6 H RDW 14.9 H Neutrophils # Lymphocytes # Eosinophils # 0.41 H APTT BUN 33.3 H Creatinine 1.9 H Est GFR (CKD-EPI)AfAm 27.0 L Est GFR (CKD-EPI)NonAf 23.3 L Glucose 147 H POC Glucose (mg/dL) 172 H Iron Transferrin Albumin 3.4 L Albumin/Globulin Ratio 1.13 L Vitamin B12 Urine Protein Assessment and Plan Assessment: * Probable history of subclinical CVA in the past. CT head showed old right thalamic lacune and old right cerebellar lacunar infarct. Patient clinically has [id number] dysarthria, otherwise examination is nonfocal. * Altered mental status, possible mild metabolic encephalopathy. * Diabetes, well controlled with last A1c 6.1 07/10/2021. * Hypertension * Chronic renal disease * Chronic anemia * Peripheral neuropathy Plan: * Recommend starting aspirin 81 mg daily for stroke prevention, if cleared by primary physician. Discussed with patient's niece, who agreed for low dose aspirin daily. * 2-D echo revealed normal left ventricular systolic function, with EF 50-55%. Severe myogenic calcification with mild mitral regurgitation. Aortic sclerosis without any stenosis. Normal left atrial size. * Carotid Doppler revealed left bifurcation borderline stenosis 50-69% by peak velocity. Right side less than 50% stenosis. Antegrade flow in both vertebral arteries. * Hemoglobin A1c 6.1 on 07/10/2021 * Lipid panel with cholesterol 165, LDL 77, HDL 30 and triglycerides 286 on 10/01/2021. * B12 1162, folate > 20.0 * Medical management as per internal medicine. * PT, OT and speech therapy. Neurology will follow. * Thank you for the consult.
[2021-10-31 06:55] LABS: Glucose,Whole Blood 147 mg/dL (70-110)
[2021-10-31] MEDS ORDERED: ASPIRIN 81 MG PO STA (08:56)
[2021-10-31] MEDS ORDERED: ASPIRIN 300 MG SUPP RECTAL STA (09:17)
[2021-10-31] MEDS: FERROUS SULFATE 325 MG TAB PO SCH (09:59)
[2021-10-31] MEDS: METOPROLOL TARTRATE 25 MG TAB PO SCH ×2 (09:59→22:31)
[2021-10-31] MEDS: allopurinoL 100 MG TAB PO SCH (09:59)
[2021-10-31] MEDS: PRAVASTATIN SODIUM 20 MG TAB PO SCH (10:00)
[2021-10-31] MEDS: SODIUM BICARBONATE TAB 650 MG TAB PO SCH ×2 (10:00→22:31)
[2021-10-31] MEDS: MULTIVITAMINS, THERA 1 EACH TAB PO SCH (10:00)
[2021-10-31] MEDS: PANTOPRAZOLE 40 MG TABLET PO SCH (10:00)
[2021-10-31] MEDS: ENOXAPARIN 30 MG/0.3 ML SYRINGE SQ SCH (10:02)
[2021-10-31 11:22] LABS: Glucose,Whole Blood 142 mg/dL (70-110)
[2021-10-31 12:13] LABS: ABG Base Excess 3.6 mmol/L; ABG HCO3 27 mmol/L (21-25); ABG Hematocrit 30 % (34.0-46.0); ABG Oxygen Saturation 97.4 % (94-97); ABG PCO2 38 mmHg (35-45); ABG PH 7.47 (7.35-7.45); ABG PO2 79 mmHg (83-108); ABG TCO2 29 mmol/L (19-24); Allen Test Performed? Yes
--- NOTE | 2021-10-31 12:37 | P.PN ---
Subjective Progress Note Date: 10/31/21 Hattie Cardenas, is an 86 year old female who presented to [facility] emergency room with a chief complaint of generalized weakness and mental status changes He was evaluated in the emergency room vital examination on presentation revealed a temperature of 98.4 pulse 76 respirations 16 blood pressure 140/78 pulse ox 94% on room air Laboratory data revealed a white blood count of 9.8 hemoglobin 10.3 platelet count 236 BUN 47 creatinine 2.0 glucose 205 urine analysis did not reveal any evidence of urinary tract infection COVID-19 PCR was negative Testing in the emergency room revealed chest x-ray revealed evidence of COPD and interstitial densities that may reflect superimposed bronchitis, computed tomography scan of the brain revealed no acute intracranial process, chronic Tod earing periventricular white matter ischemic changes and old right cerebellar lacunar infarct Patient was admitted to medical floor for further evaluation and treatment On 10/31/2021 patient is more lethargic today does wake up but quickly falls back to sleep. Neurology services have been consulted repeat computed tomography scan, MRI and EEG have been ordered. Vitals have remained stable. UA negative. COVID-19 negative. Objective - Vital Signs Vital signs: Vital Signs Temp 97.5 F L 10/31/21 09:52 Pulse 54 L 10/31/21 09:52 Resp 17 10/31/21 09:52 BP 147/79 10/31/21 09:52 Pulse Ox 98 10/31/21 09:52 FiO2 Intake & Output 10/30/21 10/31/21 10/31/21 18:59 06:59 18:59 Output Total 1 Balance -1 Output: Stool 1 Other: Voiding Method Toilet Diaper Diaper Incontinent Incontinent # Voids 2 2 # Bowel Movements 1 - Exam In general patient is alert and oriented x 3 in no distress HEENT head normocephalic and atraumatic Neck is supple no JVD no goiter no lymphadenopathy no carotid bruit Chest examination is clear to auscultation no crackles no wheezing Cardiac exam reveals regular heart sounds S1 and S2 no gallops no murmurs Abdomen is soft nontender no organomegaly with normal bowel sounds Extremity exam reveals no edema no cyanosis or clubbing Neurological examination very limited due to patient noncooperation but essentially reveals no gross focal deficits - Labs CBC & Chem 7: 10/30/21 07:09 10/30/21 07:09 Labs: Abnormal Lab Results - Last 24 Hours (Table) 10/30/21 10/30/21 10/31/21 Range/Units 16:56 21:22 06:54 ABG pH (7.35-7.45) ABG pO2 (83-108) mmHg ABG HCO3 (21-25) mmol/L ABG Total CO2 (19-24) mmol/L ABG O2 Saturation (94-97) % ABG Hematocrit (34.0-46.0) % Hemoglobin (11.4-16.0) gm/dL POC Glucose (mg/dL) 172 H 149 H 147 H (70-110) mg/dL 10/31/21 10/31/21 Range/Units 11:21 12:09 ABG pH 7.47 H (7.35-7.45) ABG pO2 79 L (83-108) mmHg ABG HCO3 27 H (21-25) mmol/L ABG Total CO2 29 H (19-24) mmol/L ABG O2 Saturation 97.4 H (94-97) % ABG Hematocrit 30 L (34.0-46.0) % Hemoglobin 9.6 L (11.4-16.0) gm/dL POC Glucose (mg/dL) 142 H (70-110) mg/dL Assessment and Plan Plan: Generalized weakness Evidence of acute bronchitis on chest x-ray Acute kidney injury was elevated BUN and creatinine Acute mental status changes cause is unclear Macrocytic anemia MCV is 101.5, will check vitamin B12 and folate level Significant weight loss will obtain nutrition consult Underlying history of hyperlipidemia Underlying history of hypertension Underlying history of gout Underlying history of chronic kidney disease At this time patient was seen and examined Patient was started on IV fluid normal saline at 50 mL an hour Echocardiogram and carotid Doppler were ordered Neurology consult requested MRI, computed tomography scan and EEG ordered
--- NOTE | 2021-10-31 12:49 | CT ---
EXAMINATION TYPE: CT brain wo con DATE OF EXAM: 10/31/2021 COMPARISON: 10/29/2021 INDICATION: AMS DLP: 1103.4 mGycm, Automated exposure control for dose reduction was used. CONTRAST: None CT of the brain is performed utilizing 3 mm thick sections through the posterior fossa and 3 mm thick sections through the remaining calvarium. Study is performed within 24 hours of arrival to the hosp ital. Beam hardening artifact through the posterior fossa. No abnormal hyperdensity is present to suggest an acute intracranial hemorrhage. No mass lesion is evident. Punctate calcifications are within the bilateral basal ganglion likely phy siologic basal ganglion calcifications present previously. No acute infarcts are evident. Old lacunar infarcts in the right subependymal periventricular white matter and right basal ganglia Ventricles and sulci are prominent for the patient age. Paranasal sinuses and mastoid air cells within the [id number] are clear. IMPRESSIONS: 1. Old lacunar infarcts right basal ganglion and subependymal periventricular white matter with age -related Atrophy. 2. No acute radiographic changes. 3. MRI can be performed as clinically indicated
[2021-10-31 16:19] LABS: Basophils % (A) 1 %; Eosinophils # (A) 0.4 k/uL (0-0.7); Eosinophils % (A) 5 %; HCT 31.4 % (34.0-46.0); HGB 10.1 gm/dL (11.4-16.0); Hypochromasia Slight; Lymphocytes # (A) 0.9 k/uL (1.0-4.8); Lymphocytes % (A) 14 %; MCH 32.7 pg (25.0-35.0); MCHC 32.1 g/dL (31.0-37.0); Macrocytosis Slight; Mean Platelet Volume 8.2; Monocytes # (A) 0.3 k/uL (0-1.0); Monocytes % (A) 5 %; Neutrophils # (A) 4.9 k/uL (1.3-7.7); Neutrophils % (A) 73 %; Platelet Count 217 k/uL (150-450); RBC 3.08 m/uL (3.80-5.40); RDW 15.4 % (11.5-15.5); WBC 6.7 k/uL (3.8-10.6)
[2021-10-31 16:44] LABS: ALT 9 U/L (4-34); AST 22 U/L (14-36); African American GFR (CKD) 31 (>60 ml/min/1.73 sqM); Albumin 3.2 g/dL (3.5-5.0); Alkaline Phosphatase 63 U/L (38-126); Anion Gap 13 mmol/L; Blood Urea Nitrogen 31 mg/dL (7-17); Calcium 9.7 mg/dL (8.4-10.2); Carbon Dioxide 22 mmol/L (22-30); Chloride 102 mmol/L (98-107); Globulin 3.1 g/dL; Glucose 115 mg/dL (74-99); Non-African American GFR(CKD) 27 (>60 ml/min/1.73 sqM); Potassium 4.5 mmol/L (3.5-5.1); Sodium 137 mmol/L (137-145); Total Bilirubin 0.8 mg/dL (0.2-1.3); Total Protein 6.3 g/dL (6.3-8.2)
[2021-10-31 17:03] LABS: Glucose,Whole Blood 112 mg/dL (70-110)
--- NOTE | 2021-10-31 17:49 | P.PN ---
Subjective Progress Note Date: 10/31/21 Patient's nurse reported at 8:54 AM that patient's mentation has changed significantly. Yesterday she was pretty much normal herself. Today she is very lethargic, can't answer any questions appropriately and her sentences fade off. She is confused as well. Speech therapist also concerned about her and is going for a barium swallow. I came to see the patient, and she appears somewhat obtunded. Her mouth is open, appeared very pale. Patient denied any pain, no headache. Her blood glucose checked just now was 142 mg/dL. Objective - Vital Signs Vital signs: Vital Signs Temp 97.5 F L 10/31/21 09:52 Pulse 54 L 10/31/21 09:52 Resp 17 10/31/21 09:52 BP 147/79 10/31/21 09:52 Pulse Ox 98 10/31/21 09:52 FiO2 Intake & Output 10/30/21 10/31/21 10/31/21 18:59 06:59 18:59 Output Total 1 Balance -1 Output: Stool 1 Other: Voiding Method Toilet Diaper Diaper Incontinent Incontinent # Voids 2 2 # Bowel Movements 1 - Exam Patient's pupils are equal, round and reacting sluggishly. Patient appears pale, dehydrated. She appears obtunded. Her mouth is open. Tongue is dry. Face appears symmetric. Gaze is midline. Visual ramires could not be tested. Patient's boiler tube blower, biceps and triceps appears equal. There is no obvious pronator drift. Patient wiggles her feet equally to painful stimuli. Sensations are equal. Abdomen soft and nontender. - Labs CBC & Chem 7: 10/31/21 16:02 10/31/21 16:02 Labs: Abnormal Lab Results - Last 24 Hours (Table) 10/30/21 10/30/21 10/31/21 Range/Units 16:56 21: 06:54 ABG pH (7.35-7.45) ABG pO2 (83-108) mmHg ABG HCO3 (21-25) mmol/L ABG Total CO2 (19-24) mmol/L ABG O2 Saturation (94-97) % ABG Hematocrit (34.0-46.0) % Hemoglobin (11.4-16.0) gm/dL POC Glucose (mg/dL) 172 H 149 H 147 H (70-110) mg/dL 10/31/21 10/31/21 Range/Units 11:21 12:09 ABG pH 7.47 H (7.35-7.45) ABG pO2 79 L (83-108) mmHg ABG HCO3 27 H (21-25) mmol/L ABG Total CO2 29 H (19-24) mmol/L ABG O2 Saturation 97.4 H (94-97) % ABG Hematocrit 30 L (34.0-46.0) % Hemoglobin 9.6 L (11.4-16.0) gm/dL POC Glucose (mg/dL) 142 H (70-110) mg/dL Assessment and Plan Assessment: * Possible acute stroke. CT head showed old right thalamic lacune and old right cerebellar lacunar infarct. Patient clinically has [id number] dysarthria, otherwise examination is nonfocal. * Altered mental status, possible mild metabolic encephalopathy. Patient's mental status has become worse. * Diabetes, well controlled with last A1c 6.1 07/10/2021. * Hypertension * Chronic renal disease * Chronic macrocytic anemia * Peripheral neuropathy Plan: * Aspirin 300 mg rectally. Patient is nothing by mouth per speech therapist. * Repeat CT head showed no acute process. Again revealed old lacunar infarcts right basal ganglia and subependymal periventricular white matter with age- related atrophy. I reviewed CT head, agree with the findings. * Check MRI of the brain rule out acute stroke. * EEG evaluate for any epileptiform activity. * ABG revealed pH 7.47, pO2 79, pCO2 38 and saturation 97.4%. * 2-D echo revealed normal left ventricular systolic function, with EF 50-55%. Severe myogenic calcification with mild mitral regurgitation. Aortic sclerosis without any stenosis. Normal left atrial size. * Carotid Doppler revealed left bifurcation borderline stenosis 50-69% by peak velocity. Right side less than 50% stenosis. Antegrade flow in both vertebral arteries. * Hemoglobin A1c 6.1 on 07/10/2021 * Lipid panel with cholesterol 165, LDL 77, HDL 30 and triglycerides 286 on 10/01/2021. * B12 1162, folate > 20.0 * Medical management as per internal medicine. * PT, OT and speech therapy.
--- NOTE | 2021-10-31 18:21 | MR ---
EXAMINATION TYPE: MR brain wo con DATE OF EXAM: 10/31/2021 5:54 PM COMPARISON: CT brain 10/31/2021. CLINICAL INDICATION:Female, 86 years old with history of Acute CVA, dysarthria; TECHNIQUE: Multi planar, multi sequence imaging was performed through the brain including: T1, T2, In version recovery, Diffusion weighted imaging, and gradient echo imaging. No gadolinium was given. FINDINGS: The johnson-white junctions, ventricular system, and cisterns appear unremarkable. Remote injuries to t he right cerebellar hemisphere with encephalomalacia as well as the right dennis radiata and caudate nucleus. . Patchy areas of high T2 signal intensity are seen within the periventricular white matter. Midline structures show no abnormality. Diffusion-weighted imaging shows no evidence of restricted d iffusion. The susceptibility weighted images do not reveal any evidence for micro-hemorrhage. The bone marrow signal is within normal limits. The paranasal sinuses and globes are unremarkable. IMPRESSION: 1. No evidence of intracranial mass or acute/subacute infarct. 2. Remote right cerebellar injuries, right basal ganglia, right dennis radiata/caudate nucleus with a ssociated encephalomalacia. 3. Nonspecific white matter changes, likely secondary to small vessel ischemic disease.
[2021-10-31 20:02] LABS: Glucose,Whole Blood 106 mg/dL (70-110)
[2021-10-31] MEDS: SODIUM CHLORIDE 0.9% 1,000 ML IV SCH (22:39)
[2021-11-01 09:26] LABS: Glucose,Whole Blood 104 mg/dL (70-110)
--- NOTE | 2021-11-01 10:40 | EEG ---
ELECTROENCEPHALOGRAM REPORT PREAMBLE: This is an 86-year-old female with episodes of altered mental status. This study is performed to evaluate for any epileptiform activity. EEG FINDINGS: This is a 21-channel digital EEG recorded with video component, utilizing 10/20 International System with referential and bipolar montages. Background consists of well-developed, but moderately well regulated, mixed frequencies of 6 Hz theta, intermixed with some fast frequency activity seen in bihemispheric region. Background does not seem to be clearly reactive to eye opening or closing. A lot of myogenic activity was seen in the temporal region. Different stages of sleep were not seen. Photic stimulation or hyperventilation were not done. No focal or generalized epileptiform activity was seen. IMPRESSION: This is an abnormal EEG due to background slowing of moderate degree. This is suggestive of generalized cerebral dysfunction as can be seen with toxic/metabolic encephalopathy or due to diffuse structural brain abnormality. Clinical correlation recommended. No epileptiform activity was seen. MMODL / IJN: [id number] /
[2021-11-01] MEDS: ASPIRIN 300 MG SUPP RECTAL SCH (10:47)
[2021-11-01] MEDS: ENOXAPARIN 30 MG/0.3 ML SYRINGE SQ SCH (10:47)
[2021-11-01 10:53] LABS: Basophils # (A) 0.04 X 10*3/uL (0.00-0.10); Basophils % (A) 0.5 %; Eosinophils # (A) 0.44 X 10*3/uL (0.04-0.35); Eosinophils % (A) 5.9 %; HCT 30.3 % (37.2-46.3); HGB 9.9 g/dL (12.0-15.0); Immature Grans, Automated 0.4 %; Lymphocytes # (A) 1.02 X 10*3/uL (0.90-5.00); Lymphocytes % (A) 13.6 %; MCH 32.9 pg (27.0-32.0); MCHC 32.7 g/dL (32.0-37.0); MCV 100.7 fL (80.0-97.0); Mean Platelet Volume 12.1 fL (9.5-12.2); Monocytes # (A) 0.52 X 10*3/uL (0.20-1.00); Monocytes % (A) 6.9 %; NRBC Per 100 WBC 0 /100 WBCS (0.0-0.0); Neutrophils # (A) 5.46 X 10*3/uL (1.80-7.70); Neutrophils % (A) 72.7 %; Platelet Count 230 X 10*3/uL (140-440); RBC 3.01 X 10*6/uL (4.10-5.20); WBC 7.51 X 10*3/uL (4.50-10.00)
[2021-11-01 11:03] LABS: Glucose,Whole Blood 116 mg/dL (70-110)
[2021-11-01 11:11] LABS: African American GFR (CKD) 30.9 (60.0-200.0); Albumin 3.5 g/dL (3.8-4.9); Albumin/Globulin Ratio 1.13 (1.60-3.17); Anion Gap 15.4 mmol/L (10.00-18.00); BUN/Creat Ratio 15.82 Ratio (12.00-20.00); Blood Urea Nitrogen 26.9 mg/dL (9.0-27.0); Calcium 10.1 mg/dL (8.7-10.3); Carbon Dioxide 24.6 mmol/L (20.0-27.5); Globulin 3.1 g/dL (1.6-3.3); Non-African American GFR(CKD) 26.6 (60.0-200.0); Potassium 4.6 mmol/L (3.5-5.5); Total Bilirubin 0.6 mg/dL (0.30-1.20); Total Protein 6.6 g/dL (6.2-8.2)
--- NOTE | 2021-11-01 11:41 | FL ---
EXAMINATION TYPE: FL barium swallow w video DATE OF EXAM: 11/01/2021 CLINICAL HISTORY: 86-year-old female confusion, Dysphagia. Rule out aspiration. TECHNIQUE: Deglutition study is performed utilizing thin liquid barium, honey and nectar thick liqui d barium, barium thick applesauce. Total fluoroscopy time: 2 minutes 9 seconds. Total images: None. Real-time fluoroscopy support was provided to speech pathology. COMPARISON: None. FINDINGS: There is inconsistent epiglottic inversion. There is free spillage to the piriform sinuses. Absent po sterior pharyngeal wall peristalsis. There is aspiration of honey thick and pureed consistency after the swallow with severe residuals. Moderate CP hypertrophy is noted. IMPRESSION: Abnormal swallow. Inconsistent epiglottic inversion and persistent premature spillage. There are sussy re residuals and episodes of trace silent aspiration noted that occurs after the swallow. Moderate CP hypertrophy. Please refer to speech therapist notes for further details if necessary.
[2021-11-01] MEDS: METOPROLOL TARTRATE 25 MG TAB PO SCH ×2 (12:14→21:59)
[2021-11-01] MEDS: FERROUS SULFATE 325 MG TAB PO SCH (12:14)
[2021-11-01] MEDS: SODIUM CHLORIDE 0.9% 1,000 ML IV SCH (12:14)
[2021-11-01] MEDS: SODIUM BICARBONATE TAB 650 MG TAB PO SCH ×2 (12:14→21:59)
[2021-11-01] MEDS: allopurinoL 100 MG TAB PO SCH (12:14)
[2021-11-01] MEDS: MULTIVITAMINS, THERA 1 EACH TAB PO SCH (12:14)
[2021-11-01] MEDS: PANTOPRAZOLE 40 MG TABLET PO SCH (12:14)
[2021-11-01] MEDS: PRAVASTATIN SODIUM 20 MG TAB PO SCH (12:14)
[2021-11-01 16:39] LABS: Glucose,Whole Blood 104 mg/dL (70-110)
--- NOTE | 2021-11-01 18:48 | P.PN ---
Subjective Progress Note Date: 11/01/21 Patient was seen for follow-up. Patient has significantly improved today as compared to yesterday. She is talking more clearly, recognizing people. However she has failed barium swallow, she had silent aspiration for everything. Patient continues to be generalized weak. On asking about diplopia, she states that she sometimes see double. He completely denies any headache. Patient's multiple family members were present today including her sisters. Apparently to the report, patient has been having slurred speech for a few days prior to arrival. They do not remember patient having any history of strokes, or any symptoms of stroke otherwise in the past. Patient's family states that patient has been in the habit of talking to herself. She talks all the time. Family does not endorse any history of dementia. Objective - Vital Signs Vital signs: Vital Signs Temp 97.1 F L 11/01/21 14:00 Pulse 73 11/01/21 14:00 Resp 14 11/01/21 14:00 BP 144/78 11/01/21 14:00 Pulse Ox 97 11/01/21 14:00 FiO2 Intake & Output 10/31/21 11/01/21 11/01/21 18:59 06:59 18:59 Other: Voiding Method Diaper Diaper Incontinent Incontinent # Voids 2 - Exam Patient is an elderly female, in no acute distress. Patient is alert awake. Patient knows her name and states is November and the year is 1950. She could not tell name of the current president. She states that she is in [facility]. Speech is mildly dysarthric, but much better than yesterday. Her language functions are normal. Attention, concentration is intact and fund of knowledge is limited. On cranial nerve examination, pupils are equal, round and reacting to light, vi sual ramires are full on confrontation, with no neglect on double simultaneous stimulation. Extraocular muscles are intact with no nystagmus. Face is symmetric, tongue protrudes to the midline. Palatal elevation and sensation normal, hearing and shoulder shrug normal, facial sensation normal. On muscle strength testing, there is no pronator drift. The strength is about 5-bilaterally in the upper limbs. In the lower limbs hip flexion is 4-/3+, ankle dorsiflexion 5-/5-. Deep tendon reflexes are symmetric biceps 2, brachioradialis 1, knees 1, plantar is downgoing on the right, up on the left. Sensory to touch is equal with no neglect on double simultaneous stimulation. Cerebellar function showed no ataxia for [id number] testing, but she was significantly shaky while at really. Tone and bulk of muscles normal. Gait deferred.. On general examination, there is no carotid bruit or murmur, S1-S2 audible. Chest is clear on consultation. Abdomen is soft nontender. No organomegaly, bowel sounds present. Peripheral pulses are present. No edema. - Labs CBC & Chem 7: 11/01/21 06:54 11/01/21 06:54 Labs: Abnormal Lab Results - Last 24 Hours (Table) 10/31/21 10/31/21 11/01/21 Range/Units 16:02 17:01 06:54 RBC 3.01 L (4.10-5.20) X 10*6/uL Hgb 9.9 L (12.0-15.0) g/dL Hct 30.3 L (37.2-46.3) % MCV 100.7 H (80.0-97.0) fL MCH 32.9 H (27.0-32.0) pg RDW 15.0 H (11.5-14.5) % Eosinophils # 0.44 H (0.04-0.35) X 10*3/uL BUN 31 H (7-17) mg/dL Creatinine 1.68 H (0.52-1.04) mg/dL Est GFR (CKD-EPI)AfAm (60.0-200.0) Est GFR (CKD-EPI)NonAf (60.0-200.0) Glucose 115 H (74-99) mg/dL POC Glucose (mg/dL) 112 H (70-110) mg/dL Albumin 3.2 L (3.5-5.0) g/dL Albumin/Globulin Ratio (1.60-3.17) g/dL 11/01/21 11/01/21 Range/Units 06:54 11:00 RBC (4.10-5.20) X 10*6/uL Hgb (12.0-15.0) g/dL Hct (37.2-46.3) % MCV (80.0-97.0) fL MCH (27.0-32.0) pg RDW (11.5-14.5) % Eosinophils # (0.04-0.35) X 10*3/uL BUN (7-17) mg/dL Creatinine 1.7 H (0.52-1.04) mg/dL Est GFR (CKD-EPI)AfAm 30.9 L (60.0-200.0) Est GFR (CKD-EPI)NonAf 26.6 L (60.0-200.0) Glucose (74-99) mg/dL POC Glucose (mg/dL) 116 H (70-110) mg/dL Albumin 3.5 L (3.5-5.0) g/dL Albumin/Globulin Ratio 1.13 L (1.60-3.17) g/dL Assessment and Plan Assessment: * 86-year-old female with few days history of dysarthria, dysphagia, unclear cause. MRI of the brain revealed no acute ischemic process. 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 No acute stroke. Patient's family does not remember patient having any clinical stroke symptoms in the past. Her current neurological worsening may be related to possible stro ke/reversible ischemic neurologic deficit with negative brain MRI. Patient's mentation, as well as her speech has improved today. * Altered mental status, possible mild metabolic encephalopathy. Patient's mentation has much improved. * Dysphagia, failed swallow. 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 MG less likely. * Diabetes, well controlled with last A1c 6.1 07/10/2021. * Hypertension * Chronic renal disease * Chronic macrocytic anemia * Peripheral neuropathy Plan: * Continue Aspirin 300 mg rectally. Patient is nothing by mouth per speech therapist. Patient has again failed swallow. Patient may be a candidate for short-term PEG placement. * MRI of the brain revealed no acute ischemic stroke. Remote right cerebellar injuries, right basal ganglia, right dennis radiata/caudate nucleus with associated encephalomalacia. Nonspecific white matter changes, likely secondary to small vessel ischemic disease. I personally reviewed MRI, agree with the findings. * EEG was abnormal due to background slowing of moderate degree. The suggestive of generalized cerebral dysfunction as can be seen with toxic metabolic encephalopathy, or due to diffuse structural brain abnormality. No epileptiform activity was seen. * ABG revealed pH 7.47, pO2 79, pCO2 38 and saturation 97.4%. * 2-D echo revealed normal left ventricular systolic function, with EF 50-55%. Severe myogenic calcification with mild mitral regurgitation. Aortic sclerosis without any stenosis. Normal left atrial size. * Carotid Doppler revealed left bifurcation borderline stenosis 50-69% by peak velocity. Right side less than 50% stenosis. Antegrade flow in both vertebral arteries. * Hemoglobin A1c 6.1 on 07/10/2021 * Lipid panel with cholesterol 165, LDL 77, HDL 30 and triglycerides 286 on 10/01/2021. Continue Pravachol 20 mg daily. * B12 1162, folate > 20.0. We will check acetylcholine receptor antibodies. Low threshold for myasthenia. * PT, OT and speech therapy. * Discussed with patient's family and primary physician in detail. Time with Patient: Greater than 30
[2021-11-01 19:14] LABS: Glucose,Whole Blood 93 mg/dL (70-110)
[2021-11-02 07:14] LABS: Glucose,Whole Blood 90 mg/dL (70-110)
--- NOTE | 2021-11-02 09:23 | P.PN ---
Subjective Progress Note Date: 11/01/21 Hattie Cardenas, is an 86 year old female who presented to [facility] emergency room with a chief complaint of generalized weakness and mental status changes He was evaluated in the emergency room vital examination on presentation revealed a temperature of 98.4 pulse 76 respirations 16 blood pressure 140/78 pulse ox 94% on room air Laboratory data revealed a white blood count of 9.8 hemoglobin 10.3 platelet count 236 BUN 47 creatinine 2.0 glucose 205 urine analysis did not reveal any evidence of urinary tract infection COVID-19 PCR was negative Testing in the emergency room revealed chest x-ray revealed evidence of COPD and interstitial densities that may reflect superimposed bronchitis, computed tomography scan of the brain revealed no acute intracranial process, chronic Tod earing periventricular white matter ischemic changes and old right cerebellar lacunar infarct Patient was admitted to medical floor for further evaluation and treatment On 10/31/2021 patient is more lethargic today does wake up but quickly falls back to sleep. Neurology services have been consulted repeat computed tomography scan, MRI and EEG have been ordered. Vitals have remained stable. UA negative. COVID-19 negative. On 11/01/2021 patient was seen and examined on the medical floor she is more alert and responsive today there is no fever or chills no headache or dizziness no chest pain no shortness of breath no cough no nausea or vomiting no abdominal pain no diarrhea and no urinary symptoms. Patient has severe swallowing abnormality, family is deciding whether they want her to have a PEG tube on whether to proceed with hospice care, case was discussed in length with patient's family, and also discussed with neurologist Dr. Jara Objective - Vital Signs Vital signs: Vital Signs Temp 97.1 F L 11/01/21 14:00 Pulse 73 11/01/21 14:00 Resp 14 11/01/21 14:00 BP 144/78 11/01/21 14:00 Pulse Ox 97 11/01/21 14:00 FiO2 Intake & Output 10/31/21 11/01/21 11/01/21 18:59 06:59 18:59 Other: Voiding Method Diaper Diaper Incontinent Incontinent # Voids 2 - Exam In general patient is alert and oriented x 3 in no distress HEENT head normocephalic and atraumatic Neck is supple no JVD no goiter no lymphadenopathy no carotid bruit Chest examination is clear to auscultation no crackles no wheezing Cardiac exam reveals regular heart sounds S1 and S2 no gallops no murmurs Abdomen is soft nontender no organomegaly with normal bowel sounds Extremity exam reveals no edema no cyanosis or clubbing Neurological examination very limited due to patient noncooperation but essentially reveals no gross focal deficits - Labs CBC & Chem 7: 11/01/21 06:54 11/01/21 06:54 Labs: Abnormal Lab Results - Last 24 Hours (Table) 10/31/21 10/31/21 10/31/21 Range/Units 16:02 16:02 17:01 RBC 3.08 L (3.80-5.40) m/uL Hgb 10.1 L (11.4-16.0) gm/dL Hct 31.4 L (34.0-46.0) % MCV 102.0 H (80.0-100.0) fL MCH (27.0-32.0) pg RDW (11.5-14.5) % Lymphocytes # 0.9 L (1.0-4.8) k/uL Eosinophils # (0.04-0.35) X 10*3/uL BUN 31 H (7-17) mg/dL Creatinine 1.68 H (0.52-1.04) mg/dL Est GFR (CKD-EPI)AfAm (60.0-200.0) Est GFR (CKD-EPI)NonAf (60.0-200.0) Glucose 115 H (74-99) mg/dL POC Glucose (mg/dL) 112 H (70-110) mg/dL Albumin 3.2 L (3.5-5.0) g/dL Albumin/Globulin Ratio (1.60-3.17) g/dL 11/01/21 11/01/21 11/01/21 Range/Units 06:54 06:54 11:00 RBC 3.01 L (3.80-5.40) m/uL Hgb 9.9 L (11.4-16.0) gm/dL Hct 30.3 L (34.0-46.0) % MCV 100.7 H (80.0-100.0) fL MCH 32.9 H (27.0-32.0) pg RDW 15.0 H (11.5-14.5) % Lymphocytes # (1.0-4.8) k/uL Eosinophils # 0.44 H (0.04-0.35) X 10*3/uL BUN (7-17) mg/dL Creatinine 1.7 H (0.52-1.04) mg/dL Est GFR (CKD-EPI)AfAm 30.9 L (60.0-200.0) Est GFR (CKD-EPI)NonAf 26.6 L (60.0-200.0) Glucose (74-99) mg/dL POC Glucose (mg/dL) 116 H (70-110) mg/dL Albumin 3.5 L (3.5-5.0) g/dL Albumin/Globulin Ratio 1.13 L (1.60-3.17) g/dL Assessment and Plan Plan: Generalized weakness Evidence of acute bronchitis on chest x-ray Acute kidney injury was elevated BUN and creatinine Acute mental status changes cause is unclear Macrocytic anemia MCV is 101.5, will check vitamin B12 and folate level Significant weight loss will obtain nutrition consult Underlying history of hyperlipidemia Underlying history of hypertension Underlying history of gout Underlying history of chronic kidney disease At this time patient was seen and examined Patient was started on IV fluid normal saline at 50 mL an hour Echocardiogram and carotid Doppler were ordered Neurology consult requested MRI, computed tomography scan and EEG ordered
--- NOTE | 2021-11-02 10:28 | P.PN ---
Subjective Progress Note Date: 11/02/21 Hattie Cardenas, is an 86 year old female who presented to [facility] emergency room with a chief complaint of generalized weakness and mental status changes He was evaluated in the emergency room vital examination on presentation revealed a temperature of 98.4 pulse 76 respirations 16 blood pressure 140/78 pulse ox 94% on room air Laboratory data revealed a white blood count of 9.8 hemoglobin 10.3 platelet count 236 BUN 47 creatinine 2.0 glucose 205 urine analysis did not reveal any evidence of urinary tract infection COVID-19 PCR was negative Testing in the emergency room revealed chest x-ray revealed evidence of COPD and interstitial densities that may reflect superimposed bronchitis, computed tomography scan of the brain revealed no acute intracranial process, chronic Tod earing periventricular white matter ischemic changes and old right cerebellar lacunar infarct Patient was admitted to medical floor for further evaluation and treatment On 10/31/2021 patient is more lethargic today does wake up but quickly falls back to sleep. Neurology services have been consulted repeat computed tomography scan, MRI and EEG have been ordered. Vitals have remained stable. UA negative. COVID-19 negative. On 11/01/2021 patient was seen and examined on the medical floor she is more alert and responsive today there is no fever or chills no headache or dizziness no chest pain no shortness of breath no cough no nausea or vomiting no abdominal pain no diarrhea and no urinary symptoms. Patient has severe swallowing abnormality, family is deciding whether they want her to have a PEG tube on whether to proceed with hospice care, case was discussed in length with patient's family, and also discussed with neurologist Dr. Jara 11/02/2021 patient is more responsive today. Awaiting family decision regards to PEG tube placement versus hospice care. At this time patient is resting comfortably in bed. Patient denies nausea vomiting or diarrhea. Patient denies any urinary burning or frequency Objective - Vital Signs Vital signs: Vital Signs Temp 97.3 F L 11/02/21 07:50 Pulse 75 11/02/21 07:50 Resp 18 11/02/21 07:50 BP 156/82 11/02/21 07:50 Pulse Ox 96 11/02/21 07:50 FiO2 Intake & Output 11/01/21 11/02/21 11/02/21 18:59 06:59 18:59 Output Total 200 200 Balance -200 -200 Output: Urine 200 200 Other: Voiding Method Diaper Diaper Incontinent Incontinent External Catheter - Exam In general patient is alert and oriented x 3 in no distress HEENT head normocephalic and atraumatic Neck is supple no JVD no goiter no lymphadenopathy no carotid bruit Chest examination is clear to auscultation no crackles no wheezing Cardiac exam reveals regular heart sounds S1 and S2 no gallops no murmurs Abdomen is soft nontender no organomegaly with normal bowel sounds Extremity exam reveals no edema no cyanosis or clubbing Neurological examination very limited due to patient noncooperation but essenti ally reveals no gross focal deficits - Labs CBC & Chem 7: 11/01/21 06:54 11/01/21 06:54 Labs: Abnormal Lab Results - Last 24 Hours (Table) 11/01/21 11/01/21 11/01/21 Range/Units 06:54 06:54 11:00 RBC 3.01 L (4.10-5.20) X 10*6/uL Hgb 9.9 L (12.0-15.0) g/dL Hct 30.3 L (37.2-46.3) % MCV 100.7 H (80.0-97.0) fL MCH 32.9 H (27.0-32.0) pg RDW 15.0 H (11.5-14.5) % Eosinophils # 0.44 H (0.04-0.35) X 10*3/uL Creatinine 1.7 H (0.6-1.5) mg/dL Est GFR (CKD-EPI)AfAm 30.9 L (60.0-200.0) Est GFR (CKD-EPI)NonAf 26.6 L (60.0-200.0) POC Glucose (mg/dL) 116 H (70-110) mg/dL Albumin 3.5 L (3.8-4.9) g/dL Albumin/Globulin Ratio 1.13 L (1.60-3.17) g/dL Assessment and Plan Plan: Generalized weakness Evidence of acute bronchitis on chest x-ray Acute kidney injury was elevated BUN and creatinine Acute mental status changes cause is unclear Macrocytic anemia MCV is 101.5, will check vitamin B12 and folate level Significant weight loss will obtain nutrition consult Underlying history of hyperlipidemia Underlying history of hypertension Underlying history of gout Underlying history of chronic kidney disease Dysphagia. Patient failed barium swallow test. Family to decide between PEG tube versus hospice care At this time patient was seen and examined
[2021-11-02] MEDS: ENOXAPARIN 30 MG/0.3 ML SYRINGE SQ SCH (10:49)
[2021-11-02 11:04] LABS: Basophils % (A) 1 %; Eosinophils # (A) 0.4 k/uL (0-0.7); Eosinophils % (A) 5 %; HCT 33.9 % (34.0-46.0); HGB 10.5 gm/dL (11.4-16.0); Hypochromasia Moderate; Lymphocytes # (A) 1.1 k/uL (1.0-4.8); Lymphocytes % (A) 14 %; MCH 32.5 pg (25.0-35.0); MCHC 30.9 g/dL (31.0-37.0); MCV 105.3 fL (80.0-100.0); Macrocytosis Moderate; Mean Platelet Volume 8.5; Monocytes # (A) 0.5 k/uL (0-1.0); Monocytes % (A) 6 %; Neutrophils # (A) 5.5 k/uL (1.3-7.7); Neutrophils % (A) 71 %; Platelet Count 256 k/uL (150-450); RBC 3.22 m/uL (3.80-5.40); RDW 15.5 % (11.5-15.5); WBC 7.6 k/uL (3.8-10.6)
[2021-11-02 11:17] LABS: ALT 11 U/L (4-34); AST 23 U/L (14-36); African American GFR (CKD) 35 (>60 ml/min/1.73 sqM); Albumin 3.6 g/dL (3.5-5.0); Albumin/Globulin Ratio 1.2; Alkaline Phosphatase 76 U/L (38-126); Anion Gap 17 mmol/L; Blood Urea Nitrogen 27 mg/dL (7-17); Calcium 9.7 mg/dL (8.4-10.2); Carbon Dioxide 18 mmol/L (22-30); Chloride 107 mmol/L (98-107); Glucose 106 mg/dL (74-99); Non-African American GFR(CKD) 30 (>60 ml/min/1.73 sqM); Potassium 4.5 mmol/L (3.5-5.1); Sodium 142 mmol/L (137-145); Total Bilirubin 0.7 mg/dL (0.2-1.3); Total Protein 6.6 g/dL (6.3-8.2)
[2021-11-02 11:23] LABS: Glucose,Whole Blood 87 mg/dL (70-110)
[2021-11-02] MEDS: MULTIVITAMINS, THERA 1 EACH TAB PO SCH (11:38)
[2021-11-02] MEDS: PANTOPRAZOLE 40 MG TABLET PO SCH (11:39)
[2021-11-02] MEDS: allopurinoL 100 MG TAB PO SCH (11:39)
[2021-11-02] MEDS: PRAVASTATIN SODIUM 20 MG TAB PO SCH (11:39)
[2021-11-02] MEDS: FERROUS SULFATE 325 MG TAB PO SCH (11:39)
[2021-11-02] MEDS: SODIUM BICARBONATE TAB 650 MG TAB PO SCH (11:39)
[2021-11-02] MEDS: METOPROLOL TARTRATE 25 MG TAB PO SCH (11:39)
[2021-11-02] MEDS: ASPIRIN 300 MG SUPP RECTAL SCH (11:49)
[2021-11-02 16:37] LABS: Glucose,Whole Blood 87 mg/dL (70-110)
[2021-11-02] MEDS: SODIUM CHLORIDE 0.9% 1,000 ML IV SCH (18:36)
[2021-11-02 20:34] LABS: Glucose,Whole Blood 85 mg/dL (70-110)
[2021-11-02] MEDS ORDERED: METOPROLOL TARTRATE 5 MG/5 ML VIAL IVP SCH (21:00)
[2021-11-03] MEDS: SODIUM CHLORIDE 0.9% 1,000 ML IV SCH ×2 (04:15→17:18)
[2021-11-03 07:10] LABS: Glucose,Whole Blood 88 mg/dL (70-110)
[2021-11-03] MEDS: MULTIVITAMINS, THERA 1 EACH TAB PO SCH (08:44)
[2021-11-03] MEDS: ENOXAPARIN 30 MG/0.3 ML SYRINGE SQ SCH (08:44)
[2021-11-03] MEDS: ASPIRIN 300 MG SUPP RECTAL SCH (11:11)
--- NOTE | 2021-11-03 12:05 | P.PN ---
Subjective Progress Note Date: 11/03/21 Hattie Cardenas, is an 86 year old female who presented to [facility] emergency room with a chief complaint of generalized weakness and mental status changes He was evaluated in the emergency room vital examination on presentation revealed a temperature of 98.4 pulse 76 respirations 16 blood pressure 140/78 pulse ox 94% on room air Laboratory data revealed a white blood count of 9.8 hemoglobin 10.3 platelet count 236 BUN 47 creatinine 2.0 glucose 205 urine analysis did not reveal any evidence of urinary tract infection COVID-19 PCR was negative Testing in the emergency room revealed chest x-ray revealed evidence of COPD and interstitial densities that may reflect superimposed bronchitis, computed tomography scan of the brain revealed no acute intracranial process, chronic Tod earing periventricular white matter ischemic changes and old right cerebellar lacunar infarct Patient was admitted to medical floor for further evaluation and treatment On 10/31/2021 patient is more lethargic today does wake up but quickly falls back to sleep. Neurology services have been consulted repeat computed tomography scan, MRI and EEG have been ordered. Vitals have remained stable. UA negative. COVID-19 negative. On 11/01/2021 patient was seen and examined on the medical floor she is more alert and responsive today there is no fever or chills no headache or dizziness no chest pain no shortness of breath no cough no nausea or vomiting no abdominal pain no diarrhea and no urinary symptoms. Patient has severe swallowing abnormality, family is deciding whether they want her to have a PEG tube on whether to proceed with hospice care, case was discussed in length with patient's family, and also discussed with neurologist Dr. Jara 11/02/2021 patient is more responsive today. Awaiting family decision regards to PEG tube placement versus hospice care. At this time patient is resting comfortably in bed. Patient denies nausea vomiting or diarrhea. Patient denies any urinary burning or frequency On 11/03/2021 patient was seen and examined on the medical floor she is alert and responsive in no apparent distress there is no fever or chills no headache or dizziness no chest pain no shortness of breath no cough no nausea or vomiting no abdominal pain no diarrhea no burning with urination no frequency was urination. At this time plan is to repeat swallow evaluation on Friday, family will decide in regard to further management plans after results of swallow evaluation on Friday. Currently her CODE STATUS is no code. Otherwise continue with IV fluid IV antibiotic current management. Objective - Vital Signs Vital signs: Vital Signs Temp 98.1 F 11/03/21 08:00 Pulse 79 11/03/21 08:00 Resp 18 11/03/21 08:00 BP 196/87 11/03/21 08:00 Pulse Ox 95 11/03/21 08:00 FiO2 Intake & Output 11/02/21 11/03/21 11/03/21 18:59 06:59 18:59 Intake Total 0 Output Total 100 600 Balance -100 -600 Intake: Oral 0 Output: Urine 100 600 Other: Voiding Method External Catheter External Catheter - Exam In general patient is alert and oriented x 3 in no distress HEENT head normocephalic and atraumatic Neck is supple no JVD no goiter no lymphadenopathy no carotid bruit Chest examination is clear to auscultation no crackles no wheezing Cardiac exam reveals regular heart sounds S1 and S2 no gallops no murmurs Abdomen is soft nontender no organomegaly with normal bowel sounds Extremity exam reveals no edema no cyanosis or clubbing Neurological examination very limited due to patient noncooperation but essentially reveals no gross focal deficits - Labs CBC & Chem 7: 11/02/21 10:33 11/02/21 10:36 Assessment and Plan Plan: Generalized weakness Evidence of acute bronchitis on chest x-ray Acute kidney injury was elevated BUN and creatinine Acute mental status changes cause is unclear Macrocytic anemia MCV is 101.5, will check vitamin B12 and folate level Significant weight loss will obtain nutrition consult Underlying history of hyperlipidemia Underlying history of hypertension Underlying history of gout Underlying history of chronic kidney disease Dysphagia. Patient failed barium swallow test. Family to decide between PEG tube versus hospice care At this time patient was seen and examined
[2021-11-03 12:07] LABS: Glucose,Whole Blood 94 mg/dL (70-110)
[2021-11-03 12:09] LABS: Basophils # (A) 0.04 X 10*3/uL (0.00-0.10); Basophils % (A) 0.5 %; Eosinophils # (A) 0.31 X 10*3/uL (0.04-0.35); Eosinophils % (A) 4.1 %; HCT 30.5 % (37.2-46.3); HGB 9.4 g/dL (12.0-15.0); Immature Grans, Automated 0.3 %; Lymphocytes % (A) 10.7 %; MCHC 30.8 g/dL (32.0-37.0); MCV 103.7 fL (80.0-97.0); Mean Platelet Volume 11.4 fL (9.5-12.2); Monocytes # (A) 0.55 X 10*3/uL (0.20-1.00); Monocytes % (A) 7.4 %; NRBC Per 100 WBC 0 /100 WBCS (0.0-0.0); Neutrophils # (A) 5.76 X 10*3/uL (1.80-7.70); Platelet Count 254 X 10*3/uL (140-440); RBC 2.94 X 10*6/uL (4.10-5.20); RDW 15.2 % (11.5-14.5); WBC 7.48 X 10*3/uL (4.50-10.00)
[2021-11-03 12:33] LABS: African American GFR (CKD) 39.1 (60.0-200.0); Albumin 3.3 g/dL (3.8-4.9); Albumin/Globulin Ratio 1.1 (1.60-3.17); Anion Gap 20.6 mmol/L (10.00-18.00); BUN/Creat Ratio 16.86 Ratio (12.00-20.00); Blood Urea Nitrogen 23.6 mg/dL (9.0-27.0); Calcium 9.7 mg/dL (8.7-10.3); Carbon Dioxide 17.4 mmol/L (20.0-27.5); Non-African American GFR(CKD) 33.7 (60.0-200.0); Potassium 4.3 mmol/L (3.5-5.5); Total Bilirubin 0.3 mg/dL (0.30-1.20); Total Protein 6.3 g/dL (6.2-8.2)
--- NOTE | 2021-11-03 15:08 | P.PN ---
Subjective Progress Note Date: 11/02/21 11/02/2021: Patient is laying comfortably in the bed. She feels cold. Patient denies any headache. Offers no new complaints. Continues to have weakness and slurred speech. 11/01/2021: Patient was seen for follow-up. Patient has significantly improved today as compared to yesterday. She is talking more clearly, recognizing people. However she has failed barium swallow, she had silent aspiration for everything. Patient continues to be generalized weak. On asking about diplopia, she states that she sometimes see double. He completely denies any headache. Patient's multiple family members were present today including her sisters. Apparently to the report, patient has been having slurred speech for a few days prior to arrival. They do not remember patient having any history of strokes, or any symptoms of stroke otherwise in the past. Patient's family states that patient has been in the habit of talking to herself. She talks all the time. Family does not endorse any history of dementia. Objective - Vital Signs Vital signs: Vital Signs Temp 98.3 F 11/02/21 14:00 Pulse 74 11/02/21 14:00 Resp 18 11/02/21 14:00 BP 157/82 11/02/21 14:00 Pulse Ox 97 11/02/21 14:00 FiO2 Intake & Output 11/02/21 11/02/21 11/03/21 06:59 18:59 06:59 Intake Total 0 Output Total 200 100 Balance -200 -100 Intake: Oral 0 Output: Urine 200 100 Other: Voiding Method Diaper Incontinent - Exam Patient is an elderly female, in no acute distress. Patient is alert awake. Patient knows her name, states it's November and the year is 1918. She knows that she was born in 1936. Speech is mildly dysarthric, but much better than yesterday. Her language functions are normal. Attention, concentration is intact and fund of knowledge is limited. On cranial nerve examination, pupils are equal, round and reacting to light, visual ramires are full on confrontation, with no neglect on double simultaneous stimulation. Extraocular muscles are intact with no nystagmus. Face is symmetric, tongue protrudes to the midline. Her tongue is weak for [id number] movement. On opening the mouth, she had dried up mucus on the back of the throat. Her mouth is very dry. Palatal elevation and sensation normal, hearing and shoulder shrug normal, facial sensation normal. On muscle strength testing, there is no pronator drift. The strength is deltoid 4+/4+, biceps 4-/4, triceps 4-/4, test conductor 4-/4. In the lower limbs hip flexion is 4-/3+, ankle dorsiflexion 5-/5-. Deep tendon reflexes are symmetric biceps 2, brachioradialis 2, knees 1, plantar is downgoing on the right, up on the left. Sensory to touch is equal with no neglect on double simultaneous stimulation. Cerebellar function showed no ataxia for [id number] testing. Tone of muscles normal. Bulk of muscles is significantly decreased. No obvious fasciculations noted of the tongue, or of the extremities. Gait deferred.. On general examination, there is no carotid bruit or murmur, S1-S2 audible. Chest is clear on consultation. Abdomen is soft nontender. No organomegaly, bowel sounds present. Peripheral pulses are present. No edema. - Labs CBC & Chem 7: 11/03/21 07:59 11/03/21 07:59 Labs: Abnormal Lab Results - Last 24 Hours (Table) 11/02/21 11/02/21 Range/Units 10:33 10:36 RBC 3.22 L (3.80-5.40) m/uL Hgb 10.5 L (11.4-16.0) gm/dL Hct 33.9 L (34.0-46.0) % MCV 105.3 H (80.0-100.0) fL MCHC 30.9 L (31.0-37.0) g/dL Carbon Dioxide 18 L (22-30) mmol/L BUN 27 H (7-17) mg/dL Creatinine 1.54 H (0.52-1.04) mg/dL Glucose 106 H (74-99) mg/dL Assessment and Plan Assessment: * 86-year-old female with few days history of dysarthria, dysphagia, unclear cause. MRI of the brain revealed no acute ischemic process. 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 No acute stroke. Patient's family does not remember patient having any clinical stroke symptoms in the past. Her current neurological worsening may be related to possible stroke/reversible ischemic neurologic deficit with negative brain MRI. Patient's mentation, as well as her speech has improved today. * Altered mental status, possible mild metabolic encephalopathy. Patient's mentation has much improved. * Dysphagia, failed swallow. 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 MG less likely. Motor neuron disease also possibility. Patient has some atrophy of the muscles, with relatively brisk reflexes. I did not see any obvious fasciculations. Motor neuron disease is still a concern. No evidence of Rocio Campo syndrome, as reflexes are preserved. * Diabetes, well controlled with last A1c 6.1 07/10/2021. * Hypertension * Chronic renal disease * Chronic macrocytic anemia * Peripheral neuropathy Plan: * Family to decide between PEG tube placement versus hospice care. * Recommend EMG and nerve conduction studies of upper and lower extremities as an outpatient to rule out evidence of motor neuron disease. * Continue Aspirin 300 mg rectally. Patient is nothing by mouth per speech therapist. Patient has again failed swallow. Patient may be a candidate for short-term PEG placement. * MRI of the brain revealed no acute ischemic stroke. Remote right cerebellar injuries, right basal ganglia, right dennis radiata/caudate nucleus with associated encephalomalacia. Nonspecific white matter changes, likely secondary to small vessel ischemic disease. I personally reviewed MRI, agree with the findings. * EEG was abnormal due to background slowing of moderate degree. The suggestive of generalized cerebral dysfunction as can be seen with toxic metabolic encephalopathy, or due to diffuse structural brain abnormality. No epileptiform activity was seen. * 2-D echo revealed normal left ventricular systolic function, with EF 50-55%. Severe myogenic calcification with mild mitral regurgitation. Aortic sclerosis without any stenosis. Normal left atrial size. * Carotid Doppler revealed left bifurcation borderline stenosis 50-69% by peak velocity. Right side less than 50% stenosis. Antegrade flow in both vertebral arteries. * Hemoglobin A1c 6.1 on 07/10/2021 * Lipid panel with cholesterol 165, LDL 77, HDL 30 and triglycerides 286 on 10/01/2021. Continue Pravachol 20 mg daily. * B12 1162, folate > 20.0. Await acetylcholine receptor antibodies. Low threshold for myasthenia. * PT, OT and speech therapy. * Discussed with patient's family and primary physician in detail.
[2021-11-03 17:03] LABS: Glucose,Whole Blood 87 mg/dL (70-110)
[2021-11-03 20:34] LABS: Glucose,Whole Blood 105 mg/dL (70-110)
[2021-11-04] MEDS: SODIUM CHLORIDE 0.9% 1,000 ML IV SCH ×2 (06:30→21:06)
[2021-11-04 07:13] LABS: Glucose,Whole Blood 113 mg/dL (70-110)
[2021-11-04] MEDS: MULTIVITAMINS, THERA 1 EACH TAB PO SCH (09:06)
[2021-11-04] MEDS: ENOXAPARIN 30 MG/0.3 ML SYRINGE SQ SCH (09:07)
[2021-11-04] MEDS: ASPIRIN 300 MG SUPP RECTAL SCH (09:07)
[2021-11-04] MEDS: hydrALAZINE HCL 20 MG/ML 1 ML VIAL IVP PRN ×2 (09:07→16:51)
[2021-11-04 10:19] LABS: Basophils # (A) 0.05 X 10*3/uL (0.00-0.10); Basophils % (A) 0.6 %; Eosinophils # (A) 0.11 X 10*3/uL (0.04-0.35); Eosinophils % (A) 1.3 %; HCT 29.2 % (37.2-46.3); HGB 9.3 g/dL (12.0-15.0); Immature Grans, Automated 0.2 %; Lymphocytes % (A) 10.5 %; MCH 32.6 pg (27.0-32.0); MCHC 31.8 g/dL (32.0-37.0); MCV 102.5 fL (80.0-97.0); Mean Platelet Volume 11.6 fL (9.5-12.2); Monocytes # (A) 0.52 X 10*3/uL (0.20-1.00); NRBC Per 100 WBC 0 /100 WBCS (0.0-0.0); Neutrophils # (A) 7.01 X 10*3/uL (1.80-7.70); Neutrophils % (A) 81.4 %; Platelet Count 250 X 10*3/uL (140-440); RBC 2.85 X 10*6/uL (4.10-5.20); RDW 15.3 % (11.5-14.5); WBC 8.61 X 10*3/uL (4.50-10.00)
[2021-11-04 10:50] LABS: African American GFR (CKD) 38.1 (60.0-200.0); Albumin 3.3 g/dL (3.8-4.9); Albumin/Globulin Ratio 1.11 (1.60-3.17); Anion Gap 21.6 mmol/L (10.00-18.00); BUN/Creat Ratio 16.43 Ratio (12.00-20.00); Blood Urea Nitrogen 23.5 mg/dL (9.0-27.0); Calcium 9.7 mg/dL (8.7-10.3); Carbon Dioxide 15.3 mmol/L (20.0-27.5); Non-African American GFR(CKD) 32.9 (60.0-200.0); Potassium 4.2 mmol/L (3.5-5.5); Total Bilirubin 0.3 mg/dL (0.30-1.20); Total Protein 6.3 g/dL (6.2-8.2)
--- NOTE | 2021-11-04 10:55 | P.PN ---
Subjective Progress Note Date: 11/04/21 Hattie Cardenas, is an 86 year old female who presented to [facility] emergency room with a chief complaint of generalized weakness and mental status changes He was evaluated in the emergency room vital examination on presentation revealed a temperature of 98.4 pulse 76 respirations 16 blood pressure 140/78 pulse ox 94% on room air Laboratory data revealed a white blood count of 9.8 hemoglobin 10.3 platelet count 236 BUN 47 creatinine 2.0 glucose 205 urine analysis did not reveal any evidence of urinary tract infection COVID-19 PCR was negative Testing in the emergency room revealed chest x-ray revealed evidence of COPD and interstitial densities that may reflect superimposed bronchitis, computed tomography scan of the brain revealed no acute intracranial process, chronic Tod earing periventricular white matter ischemic changes and old right cerebellar lacunar infarct Patient was admitted to medical floor for further evaluation and treatment On 10/31/2021 patient is more lethargic today does wake up but quickly falls back to sleep. Neurology services have been consulted repeat computed tomography scan, MRI and EEG have been ordered. Vitals have remained stable. UA negative. COVID-19 negative. On 11/01/2021 patient was seen and examined on the medical floor she is more alert and responsive today there is no fever or chills no headache or dizziness no chest pain no shortness of breath no cough no nausea or vomiting no abdominal pain no diarrhea and no urinary symptoms. Patient has severe swallowing abnormality, family is deciding whether they want her to have a PEG tube on whether to proceed with hospice care, case was discussed in length with patient's family, and also discussed with neurologist Dr. Jara 11/02/2021 patient is more responsive today. Awaiting family decision regards to PEG tube placement versus hospice care. At this time patient is resting comfortably in bed. Patient denies nausea vomiting or diarrhea. Patient denies any urinary burning or frequency On 11/03/2021 patient was seen and examined on the medical floor she is alert and responsive in no apparent distress there is no fever or chills no headache or dizziness no chest pain no shortness of breath no cough no nausea or vomiting no abdominal pain no diarrhea no burning with urination no frequency was urination. At this time plan is to repeat swallow evaluation on Friday, family will decide in regard to further management plans after results of swallow evaluation on Friday. Currently her CODE STATUS is no code. Otherwise continue with IV fluid IV antibiotic current management. On 11/04/2021 patient is currently resting comfortably in bed. Plans for repeat swallow evaluation on Friday to assess for possible PEG tube placement. This time patient denies chest pain or shortness breath. Patient denies nausea vomiting or diarrhea. Patient denies any urinary burning or frequency Objective - Vital Signs Vital signs: Vital Signs Temp 98.2 F 11/04/21 08:00 Pulse 77 11/04/21 01:06 Resp 15 11/04/21 08:00 BP 203/96 11/04/21 08:00 Pulse Ox 96 11/04/21 08:00 FiO2 Intake & Output 11/03/21 11/04/21 11/04/21 18:59 06:59 18:59 Output Total 700 400 Balance -700 -400 Output: Urine 700 400 Other: Voiding Method External Catheter External Catheter External Catheter - Exam In general patient is alert and oriented x 3 in no distress HEENT head normocephalic and atraumatic Neck is supple no JVD no goiter no lymphadenopathy no carotid bruit Chest examination is clear to auscultation no crackles no wheezing Cardiac exam reveals regular heart sounds S1 and S2 no gallops no murmurs Abdomen is soft nontender no organomegaly with normal bowel sounds Extremity exam reveals no edema no cyanosis or clubbing Neurological examination very limited due to patient noncooperation but essentially reveals no gross focal deficits - Labs CBC & Chem 7: 11/04/21 06:17 11/04/21 06:17 Labs: Abnormal Lab Results - Last 24 Hours (Table) 11/03/21 11/03/21 11/04/21 Range/Units 07:59 07:59 06:17 RBC 2.94 L 2.85 L (4.10-5.20) X 10*6/uL Hgb 9.4 L 9.3 L (12.0-15.0) g/dL Hct 30.5 L 29.2 L (37.2-46.3) % MCV 103.7 H 102.5 H (80.0-97.0) fL MCH 32.6 H (27.0-32.0) pg MCHC 30.8 L 31.8 L (32.0-37.0) g/dL RDW 15.2 H 15.3 H (11.5-14.5) % Lymphocytes # 0.80 L (0.90-5.00) X 10*3/uL Sodium 148 H (135-145) mmol/L Chloride 110 H (96-109) mmol/L Carbon Dioxide 17.4 L (20.0-27.5) mmol/L Anion Gap 20.60 H (10.00-18.00) mmol/L Est GFR (CKD-EPI)AfAm 39.1 L (60.0-200.0) Est GFR (CKD-EPI)NonAf 33.7 L (60.0-200.0) Glucose (70-110) mg/dL POC Glucose (mg/dL) (70-110) mg/dL Albumin 3.3 L (3.8-4.9) g/dL Albumin/Globulin Ratio 1.10 L (1.60-3.17) g/dL 11/04/21 11/04/21 Range/Units 06:17 07:11 RBC (4.10-5.20) X 10*6/uL Hgb (12.0-15.0) g/dL Hct (37.2-46.3) % MCV (80.0-97.0) fL MCH (27.0-32.0) pg MCHC (32.0-37.0) g/dL RDW (11.5-14.5) % Lymphocytes # (0.90-5.00) X 10*3/uL Sodium 149 H (135-145) mmol/L Chloride 112 H (96-109) mmol/L Carbon Dioxide 15.3 L (20.0-27.5) mmol/L Anion Gap 21.60 H (10.00-18.00) mmol/L Est GFR (CKD-EPI)AfAm 38.1 L (60.0-200.0) Est GFR (CKD-EPI)NonAf 32.9 L (60.0-200.0) Glucose 118 H (70-110) mg/dL POC Glucose (mg/dL) 113 H (70-110) mg/dL Albumin 3.3 L (3.8-4.9) g/dL Albumin/Globulin Ratio 1.11 L (1.60-3.17) g/dL Assessment and Plan Plan: Generalized weakness Evidence of acute bronchitis on chest x-ray Acute kidney injury was elevated BUN and creatinine Acute mental status changes cause is unclear Macrocytic anemia MCV is 101.5, will check vitamin B12 and folate level Significant weight loss will obtain nutrition consult Underlying history of hyperlipidemia Underlying history of hypertension Underlying history of gout Underlying history of chronic kidney disease Dysphagia. Patient failed barium swallow test. Family to decide between PEG tube versus hospice care At this time patient was seen and examined Repeat swallow exam Friday
[2021-11-04 12:18] LABS: Glucose,Whole Blood 135 mg/dL (70-110)
[2021-11-04 16:54] LABS: Glucose,Whole Blood 144 mg/dL (70-110)
[2021-11-04 19:54] LABS: Glucose,Whole Blood 148 mg/dL (70-110)
--- NOTE | 2021-11-04 21:47 | P.PN ---
Subjective Progress Note Date: 11/04/21 11/04/2021: This is a telemedicine neurology follow performed today on 11/04/2021. Patient denies any changes in her condition. Patient denies any headache. 11/02/2021: Patient is laying comfortably in the bed. She feels cold. Patient denies any headache. Offers no new complaints. Continues to have weakness and slurred speech. 11/01/2021: Patient was seen for follow-up. Patient has significantly improved today as compared to yesterday. She is talking more clearly, recognizing people. However she has failed barium swallow, she had silent aspiration for everything. Patient continues to be generalized weak. On asking about diplopia, she states that she sometimes see double. He completely denies any headache. Patient's multiple family members were present today including her sisters. Apparently to the report, patient has been having slurred speech for a few days prior to arrival. They do not remember patient having any history of strokes, or any symptoms of stroke otherwise in the past. Patient's family states that patient has been in the habit of talking to herself. She talks all the time. Family does not endorse any history of dementia. Objective - Vital Signs Vital signs: Vital Signs Temp 98.2 F 11/04/21 08:00 Pulse 77 11/04/21 01:06 Resp 15 11/04/21 08:00 BP 203/96 11/04/21 08:00 Pulse Ox 96 11/04/21 08:00 FiO2 Intake & Output 11/03/21 11/04/21 11/04/21 18:59 06:59 18:59 Output Total 700 400 Balance -700 -400 Output: Urine 700 400 Other: Voiding Method External Catheter External Catheter External Catheter - Exam 11/04/2021: Patient is laying comfortably in the bed. Her speech has improved. Still with some slurring. Patient is Fully alert and awake. Detail examination deferred. Please refer to examination below. 11/02/2021: Patient is an elderly female, in no acute distress. Patient is alert awake. Patient knows her name, states it's November and the year is 1918. She knows that she was born in 1936. Speech is mildly dysarthric, but much better than yesterday. Her language functions are normal. Attention, concentration is intact and fund of knowledge is limited. On cranial nerve examination, pupils are equal, round and reacting to light, visual ramires are full on confrontation, with no neglect on double simultaneous stimulation. Extraocular muscles are intact with no nystagmus. Face is symmetric, tongue protrudes to the midline. Her tongue is weak for [id number] movement. On opening the mouth, she had dried up mucus on the back of the throat. Her mouth is very dry. Palatal elevation and sensation normal, hearing and shoulder shrug normal, facial sensation normal. On muscle strength testing, there is no pronator drift. The strength is deltoid 4+/4+, biceps 4-/4, triceps 4-/4, making machine operator 4-/4. In the lower limbs hip flexion is 4-/3+, ankle dorsiflexion 5-/5-. Deep tendon reflexes are symmetric biceps 2, brachioradialis 2, knees 1, plantar is downgoing on the right, up on the left. Sensory to touch is equal with no neglect on double simultaneous stimulation. Cerebellar function showed no ataxia for [id number] testing. Tone of musc les normal. Bulk of muscles is significantly decreased. No obvious fasciculations noted of the tongue, or of the extremities. Gait deferred.. On general examination, there is no carotid bruit or murmur, S1-S2 audible. Chest is clear on consultation. Abdomen is soft nontender. No organomegaly, bowel sounds present. Peripheral pulses are present. No edema. - Labs CBC & Chem 7: 11/04/21 06:17 11/04/21 06:17 Labs: Abnormal Lab Results - Last 24 Hours (Table) 11/03/21 11/04/21 11/04/21 Range/Units 07:59 06:17 06:17 RBC 2.85 L (4.10-5.20) X 10*6/uL Hgb 9.3 L (12.0-15.0) g/dL Hct 29.2 L (37.2-46.3) % MCV 102.5 H (80.0-97.0) fL MCH 32.6 H (27.0-32.0) pg MCHC 31.8 L (32.0-37.0) g/dL RDW 15.3 H (11.5-14.5) % Sodium 148 H 149 H (135-145) mmol/L Chloride 110 H 112 H (96-109) mmol/L Carbon Dioxide 17.4 L 15.3 L (20.0-27.5) mmol/L Anion Gap 20.60 H 21.60 H (10.00-18.00) mmol/L Est GFR (CKD-EPI)AfAm 39.1 L 38.1 L (60.0-200.0) Est GFR (CKD-EPI)NonAf 33.7 L 32.9 L (60.0-200.0) Glucose 118 H (70-110) mg/dL POC Glucose (mg/dL) (70-110) mg/dL Albumin 3.3 L 3.3 L (3.8-4.9) g/dL Albumin/Globulin Ratio 1.10 L 1.11 L (1.60-3.17) g/dL 11/04/21 11/04/21 Range/Units 07:11 12:16 RBC (4.10-5.20) X 10*6/uL Hgb (12.0-15.0) g/dL Hct (37.2-46.3) % MCV (80.0-97.0) fL MCH (27.0-32.0) pg MCHC (32.0-37.0) g/dL RDW (11.5-14.5) % Sodium (135-145) mmol/L Chloride (96-109) mmol/L Carbon Dioxide (20.0-27.5) mmol/L Anion Gap (10.00-18.00) mmol/L Est GFR (CKD-EPI)AfAm (60.0-200.0) Est GFR (CKD-EPI)NonAf (60.0-200.0) Glucose (70-110) mg/dL POC Glucose (mg/dL) 113 H 135 H (70-110) mg/dL Albumin (3.8-4.9) g/dL Albumin/Globulin Ratio (1.60-3.17) g/dL Assessment and Plan Assessment: * Altered mental status, possible mild metabolic encephalopathy. Patient's mentation has much improved. * Dysphagia, failed swallow. 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 MG less likely. Motor neuron disease also possibility. Patient has some atrophy of the muscles, with relatively brisk reflexes. I did not see any obvious fasciculations. Motor neuron disease is still a concern. No evidence of Gi llian Campo syndrome, as reflexes are preserved. * Diabetes, well controlled with last A1c 6.1 07/10/2021. * Hypertension * Chronic renal disease * Chronic macrocytic anemia * Peripheral neuropathy Plan: * Family to decide between PEG tube placement versus hospice care. Patient undergoing repeat swallow studies in the morning. * Recommend EMG and nerve conduction studies of upper and lower extremities as an outpatient to rule out evidence of motor neuron disease. * Continue Aspirin 300 mg rectally. Patient is nothing by mouth per speech therapist. Patient has again failed swallow. Patient may be a candidate for short-term PEG placement. * MRI of the brain revealed no acute ischemic stroke. Remote right cerebellar injuries, right basal ganglia, right dennis radiata/caudate nucleus with asso ciated encephalomalacia. Nonspecific white matter changes, likely secondary to small vessel ischemic disease. I personally reviewed MRI, agree with the findings. * EEG was abnormal due to background slowing of moderate degree. The suggestive of generalized cerebral dysfunction as can be seen with toxic metabolic encephalopathy, or due to diffuse structural brain abnormality. No epileptiform activity was seen. * 2-D echo revealed normal left ventricular systolic function, with EF 50-55%. Severe myogenic calcification with mild mitral regurgitation. Aortic sclerosis without any stenosis. Normal left atrial size. * Carotid Doppler revealed left bifurcation borderline stenosis 50-69% by peak velocity. Right side less than 50% stenosis. Antegrade flow in both vertebral arteries. * Hemoglobin A1c 6.1 on 07/10/2021 * Lipid panel with cholesterol 165, LDL 77, HDL 30 and triglycerides 286 on 10/01/2021. Continue Pravachol 20 mg daily. * B12 1162, folate > 20.0. Await acetylcholine receptor antibodies. Low threshold for myasthenia. * PT, OT and speech therapy. Patient undergoing repeat swallow study in the morning. * Dr. Endy Blas starting neurology service in the morning.
[2021-11-05] MEDS: hydrALAZINE HCL 20 MG/ML 1 ML VIAL IVP PRN ×2 (03:25→21:31)
[2021-11-05 06:54] LABS: Glucose,Whole Blood 137 mg/dL (70-110)
[2021-11-05] MEDS: SODIUM CHLORIDE 0.9% 1,000 ML IV SCH ×2 (08:42→16:44)
[2021-11-05] MEDS: MULTIVITAMINS, THERA 1 EACH TAB PO SCH (08:42)
[2021-11-05] MEDS: ENOXAPARIN 30 MG/0.3 ML SYRINGE SQ SCH (09:07)
[2021-11-05 10:40] LABS: Basophils # (A) 0.05 X 10*3/uL (0.00-0.10); Basophils % (A) 0.4 %; Eosinophils # (A) 0.02 X 10*3/uL (0.04-0.35); Eosinophils % (A) 0.2 %; HCT 30.3 % (37.2-46.3); HGB 9.7 g/dL (12.0-15.0); Immature Grans, Automated 1.1 %; Lymphocytes # (A) 0.81 X 10*3/uL (0.90-5.00); MCH 33.9 pg (27.0-32.0); MCV 105.9 fL (80.0-97.0); Mean Platelet Volume 11.1 fL (9.5-12.2); Monocytes # (A) 0.62 X 10*3/uL (0.20-1.00); Monocytes % (A) 5.3 %; NRBC Per 100 WBC 0 /100 WBCS (0.0-0.0); Neutrophils # (A) 9.98 X 10*3/uL (1.80-7.70); Platelet Count 287 X 10*3/uL (140-440); RBC 2.86 X 10*6/uL (4.10-5.20); RDW 16.2 % (11.5-14.5); WBC 11.61 X 10*3/uL (4.50-10.00)
--- NOTE | 2021-11-05 11:08 | FL ---
EXAMINATION TYPE: FL barium swallow w video DATE OF EXAM: 11/05/2021 CLINICAL HISTORY: 72-year-old female Z85.3, previous aspiration, patient TECHNIQUE: Deglutition study is performed utilizing thin liquid barium, honey and nectar thick liqui d barium, and barium thick applesauce. Total fluoroscopy time: 1 minute 57 seconds Total images: None, real-time fluoroscopy support was provided to speech pathology. COMPARISON: None. FINDINGS: There is delayed swallow initiation with bolus free spilling to the level of the vallecula and pirifo rm sinuses. There is decreased posterior pharyngeal wall peristalsis and large residuals noted. There is deep penetration with all tested consistencies and aspiration with all consistencies except necta r. Delayed cough is encountered. There is diminished epiglottic inversion and hyoid excursion. IMPRESSION: Deep penetration with all tested consistencies. Additional aspiration with all consistencies except n ectar. Large residuals. Additional findings above. Please refer to speech therapist notes for further details if necessary.
[2021-11-05 11:27] LABS: Albumin 3.6 g/dL (3.8-4.9); Albumin/Globulin Ratio 1.17 (1.60-3.17); Anion Gap 20.8 mmol/L (10.00-18.00); BUN/Creat Ratio 18.09 Ratio (12.00-20.00); Blood Urea Nitrogen 28.4 mg/dL (9.0-27.0); Calcium 10.1 mg/dL (8.7-10.3); Carbon Dioxide 13.9 mmol/L (20.0-27.5); Globulin 3.1 g/dL (1.6-3.3); Non-African American GFR(CKD) 29.3 (60.0-200.0); Potassium 3.8 mmol/L (3.5-5.5); Total Bilirubin 0.2 mg/dL (0.30-1.20); Total Protein 6.7 g/dL (6.2-8.2)
[2021-11-05 11:39] LABS: Glucose,Whole Blood 140 mg/dL (70-110)
[2021-11-05] MEDS: ASPIRIN 300 MG SUPP RECTAL SCH (13:21)
--- NOTE | 2021-11-05 14:22 | P.PN ---
Progress Note - Text Progress Note Date: 11/05/21 I took over the neurology service today from Dr. Jara. Per the nurse, it seems the patient family has decided to move with hospice care. Refer to Dr. Jara's notes for further details. Please reconsult neurology team if any further concerns.
[2021-11-05 15:01] VITALS: BMI 20.5
--- NOTE | 2021-11-05 17:16 | P.PN ---
Subjective Progress Note Date: 11/05/21 Hattie Cardenas, is an 86 year old female who presented to [facility] emergency room with a chief complaint of generalized weakness and mental status changes He was evaluated in the emergency room vital examination on presentation revealed a temperature of 98.4 pulse 76 respirations 16 blood pressure 140/78 pulse ox 94% on room air Laboratory data revealed a white blood count of 9.8 hemoglobin 10.3 platelet count 236 BUN 47 creatinine 2.0 glucose 205 urine analysis did not reveal any evidence of urinary tract infection COVID-19 PCR was negative Testing in the emergency room revealed chest x-ray revealed evidence of COPD and interstitial densities that may reflect superimposed bronchitis, computed tomography scan of the brain revealed no acute intracranial process, chronic Tod earing periventricular white matter ischemic changes and old right cerebellar lacunar infarct Patient was admitted to medical floor for further evaluation and treatment On 10/31/2021 patient is more lethargic today does wake up but quickly falls back to sleep. Neurology services have been consulted repeat computed tomography scan, MRI and EEG have been ordered. Vitals have remained stable. UA negative. COVID-19 negative. On 11/01/2021 patient was seen and examined on the medical floor she is more alert and responsive today there is no fever or chills no headache or dizziness no chest pain no shortness of breath no cough no nausea or vomiting no abdominal pain no diarrhea and no urinary symptoms. Patient has severe swallowing abnormality, family is deciding whether they want her to have a PEG tube on whether to proceed with hospice care, case was discussed in length with patient's family, and also discussed with neurologist Dr. Jara 11/02/2021 patient is more responsive today. Awaiting family decision regards to PEG tube placement versus hospice care. At this time patient is resting comfortably in bed. Patient denies nausea vomiting or diarrhea. Patient denies any urinary burning or frequency On 11/03/2021 patient was seen and examined on the medical floor she is alert and responsive in no apparent distress there is no fever or chills no headache or dizziness no chest pain no shortness of breath no cough no nausea or vomiting no abdominal pain no diarrhea no burning with urination no frequency was urination. At this time plan is to repeat swallow evaluation on Friday, family will decide in regard to further management plans after results of swallow evaluation on Friday. Currently her CODE STATUS is no code. Otherwise continue with IV fluid IV antibiotic current management. On 11/04/2021 patient is currently resting comfortably in bed. Plans for repeat swallow evaluation on Friday to assess for possible PEG tube placement. This time patient denies chest pain or shortness breath. Patient denies nausea vomiting or diarrhea. Patient denies any urinary burning or frequency On 11/05/2021 patient was seen and examined on the medical floor she is alert and oriented 3 in no apparent distress there is no fever or chills no headache or dizziness no chest pain no shortness of breath no cough no nausea or vomiting no abdominal pain no diarrhea and no urinary symptoms. Patient had repeat swallow evaluation again today which she failed. I had a family meeting today and different modalities of treatment were discussed in details including PEG t ube placement for feeding. Family however decided to proceed with comfort care only and hospice care, plan is for discharge tomorrow with hospice, immigration case manager will help patient and her family decide whether they can take patient home or if she needs to go to one of the local nursing homes or to the hospice house. Objective - Vital Signs Vital signs: Vital Signs Temp 97.5 F L 11/05/21 14:00 Pulse 106 H 11/05/21 14:00 Resp 14 11/05/21 14:00 BP 157/73 11/05/21 14:00 Pulse Ox 98 11/05/21 14:00 FiO2 Intake & Output 11/04/21 11/05/21 11/05/21 18:59 06:59 18:59 Intake Total 200 Output Total 500 1 Balance -500 199 Weight 54.431 kg Intake: Oral 200 Output: Urine 500 Stool 1 Other: Voiding Method External Catheter External Catheter External Catheter # Voids 2 - Exam In general patient is alert and oriented x 3 in no distress HEENT head normocephalic and atraumatic Neck is supple no JVD no goiter no lymphadenopathy no carotid bruit Chest examination is clear to auscultation no crackles no wheezing Cardiac exam reveals regular heart sounds S1 and S2 no gallops no murmurs Abdomen is soft nontender no organomegaly with normal bowel sounds Extremity exam reveals no edema no cyanosis or clubbing Neurological examination very limited due to patient noncooperation but essentially reveals no gross focal deficits - Labs CBC & Chem 7: 11/05/21 07:08 11/05/21 07:08 Labs: Abnormal Lab Results - Last 24 Hours (Table) 11/04/21 11/05/21 11/05/21 Range/Units 19:52 06:51 07:08 WBC 11.61 H (4.50-10.00) X 10*3/uL RBC 2.86 L (4.10-5.20) X 10*6/uL Hgb 9.7 L (12.0-15.0) g/dL Hct 30.3 L (37.2-46.3) % MCV 105.9 H (80.0-97.0) fL MCH 33.9 H (27.0-32.0) pg RDW 16.2 H (11.5-14.5) % Immature Gran # 0.13 H (0.00-0.04) X 10*3/uL Neutrophils # 9.98 H (1.80-7.70) X 10*3/uL Lymphocytes # 0.81 L (0.90-5.00) X 10*3/uL Eosinophils # 0.02 L (0.04-0.35) X 10*3/uL Sodium (135-145) mmol/L Chloride (96-109) mmol/L Carbon Dioxide (20.0-27.5) mmol/L Anion Gap (10.00-18.00) mmol/L BUN (9.0-27.0) mg/dL Creatinine (0.6-1.5) mg/dL Est GFR (CKD-EPI)AfAm (60.0-200.0) Est GFR (CKD-EPI)NonAf (60.0-200.0) Glucose (70-110) mg/dL POC Glucose (mg/dL) 148 H 137 H (70-110) mg/dL Total Bilirubin (0.30-1.20) mg/dL Albumin (3.8-4.9) g/dL Albumin/Globulin Ratio (1.60-3.17) g/dL 11/05/21 11/05/21 Range/Units 07:08 11:38 WBC (4.50-10.00) X 10*3/uL RBC (4.10-5.20) X 10*6/uL Hgb (12.0-15.0) g/dL Hct (37.2-46.3) % MCV (80.0-97.0) fL MCH (27.0-32.0) pg RDW (11.5-14.5) % Immature Gran # (0.00-0.04) X 10*3/uL Neutrophils # (1.80-7.70) X 10*3/uL Lymphocytes # (0.90-5.00) X 10*3/uL Eosinophils # (0.04-0.35) X 10*3/uL Sodium 152 H (135-145) mmol/L Chloride 118 H (96-109) mmol/L Carbon Dioxide 13.9 L (20.0-27.5) mmol/L Anion Gap 20.80 H (10.00-18.00) mmol/L BUN 28.4 H (9.0-27.0) mg/dL Creatinine 1.6 H (0.6-1.5) mg/dL Est GFR (CKD-EPI)AfAm 34.0 L (60.0-200.0) Est GFR (CKD-EPI)NonAf 29.3 L (60.0-200.0) Glucose 155 H (70-110) mg/dL POC Glucose (mg/dL) 140 H (70-110) mg/dL Total Bilirubin 0.20 L (0.30-1.20) mg/dL Albumin 3.6 L (3.8-4.9) g/dL Albumin/Globulin Ratio 1.17 L (1.60-3.17) g/dL Assessment and Plan Plan: Generalized weakness Evidence of acute bronchitis on chest x-ray Acute kidney injury was elevated BUN and creatinine Acute mental status changes cause is unclear Macrocytic anemia MCV is 101.5, will check vitamin B12 and folate level Significant weight loss will obtain nutrition consult Underlying history of hyperlipidemia Underlying history of hypertension Underlying history of gout Underlying history of chronic kidney disease Dysphagia. Patient failed barium swallow test. Family to decide between PEG tube versus hospice care At this time patient was seen and examined Repeat swallow exam Friday
[2021-11-06 08:19] VITALS: BP 189/82; PULSE 95; RESP 12; TEMP 98
[2021-11-06] MEDS: MULTIVITAMINS, THERA 1 EACH TAB PO SCH (09:18)
[2021-11-06] MEDS: ASPIRIN 300 MG SUPP RECTAL SCH (09:32)
[2021-11-06] MEDS: ENOXAPARIN 30 MG/0.3 ML SYRINGE SQ SCH (09:32)
--- NOTE | 2021-11-06 13:35 | CDI ---
Documentation Clarification Form Date: 11/06/2021 From: Beckie Blanc RN, CCDS Admit Date: 10/29/2021 02:37:00 PM Patient Name: Hattie Cardenas Visit Number: [id number] Discharge Date: ATTENTION: The Clinical Documentation Specialists (CDI) and [facility] Coding Staff appreciate your assistance in clarifying documentation. Please respond to the clarification below the line at the bottom and electronically sign. The CDI & [facility] Coding staff will review the response and follow-up if needed. Please note: Queries are made part of the Legal Health Record. If you have any questions, please contact the author of this message via ITS. Dr. Edilma Wood Unspecified CKD is documented in the H/P and subsequent progress notes. Additional clarification regarding the stage of CKD is requested. History/Risk Factors: Chronic kidney disease, Coronary artery disease, Diabetes Mellitus Hypertension Historical: 05/03/2020 BUN 64.0 CR 2.4, GFR 17.8 10/29 BUN 47, CR, CR 2.00, GFR 22 11/01 BUN 26.9, CR 1.7, GFR 26.6 11/05 BUN 28.4, CR 1.6, GFR 29.3 Clinical Indicators: 86-year-old with past medical history present with generalized weakness and mental status changes. Treatment: Monitor Labs: BUN, CR, Lytes .9NS 500 ML Bolus 10/29 then IV @ 75 MLS/HR Please clarify the stage of the CKD, if known: [ ] CKD Stage 2 (GFR 60-89) [ ] CKD Stage 3 (GFR 30-59) [ ] CKD Stage 3a (GFR 45-59) [ ] CKD Stage 3b (GFR 30-44) [ x ] CKD Stage 4 (GFR 15-29) [ ] Other, please specify [ ] Unable to determine (Template Last revised: March 2020) MTDD
[2021-11-06] MEDS: SODIUM CHLORIDE 0.9% 1,000 ML IV SCH (13:41)
--- NOTE | 2021-11-13 13:25 | CDI ---
Documentation Clarification Form Date: 11/13/2021 01:18:00 PM From: Shwetha Pace Admit Date: 10/29/2021 02:37:00 PM Patient Name: Hattie Cardenas Visit Number: [id number] Discharge Date: 11/06/2021 04:40:00 PM ATTENTION: The Clinical Documentation Specialists (CDI) and [facility] Coding Staff appreciate your assistance in clarifying documentation. Please respond to the clarification below the line at the bottom and electronically sign. The CDI & [facility] Coding staff will review the response and follow-up if needed. Please note: Queries are made part of the Legal Health Record. If you have any questions, please contact the author of this message via ITS. Dr. Edilma Wood The patients principal diagnosis the diagnosis that was chiefly responsible for the admission - has not been clearly identified and clarification is requested. The patient presented with the following altered mental status, aspiration with all consistencies, acute bronchitis, and generalized weakness History/Risk factors: Patient has SCOTT, anemia, weight loss, underlying CKD Clinical Indicators: Radiology findings: chest x-ray could reflect superimposed bronchitis Vital Signs: oxygen: 94, T: 98.4, P: 76- 56 BPM R 16-20, BP : 140/78 Treatment: Rocephin, IV fluids, Video Swallow Study for aspiration and dysphagia Consults: Neurology In your professional opinion, can you please clarify which diagnosis, after study, was the reason chiefly responsible for the admission? [x ] Metabolic Encephalopathy per neurology [ ] Acute Bronchitis [ ] Acute Kidney Injury [ ] Other, please specify [ ] Unable to determine MTDD
--- NOTE | 2021-11-14 11:51 | P.DS ---
Providers Date of admission: 10/29/21 14:37 Expected date of discharge: 11/06/21 Attending physician: Edilma Wood Consults: 10/29/21 18:25 Consult Physician Routine Consulting Provider: Vladimir Jara Consult Reason/Comments: mental status changes Do you want consulting provider notified?: Yes 10/30/21 19:13 Consult Physician Routine Consulting Provider: Endy Blas Consult Reason/Comments: mental status changes Do you want consulting provider notified?: Yes Primary care physician: Edilma Wood [facility] Course: Diagnosis on discharge: Generalized weakness Evidence of acute bronchitis on chest x-ray Acute kidney injury was elevated BUN and creatinine Acute mental status changes cause is unclear Macrocytic anemia MCV is 101.5, will check vitamin B12 and folate level Significant weight loss will obtain nutrition consult Underlying history of hyperlipidemia Underlying history of hypertension Underlying history of gout Underlying history of chronic kidney disease Dysphagia. Patient failed barium swallow test. Family to decide between PEG tube versus hospice care Hospital course: Hattie Cardenas, is an 86 year old female who presented to [facility] emergency room with a chief complaint of generalized weakness and mental status changes He was evaluated in the emergency room vital examination on presentation revealed a temperature of 98.4 pulse 76 respirations 16 blood pressure 140/78 pulse ox 94% on room air Laboratory data revealed a white blood count of 9.8 hemoglobin 10.3 platelet count 236 BUN 47 creatinine 2.0 glucose 205 urine analysis did not reveal any evidence of urinary tract infection COVID-19 PCR was negative Testing in the emergency room revealed chest x-ray revealed evidence of COPD and interstitial densities that may reflect superimposed bronchitis, computed tomography scan of the brain revealed no acute intracranial process, chronic Appearing periventricular white matter ischemic changes and old right cerebellar lacunar infarct Patient was admitted to medical floor for further evaluation and treatment On 10/31/2021 patient is more lethargic today does wake up but quickly falls back to sleep. Neurology services have been consulted repeat computed tomography scan, MRI and EEG have been ordered. Vitals have remained stable. UA negative. COVID-19 negative. On 11/01/2021 patient was seen and examined on the medical floor she is more alert and responsive today there is no fever or chills no headache or dizziness no chest pain no shortness of breath no cough no nausea or vomiting no abdominal pain no diarrhea and no urinary symptoms. Patient has severe swallowing abnormality, family is deciding whether they want her to have a PEG tube on whether to proceed with hospice care, case was discussed in length with patient's family, and also discussed with neurologist Dr. Jara 11/02/2021 patient is more responsive today. Awaiting family decision regards to PEG tube placement versus hospice care. At this time patient is resting comfortably in bed. Patient denies nausea vomiting or diarrhea. Patient denies any urinary burning or frequency On 11/03/2021 patient was seen and examined on the medical floor she is alert and responsive in no apparent distress there is no fever or chills no headache or dizziness no chest pain no shortness of breath no cough no nausea or vomiting no abdominal pain no diarrhea no burning with urination no frequency was urination. At this time plan is to repeat swallow evaluation on Friday, family will decide in regard to further management plans after results of swallow evaluation on Friday. Currently her CODE STATUS is no code. Otherwise continue with IV fluid IV antibiotic current management. On 11/04/2021 patient is currently resting comfortably in bed. Plans for repeat swallow evaluation on Friday to assess for possible PEG tube placement. This time patient denies chest pain or shortness breath. Patient denies nausea vomiting or diarrhea. Patient denies any urinary burning or frequency On 11/05/2021 patient was seen and examined on the medical floor she is alert a nd oriented 3 in no apparent distress there is no fever or chills no headache or dizziness no chest pain no shortness of breath no cough no nausea or vomiting no abdominal pain no diarrhea and no urinary symptoms. Patient had repeat swallow evaluation again today which she failed. I had a family meeting today and different modalities of treatment were discussed in details including PEG tube placement for feeding. Family however decided to proceed with comfort care only and hospice care, plan is for discharge tomorrow with hospice, social work case manager will help patient and her family decide whether they can take patient home or if she needs to go to one of the local nursing homes or to the hospice house. on 11/06/2021 patient will be transferred to hospice house under [facility] Patient Condition at Discharge: Fair Plan - Discharge Summary Discharge Rx Participant: No New Discharge Prescriptions: New Acetaminophen Tab [Tylenol] 650 mg PO Q6HR PRN tab PRN Reason: Mild Pain Or Fever > 100.5 Continue Pravastatin Sodium [Pravachol] 20 mg PO DAILY Ferrous Sulfate [Feosol] 325 mg PO DAILY Sodium Bicarbonate Tab 650 mg PO BID Metoprolol Tartrate [Lopressor] 25 mg PO BID Pantoprazole Sodium [Protonix] 40 mg PO DAILY #30 tablet. allopurinoL [Zyloprim] 100 mg PO DAILY Multivitamins, Thera [Multivitamin (formulary)] 1 tab PO DAILY Discharge Medication List Pravastatin Sodium [Pravachol] 20 mg PO DAILY 08/05/14 [History] Ferrous Sulfate [Feosol] 325 mg PO DAILY 08/15/19 [History] Sodium Bicarbonate Tab 650 mg PO BID 08/15/19 [History] Metoprolol Tartrate [Lopressor] 25 mg PO BID 04/20/20 [History] Pantoprazole Sodium [Protonix] 40 mg PO DAILY #30 tablet. 05/19/20 [Rx] Multivitamins, Thera [Multivitamin (formulary)] 1 tab PO DAILY 10/29/21 [History] allopurinoL [Zyloprim] 100 mg PO DAILY 10/29/21 [History] Acetaminophen Tab [Tylenol] 650 mg PO Q6HR PRN tab 11/06/21 [Rx] Follow up Appointment(s)/Referral(s): [facility] [NON-STAFF] - As Needed Discharge Disposition: HOME WITH HOSPICE
== END 2021-11-06 16:40 | disposition hospice, home (50) | DRG 71 ==
LOC: EC 12:03 → 4SSUR 14:37
PROVIDERS: ADMIT Internal Medicine; ATTEND Internal Medicine
PROC: 05HB33Z Insertion of Infusion Device into Right Basilic Vein, Percutaneous Approach (ICD-10-PCS; principal; 2021-11-01 08:50)
DX: G93.41 Metabolic encephalopathy (principal); G12.29 Other motor neuron disease; N17.9 Acute kidney failure, unspecified; J44.0 Chronic obstructive pulmonary disease with (acute) lower respiratory infection; N18.4 Chronic kidney disease, stage 4 (severe); J20.9 Acute bronchitis, unspecified; M10.9 Gout, unspecified; R26.81 Unsteadiness on feet; H81.13 Benign paroxysmal vertigo, bilateral; M81.0 Age-related osteoporosis without current pathological fracture; I25.10 Atherosclerotic heart disease of native coronary artery without angina pectoris; E78.5 Hyperlipidemia, unspecified; H53.2 Diplopia; D53.9 Nutritional anemia, unspecified; J44.9 Chronic obstructive pulmonary disease, unspecified; I12.9 Hypertensive chronic kidney disease with stage 1 through stage 4 chronic kidney disease, or unspecified chronic kidney disease; E11.22 Type 2 diabetes mellitus with diabetic chronic kidney disease; R63.4 Abnormal weight loss; E11.42 Type 2 diabetes mellitus with diabetic polyneuropathy; R13.10 Dysphagia, unspecified; T17.908A Unspecified foreign body in respiratory tract, part unspecified causing other injury, initial encounter; E86.0 Dehydration; Z20.822 Contact with and (suspected) exposure to COVID-19; I69.322 Dysarthria following cerebral infarction; Z79.899 Other long term (current) drug therapy; Z85.3 Personal history of malignant neoplasm of breast; Z92.3 Personal history of irradiation; Z68.20 Body mass index [BMI] 20.0-20.9, adult; Z91.81 History of falling; Z71.3 Dietary counseling and surveillance; Z88.0 Allergy status to penicillin; Z88.2 Allergy status to sulfonamides; Z88.8 Allergy status to other drugs, medicaments and biological substances
CPT/HCPCS: 36410; 36415; 36600; 70450; 70551; 71046; 74230; 76937; 80053; 81001; 82140; 82607; 82746; 82805; 83519; 83540; 83550; 84484; 85025; 85610; 85730; 87635; 93005; 93306; 93880; 94760; 95816; 96360; 96361; 99285